=== PATIENT | male | born 1945 | race Caucasian/White ===

== ENCOUNTER 2023-06-20 07:05 | Observation (INO) ==
--- NOTE | 2023-06-20 07:50 | History & Physical Bridge Note ---
Date of Service June 20, 2023 History & Physical Bridge Note I have examined the patient, reviewed the History & Physical and in the interval since the performance of the History & Physical I have noted the following changes of clinical significance: no changes noted
--- NOTE | 2023-06-20 07:51 | Pre Anesthesia Assessment ---
Date of Service June 20, 2023 Pre Sedation Assessment Vital Signs Temp 06/20/23 07:19 36.7 C Cardiovascular + regular rate and + regular rhythm + S1 normal and + S2 normal; no murmur + femoral pulses present and + radial pulses present; no JVD and no carotid bruit no edema Respiratory + respiratory effort normal; no respiratory distress, no labored breathing and no retractions + clear to auscultation bilaterally; no crackles, no rales, no rhonchi and no wheezes Pre-Sedation Airway Assessment Smoking Status: Former smoker Hx Sleep Apnea: No Short, Thick Neck: No Thyromental Distance: > or= 3.5 Finger Breadths Oral Cavity: + Chipped Teeth Mallampati Class: II ASA: ASA3 NPO Status Date of Last Intake of Fluids: 06/19/23 Date of Last Intake of Solid Food: 06/19/23 Procedure Planning Contraindications for Sedation: none Current Medications Reviewed: Yes Notes The planned sedation has been discussed with the patient. Informed Consent was obtained. I have identified the patient, determined the appropriateness of sedation and have assessed the patient immediately prior to the procedure. All medicine(s) and interventions are by my order.
[2023-06-20] MEDS: NITROGLYCERIN/D5W 100MCG/ML 20ML SYR ONE (08:41)
[2023-06-20] MEDS: niCARdipine HCL INJ 2.5 MG/ML 10 ML AMP ONE (08:42)
--- NOTE | 2023-06-20 09:00 | Post Anesthesia Assessment ---
Date of Service June 20, 2023 Post Sedation Assessment Vital Signs Temp Pulse Resp BP Pulse Ox O2 Del Method 06/20/23 11:43 53 L 16 174/75 H 98 Room Air 06/20/23 11:00 55 L 16 158/84 H 97 Room Air 06/20/23 10:45 62 16 169/76 H 97 Room Air 06/20/23 10:30 56 L 16 152/83 H 97 Room Air 06/20/23 10:15 52 L 16 139/74 98 Room Air 06/20/23 10:00 75 16 130/107 H 96 Room Air 06/20/23 07:19 36.7 C Recovery Score Respiration: Deep Breath/Cough Circulation: +/-20% PreAnes Value Consciousness: Arouseable (by name) Oxygen Saturation: > 92% On Room Air Discharge Sedation Level of Care: Phase I Post Sedation Plan On clinical assessment, the patient appears to have tolerated the sedation without complications. Patient is recovering as anticipated. Patient will continue to be monitored by nursing and may be discharged when sedation discharge criteria are met per below protocol. Upon Completions of procedure up to 15 minutes continue every 5 minute vital signs and the P.A.R. score; then discharge to a Phase I or Fast Track to Phase II per the following guidelines: * Discharge Patient to appropriate Phase II area if PAR is 8 or greater or return to pre- procedure baseline. The post - procedure orders will be as directed. * If PAR score is less than 8 or not return to pre-procedure baseline then patient will follow Phase I monitoring till PAR is reached for Phase II. The Phase I may be done in procedure room or may call to secure a Phase I area. * If naloxone or flumazenil are used for reversal, hold in Phase I for continued monitoring from when last reversal dose was given for a minimum of 60 minutes or longer pending the nurse and/or physician discretion of patient condition before discharge to Phase II. Please call the Sedation Physician to re-evaluate and complete post-note for discharge to Phase II area. Do NOT discharge from procedure sedation or Phase 1 until post- sedation evaluation note is complete by procedure /sedation MD Sedation Discharge Instructions to be given to the patient at discharge to home.
--- NOTE | 2023-06-20 09:10 | Cardiac Catheterization ---
Cardiac Cath Procedure Full Procedure Date June 20, 2023 Pre-Procedure Diagnosis Pre-Procedure Diagnosis: Positive Stress Test and Cardiothoracic Symptom AUC Score AUC Score: 7 Post-Procedure Diagnosis Post-Procedure Diagnosis: Severe CAD and Elevated Intracardiac Pressures Procedure(s) Performed Procedure(s) Performed: Coronary Angiography and Left Heart Cath Planer Stone Per Serrano DO Pulp Refiner Operator(s) Izzy INVENTORY ASSOCIATE Estimated Blood Loss Estimated Blood Loss: 5cc Medication(s) Medication(s): Fentanyl, Heparin, Lidocaine 1%, Nicardipine, Nitroglycerin and Versed Summary of Findings 100% chronic mid RCA occlusion with bridging and left to right collaterals. 50% mid LAD 40% proximal left circumflex Hemodynamics Rest Ao:: 119/54/89 Final Ao: 150/65/97 LV: 146/-5/17 Recommendations Recommendations: Management Recommendatons (FFR of 50% LAD) Radiation Exposure (mGy) 1006 Contrast (mls) 30 Fluids (cc crystalloids) Fluids (cc crystalloids): 80 Nss Drains Drains: N/A Anesthesia Moderate sedation. Start 0815. End 0843. Sedation monitor: Phil BILLINGS Procedural Complication(s) None Disposition Patient remained in Print Shop Helper for further evaluation of mid LAD stenosis. I attest to the content of the Intraoperative Record and any orders documented therein. Any exceptions are noted below. ACC Data: Print Shop Helper Cardiac Status Clinical evaluation leading to the procedure 77-year-old male with intermittent chest burning and recent ER visits due to uncontrolled hypertension/hypertensive urgency. Exercise stress echo demonstrating apical, and apical septal ischemia. CAD Presenation: Stable angina Anginal Classification: CCS II Heart Failure: No Imaging Studies Past 6 Months: Yes Stress Studies Past 6 Months: Yes Stress Echocardiogram: Yes - Positive and Risk/Extent of Ischemia (High) Coronary Anatomy Dominant: Right Left Main (% Stenosis): Normal LAD (% Stenosis): Mid (50%) and Distal (Luminal irregularities 10-20%, left to right collaterals) D1 (% Stenosis): Normal D2 (% Stenosis): Normal Circumflex (% Stenosis): Proximal (40%) OM1 (% Stenosis): Mid (Luminal irregularities, 10-20% large vessel, bifurcates distally) L PL1 (% Stenosis): Normal RCA (% Stenosis): Ostial (30%), Proximal (Moderate diffuse disease, 30%) and Mid (100% with bridging collaterals) R PDA (% Stenosis): Normal R PL1 (% Stenosis): Normal (small vessel) Diagnostic Physicians Name: Per Serrano DO Closure Device Percutaneous Entry Location: Radial Closure Device: Radial Band Recommendations: Management Recommendatons (FFR of 50% LAD) Intraprocedure Events Significant Disection: No Perforation: No
[2023-06-20] MEDS: fentaNYL citrate PF 100 MCG/2 ML VIAL ONE (09:51)
[2023-06-20] MEDS: HEPARIN (PORCINE) 1000 UNIT/ML 10 ML (CATH LAB USE ONLY) ONE ×2 (09:51→09:52)
[2023-06-20] MEDS: MIDAZOLAM HCL 1 MG/ML 2ML VIAL ONE ×2 (09:51→09:52)
[2023-06-20] MEDS: TICAGRELOR 90 MG TAB ONE (09:52)
[2023-06-20] MEDS: OPTIRAY 350 ONE (09:52)
--- NOTE | 2023-06-20 10:07 | Post Anesthesia Assessment ---
Date of Service June 20, 2023 Post Sedation Assessment Vital Signs Temp 06/20/23 07:19 98.1 F Recovery Score Activity: Moves 4 extremities Respiration: Deep Breath/Cough Circulation: +/-20% PreAnes Value Consciousness: Arouseable (by name) Oxygen Saturation: > 92% On Room Air Discharge Sedation Level of Care: Fast Track Phase II Post Sedation Plan On clinical assessment, the patient appears to have tolerated the sedation without complications. Patient is recovering as anticipated. Patient will continue to be monitored by nursing and may be discharged when sedation discharge criteria are met per below protocol. Upon Completions of procedure up to 15 minutes continue every 5 minute vital signs and the P.A.R. score; then discharge to a Phase I or Fast Track to Phase II per the following guidelines: * Discharge Patient to appropriate Phase II area if PAR is 8 or greater or return to pre- procedure baseline. The post - procedure orders will be as directed. * If PAR score is less than 8 or not return to pre-procedure baseline then patient will follow Phase I monitoring till PAR is reached for Phase II. The Phase I may be done in procedure room or may call to secure a Phase I area. * If naloxone or flumazenil are used for reversal, hold in Phase I for continued monitoring from when last reversal dose was given for a minimum of 60 minutes or longer pending the nurse and/or physician discretion of patient condition before discharge to Phase II. Please call the Sedation Physician to re-evaluate and complete post-note for discharge to Phase II area. Do NOT discharge from procedure sedation or Phase 1 until post- sedation evaluation note is complete by procedure /sedation MD Sedation Discharge Instructions to be given to the patient at discharge to home.
--- NOTE | 2023-06-20 10:07 | Cardiac Catheterization ---
[facility] Data: Geophysical Prospecting Permit Agent Cardiac Status Clinical evaluation leading to the procedure CAD Presenation: Positive Stress Test Anginal Classification: CCS III Diagnostic Physicians Name: Pranay Johnson MD Closure Device Recommendations: PCI without planned CABG Cardiac Cath Procedure Full Procedure Date June 20, 2023 Pre-Procedure Diagnosis Pre-Procedure Diagnosis: Positive Stress Test and CAD AUC Score AUC Score: 7 Post-Procedure Diagnosis Post-Procedure Diagnosis: Severe CAD and Successful PCI Procedure(s) Performed Procedure(s) Performed: Coronary Angiography, Drug Eluting Stent, IVUS and Fractional Flow [place] [employer] Cl[employer] Teacher Pranay Johnson MD Hospitality Manager(s) Izzy FIBERGLASS AUTOBODY REPAIRER Estimated Blood Loss Estimated Blood Loss: 20 Medication(s) Medication(s): Fentanyl, Heparin, Lidocaine 1%, Nicardipine, Nitroglycerin and Versed Medication(s): Ticagrelor Summary of Findings Indication: Abnormal stress test Access: 6 Fr right radial artery Catheters: EBU 3.5 guide Findings: For full details of patient's coronary angiography please see cath report dictated by Dr. Serrano. Briefly, patient found to have multivessel disease with RCA EQUIPMENT SERVICE LEAD with bridging right to right and [id number] collaterals. Also found to have intermediate mid LAD disease. Decision to proceed with IFR and possible PCI.. IFR of LAD Left main cannulated with EBU 3.5 guide [place] Omni wire placed across mid LAD stenosis IFR 0.71 -- PCI -- Antithrombotic therapy: Heparin, ticagrelor Procedure: Pre-procedure flow MICHELE 3 Omni wire removed, ferryboat pilot 50 wire passed across lesion into distal vessel [place] IVUS catheter placed to mid LAD, unable to pass across mid stenosis. Pullback revealed mild calcified proximal disease, no significant left main disease. Mid LAD lesion predilated with 2.5 compliant balloon Repeat IVUS following balloon dilation showed calcified, circumferential disease in midportion Dilated lesion stented with 3.0 x 22 mm [place]rick drug-eluting stent Stent post-dilated with 3.5 noncompliant balloon Repeat IVUS showed well-expanded, well apposed stent with no apparent edge complications. IC vasodilators administered for spasm Post procedure MICHELE 3 flow, stent well expanded with minimal residual stenosis and no apparent cardiac complications. Arterial Closure: TR band Summary: 1. Multivessel coronary artery disease Severe mid LAD disease (IFR 0.71) RCA EQUIPMENT SERVICE LEAD with bridging right to right and left to right collaterals. 2. Successful PCI of mid LAD with single drug-eluting stent (3.0 x 22 mm [place]; postdilated with 3.5 NC). Recommendations: To PCU for continued monitoring Loaded with ticagrelor 180 mg in Geophysical Prospecting Permit Agent Relative aspirin intolerance and will continue on antiplatelet monotherapy with ticagrelor for 1 month then transition to clopidogrel Continue statin, and ASCVD risk factor modification Consult cardiac Rehab Hemodynamics Rest Ao:: 119/54/89 Final Ao: 127/58/92 LV: 146/17 Recommendations Recommendations: PCI without planned CABG Specimens Specimens: None Radiation Exposure (mGy) 3161 Contrast (mls) 170 Fluids (cc crystalloids) Fluids (cc crystalloids): 80 Nss Anesthesia Moderate sedation. Start 0843. End 0951. Sedation monitor: Phil BILLINGS Procedural Complication(s) None Disposition PCU I attest to the content of the Intraoperative Record and any orders documented therein. Any exceptions are noted below. [facility] Card Cath Procedure Codes Cardiac Catheterization Procedure 2: Cardiovascular Cath Procedures: 33085 (Doppler) Pressure Wire Therapeutic Services & Ancillary Procedure 1: Cardiovascular Tx and Anc Procedures: 15784 IV Ultrasound (Coronary or Graft) Moderate Sedation Procedure 1: Sedation/Anesthesia: 12605 Mod Sedation by the same physician; Ea [id number] Minutes Stenting Procedure 1: Cardiovascular Stent Procedures: 22339 Perc transcatheter placement of intracoronary stent(s), with ang PG Care Time/CCT Total # of Minutes Spent Total Time Spent with Patient: Total time spent is greater than 50% in coordination of care (as documented) at patient's floor/unit and/or counseling patient:
[2023-06-20] MEDS ORDERED: ACETAMINOPHEN 325 MG TAB PO PRN (10:12)
[2023-06-20] MEDS ORDERED: ONDANSETRON INJ 2 MG/ML 2 ML VIAL IV PRN ×2 (10:12→10:47)
--- OUTSIDE RECORDS SUMMARY | 2023-06-20 10:19 | External Medical Summary | Summary of Care ---
Author Name Unknown Organization [facility] Address [address] [place] [address] Phone [phone] Care Team Providers Care Advanced Manufacturing Consultant Name Role Phone Jorge Zhao MD Primary Care Provider Reason for Visit * Reason Comments Anxiety Encounter Details Date Type Department Care Team (Late st Contact Info) Description 06/15/2023 10:00 AM EDT Therapy Psychology, [address] [address] Danica Stover, [facility] [address] [place] [address] Anxiety disorder, unspecified type* Allergies Active Allergy Reactions Criticality Noted Date Comments Clarithromycin 04/02/2001 ? Rash. Tolerates azithromycin on multiple occasions Doxycycline 09/27/1999 Rash documented as of this encounter (statuses as of 06/15/2023) Medications Medication Sig Dispensed Refills Start Date End Date Status MULTIVITAMINS PO TABS 1 a day 30 0 04/25/2007 Active vitamin c (ASCORBIC ACID) 500 MG Tablet Take 2 Tablets by mouth in the morning. 0 Active Calcium Magnesium Zinc 333-133-5 MG Oral Tablet Take 1 Tablet by mouth daily. 1 Tablet 0 02/19/2021 Active Saw [place] 1000 MG Oral Capsule Take by mouth . 0 Acti ve Olopatadine HCl 0.6 % Nasal Solution (Patanase) Administer 2 Sprays into nostril in the morning and 2 Sprays before bedtime. 30.5 g 5 04/25/2022 Active Additional Information Patient taking differently:2 [place] NasalBID PRN, Rhinitis, Reported on 05/22/2023 Famotidine 20 MG Oral Tablet (Pepcid)Indications :Gastroesophageal reflux disease without esophagitis Take 1 Tablet by mouth in the morning and 1 Tablet before bedtime. 180 Tablet 1 12/12/2022 Active Additional Information Patient taking differently:20 mg OralBID PRN, Heartburn, Reported on 05/22/2023 Pantoprazole Sodium 40 MG Oral Tablet Delayed Release (Protonix)Indicatio ns:Gastroesophageal reflux disease without esophagitis Take 1 Tablet by mouth in the morning. 30 minutes before the first meal of the day. Do not crush, split or chew the tablet. 90 Tablet 1 12/12/2022 Active Additional Information Patient taking differently:40 mg OralDAILY PRN, 30 minutes before the first meal of the day. Do not crush, split or chew the tablet, Reported on 05/22/2023 Gabapentin 100 MG Oral Capsule (Neurontin) TAKE 2 CAPSULES BY MOUTH IN THE EVENING 180 Capsule 1 01/12/2023 Active Rosuvastatin Calcium 5 MG Oral Tablet (Crestor) Take 1 Tablet by mouth in the morning. 90 Tablet 3 03/08/2023 Active methylPREDNISolone 4 MG Oral Tablet Therapy Pack (Medrol Dosepack) follow package directions 21 Tablet 0 03/23/2023 Active Additional Information Patient not taking.Reported on 05/22/2023 busPIRone HCl 5 MG Oral Tablet (Buspar)Indications :BREANNA (generalized anxiety disorder) One tablet by mouth twice daily as needed for anxiety 60 Tablet 1 03/27/2023 Active Albuterol Sulfate HFA 108 (90 Base) MCG/ACT Inhalation Aerosol SolutionIndications :Mild intermittent asthma without complication Inhale 2 Puffs by mouth every 4 hours as needed (cough or wheeze). 18 g 2 03/27/2023 Active Sucralfate 1 GM Oral Tablet (Carafate) Take 1 Tablet by mouth 4 times a day before meals and at bedtime as needed (stomach symptoms.). 120 Tablet 3 04/27/2023 Active Latanoprost 0.005 % Ophthalmic Solution (Xalatan) Instill 1 Drop into both eyes at bedtime. 2.5 mL 5 05/03/2023 Active prednisoLONE Acetate 1 % Ophthalmic Suspension (Pred Forte)Indications:C hronic maxillary sinusitis Use 10 drops in NeilMed Saline nasal irrigation two times a day. 5 mL 4 05/09/2023 Active Additional Information Patient taking differently: PRN, Use 10 drops in NeilMed Saline nasal irrigation two times a day., Reported on 05/22/2023 Metoprolol Succinate ER 25 MG Oral Tablet Extended Release 24 Hour (Toprol XL) Take 1 Tablet by mouth in the morning. 34 Tablet 6 05/22/2023 Active Ezetimibe 10 MG Oral Tablet (Zetia) TAKE 1 TABLET BY MOUTH IN THE MORNING 90 Tablet 3 06/02/2023 Active Losartan Potassium 25 MG Oral Tablet (Cozaar) Take 1 Tablet by mouth in the morning. 34 Tablet 11 06/02/2023 Active Clopidogrel Bisulfate 75 MG Oral Tablet (pLAVix) Take 1 Tablet by mouth in the morning. 34 Tablet 11 06/02/2023 Active Hospital, Clinic, or Other Facility Administered Medication Ordered Dose Route Frequency Start Date End Date Status Albuterol Sulfate (Proventil) (2.5 MG/3ML) 0.083% inhalation solution 2.5 mgIndications:Shortness of breath 2.5 mg NEBULIZER ONCE PRN 03/27/2023 03/26/2024 Active documented as of this encounter (statuses as of 06/15/2023) Active Problems Problem Noted Date Diagnosed Date PVC (premature ventricular contraction) 01/25/20 23 Mixed dyslipidemia 09/19/2016 Mild intermittent asthma without complication Ascending aorta dilation 09/08/2014 DDD (degenerative disc disease), lumbar 01/01/20 13 Gastroesophageal reflux disease without esophagi tis 06/07/2004 Deviated nasal septum 05/28/2003 Irritable bowel syndrome documented as of this encounter (statuses as of 06/15/2023) Resolved Problems Problem Noted Date Diagnosed Date Resolved Date Dysthymia 03/30/2020 03/14/2021 Thrombophlebitis of superfic ial veins of left lower extremity 01/03/2019 02/12/2019 Myofascial pain 05/07/2018 12/31/2018 Overview: acute Sacroiliitis 04/23/2018 03/25/2019 Prediabetes 04/25/2017 08/04/2019 Overview: Per Prediabetes protocol #1 Gastroesophageal reflux dise ase without esophagitis 10/21/2014 09/19/2016 Ascending aortic aneurysm 09/08/2014 Ureter injury 02/27/2014 09/19/2016 Intermittent asthma with rel iever use up to twice per week 12/31/2012 10/21/2014 Hyperlipidemia with target LDL less than 130 3 10/21/2014 Overview: ICD-10 update of inactive term Asthma, mild persistent 09/28/201212/12 C. difficile colitis 10/01/2011 017 Dyslipidemia, goal to be determined 02/17/2009 05/29/2012 Overview: Per Lipid Taxonomy. Impotence of organic origin 05/15/2008 08/04/2019 ADVANCE DIRECTIVE INFORMATION 02/09/2006 12/17/2018 Overview: no ALLERGIC RHINITIS - MIXED TYPE 05/28/2003 12/31/2018 Overview: acute CHR ALLRG CONJUNCTIV NEC 05/28/200312/2016 Asthma with severity to be determined 05/28/2003 09/28/2012 Overview: ICD-10 update of inactive term Mixed dyslipidemia 01/08/1999 9 Overview: Per Lipid Taxonomy. Esophageal reflux 10/21/2014 documented as of this encounter (statuses as of 06/15/2023) Immunizations Name Administration Dates Next Due COVID-19 mRNA, LNP-s, No Pre serve, 2-Dose Series (NexImmune) 03/31/2021,07/19/2020,06/25/2020 Pneumococcal Conjugate Vacc, 13 Valent (Prevnar) 09/21/2015 Pneumococcal Polysaccharide PPV23 (Pneumovax) 09/27/2011 RSV Vac., Bivalent, Perfusio n F, Pf,0.5 Ml (Abrysvo) 03/15/2023 Season Influenza, Quad, PF, Adjuvanted, 65+ Yrs, IM (FLUAD) 01/15/2020 Seasonal Influenza, PF, 6 M & above, IM , (FluLaval or Fluzone) 12/13/2017,05/09/2017 Seasonal Influenza, Quadriva lent Hd (Fluzone Hd) 11/16/2022,12/07/2021,01/08/2021 Seasonal Influenza, Trivalen t, Adjuvanted, 65+ yrs 11/23/2018 TDAP (age 10 and older)(Boostrix) 11/16/2018 TDAP (age 11 and older)(Adacel) 07/25/2008 documented as of this encounter Social History Tobacco Use Types Packs/Day Years Used Date Smoking Tobacco: Never Smokeless Tobacco: Never Comments:no passive smoke at home Alcohol Use Standard Drinks/Week Comments Not Currently 0 (1 standard drink = 0.6 oz pur e alcohol) PHQ-2 Answer Date Recorded PHQ Adult Total Score 0 12/12/2022 Hunger Vital Sign Answer Date Recorded Within the past 12 months, y ou worried that your food would run out before you got the money to buy more. Never true 04/24/19 24 Within the past 12 months, t he food you bought just didn't last and you didn't have money to get more. Never true 04/24/2023 Sex and Gender Information Value Date Recorded Sex Assigned at Male 12/17/2018 1:24 PM EDT Gender Identity Male 12/17/2018 1:24 PM EDT Sexual Orientation Straight 12/17/2018 1: 24 PM EDT Job Start Date Occupation Industry Not on file Not on file Not on file documented as of this encounter Progress Notes * Danica Stover, KD - 06/15/2023 9:58 AM EDT Images from the original note were not included. PRIMARY CARE BEHAVIORAL HEALTH FOLLOW-UP 06/15/2023 Length of visit: 45 minutes (10:00am - 10:55am) Type of Visit: individual Treatment session number: 3 AGENDA & ACTION PLAN: 06/15/23- Miko was oriented and engaged. Miko reports that he is making progress. He has started to look at things differently. Miko continues to monitor blood pressure and reports that it has been more level. Miko states that he is not an immediate threat to himself or anyone else at this time. Explored thoughts and concerns about depression- lack of interest in business, irritability, feeling down for a couple of days after marjorie leaves. Continued to talk through the event of the changes with grandson in terms of grief and loss to understand emotional roller coaster after grandson leaves. Explored more anxious thoughts and base line of anxiety. Identified some base line anxiety occurring before changes with grandkristen occurred and his health. Nothing that presented problematic but with two major event occurring at the same time impacted anxiety as well as catastrophizing Identified unhelpful behaviors that add to and increase anxiety such as searching the internet. Put into perspective worry about Miko's feelings about grief and feeling like it was not normal. Plan: Follow up with Miko and health results. Processed emotions to changes with grandson Optional: Interventions addressed in treatment thus far: Treatment/Intervention Visit 06/15/2023 1 2 3 4 5 6 Behavioral activation Behavior modification for poor health behaviors (e.g., smoking cessation) Breathing re-training mindfulness training Cognitive restructuring/diffusion Exercise/physical activity Problem-solving Psychoeducation X Exposure and/or response prevention Supportive therapy X Sleep hygiene Stimulus control Time in bed restriction Conduct WHO ([facility],MTM) Adult [facility] Therapy Treatment Plan Treatment plan was developed on 05/30/23, treatment will continue to focus on goals below; Treatment update will occur when clinically indicated or by 11/26/2023. Reasons for deferring a goal or the objectives leading toward or related to a goal are documented in the progress note. Patient received copy of treatment plan: Patient seen in clinic, signature page signed electronically Patient's strengths and facilitating factors to care: Seeking help, Goal Oriented, Good support system, and Cooperative Individuals responsible for carrying out plan: Patient Expected family or significant other involvement: Not applicable Treatment Barriers: none identified Crisis planning: What I can do if I ever experience a crisis (much worse symptoms, severe distress or thoughts of self-harm): Take a walk, go do something work on something, ride horse People I can call in the event of a crisis: Spouse/partner/significant other: Additional resources I can utilize if the previous steps are ineffective (e.g: ED, hotlines): County Crisis Contact Estimated frequency of treatment Estimated duration Estimated Completion Type of Service Interventions approximately every 2-4 weeks 5-7 sessions 6 months Individual Cognitive Behavioral Therapy (CBT), which includes psychoeducation, cognitive restructuring, relaxation/diaphragmatic breathing, problem-solving, and behavioral activation and Acceptance & Commitment Therapy (ACT), including acceptance, cognitive defusion, being present, values, and committed action Patient was asked to rate how big of a problem each target symptom is, from 0 (not at all a problem) to 10 (a huge problem) Patient identified Goals/Needs "To try and domsething for my irritable bowel and not to have all the symptoms of stress and anxiety all the time" Objective/Discharge Criteria Need 1: Reduce symptoms of depression and anxiety as measured by the PHQ-9 and BREANNA-7 (see below) Other: Reduce anxiety by half Please choose a method to track patient's improvement based on clinical assessment: Date 05/30/23 PHQ 4 BREANNA-7 11 #9 0 Discharge Discussed with patient: Patient is not ready for discharge Is this the patients' initial treatment plan? Yes MENTAL STATUS EXAMINATION: No changes to mental status since last visit. No change in suicide or homicide risk status since last visit. Level of suicide completion risk:Low Risk (wish to or ideation without method, intent, plan, orbehavior; modifiable risk factors and strong protective factors; or no reported history of ideationor behavior): Pt has agreed to return for further psychotherapy. DIAGNOSES Unspecified Anxiety Disorder RETURN 3 WEEKS for individual cognitive behavioral therapy. Danica Stover LCSW Primary Care Behavioral Health Psychology, [address] [phone] documented in this encounter Plan of Treatment Upcoming Encounters Date Type Department Care Team (Late st Contact Info) Description 07/04/2023 10:00 AM EDT Office Visit Cardiology, [facility] [address] [place] [address] Per Serrano DO [address] [place] [address] 07/05/2023 2:00 PM EDT Therapy Psychology, [place] [facility] [phone] Danica Stover LCSW [address] [place] [address] 07/17/2023 2:40 PM EDT Office Visit Family [address] [place] [address] Jorge Zhao MD [address] [place], [place] [address] [place] [address] 08/01/2023 11:00 AM EDT Office Visit Cardiology, [facility] [address] [facility] [place] [address] Meaghan Hargrove PA-C [address] [place] [address] 09/19/2023 9:00 AM EDT Office Visit Psychiatry, [place] [address] [place] [address] Treasure Mcclain CRNP [address] [facility] [place] [address] 09/21/2023 10:30 AM EDT Office [facility] [address] [place] [address] [place] [address] Rosas Caba MD [address] [place] [place] [address] 09/29/2023 8:15 AM EDT Office Visit Ophthalmology, [place] [address] [place] [address] García Winston MD [address] [place] [address] 10/04/2023 8:20 AM EDT Office Visit Dermatology [facility] [place] [address] [place] [address] Vilma Burris PA-C [address] [place] [address] 10/24/2023 9:00 AM EDT Hospital Encounter ENDO GECL, Endoscopy [address] [phone] Fidencio Hall MD [address] [place] [address] 10/24/2023 9:00 AM EDT - 10/24/2023 9:45 AM EDT Surgery ENDO GECL, Endoscopy [address] [phone] Fidencio Hall MD [address] [place] [address] COLONOSCOPY FLEXIBLE PROXIMAL DIAGNOSTIC 11/07/2023 10:40 AM EDT Office Visit Otolaryngology, [place] [address] [place] [address] Saúl Yu PA-C [address] [place] [address] Scheduled Procedures Name Priority Associated Diagnoses Date/Ti me COLONOSCOPY FLEXIBLE PROXIMA L DIAGNOSTIC Recall History of colonic polyps Irritable bowel syndrome with constipation GERD (gastroesophageal reflux disease) 10/24/2023 9:00 AM EDT ESOPHAGOGASTRODUODENOSCOPY ( EGD), FLEXIBLE, TRANSORAL, DIAGNOSTIC Recall History of colonic polyps Irritable bowel syndrome with constipation GERD (gastroesophageal reflux disease) 10/24/2023 9:00 AM EDT Health Maintenance Due Date Last Done Comments Zoster Vaccines (1 of 2) 1996 COVID-19 Vaccine (4 - 2022-24 season) 2022 03/31/2021, 07/19/2020, 06/25/2020 Depression Screening 12/13/2023 12/12/2022 COLONOSCOPY-EVERY 5 YRS AGES 18-100 10/12/2025 10/12/2020, 10/12/2020, 02/07/2012, Additional history exists DTaP,Tdap,and Td Vaccines (3 - Td or Tdap) 11/16/2028 11/16/2018, 07/25/2008 Pneumococcal Vaccine: 65+ Years Completed 09/21/2015, 09/27/2011 Influenza Vaccine (FLU shot) Completed 08/2022, 12/07/2021, 01/08/2021, Additional history exists GARDASIL-HPV IMMUNIZATION SERIES Aged Out No longer eligible based on patient's age to complete this topic Hepatitis B Aged Out No longer eligi ble based on patient's age to complete this topic MENINGOCOCCAL (MENACTRA/MENVEO) Aged Out No longer eligible based on patient's age to complete this topic documented as of this encounter Medical Devices Not on filedocumented as of this encounter Visit Diagnoses Diagnosis Anxiety disorder, unspecified type- Primary History of colonic polyps Personal history of colonic polyps Irritable bowel syndrome with constipation Irritable bowel syndrome GERD (gastroesophageal reflux disease) Esophageal reflux documented in this encounter Care Teams Advanced Manufacturing Consultant Relationship Specialty Start Date End Date Jorge Zhao MD [facility] [address] [address] PCP - General Family Medicine 08/02/19 documented as of this encounter
--- OUTSIDE RECORDS SUMMARY | 2023-06-20 10:19 | External Medical Summary | Summary of Care ---
Author Name Unknown Organization [facility] Address [address] [place] [address] Phone [phone] Care Team Providers Care Entry Level Staff Accountant Name Role Phone Jorge Zhao MD Primary Care Provider Reason for Visit * Reason Comments EKG EKG for Dr. Serrano Encounter Details Date Type Department Care Team (Late st Contact Info) Description 06/09/2023 3:00 PM EDT Nurse Only Ancillary, [place] [id number] [place] [address] [phone] Page, Nurse, RN [facility] [address] [place] [phone] EKG (EKG for Dr. Serrano) Allergies Active Allergy Reactions Criticality Noted Date Comments Clarithromycin 04/02/2001 ? Rash. Tolerates azithromycin on multiple occasions Doxycycline 09/27/1999 Rash documented as of this encounter (statuses as of 06/09/2023) Medications Medication Sig Dispensed Refills Start Date End Date Status MULTIVITAMINS PO TABS 1 a day 30 0 04/25/2007 Active vitamin c (ASCORBIC ACID) 500 MG Tablet Take 2 Tablets by mouth in the morning. 0 Active Calcium Magnesium Zinc 333-133-5 MG Oral Tablet Take 1 Tablet by mouth daily. 1 Tablet 0 02/19/2021 Active Saw [place] 1000 MG Oral Capsule Take by mouth . 0 Acti ve Olopatadine HCl 0.6 % Nasal Solution (Patanase) Administer 2 Sprays into nostril in the morning and 2 Sprays before bedtime. 30.5 g 5 04/25/2022 Active Additional Information Patient taking differently:2 [place] NasalBID PRN, Rhinitis, Reported on 05/22/2023 Famotidine [...] as of this encounter (statuses as of 06/09/2023) Active Problems Problem Noted Date Diagnosed Date PVC (premature ventricular contraction) 01/25/20 23 Mixed dyslipidemia 09/19/2016 Mild intermittent asthma without complication Ascending aorta dilation 09/08/2014 DDD (degenerative disc disease), lumbar 01/01/20 13 Gastroesophageal reflux disease without esophagi tis 06/07/2004 Deviated nasal septum 05/28/2003 Irritable bowel syndrome documented as of this encounter (statuses as of 06/09/2023) Resolved Problems Problem Noted Date Diagnosed Date [...] as of this encounter (statuses as of 06/09/2023) Immunizations Name Administration Dates Next Due COVID-19 mRNA, LNP-s, No Pre serve, 2-Dose Series ([employer]) 03/31/2021,07/19/2020,06/25/2020 Pneumococcal Conjugate Vacc, 13 Valent (Prevnar) [...] on file documented as of this encounter Last Filed Vital Signs Vital Sign Reading Time Taken Comments Blood Pressure 146/62 06/09/2023 3:23 PM EDT Pulse 66 06/09/2023 3:23 PM EDT Temperature - - Respiratory Rate 16 06/09/2023 3:23 PM EDT Oxygen Saturation 98% 06/09/2023 3:23 PM EDT Inhaled Oxygen Concentration - - Weight - - Height - - Body Mass Index - - documented in this encounter Progress Notes * Rigoberto Berrios LPN - 06/09/2023 3:23 PM EDT ekg done as per dr's order documented in this encounter Plan of Treatment Upcoming Encounters Date Type Department Care Team (Late st Contact Info) Description 06/15/2023 10:00 AM EDT Therapy Psychology, [place] [address] [place] [phone] Danica Stover LCSW 21 [facility] [place] [address] 07/04/2023 10:00 AM EDT Office Visit Cardiology, [facility] [address] [place] [address] Per Serrano DO [address] [facility] [place] [address] 07/17/2023 2:40 PM EDT Office Visit [address] [place] [address] Jorge Zhao MD [address] [place] [address] [place] [address] 08/01/2023 11:00 AM EDT Office Visit Cardiology [facility] [address] [place] [address] Meaghan Hargrove PA-C [address] [place] [address] 09/19/2023 9:00 AM EDT Office Visit Psychiatry, [place] [facility] [place] [address] Treasure Mcclain CRNP [address] [place] [address] 09/21/2023 10:30 AM EDT Office Visit Orthopaedics Spine Surgery, [address], [place] [address] [place] [address] Rosas Caba MD [address] [facility] [address] [place] [address] [facility] [place] [address] 09/29/2023 8:15 AM EDT Office Visit Ophthalmology, [place] [address] [place] [address] García Winston MD [address] [place] [address] 10/04/2023 8:20 AM EDT Office Visit Dermatology [facility] [address] [place] [address] Vilma Burris PA-C [address] [place] [address] 10/24/2023 9:00 AM EDT Hospital Encounter ENDO GECL, Endoscopy [address] [phone] Fidencio Hall MD [address] [place] [address] 10/24/2023 9:00 AM EDT - 10/24/2023 9:45 AM EDT Surgery ENDO GECL, Endoscopy [address] [phone] Fidencio Hall MD [address] [place] [address] COLONOSCOPY FLEXIBLE PROXIMAL DIAGNOSTIC 11/07/2023 10:40 AM EDT Office Visit [place]ology, [place] [address] [place] [address] Saúl Yu PA-C [address] [place] [address] Scheduled Procedures Name Priority Associated Diagnoses Date/Ti [...] Vaccines (1 of 2) 1996 COVID-19 Vaccine ( season) 2022 03/31/2021, 07/19/2020, 06/25/2020 Depression Screening [...] Not on filedocumented as of this encounter Care Teams Entry Level Staff Accountant Relationship Specialty Start Date End Date Jorge Zhao MD [address] [facility] [address] [place] [address] PCP - General Family Medicine 08/02/19 documented as of this encounter
--- OUTSIDE RECORDS SUMMARY | 2023-06-20 10:19 | External Medical Summary | Summary of Care ---
Author Name Unknown Organization [facility] Address [address] [place] [address] Phone [phone] Care Team Providers Care Inset Cutter Name Role Phone Jorge Zhao MD Primary Care Provider Reason for Visit * Reason Onset Date Comments Test Results 06/15/2023 Encounter Details Date Type Department Care Team (Late st Contact Info) Description 06/15/2023 Telephone Cardiology, [facility] [address] [facility] [address] Per Serrano, DO [address] [facility] [address] Test Results Allergies Active Allergy Reactions Criticality Noted Date [...] daily. 1 Tablet 0 02/19/2021 Active Saw [place] 1000 MG Oral Capsule Take by mouth . 0 Acti ve Olopatadine HCl 0.6 % Nasal Solution (Patanase) Administer 2 Sprays into nostril in the morning and 2 Sprays before bedtime. 30.5 g 5 04/25/2022 Active Additional Information Patient taking differently:2 [place] NasalBID PRN, Rhinitis, Reported on 05/22/2023 Famotidine [...] mRNA, LNP-s, No Pre serve, 2-Dose Series ([employer]) 03/31/2021,07/19/2020,06/25/2020 Pneumococcal Conjugate Vacc, 13 Valent (Prevnar) [...] on file documented as of this encounter Miscellaneous Notes * Telephone Encounter - Dana Madrigal CMA - 06/15/2023 3:59 PM EDT My g sent. * Telephone Encounter - Dana Madrigal CMA - 06/15/2023 3:58 PM EDT ----- Message from Per Serrano DO sent at 06/13/2023 5:06 PM EDT ----- Normal BMP and CBC. documented in this encounter Plan of Treatment Upcoming Encounters Date Type Department Care Team (Late st Contact Info) Description 07/04/2023 10:00 AM EDT Office Visit Cardiology, [facility] [address] [place] [address] Per Serrano DO 132 [facility] [place] [address] 07/05/2023 2:00 PM EDT Therapy Psychology, [place] [address] [place] [facility] [phone] Danica Stover C[employer]TING [employer]ACH[employer] [address] [place] [address] 07/17/2023 2:40 PM EDT Office Visit [place] [address] [place] [address] Jorge Zhao MD [address] [place] [address] [place] [address] 08/01/2023 11:00 AM EDT [facility] [place] [address] Meaghan Hargrove PA-C 132 [facility] [place] [address] 09/19/2023 9:00 AM EDT Office Visit Psychiatry, [place] 21 [place] [address] Treasure Mcclain CRNP [address] [place] [address] 09/21/2023 10:30 AM EDT Office Visit Orthopaedics Spine Surgery, [address], [place] [address] [place] [address] Rosas Caba MD [address] [place] [address] 09/29/2023 8:15 AM EDT Office Visit Ophthalmology, [place] [address] [place] [address] García Winston MD [address] [place] [address] 10/04/2023 8:20 AM EDT Office Visit Dermatology [facility] [address] [place] [address] Vilma Burris PA-C [address] [place] [address] 10/24/2023 9:00 AM EDT Hospital Encounter ENDO GE[facility], Endoscopy [address] [phone] Fidencio Hall MD [address] [place] [address] 10/24/2023 9:00 AM EDT - 10/24/2023 9:45 AM EDT Surgery ENDO GE[facility], Endoscopy [address] [phone] Fidencio Hall MD [address] [place] [address] COLONOSCOPY FLEXIBLE PROXIMAL DIAGNOSTIC 11/07/2023 10:40 AM EDT Office Visit Otolaryngology, [place] [address] [place] [address] Saúl Yu PA-C [address] [place] [address] Scheduled Procedures Name Priority Associated Diagnoses Date/Ti [...] Vaccines (1 of 2) 1996 COVID-19 Vaccine (2022- season) 2022 03/31/2021, 07/19/2020, 06/25/2020 Depression Screening [...] filedocumented as of this encounter Care Teams Inset Cutter Relationship Specialty Start Date End Date Jorge Zhao MD [address] [place] [address] Rte [facility] [place] [address] PCP - General Family Medicine 08/02/19 documented as of this encounter
--- OUTSIDE RECORDS SUMMARY | 2023-06-20 10:19 | External Medical Summary | Summary of Care ---
Author Name Unknown Organization [facility] Address [address] [place] [address] Phone [phone] Care Team Providers Care Lettuce Trimmer Name Role Phone Jorge Zhao MD Primary Care Provider Reason for Visit * Reason Comments EKG EKG for Dr. Serrano Encounter Details Date Type Department Care Team (Late st Contact Info) Description 06/09/2023 3:00 PM EDT Nurse Only Ancillary, [place] [id number] [place] [phone] [place], Nurse, RN [facility] [place] [phone] EKG (EKG for Dr. Serrano) Allergies Active [...] daily. 1 Tablet 0 02/19/2021 Active Saw [place] 1000 MG Oral Capsule Take by mouth . 0 Acti ve Olopatadine HCl 0.6 % Nasal Solution (Patanase) Administer 2 Sprays into nostril in the morning and 2 Sprays before bedtime. 30.5 g 5 04/25/2022 Active Additional Information Patient taking differently:2 [place] NasalBID PRN, Rhinitis, Reported on 05/22/2023 Famotidine [...] mRNA, LNP-s, No Pre serve, 2-Dose Series ([employer]) 03/31/2021,07/19/2020,06/25/2020 Pneumococcal Conjugate Vacc, 13 Valent (Prevnar) [...] Description 06/15/2023 10:00 AM EDT Therapy Psychology, [place] [address] [place] [phone] Danica Stover LCSW 21 [facility] [place] [address] 07/04/2023 10:00 AM EDT Office Visit Cardiology, [facility] [address] [place] [address] Per Serrano DO 132 [facility] [place] [address] 07/17/2023 2:40 PM EDT Office Visit [address] [place] [address] Jorge Zhao MD [address] [place] [address] [place] [address] 08/01/2023 11:00 AM EDT Office Visit Cardiology [facility] [address] [place] [address] Meaghan Hargrove PA-C [address] [place] [address] 09/19/2023 9:00 AM EDT Office Visit [facility]iatry, [place] [facility] [place] [address] Treasure Mcclain CRNP [address] [place] [address] 09/21/2023 10:30 AM EDT Office Visit Orthopaedics Spine Surgery, [address], [place] [address] [place] [address] Rosas Caba MD [address] [facility] [address] [place] [address] 09/29/2023 8:15 AM EDT Office Visit Ophthalmology, [place] [address] [place] [address] García Winston MD [address] [place] [address] 10/04/2023 8:20 AM EDT Office Visit Dermatology [facility] [address] [place] [address] Vilma Burris PA-C [address] [place] [address] 10/24/2023 9:00 AM EDT Hospital Encounter ENDO GECL, Endoscopy [address] [phone] Fidencio Hall MD [address] [place] [address] 10/24/2023 9:00 AM EDT - 10/24/2023 9:45 AM EDT Surgery ENDO GE[facility], Endoscopy [address] [phone] Fidencio Hall MD [address] [place] [address] COLONOSCOPY FLEXIBLE PROXIMAL DIAGNOSTIC 11/07/2023 10:40 AM EDT Office Visit Otolaryngology, [place] [address] [place] [address] Saúl Yu PA-C [address] [place] [address] Scheduled Procedures Name Priority Associated Diagnoses Date/Ti [...] filedocumented as of this encounter Care Teams Lettuce Trimmer Relationship Specialty Start Date End Date Jorge Zhao MD [address] [facility] [address] [place] [address] PCP - General Family Medicine 08/02/19 documented as of this encounter
--- OUTSIDE RECORDS SUMMARY | 2023-06-20 10:20 | External Medical Summary ---
Author Name Unknown Address Unknown Organization K1F:[facility] - [place] [id number] Laboratory Report Ordering Provider Test Date Status SANDRINE LAWLER 06/07/2023 10:07:37 Final Warfarin Therapy
INR: 2 .0-3.0 conventional anticoagulation
INR: 2.5- 3.5 high intensity anticoagulation Observation Date Value Abnormality Reference (Units ) Status PT 06/07/2023 10:07:37 14.0 11.6-15.2 (seconds) Final INR 06/07/2023 10:07:37 1.1 0.8-1.2 Final Performing Location [facility] - [address] [place] [address]
--- OUTSIDE RECORDS SUMMARY | 2023-06-20 10:20 | External Medical Summary | Summary of Care ---
Author Name Unknown Organization [facility] Address [address] [place] [address] Phone [phone] Care Team Providers Care Box Coverer Hand Name Role Phone Jorge Zhao MD Primary Care Provider Reason for Visit * Reason Onset Date Comments Test Results 06/02/2023 Encounter Details Date Type Department Care Team (Late st Contact Info) Description 06/02/2023 Telephone Cardiology, [facility] [address] [place] [address] Per Serrano, DO [address] [facility] [address] Test Results Allergies Active Allergy Reactions Criticality Noted Date Comments Clarithromycin 04/02/2001 ? Rash. Tolerates azithromycin on multiple occasions Doxycycline 09/27/1999 Rash documented as of this encounter (statuses as of 06/07/2023) Medications Medication Sig Dispensed Refills Start Date End Date Status MULTIVITAMINS PO TABS 1 a day 30 0 8 Active vitamin c (ASCORBIC ACID) 500 MG Tablet Take 2 Tablets by mouth in the morning. 0 Active Calcium Magnesium Zinc 333-133-5 MG Oral Tablet Take 1 Tablet by mouth daily. 1 Tablet 0 1 Active Saw [place] 1000 MG Oral Capsule Take by mouth . 0 Acti ve Olopatadine HCl 0.6 % Nasal Solution (Patanase) Administer 2 Sprays into nostril in the morning and 2 Sprays before bedtime. 30.5 g 5 3 Active Additional Information Patient taking differently:2 [place] NasalBID PRN, Rhinitis, Reported on 05/22/2023 Famotidine 20 MG Oral Tablet (Pepcid)Indicatio ns:Gastroesophage al reflux disease without esophagitis Take 1 Tablet by mouth in the morning and 1 Tablet before bedtime. 180 Tablet 1 3 Active Additional Information Patient taking differently:20 mg OralBID PRN, Heartburn, Reported on 05/22/2023 Pantoprazole Sodium 40 MG Oral Tablet Delayed Release (Protonix)Indicat ions:Gastroesopha geal reflux disease without esophagitis Take 1 Tablet by mouth in the morning. 30 minutes before the first meal of the day. Do not crush, split or chew the tablet. 90 Tablet 1 3 Active Additional Information Patient taking differently:40 mg OralDAILY PRN, 30 minutes before the first meal of the day. Do not crush, split or chew the tablet, Reported on 05/22/2023 Gabapentin 100 MG Oral Capsule (Neurontin) TAKE 2 CAPSULES BY MOUTH IN THE EVENING 180 Capsule 1 3 Active Rosuvastatin Calcium 5 MG Oral Tablet (Crestor) Take 1 Tablet by mouth in the morning. 90 Tablet 3 3 Active methylPREDNISolon e 4 MG Oral Tablet Therapy Pack (Medrol Dosepack) follow package directions 21 Tablet 0 4 Active Additional Information Patient not taking.Reported on 05/22/2023 busPIRone HCl 5 MG Oral Tablet (Buspar)Indicatio ns:BREANNA (generalized anxiety disorder) One tablet by mouth twice daily as needed for anxiety 60 Tablet 1 4 Active Albuterol Sulfate HFA 108 (90 Base) MCG/ACT Inhalation Aerosol SolutionIndicatio ns:Mild intermittent asthma without complication Inhale 2 Puffs by mouth every 4 hours as needed (cough or wheeze). 18 g 2 4 Active Sucralfate 1 GM Oral Tablet (Carafate) Take 1 Tablet by mouth 4 times a day before meals and at bedtime as needed (stomach symptoms.). 120 Tablet 3 4 Active Latanoprost 0.005 % Ophthalmic Solution (Xalatan) Instill 1 Drop into both eyes at bedtime. 2.5 mL 5 4 Active prednisoLONE Acetate 1 % Ophthalmic Suspension (Pred Forte)Indications :Chronic maxillary sinusitis Use 10 drops in NeilMed Saline nasal irrigation two times a day. 5 mL 4 4 Active Additional Information Patient taking differently: PRN, Use 10 drops in NeilMed Saline nasal irrigation two times a day., Reported on 05/22/2023 Metoprolol Succinate ER 25 MG Oral Tablet Extended Release 24 Hour (Toprol XL) Take 1 Tablet by mouth in the morning. 34 Tablet 6 4 Active Losartan Potassium 25 MG Oral Tablet (Cozaar) Take 1 Tablet by mouth in the morning. 34 Tablet 11 4 Active Clopidogrel Bisulfate 75 MG Oral Tablet (pLAVix) Take 1 Tablet by mouth in the morning. 34 Tablet 11 4 Active Ezetimibe 10 MG Oral Tablet (Zetia) Take 1 Tablet by mouth in the morning. 90 Tablet 3 3 06/02/19 24 Discontinued Hospital, Clinic, or Other Facility Administered Medication Ordered Dose Route Frequency Start Date End Date Status Albuterol Sulfate (Proventil) (2.5 MG/3ML) 0.083% inhalation solution 2.5 mgIndications:Shortness of breath 2.5 mg NEBULIZER ONCE PRN 03/27/2023 03/26/2024 Active documented as of this encounter (statuses as of 06/07/2023) Active Problems Problem Noted Date Diagnosed Date PVC (premature ventricular contraction) 01/25/20 23 Mixed dyslipidemia 09/19/2016 Mild intermittent asthma without complication Ascending aorta dilation 09/08/2014 DDD (degenerative disc disease), lumbar 01/01/20 13 Gastroesophageal reflux disease without esophagi tis 06/07/2004 Deviated nasal septum 05/28/2003 Irritable bowel syndrome documented as of this encounter (statuses as of 06/07/2023) Resolved Problems Problem Noted Date Diagnosed Date [...] as of this encounter (statuses as of 06/07/2023) Immunizations Name Administration Dates Next Due COVID-19 mRNA, LNP-s, No Pre serve, 2-Dose Series ([employer]) 03/31/2021,07/19/2020,06/25/2020 Pneumococcal Conjugate Vacc, 13 Valent (Prevnar) [...] encounter Miscellaneous Notes * Telephone Encounter - Catherine House LPN - 06/07/2023 12:17 PM EDT Spoke with patient by phone, gave information in this encounter. Verbalized understanding Agreed to plan of care. * Telephone Encounter - Per Serrano DO - 06/07/2023 7:51 AM EDT Take all GI medications daily. Instruct patient to take clopidogrel with food. * Telephone Encounter - Catherine House LPN - 06/06/2023 3:59 PM EDT Called pt gave info regarding aspirin. He did nut picker prescription for Plavix and has been taking it for the past few days. Says that plavix is causing the same issues as aspirin, burning, acid reflux. Reviewed med list and asked pt if he is taking famotidine, pantoprazole and sucralfate. Pt does nottake both famotidine and pantoprazole together every day. Takes one or the other. Uses sucralfate as needed. He is asking if he should take, one, or all with the plavix. * Telephone Encounter - Per Serrano DO - 06/06/2023 3:43 PM EDT Patient may hold aspirin. Please confirm patient obtain prescription for clopidogrel 75 mg daily. * Telephone Encounter - Danny Rahman LPN - 06/05/2023 11:53 AM EDT Cath set up at [facility]. Patient aware. * Telephone Encounter - Danny Rahman LPN - 06/02/2023 3:[address] Serrano patient aware. Cath to be completed in 1-2 weeks at [facility]. If not able to get in prior to be done at [facility] with Dr. Serrano. Will call next week as Cardiac Cath scheduling is gone for today. ----- Message from Per Serrano DO sent at 06/02/2023 3:28 PM EDT ----- Abnormal stress echo. Results discussed with patient via telephone. Recommend cardiac catheterization at [facility]. Please schedule and contact patient with appointment. Will need pre-cath labs. Home BP elevated. Add losartan 25mg daily. Documanted aspirin intolerance (GI upset). Add clopidogrel 75mg daily. * Telephone Encounter - Per Serrano DO - 06/02/2023 3:28 PM EDT Abnormal stress echo. Results discussed with patient via telephone. Recommend cardiac catheterization at [facility]. Please schedule and contact patient with appointment. Will need pre-cath labs. Home BP elevated. Add losartan 25mg daily. Documanted aspirin intolerance (GI upset). Add clopidogrel 75mg daily. documented in this encounter Plan of Treatment Upcoming Encounters Date Type Department Care Team (Late st Contact Info) Description 06/07/2023 2:00 PM EDT Therapy Psychology, [place] [address] [place] [phone] Danica Stover, [facility] [address] [place] [address] 06/09/2023 3:00 PM EDT Nurse Only Ancillary, [facility] [place] [address] Andrew, Nurse, RN [address] [place] [address] 07/04/2023 10:00 AM EDT Office Visit [facility]iology, [facility] [place] [address] Per Serrano DO [address] [place] [address] 07/14/2023 9:00 AM EDT Office Visit [place] [address] [address] [place] [address] Jorge Zhao MD [address] [facility] [address] [place] [address] 08/01/2023 11:00 AM EDT Office Visit Cardiology, [facility] [address] [place] [address] Meaghan Hargrove PA-C [address] [place] [address] 09/21/2023 10:30 AM EDT Office Visit Orthopaedics Sp[facility], [facility] [address] [place] [address] Rosas Caba MD [address] [place] [address] 09/29/2023 8:15 AM EDT Office Visit Ophthalmology, [place] [address] [place] [address] García Winston MD [address] [place] [address] 10/04/2023 8:20 AM EDT Office Visit Dermatology [facility] [address] [place] [address] Vilma Burris PA-C [address] [place] [address] 10/24/2023 9:00 AM EDT Hospital Encounter ENDO GECL, Endoscopy Suite [facility] 310 [facility] [place] [phone] Fidencio Hall MD [address] [place] [address] 10/24/2023 9:00 AM EDT - 10/24/2023 9:45 AM EDT Surgery ENDO GECL, Endoscopy Suite [facility] [address] [place] [address] Fidencio Hall MD [address] [place] [address] COLONOSCOPY FLEXIBLE PROXIMAL DIAGNOSTIC 11/07/2023 10:40 AM EDT Office Visit Otolaryngology, [place] [address] [place] [address] Saúl Yu PA-C [address] [place] [address] Pending Results Name Type Priority Associated Diagnoses Date /Time PT INR Lab Routine Abnormal stress echo PVC (premature ventricular contraction) PAC (premature atrial contraction) 06/07/2023 10:07 AM EDT APTT Lab Routine Abnormal stress echo PVC (premature ventricular contraction) PAC (premature atrial contraction) Chest pain 06/07/2023 10:07 AM EDT BASIC METABOLIC PANEL Lab Routine Abnormal stress echo 06/07/2023 10:07 AM EDT CBC Lab Routine Abnormal stress echo 06/07/2023 10:07 AM EDT Scheduled Orders Name Type Priority Associated Diagnoses Orde r Schedule CORONARY ANGIOGRAPHY W/LEFT HEART CATH Card Cath Routine Abnormal stress echo Ordered: 06/05/2023 PT INR Lab Routine Abnormal stress echo PVC (premature ventricular contraction) PAC (premature atrial contraction) Expected: 06/05/2023 (Approximate), Expires: 06/04/2024 APTT Lab Routine Abnormal stress echo PVC (premature ventricular contraction) PAC (premature atrial contraction) Chest pain Expected: 06/05/2023 (Approximate), Expires: 06/04/2024 BASIC METABOLIC PANEL Lab Routine Abnormal stress echo Expected: 06/05/2023 (Approximate), Expires: 06/04/2024 CBC Lab Routine Abnormal stress echo Expected: 06/05/2023 (Approximate), Expires: 06/04/2024 EKG EKG Routine Abnormal stress echo Ordered: 06/05/2023 Scheduled Procedures Name Priority Associated Diagnoses Date/Ti [...] Not on filedocumented as of this encounter Results * XR CHEST 2 VIEWS (06/07/2023 10:57 AM EDT) Anatomical Region Laterality Modality Chest Digital Radiogra phy 06/07/2023 12:0 9 PM EDT Impressions 06/07/2023 12:07 PM EDT IMPRESSION No acute disease in chest. Narrative 06/07/2023 12:07 PM EDT EXAM XR CHEST 2 VIEWS-06/07/2023 10:57 am HISTORY Pre Cardiac Cath COMPARISON CT abdomen pelvis dated 05/18/2023; chest two views dated 03/19/2023; chest two views dated 10/26/2021 and prior TECHNIQUE PA/lateral FINDINGS Lungs are well-expanded without pneumothorax or pleural effusion. Mild partial elevation/eventration anterior right hemidiaphragm again seen. There is no focal parenchymal consolidation or pulmonary vascular congestion. Minimal persistent linear parenchymal density is noted suspect to be chronic fibrolinear change or persistent linear atelectasis. This is predominantly in the lingula. Please note parenchymal left lower lobe nodule noted on CT study 05/18/2023 or not radiographically evident. Radiographic appearance cardiomediastinal silhouette and visualized osseous thorax stable. Thoracic aorta atherosclerotic with calcification and mildly tortuous. There is osseous degenerative change. Procedure Note Derick Peck MD - 06/07/2023 EXAM XR CHEST 2 VIEWS-06/07/2023 10:57 am HISTORY Pre Cardiac Cath COMPARISON CT abdomen pelvis dated 05/18/2023; chest two views dated 03/19/2023;chest two views dated 10/26/2021 and prior TECHNIQUE PA/lateral FINDINGS Lungs are well-expanded without pneumothorax or pleural effusion. Mildpartial elevation/eventration anterior right hemidiaphragm again seen. There is no focal parenchymal consolidation or pulmonary vascularcongestion. Minimal persistent linear parenchymal density is notedsuspect to be chronic fibrolinear change or persistent linear atelectasis.This is predominantly in the lingula. Please note parenchymal left lower lobe nodule noted on CT study05/18/2023 or not radiographically evident. Radiographic appearance cardiomediastinal silhouette and visualizedosseous thorax stable. Thoracic aorta atherosclerotic with calcificationand mildly tortuous. There is osseous degenerative change. IMPRESSION IMPRESSION No acute disease in chest. Authorizing Provider Result Kyree Serrano DO RADIOLOGY ([facility]) documented in this encounter Visit Diagnoses Diagnosis Abnormal stress echo- Primary Other nonspecific abnormal cardiovascular system function study PVC (premature ventricular contraction) Other premature beats PAC (premature atrial contraction) Supraventricular premature beats HTN, goal below 140/90 Unspecified essential hypertension PSVT (paroxysmal supraventricular tachycardia) (HCC) Paroxysmal supraventricular tachycardia NSVT (nonsustained ventricular tachycardia) (HCC) Paroxysmal ventricular tachycardia Dyslipidemia, goal LDL below 70 Other and unspecified hyperlipidemia Chest pain Chest pain, unspecified Abnormal stress echo Other nonspecific abnormal cardiovascular system function study History of colonic polyps Personal history of colonic polyps Irritable bowel syndrome with constipation Irritable bowel syndrome GERD (gastroesophageal reflux disease) Esophageal reflux documented in this encounter Care Teams Box Coverer Hand Relationship Specialty Start Date End Date Jorge Zhao MD [address] [facility] [address] [address] PCP - General Family Medicine 08/02/19 documented as of this encounter
--- OUTSIDE RECORDS SUMMARY | 2023-06-20 10:20 | External Medical Summary | Summary of Care ---
Author Name Unknown Organization [facility] Address [address] [place] [address] Phone [phone] Care Team Providers Care Analytical Data Miner Name Role Phone Jorge Zhao MD Primary Care Provider Reason for Visit * Reason Onset Date Comments Test Results 06/02/2023 Encounter Details Date Type Department Care Team (Late st Contact Info) Description 06/02/2023 Telephone Cardiology, [facility] [address] [place] [address] Per Serrano, DO [address] [facility] [address] Test Results Allergies Active Allergy Reactions Criticality Noted Date Comments Clarithromycin 04/02/2001 ? Rash. Tolerates azithromycin on multiple occasions Doxycycline 09/27/1999 Rash documented as of this encounter (statuses as of 06/06/2023) Medications Medication Sig Dispensed Refills Start Date End Date Status MULTIVITAMINS PO TABS 1 a day 30 0 8 Active vitamin c (ASCORBIC ACID) 500 MG Tablet Take 2 Tablets by mouth in the morning. 0 Active Calcium Magnesium Zinc 333-133-5 MG Oral Tablet Take 1 Tablet by mouth daily. 1 Tablet 0 1 Active Saw [place] 1000 MG Oral Capsule Take by mouth . 0 Acti ve Olopatadine HCl 0.6 % Nasal Solution (Patanase) Administer 2 Sprays into nostril in the morning and 2 Sprays before bedtime. 30.5 g 5 3 Active Additional Information Patient taking differently:2 [place] NasalBID PRN, Rhinitis, Reported on 05/22/2023 Famotidine [...] as of this encounter (statuses as of 06/06/2023) Active Problems Problem Noted Date Diagnosed Date PVC (premature ventricular contraction) 01/25/20 23 Mixed dyslipidemia 09/19/2016 Mild intermittent asthma without complication Ascending aorta dilation 09/08/2014 DDD (degenerative disc disease), lumbar 01/01/20 13 Gastroesophageal reflux disease without esophagi tis 06/07/2004 Deviated nasal septum 05/28/2003 Irritable bowel syndrome documented as of this encounter (statuses as of 06/06/2023) Resolved Problems Problem Noted Date Diagnosed Date [...] as of this encounter (statuses as of 06/06/2023) Immunizations Name Administration Dates Next Due COVID-19 mRNA, LNP-s, No Pre serve, 2-Dose Series (Penemarie K Murphy) 03/31/2021,07/19/2020,06/25/2020 Pneumococcal Conjugate Vacc, 13 Valent (Prevnar) [...] encounter Miscellaneous Notes * Telephone Encounter - Per Serrano DO [...] to be completed in 1-2 weeks at [facility]. If not able to get in prior to be done at [facility] with Dr. Serrano. Will call next week as Cardiac Cath scheduling is gone for today. ----- Message from Per Serrano DO sent at 06/02/2023 3:28 PM EDT ----- Abnormal stress echo. Results discussed with patient via telephone. Recommend cardiac catheterization at [facility]. Please schedule and contact patient with appointment. Will need pre-cath labs. Home BP elevated. Add losartan 25mg daily. Documanted aspirin intolerance (GI upset). Add clopidogrel 75mg daily. * Telephone Encounter - Per Serrano DO - 06/02/2023 3:28 PM EDT Abnormal stress echo. Results discussed with patient via telephone. Recommend cardiac catheterization at [facility]. Please schedule and contact patient with appointment. Will need pre-cath labs. Home BP elevated. Add losartan 25mg daily. Documanted aspirin intolerance (GI upset). Add clopidogrel 75mg daily. documented in this encounter Plan of Treatment Upcoming Encounters Date Type Department Care Team (Late st Contact Info) Description 06/07/2023 2:00 PM EDT Therapy [facility] [place] [facility] [phone] Danica Stover LCSW 21 [place] [id number] 07/04/2023 10:00 AM EDT Office Visit Cardiology, [facility] [address] [place] [address] Per Serrano DO [address] [place] [address] 07/14/2023 9:00 AM EDT Office Visit [place] [address] [place] [address] Jorge Zhao MD [address] [facility] [address] [place] [address] [place] [address] 08/01/2023 11:00 AM EDT Office Visit Cardiology, [facility] [address] [place] [address] Meaghan Hargrove, PAFrancineC [address] [place] [address] 09/21/2023 10:30 AM EDT Office Visit Orthopaedics Spine Surgery, [address] [place] [address] [place] [address] Rosas Caba MD [address] [place] [address] [place] [address] 09/29/2023 8:15 AM EDT Office Visit Ophthalmology, [place] 21 [place] [address] García Winston MD 21 [place] [address] 10/04/2023 8:20 AM EDT Office Visit Dermatology [facility] [place] [address] [place] [address] Vilma Burris, PAFrancineC [address] [facility] [place] [address] 10/24/2023 9:00 AM EDT Hospital Encounter ENDO GECL, Endoscopy [address] [place] [phone] Fidencio Hall MD [address] [place] [address] 10/24/2023 9:00 AM EDT - 10/24/2023 9:45 AM EDT Surgery ENDO GECL, [address]oscopy [address] [phone] Fidencio Hall MD [address] [place] [address] COLONOSCOPY FLEXIBLE PROXIMAL DIAGNOSTIC 11/07/2023 10:40 AM EDT Office Visit Otolaryngology, [place] [address] [place] [address] Saúl Yu PA-C [address] [place] [address] Scheduled Orders Name Type Priority Associated Diagnoses [...] stress echo Expected: 06/05/2023 (Approximate), Expires: 06/04/2024 XR CHEST 2 VIEWS Medical Imaging Routine Abnormal stress echo Expected: 06/05/2023 (Approximate), Expires: 07/05/2024 EKG EKG Routine Abnormal stress echo Ordered: [...] as of this encounter Visit Diagnoses Diagnosis Abnormal stress [...] unspecified hyperlipidemia Chest pain Chest pain, unspecified History of colonic polyps Personal history of colonic polyps Irritable bowel syndrome with constipation Irritable bowel syndrome GERD (gastroesophageal reflux disease) Esophageal reflux documented in this encounter Care Teams Analytical Data Miner Relationship Specialty Start Date End Date Jorge Zhao MD [address] [facility] [address] [facility] [place] [address] PCP - General Family Medicine 08/02/19 documented as of this encounter
--- OUTSIDE RECORDS SUMMARY | 2023-06-20 10:20 | External Medical Summary ---
Author Name Unknown Address Unknown Organization K1F:LAB[facility]ORY [facility] - [address] [place] [address] Laboratory Report Ordering Provider Test Date Status SANDRINE LAWLER 06/07/2023 10:07:09 Final Anticoagulation may affect t esting. Refer to setObject Test Catalog for a list of effects. Observation Date Value Abnormality Reference (Units ) Status aPTT panel - Platelet poor plasma 06/07/2023 10:07:09 30 21-38 (seconds) Final Performing Location LABORATORY [facility] - [address] [place] [address]
--- OUTSIDE RECORDS SUMMARY | 2023-06-20 10:20 | External Medical Summary | Summary of Care ---
Author Name Unknown Organization [facility] Address [address] [place] [address] Phone [phone] Care Team Providers Care Porcelain Enameling Supervisor Name Role Phone Jorge Zhao MD Primary Care Provider Reason for Referral * Evaluate & Treat - Unlimited Visits (Within 10 days (routine)) - Authorized Specialty Diagnoses / Procedures Referred By Zaida martin Referred To Contact Psychiatry Diagnoses Anxiety disorder, unspecified type Danica Stover LCSW [address] [place] [address] Referral ID Status Reason Start Date Expiration Date Visits Requested Visits Authorized [id number] Authorized Specialty Services Required 06/07/2023 999 999 Question Answer Referral Priority Within 10 days (routine) Where should this appointment be scheduled? [facility] Is this referral for medication management? Yes Reason for Referral Anxiety Comments To manage anxiety. Currently on Buspar. Not helpful. Schedule with Treasure on site Reason for Visit * Reason Comments Anxiety Encounter Details Date Type Department Care Team ([facility] Contact Info) Description 06/07/2023 2:00 PM EDT Therapy Psychology, [place] [address] [place] [address] Danica Stover LCSW [address] [place] [address] Anxiety disorder, unspecified type* Allergies [...] daily. 1 Tablet 0 02/19/2021 Active Saw [place] 1000 MG Oral Capsule Take by mouth . 0 Acti ve Olopatadine HCl 0.6 % Nasal Solution (Patanase) Administer 2 Sprays into nostril in the morning and 2 Sprays before bedtime. 30.5 g 5 04/25/2022 Active Additional Information Patient taking differently:2 [place] NasalBID PRN, Rhinitis, Reported on 05/22/2023 Famotidine [...] mRNA, LNP-s, No Pre serve, 2-Dose Series (Pfizer) 03/31/2021,07/19/2020,06/25/2020 Pneumococcal Conjugate Vacc, 13 Valent (Prevnar) [...] this encounter Progress Notes * Danica Stover, HYDROSTATIC TUBING TESTER - 06/07/2023 3:11 PM EDT Images from the original note were not included. PRIMARY CARE BEHAVIORAL HEALTH FOLLOW-UP 06/07/2023 Length of visit: 60 minutes (2:05pm - 3:05pm) Type of Visit: individual Treatment session number: 2 AGENDA & ACTION PLAN: 06/07/23- Miko was oriented and engaged. Miko presented anxious about his overall wellbeing. Miko has been working on getting answers regarding his blood pressure change. Miko has hada stress test and that came back normal and Miko has a catheter scheduled for June 19. Miko reports that twice in the past week he has woken up with panic like symptoms. Miko is constantly feeling on edge and doesn't like how it is impacting how he interacts with others. Miko states that he is not a threat to himself or anyone else at this time. Processed concerns with health. Processed the impact it is having on Miko to not have answers about his health and how the "unknown" is impacting his mental and emotional state. Worked on putting into perspective the level of worry given the situation and the facts that he hasreceived at this point regarding his health. Provided education on coping with worry by grounding self with the facts that Ty has to this point Discussed and reviewed what Miko has control over regarding his health and managing health to help manage worry. Provided education on psychiatry and placed a referral for Treasure Mcclain Plan: Miko is going to work on managing worry by grounding self in facts. Optional: Interventions addressed in treatment thus far: Treatment/Intervention Visit 06/07/2023 1 2 3 4 5 6 Behavioral activation Behavior modification for poor health behaviors (e.g., smoking cessation) Breathing re-training mindfulness training Cognitive restructuring/diffusion x Exercise/physical activity Problem-solving Psychoeducation Exposure and/or response prevention Supportive therapy Sleep hygiene Stimulus control Time in bed restriction Conduct WHO ([facility]) Adult [facility] Therapy Treatment Plan Treatment plan was developed [...] previous steps are ineffective (e.g: ED, hotlines): [facility] Crisis Contact Estimated frequency of treatment Estimated [...] further psychotherapy. DIAGNOSES Unspecified Anxiety Disorder RETURN 1 WEEK for individual cognitive behavioral therapy. Danica Stover LCSW Primary Care Behavioral Health Psychology, [address] [address] documented in this encounter Plan of Treatment Upcoming Encounters Date Type Department Care Team (Late st Contact Info) Description 06/09/2023 3:00 PM EDT Nurse Only Ancillary, [place] [address] [place] [address] Brooks, Nurse, RN [address] [place] [id number] 06/15/2023 10:00 AM EDT Therapy Psychology, [address] [phone] Danica Stover LCSW [address] [place], [place] [phone] 07/04/2023 10:00 AM EDT [facility] [place] [address] Per Serrano, [facility] [place] [address] 07/14/2023 9:00 AM EDT Office Visit [place] [address] [place] [address] Jorge Zhao MD [address] [place] [address] 08/01/2023 11:00 AM EDT Office Visit Cardiology, [facility] [address] [place] [address] Meaghan Hargrove PA-C [address] [place] [address] 09/19/2023 9:00 AM EDT Office Visit Psychiatry, [place] [address] [place] [address] Treasure Mcclain CRNP 200 [facility], [place] [address] 09/21/2023 10:30 AM EDT Office Visit Orthopaedics Spine Surgery, [facility] [address] [place] [address] Rosas Caba MD [address] [place] [place] [address] 09/29/2023 8:15 AM EDT Office Visit Ophthalmology, [place] [address] [place] [address] García Winston MD [address] [place] [address] 10/04/2023 8:20 AM EDT Office Visit Dermatology [facility] [address] [place] [address] Vilma Burris PA-C [address] [place] [address] 10/24/2023 9:00 AM EDT Hospital Encounter ENDO GECL, Endoscopy Suite [facility] [address] [facility] [place] [phone] Fidencio Hall MD [address] [place] [address] 10/24/2023 9:00 AM EDT - 10/24/2023 9:45 AM EDT Surgery ENDO GECL, Endoscopy Suite [facility] 310 [facility] [place] [phone] Fidencio Hall MD [address] [place] [address] COLONOSCOPY FLEXIBLE PROXIMAL DIAGNOSTIC 11/07/2023 10:40 AM EDT Office Visit Otolaryngology, [place] [address] [place] [address] Saúl Yu PA-C [address] [place] [address] Scheduled Procedures Name Priority Associated Diagnoses Date/Ti me COLONOSCOPY FLEXIBLE PROXIMA L DIAGNOSTIC Recall History of colonic polyps Irritable bowel syndrome with constipation GERD (gastroesophageal reflux disease) 10/24/2023 9:00 AM EDT ESOPHAGOGASTRODUODENOSCOPY ( EGD), FLEXIBLE, TRANSORAL, DIAGNOSTIC Recall History of colonic polyps Irritable bowel syndrome with constipation GERD (gastroesophageal reflux disease) 10/24/2023 9:00 AM EDT Scheduled Referrals Name Type Priority Associated Diagnoses Orde r Schedule ADULT/PEDS PSYCHIATRY REFERRAL OP Referral Within 10 days (routine) Anxiety disorder, unspecified type Ordered: 06/07/2023 Health Maintenance Due Date Last Done Comments Zoster Vaccines (1 of 2) 1996 COVID-19 Vaccine ( - season) 2022 03/31/2021, 07/19/2020, 06/25/2020 Depression Screening [...] reflux documented in this encounter Care Teams Porcelain Enameling Supervisor Relationship Specialty Start Date End Date Jorge Zhao MD 4752 [facility] [place] [address] PCP - General Family Medicine 08/02/19 documented as of this encounter
--- OUTSIDE RECORDS SUMMARY | 2023-06-20 10:20 | External Medical Summary | Summary of Care ---
Author Name Unknown Organization [facility] Address [address] [place] [address] Phone [phone] Care Team Providers Care Clinical Technician Name Role Phone Jorge Zhao MD Primary Care Provider Reason for Visit * Reason Onset Date Comments Test Results 06/02/2023 Encounter Details Date Type Department Care Team (Late st Contact Info) Description 06/02/2023 Telephone Cardiology, [facility] [address] [place] [address] Per Serrano, DO [address] [facility] [address] Test Results Allergies Active Allergy Reactions Criticality [...] daily. 1 Tablet 0 1 Active Saw [place] 1000 MG Oral Capsule Take by mouth . 0 Acti ve Olopatadine HCl 0.6 % Nasal Solution (Patanase) Administer 2 Sprays into nostril in the morning and 2 Sprays before bedtime. 30.5 g 5 3 Active Additional Information Patient taking differently:2 [place] NasalBID PRN, Rhinitis, Reported on 05/22/2023 Famotidine [...] mRNA, LNP-s, No Pre serve, 2-Dose Series (Soundflavor) 03/31/2021,07/19/2020,06/25/2020 Pneumococcal Conjugate Vacc, 13 Valent (Prevnar) [...] pt gave info regarding aspirin. 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 Patient aware. * Telephone Encounter - Danny Rahman LPN - 06/02/2023 3:[address] Serrano patient aware. Cath to be completed in 1-2 weeks at [facility]. If not able to get in prior to be done at [facility] with Dr. Serrano. Will call next week as Cardiac Cath scheduling is gone for today. ----- Message from Per Serrano DO sent at 06/02/2023 3:28 PM EDT ----- Abnormal stress echo. Results discussed with patient via telephone. Recommend cardiac catheterization at [facility]. Please schedule and contact patient with appointment. Will need pre-cath labs. Home BP elevated. Add losartan 25mg daily. Documanted aspirin intolerance (GI upset). Add clopidogrel 75mg daily. * Telephone Encounter - Per Serrano DO - 06/02/2023 3:28 PM EDT Abnormal stress echo. Results discussed with patient via telephone. Recommend cardiac catheterization at [facility]. Please schedule and contact patient with appointment. Will need pre-cath labs. Home BP elevated. Add losartan 25mg daily. Documanted aspirin intolerance (GI upset). Add clopidogrel 75mg daily. documented in this encounter Plan of Treatment Upcoming Encounters Date Type Department Care Team (Late st Contact Info) Description 06/07/2023 2:00 PM EDT Therapy [place] [address] [place] [phone] Danica Stover LCSW 21 [place] [address] 07/04/2023 10:00 AM EDT Office Visit Cardiology, [facility] [address] [place] [address] Per Serrano DO [address] [place] [address] 07/14/2023 9:00 AM EDT Office Visit [place] [address] [place] [address] Jorge Zhao MD [address] [place] [address] [place] [address] 08/01/2023 11:00 AM EDT Office Visit Cardiology, [facility] [address] [place] [address] Meaghan Hargrove PA-C [address] [place] [address] 09/21/2023 10:30 AM EDT Office Visit Orthopaedics Spine Surgery, [facility], [place] [address] [place] [address] Rosas Caba MD [address] [facility] [address] [place] [address] 09/29/2023 8:15 AM EDT Office Visit Ophthalmology, [place] [address] [place] [address] García Winston MD [address] [place] [address] 10/04/2023 8:20 AM EDT Office Visit Dermatology [facility] [address] [place] [address] Vilma Burris PA-C [address] [place] [address] 10/24/2023 9:00 AM EDT Hospital Encounter ENDO GECL, Endoscopy [address] [phone] Fidencio Hall MD [address] [place] [address] 10/24/2023 9:00 AM EDT - 10/24/2023 9:45 AM EDT Surgery ENDO GECL, Endoscopy [address] [phone] Fidencio Hall MD [address] [place] [address] COLONOSCOPY FLEXIBLE PROXIMAL DIAGNOSTIC 11/07/2023 10:40 AM EDT Office Visit Otolaryngology, [place] [address] [place] [address] Saúl Yu PA-C [address] [place] [address] Scheduled Orders Name Type Priority Associated Diagnoses [...] reflux documented in this encounter Care Teams Clinical Technician Relationship Specialty Start Date End Date Jorge Zhao MD [address] [facility] [address] [place] [address] PCP - General Family Medicine 08/02/19 documented as of this encounter
--- OUTSIDE RECORDS SUMMARY | 2023-06-20 10:20 | External Medical Summary | Summary of Care ---
Author Name Unknown Organization [facility] Address [address] [place] [address] Phone [phone] Care Team Providers Care Water Use Inspector Name Role Phone Jorge Zhao MD Primary Care Provider Reason for Visit * Reason Onset Date Comments Test Results 06/02/2023 Encounter Details Date Type Department Care Team (Late st Contact Info) Description 06/02/2023 Telephone Cardiology, [facility] [address] [place] [address] Per Serrano, DO [address] [facility] [address] Test Results Allergies Active Allergy Reactions Criticality [...] daily. 1 Tablet 0 1 Active Saw [place] 1000 MG Oral Capsule Take by mouth . 0 Acti ve Olopatadine HCl 0.6 % Nasal Solution (Patanase) Administer 2 Sprays into nostril in the morning and 2 Sprays before bedtime. 30.5 g 5 3 Active Additional Information Patient taking differently:2 [place] NasalBID PRN, Rhinitis, Reported on 05/22/2023 Famotidine [...] mRNA, LNP-s, No Pre serve, 2-Dose Series (FuelMyBlog) 03/31/2021,07/19/2020,06/25/2020 Pneumococcal Conjugate Vacc, 13 Valent (Prevnar) [...] encounter Miscellaneous Notes * Telephone Encounter - Danny Rahman LPN - 06/05/2023 11:53 AM EDT Cath set up at [facility]. Patient aware. * Telephone Encounter - Danny Rahman LPN - 06/02/2023 3:[address] Serrano patient aware. Cath to [place] completed [place] 1[place]2 weeks at [facility]. If not able to get in prior to be done at [facility] with Dr. Serrano. Will call next week as Cardiac Cath scheduling is gone for today. ----- Message from Per Serrano DO sent at 06/02/2023 3:28 PM EDT ----- Abnormal stress echo. Results discussed with patient via telephone. Recommend cardiac catheterization at [facility]. Please schedule and contact patient with appointment. Will need pre-cath labs. Home BP elevated. Add losartan 25mg daily. Documanted aspirin intolerance (GI upset). Add clopidogrel 75mg daily. * Telephone Encounter - Per Serrano DO - 06/02/2023 3:28 PM EDT Abnormal stress echo. Results discussed with patient via telephone. Recommend cardiac catheterization at [facility]. Please schedule and contact patient with appointment. Will need pre-cath labs. Home BP elevated. Add losartan 25mg daily. Documanted aspirin intolerance (GI upset). Add clopidogrel 75mg daily. documented in this encounter Plan of Treatment Upcoming Encounters Date Type Department Care Team (Late st Contact Info) Description 06/07/2023 2:00 PM EDT Therapy Psychology, [place] [address] [place] [facility] [address] Danica Stover LCSW 21 [place] [address] 07/04/2023 10:00 AM EDT Office Visit Cardiology, [facility] [address] [place] [address] Per Serrano DO 132 [place] [address] 07/14/2023 9:00 AM EDT Office Visit [place] [address] [place] [address] Jorge Zhao MD [address] [facility] [address] [place] [address] 08/01/2023 11:00 AM EDT Office Visit Cardiology, [facility] [address] [place] [address] Meaghan Hargrove PA-C [address] [place] [address] 09/21/2023 10:30 AM EDT Office Visit Orthopaedics Spine Surgery, [facility] [address] [place] [address] Rosas Caba MD [address] [place] [address] 09/29/2023 8:15 AM EDT Office Visit Ophthalmology, [place] [address] [place] [address] García Winston MD [address] [place] [address] 10/04/2023 8:20 AM EDT Office Visit Dermatology [facility] [address] [place] [address] Vilma Burris PA-C [address] [place] [address] 10/24/2023 9:00 AM EDT Hospital Encounter ENDO GECL, Endoscopy Suite [facility] 310 [facility] [place] [facility] [place] [phone] Fidencio Hall MD [address] [place] [address] 10/24/2023 9:00 AM EDT - 10/24/2023 9:45 AM EDT Surgery ENDO GECL, Endoscopy Suite [facility] 310 [facility] [place] [facility] [place] [address] Fidencio Hall MD [address] [place] [address] COLONOSCOPY FLEXIBLE PROXIMAL DIAGNOSTIC 11/07/2023 10:40 AM EDT Office Visit Otolaryngology, [place] [address] [place] [address] Saúl Yu PA-C [address] [place] [address] Scheduled Orders Name Type Priority Associated Diagnoses [...] of 2) 1996 COVID-19 Vaccine (4 - 2022- season) 2022 03/31/2021, 07/19/2020, 06/25/2020 Depression Screening [...] reflux documented in this encounter Care Teams Water Use Inspector Relationship Specialty Start Date End Date Jorge Zhao MD [address] [facility] [address] [facility] [place] [address] PCP - General Family Medicine 08/02/19 documented as of this encounter
--- OUTSIDE RECORDS SUMMARY | 2023-06-20 10:20 | External Medical Summary ---
Author Name Unknown Address Unknown Organization K01:LABORATORY [facility] [place] - [address] [facility] [address] Laboratory Report Ordering Provider Test Date Status SANDRINE LAWLER 06/07/2023 10:07:09 Final Observation Date Value Abnormality Reference (Units ) Status WBC, Total 06/07/2023 10:07:09 5.18 4.00-10.80 (K/uL) Final RBC 06/07/2023 10:07:09 4.82 4.50-5.25 (M/uL) Final Hemoglobin 06/07/2023 10:07:09 14.6 14.0-16.8 (g/dL) Final HCT 06/07/2023 10:07:09 43.5 40.0-48.4 (%) Final MCV 06/07/2023 10:07:09 90.2 82.0-99.5 (fL) Final MCH 06/07/2023 10:07:09 30.3 27.0-34.0 (pg) Final MCHC 06/07/2023 10:07:09 33.6 32.0-36.0 (g/dL) Final RDW 06/07/2023 10:07:09 12.4 11.5-15.5 (%) Final Platelets 06/07/2023 10:07:09 173 140-400 (K/uL) Final MPV 06/07/2023 10:07:09 11.5 6.6-11.1 (fL) Final Nucleated erythrocytes/100 leukocytes [Ratio] in Blood by Automated count 06/07/2023 10:07:09 0 <=0 (/100 WBCs) Final Performing Location LABORATORY [facility] [place] [place] - [address] [facility] [address]
--- OUTSIDE RECORDS SUMMARY | 2023-06-20 10:20 | External Medical Summary | Summary of Care ---
Author Name Unknown Organization [facility] Address [address] [place] [address] Phone [phone] Care Team Providers Care Balloon Sander Name Role Phone Jorge Zhao MD Primary Care Provider Reason for Visit * Reason Comments Outpatient Testing Encounter Details Date Type Department Care Team (Late st Contact Info) Description 06/07/2023 10:10 AM EDT Laboratory Laboratory Patient Service [address] [phone] [id number] Abnormal stress echo; PVC (premature ventricular contraction); PAC (premature atrial contraction); Chest pain Allergies Active Allergy Reactions Criticality Noted Date [...] daily. 1 Tablet 0 02/19/2021 Active Saw [place] 1000 MG Oral Capsule Take by mouth . 0 Acti ve Olopatadine HCl 0.6 % Nasal Solution (Patanase) Administer 2 Sprays into nostril in the morning and 2 Sprays before bedtime. 30.5 g 5 04/25/2022 Active Additional Information Patient taking differently:2 [place] NasalBID PRN, Rhinitis, Reported on 05/22/2023 Famotidine [...] mRNA, LNP-s, No Pre serve, 2-Dose Series ([employer]) 03/31/2021,07/19/2020,06/25/2020 Pneumococcal Conjugate Vacc, 13 Valent (Prevnar) [...] on file documented as of this encounter Plan of Treatment Upcoming Encounters Date Type Department Care Team (Late st Contact Info) Description 06/07/2023 11:00 AM EDT Appointment Radiology, [place] [address] 06/07/2023 2:00 PM EDT Therapy [facility], [facility] [phone] Danica Stover LCSW [address] [place] [address] 06/09/2023 3:00 PM EDT Nurse Only Ancillary, [place] [address] [place] [address] Phelps, Nurse, RN [address] [place] [address] 07/04/2023 10:00 AM EDT Office Visit Cardiology, [facility] [address] [facility] [place] [address] Per Serrano, [address] [place] [address] 07/14/2023 9:00 AM EDT Office Visit Family [facility], [place] [address] [place] [address] Jorge Zhao MD [facility] [place] [address] 08/01/2023 11:00 AM EDT Office Visit Cardiology, [facility] [address] [facility] [place] [address] Meaghan Hargrove PA-C [address] [place] [address] 09/21/2023 10:30 AM EDT Office Visit Orthopaedics Spine Surgery, [address] [place] [address] [place] [address] Rosas Caba MD [address] [place] [address] [place] [address] 09/29/2023 8:15 AM EDT Office Visit Ophthalmology, [place] [address] [place] [address] García Winston MD [address] [place] [address] 10/04/2023 8:20 AM EDT Office Visit Dermatology [facility], [place] [address] [place] [address] Vilma Burris PA-C [address] [place] [address] 10/24/2023 9:00 AM EDT Hospital Encounter ENDO GE[facility], Endoscopy [address] [phone] Fidencio Hall MD [address] [place] [address] 10/24/2023 9:00 AM EDT - 10/24/2023 9:45 AM EDT Surgery ENDO [facility], Endoscopy [address] [phone] Fidencio Hall MD [address] [place] [address] COLONOSCOPY FLEXIBLE PROXIMAL DIAGNOSTIC 11/07/2023 10:40 AM EDT Office Visit Otolaryngology, [place] [address] [place] [address] Saúl Yu PA-C [address] [place] [address] Pending Results Name Type Priority Associated Diagnoses Date /Time APTT Lab Routine Abnormal stress echo PVC (premature ventricular contraction) PAC (premature atrial contraction) Chest pain 06/07/2023 10:07 AM EDT BASIC METABOLIC PANEL Lab Routine Abnormal stress echo 06/07/2023 10:07 AM EDT CBC Lab Routine Abnormal stress echo 06/07/2023 10:07 AM EDT PT INR Lab Routine Abnormal stress echo PVC (premature ventricular contraction) PAC (premature atrial contraction) 06/07/2023 10:07 AM EDT Scheduled Procedures Name Priority Associated Diagnoses Date/Ti [...] this encounter Visit Diagnoses Diagnosis Abnormal stress echo Other nonspecific abnormal cardiovascular system function study PVC (premature ventricular contraction) Other premature beats PAC (premature atrial contraction) Supraventricular premature beats Chest pain Chest pain, unspecified History of colonic polyps Personal history of colonic polyps Irritable bowel syndrome with constipation Irritable bowel syndrome GERD (gastroesophageal reflux disease) Esophageal reflux documented in this encounter Care Teams Balloon Sander Relationship Specialty Start Date End Date Jorge Zhao MD [address] [facility] [address] [place] [address] PCP - General Family Medicine 08/02/19 documented as of this encounter
--- OUTSIDE RECORDS SUMMARY | 2023-06-20 10:20 | External Medical Summary | Summary of Care ---
Author Name Unknown Organization [facility] Address [address] [place] [address] Phone [phone] Care Team Providers Care Claims Analyst Name Role Phone Jorge Zhao MD Primary Care Provider Encounter Details Date Type Department Care Team (Latest Contact Info) Description 06/07/2023 10:51 AM EDT - 06/07/2023 11:59 PM EDT Hospital Encounter Radiology, [address] [phone] Arrived Discharge Disposition: Home - Self Care Allergies Active Allergy Reactions Criticality Noted Date Comments Clarithromycin 04/02/2001 ? Rash. Tolerates azithromycin on multiple occasions Doxycycline 09/27/1999 Rash documented as of this encounter (statuses as of 06/08/2023) Medications Medication Sig Dispensed Refills Start Date End Date Status MULTIVITAMINS PO TABS 1 a day 30 0 04/25/2007 Active vitamin c (ASCORBIC ACID) 500 MG Tablet Take 2 Tablets by mouth in the morning. 0 Active Calcium Magnesium Zinc 333-133-5 MG Oral Tablet Take 1 Tablet by mouth daily. 1 Tablet 0 02/19/2021 Active Saw [place] 1000 MG Oral Capsule Take by mouth . 0 Acti ve Olopatadine HCl 0.6 % Nasal Solution (Patanase) Administer 2 Sprays into nostril in the morning and 2 Sprays before bedtime. 30.5 g 5 04/25/2022 Active Additional Information Patient taking differently:2 [place] NasalBID PRN, Rhinitis, Reported on 05/22/2023 Famotidine [...] as of this encounter (statuses as of 06/08/2023) Active Problems Problem Noted Date Diagnosed Date PVC (premature ventricular contraction) 01/25/20 23 Mixed dyslipidemia 09/19/2016 Mild intermittent asthma without complication Ascending aorta dilation 09/08/2014 DDD (degenerative disc disease), lumbar 01/01/20 13 Gastroesophageal reflux disease without esophagi tis 06/07/2004 Deviated nasal septum 05/28/2003 Irritable bowel syndrome documented as of this encounter (statuses as of 06/08/2023) Resolved Problems Problem Noted Date Diagnosed Date [...] as of this encounter (statuses as of 06/08/2023) Immunizations Name Administration Dates Next Due COVID-19 [...] 3:00 PM EDT Nurse Only Ancillary, [place] [address] [facility] [address] Andrew, Nurse, RN [address] [place] [id number] 06/15/2023 10:00 AM EDT Therapy Psychology, [place] [address] [facility] [phone] Danica Stover LCSW 21 [place] [address] 07/04/2023 10:00 AM EDT Office Visit Cardiology, [facility] [address] [facility] [place] [address] Per Serrnao DO [address] [place] [address] 07/14/2023 9:00 AM EDT Office Visit [address] [place] [address] Jorge Zhao MD [address] [place], [place] [address]e [address] [place] [address] 08/01/2023 11:00 AM EDT Office Visit Cardiology, [facility] [address] [facility] [place] [address] Meaghan Hargrove PA-C [address] [place] [address] 09/19/2023 9:00 AM EDT Office Visit Psychiatry, [place] 21 [place] [address] Treasure Mcclain CRNP [address] [place] [address] 09/21/2023 10:30 AM EDT Office Visit Orthopaedics Spine Surgery, [address] [place] [address] [place] [address] Rosas Caba MD [address] [place] [address] [place] [address] 09/29/2023 8:15 AM EDT Office Visit Ophthalmology, [place] 21 [place] [address] García Winston MD [address] [place] [address] 10/04/2023 8:20 AM EDT Office Visit Dermatology [facility], [place] [address] [place] [address] Vilma Burris PA-C [address] [place] [address] 10/24/2023 9:00 AM EDT Hospital Encounter ENDO [facility], Endoscopy [address] [phone] Fidencio Hall MD [address] [place] [address] 10/24/2023 9:00 AM EDT - 10/24/2023 9:45 AM EDT Surgery ENDO [facility], Endoscopy [address] [phone] Fidencio Hall MD [address] [place] [address] COLONOSCOPY FLEXIBLE PROXIMAL DIAGNOSTIC 11/07/2023 10:40 AM EDT Office Visit Otolaryngology, [place] [address] [place] [address] Saúl Yu PA-C [address] [place] [address] Scheduled Procedures Name Priority Associated Diagnoses Date/Ti [...] of 2) 1996 COVID-19 Vaccine (4 - 24 season) 2022 03/31/2021, 07/19/2020, 06/25/2020 Depression Screening [...] Not on filedocumented as of this encounter Procedures Procedure Name Priority Date/Time Associated Diagnosis Comments XR CHEST 2 VIEWS Routine 06/07/2023 10:5 7 AM EDT Abnormal stress echo documented in this encounter Results * XR CHEST 2 [...] IMPRESSION IMPRESSION No acute disease in chest. Per Serrano DO RADIOLOGY ([facility]) documented in this encounter Visit Diagnoses Diagnosis Abnormal stress echo Other nonspecific abnormal cardiovascular system function study History of colonic polyps Personal history of colonic polyps Irritable bowel syndrome with constipation Irritable bowel syndrome GERD (gastroesophageal reflux disease) Esophageal reflux documented in this encounter Care Teams Claims Analyst Relationship Specialty Start Date End Date Jorge Zhao MD [address] [facility] [address] [place] [address] PCP - General Family Medicine 08/02/19 documented as of this encounter
--- OUTSIDE RECORDS SUMMARY | 2023-06-20 10:20 | External Medical Summary ---
Author Name Unknown Address Unknown Organization K01:LABORATORY [facility] - [address] [facility] [address] Laboratory Report Ordering Provider Test Date Status SANDRINE LAWLER 06/07/2023 10:07:09 Final Observation Date Value Abnormality Reference (Units ) Status BUN 06/07/2023 10:07:09 18 6-20 (mg/dL) Final Creatinine 06/07/2023 10:07:09 1.1 0.6-1.2 (mg/dL) Final Glomerular filtration rate/1.73 sq M.predicted [Volume Rate/Area] in Serum, Plasma or Blood by Creatinine-based formula (CKD-EPI) 06/07/2023 10:07:09 68 >=60 (mL/min) Final eGFR is calculated based on the CKD-EPI 2020 equation Sodium 06/07/2023 10:07:09 140 135-146 (m mol/L) Final Potassium 06/07/2023 10:07:09 4.8 3.5-5.1 (m mol/L) Final Cl 06/07/2023 10:07:09 104 98-107 (mm ol/L) Final CO2 06/07/2023 10:07:09 26 22-32 (mmo l/L) Final Anion gap 06/07/2023 10:07:09 10 7-15 (mmol /L) Final Glucose 06/07/2023 10:07:09 77 70-120 (mg /dL) Final Calcium 06/07/2023 10:07:09 9.5 8.4-10.2 ( mg/dL) Final Performing Location LABORATORY [facility] - [address] [facility] [address]
--- OUTSIDE RECORDS SUMMARY | 2023-06-20 10:20 | External Medical Summary | Summary of Care ---
Author Name Unknown Organization [facility] Address [address] [place] [address] Phone [phone] Care Team Providers Care Veterinarian Poultry Name Role Phone Jorge Zhao MD Primary Care Provider Reason for Visit * Reason Onset Date Comments Test Results 06/02/2023 Encounter Details Date Type Department Care Team (Late st Contact Info) Description 06/02/2023 Telephone Cardiology, [facility] [address] [place] [address] Per Serrano, DO [address] [facility] [address] Test Results Allergies Active Allergy Reactions Criticality [...] daily. 1 Tablet 0 1 Active Saw [place] 1000 MG Oral Capsule Take by mouth . 0 Acti ve Olopatadine HCl 0.6 % Nasal Solution (Patanase) Administer 2 Sprays into nostril in the morning and 2 Sprays before bedtime. 30.5 g 5 3 Active Additional Information Patient taking differently:2 [place] NasalBID PRN, Rhinitis, Reported on 05/22/2023 Famotidine [...] mRNA, LNP-s, No Pre serve, 2-Dose Series ([email or web address]) 03/31/2021,07/19/2020,06/25/2020 Pneumococcal Conjugate Vacc, 13 Valent (Prevnar) [...] encounter Miscellaneous Notes * Telephone Encounter - LacyCatherine LPN - 06/06/2023 3:59 PM EDT Called pt gave info regarding aspirin. 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 Patient aware. * Telephone Encounter - Danny Rahman LPN - 06/02/2023 3:[address] Serrano patient aware. Cath to be completed in 1-2 weeks at [facility]. If not able to get in prior to be done at [facility] with Dr. Serrano. Will call next week as Cardiac Cath scheduling is gone for today. ----- Message from Per Serrano DO sent at 06/02/2023 3:28 PM EDT ----- Abnormal stress echo. Results discussed with patient via telephone. Recommend cardiac catheterization at [facility]. Please schedule and contact patient with appointment. Will need pre-cath labs. Home BP elevated. Add losartan 25mg daily. Documanted aspirin intolerance (GI upset). Add clopidogrel 75mg daily. * Telephone Encounter - Per Serrano DO - 06/02/2023 3:28 PM EDT Abnormal stress echo. Results discussed with patient via telephone. Recommend cardiac catheterization at [facility]. Please schedule and contact patient with appointment. Will need pre-cath labs. Home BP elevated. Add losartan 25mg daily. Documanted aspirin intolerance (GI upset). Add clopidogrel 75mg daily. documented in this encounter Plan of Treatment Upcoming Encounters Date Type Department Care Team (Late st Contact Info) Description 06/07/2023 2:00 PM EDT Therapy Psychology, [place] [address] [place] [phone] Danica Stover LCSW [address] [facility] [place] [address] 07/04/2023 10:00 AM EDT [facility] [address] [place] [address] Per Serrano DO [address] [facility] [place] [address] 07/14/2023 9:00 AM EDT Office Visit [address] [place] [address] Jorge Zhao MD [address] [place] [address] [place] [address] 08/01/2023 11:00 AM EDT Office Visit Cardiology, [facility] [address] [place] [address] Meaghan Hargrove PA-C [address] [place] [address] 09/21/2023 10:30 AM EDT Office Visit Orthopaedics Spine Surgery, [place] [address] [place] [address] [place] [address] Rosas Caba MD [address] [place] [address] [place] [address] 09/29/2023 8:15 AM EDT Office Visit Ophthalmology, [place] [address] [place] [address] García Winston MD [address] [place] [address] 10/04/2023 8:20 AM EDT Office Visit Dermatology [facility] [address] [place] [address] Vilma Burris PA-C [address] [place] [address] 10/24/2023 9:00 AM EDT Hospital Encounter ENDO [facility], Endoscopy [address] [place] [phone] Fidencio Hall MD [address] [place] [address] 10/24/2023 9:00 AM EDT - 10/24/2023 9:45 AM EDT Surgery ENDO [facility], Endoscopy [address] [phone] Fidencio Hall MD [address] [place] [address] COLONOSCOPY FLEXIBLE PROXIMAL DIAGNOSTIC 11/07/2023 10:40 AM EDT Office Visit Otol[place]ology, [place] [address] [place] [address] Saúl Yu PA-C [address] [place] [address] Scheduled Orders Name Type Priority Associated Diagnoses [...] reflux documented in this encounter Care Teams Veterinarian Poultry Relationship Specialty Start Date End Date Jorge Zhao MD [address] [place] [address] PCP - General Family Medicine 08/02/19 documented as of this encounter
--- OUTSIDE RECORDS SUMMARY | 2023-06-20 10:21 | External Medical Summary | Summary of Care ---
Author Name Unknown Organization [facility] Address [address] [place] [address] Phone [phone] Care Team Providers Care Dry Ice Machine Operator Name Role Phone Jorge Zhao MD Primary Care Provider Reason for Visit * Reason Comments NEW PATIENT Encounter Details Date Type Department Care Team (Late st Contact Info) Description 05/30/2023 2:20 PM EDT Therapy Psychology, [place] [address] [place] [address] Danica Stover [facility] [address] [place] [address] Anxiety disorder, unspecified type* Allergies Active Allergy Reactions Criticality Noted Date Comments Clarithromycin 04/02/2001 ? Rash. Tolerates azithromycin on multiple occasions Doxycycline 09/27/1999 Rash documented as of this encounter (statuses as of 05/30/2023) Medications Medication Sig Dispensed Refills Start Date End Date Status MULTIVITAMINS PO TABS 1 a day 30 0 04/25/2007 Active vitamin c (ASCORBIC ACID) 500 MG Tablet Take 2 Tablets by mouth in the morning. 0 Active Calcium Magnesium Zinc 333-133-5 MG Oral Tablet Take 1 Tablet by mouth daily. 1 Tablet 0 02/19/2021 Active Saw [place] 1000 MG Oral Capsule Take by mouth . 0 Acti ve Olopatadine HCl 0.6 % Nasal Solution (Patanase) Administer 2 Sprays into nostril in the morning and 2 Sprays before bedtime. 30.5 g 5 04/25/2022 Active Additional Information Patient taking differently:2 [place] NasalBID PRN, Rhinitis, Reported on 05/22/2023 Ezetimibe 10 MG Oral Tablet (Zetia) Take 1 Tablet by mouth in the morning. 90 Tablet 3 04/25/2022 Active Famotidine 20 MG Oral Tablet (Pepcid)Indications :Gastroesophageal [...] the morning. 34 Tablet 6 05/22/2023 Active Hospital, Clinic, or Other Facility Administered Medication Ordered Dose Route Frequency Start Date End Date Status Albuterol Sulfate (Proventil) (2.5 MG/3ML) 0.083% inhalation solution 2.5 mgIndications:Shortness of breath 2.5 mg NEBULIZER ONCE PRN 03/27/2023 03/26/2024 Active documented as of this encounter (statuses as of 05/30/2023) Active Problems Problem Noted Date Diagnosed Date PVC (premature ventricular contraction) 01/25/20 23 Mixed dyslipidemia 09/19/2016 Mild intermittent asthma without complication Ascending aorta dilation 09/08/2014 DDD (degenerative disc disease), lumbar 01/01/20 13 Gastroesophageal reflux disease without esophagi tis 06/07/2004 Deviated nasal septum 05/28/2003 Irritable bowel syndrome documented as of this encounter (statuses as of 05/30/2023) Resolved Problems Problem Noted Date Diagnosed Date [...] as of this encounter (statuses as of 05/30/2023) Immunizations Name Administration Dates Next Due COVID-19 [...] this encounter Progress Notes * Danica Stover, INVENTORY CHECKER - 05/30/2023 2:27 PM EDT Primary Care Behavioral Health Evaluation Richard Bridges [address] [place] [phone] 05/30/2023 Length of visit: 60 minutes (2:20pm - 3:15pm) Referring physician: Jorge Zhao MD REASON FOR REFERRAL Miko Liu Mark is a 77 year old male who was referred for assessment and possible treatmentof anxiety by their Gastro; behavioral health provider reviewed chart and coordinated care for thisevaluation via the following methods: all [facility] providers have immediate access to information in the medical record to enable collaboration across the continuum. Miko Flores was identified by first and last name and date of . Primary language ofpatient was Wallisian. Miko Flores arrived on time for his scheduled appointment. He was seen by himself throughout the duration of the evaluation. Informed consent, limits of confidentiality, the consultative nature of the first visit, and documentation in the electronic record were reviewed. This session did not involve interactive complexity. PRESENTING SYMPTOMS (including onset, duration, and frequency of symptoms, as well social support and risk factors if relevant) Miko reports that he is concerned about the panic attacks , anxiety, and depression. Panic attacks occurred twice in March with a baseline of anxiety already present. Anxiety had been present for a couple years. Anxiety has been occurring seven days out of seven. Symptoms of anxiety are described as feeling nervous, shaky, intestines feel tighted as if they are going to explode, diarrhea and constipation cycling, not being able sit still, tightness in chest, shortness of breath. " The biggest thing that brought me in here was my irritable bowel syndrome". Some sypmtosm of anxiety are occurring to some degree daily. Depression started two years ago when a situation occurred with Patt's grandson. Feeling sad and down occurs for a day or two after grandson leaves. Miko also experiences not having interest in doing things like he once enjoyed like visiting people after his grandson leaves. Once mood improves, Miko reports still feeling anxious and not as interested in doing things, but there is some improvement. Miko currently is prescribed Buspar. Miko denies any thoughts of self harm or suicide. 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 Doesn't think any of it as bothering him. PSYCHIATRIC SYMPTOM SCREENING PHQ-9 (depression screening) = 4 0-4 no depression to minimal depression BREANNA-7 (generalized anxiety screening) = 11 10-14 moderate anxiety SUICIDE RISK ASSESSMENT (using Thurston Suicide Severity Rating Scale): In the past month, pt has had thoughts of being better off ? no In the past month, pt has had thoughts of suicide? no DIAGNOSES Unspecified Anxiety Disorder CURRENT PROBLEMS Patient Active Problem List Diagnosis Code Deviated nasal septum J34.2 Irritable bowel syndrome K58.9 Gastroesophageal reflux disease without esophagitis K21.9 DDD (degenerative disc disease), lumbar M51.36 Ascending aorta dilation (HCC) I77.810 Mild intermittent asthma without complication J45.20 Mixed dyslipidemia E78.2 PVC (premature ventricular contraction) I49.3 CURRENT MEDICATIONS Current Outpatient Medications Medication Sig Dispense Refill MULTIVITAMINS PO TABS 1 a day 30 0 vitamin c (ASCORBIC ACID) 500 MG Tablet Take 2 Tablets by mouth in the morning. Calcium Magnesium Zinc 333-133-5 MG Oral Tablet Take 1 Tablet by mouth daily. 1 Tablet Saw [place] 1000 MG Oral Capsule Take by mouth . Olopatadine HCl 0.6 % Nasal Solution (Patanase) Administer 2 Sprays into nostril in the morning and2 Sprays before bedtime. (Patient taking differently: Administer 2 Sprays into nostril 2 times a day as needed for Rhinitis.) 30.5 g 5 Ezetimibe 10 MG Oral Tablet (Zetia) Take 1 Tablet by mouth in the morning. 90 Tablet 3 Famotidine 20 MG Oral Tablet (Pepcid) Take 1 Tablet by mouth in the morning and 1 Tablet before bedtime. (Patient taking differently: Take 1 Tablet by mouth 2 times a day as needed for Heartburn.) 180 Tablet 1 Pantoprazole Sodium 40 MG Oral Tablet Delayed Release (Protonix) Take 1 Tablet by mouth in the morning. 30 minutes before the first meal of the day. Do not crush, split or chew the tablet. (Patient taking differently: Take 1 Tablet by mouth daily as needed. 30 minutes before the first meal of the day. Do not crush, split or chew the tablet) 90 Tablet 1 Gabapentin 100 MG Oral Capsule (Neurontin) TAKE 2 CAPSULES BY MOUTH IN THE EVENING 180 Capsule 1 Rosuvastatin Calcium 5 MG Oral Tablet (Crestor) Take 1 Tablet by mouth in the morning. 90 Tablet 3 methylPREDNISolone 4 MG Oral Tablet Therapy Pack (Medrol Dosepack) follow package directions (Patient not taking: Reported on 05/22/2023) 21 Tablet 0 busPIRone HCl 5 MG Oral Tablet (Buspar) One tablet by mouth twice daily as needed for anxiety 60 Tablet 1 Albuterol Sulfate HFA 108 (90 Base) MCG/ACT Inhalation Aerosol Solution Inhale 2 Puffs by mouth every 4 hours as needed (cough or wheeze). 18 g 2 Sucralfate 1 GM Oral Tablet (Carafate) Take 1 Tablet by mouth 4 times a day before meals and at bedtime as needed (stomach symptoms.). 120 Tablet 3 Latanoprost 0.005 % Ophthalmic Solution (Xalatan) Instill 1 Drop into both eyes at bedtime. 2.5 mL 5 prednisoLONE Acetate 1 % Ophthalmic Suspension (Pred Forte) Use 10 drops in NeilMed Saline nasal irrigation two times a day. (Patient taking differently: as needed. Use 10 drops in NeilMed Saline nasal irrigation two times a day.) 5 mL 4 Metoprolol Succinate ER 25 MG Oral Tablet Extended Release 24 Hour (Toprol XL) Take 1 Tablet by mouth in the morning. 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 Is currently in physical therapy once a week for irritable bowel syndrome. Eating behaviors/diet: no concerns been decreasing; in a year five pounds. Without trying Medication Adherence: Fair, misses doses sometimes Sleep: Good, no complaints Pain Assessment: Patient has complaints of pain. 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 Neck 05/20. Lower back /10 (Obtain: Age of onset, duration, patterns of use, history if relevant) Alcoholic beverages: none Illicit Drugs: none currently Gambling: Patient does not endorse engaging in gambling. 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 Caffeinated beverages: Half calf. Daily 40oz Other Addictive Behaviors: Parent/Guardian does not endorse other addictive behaviors for this patient. TREATMENT HISTORY Past treatment: None Current treatment: Therapy, [facility] Psychotropic medications, including Buspar Family History: No; nothing diagnosed but observing anxiety MENTAL STATUS AND BEHAVIORAL OBSERVATIONS Appearance: age-appropriate Behavior: picking, appropriate, cooperative, and pleasant Speech: normal rate Mood: anxious Affect: mood-congruent Thought Process: within normal limits Thought Content: Delusions: No Hallucinations: No Obsessions: No Homicidal: No Suicidal: No Sensorium: alert Cognition: grossly intact Insight: fair Judgment: good DEMOGRAPHIC/BACKGROUND INFORMATION Marital Status: Children: 1 adult daughter and one grandson Living situation: spouse Occupational Hx: No, patient is not employed. Retired Educational/Occupational Hx: some college. " I think I have had anxiety all my life" Behavior issues. Such as pranks. Grades were average Recalls having issues with focus and attention. couldn't sit down reading a book because mentally he was outside working on the [employer]. 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 Reports doing things hands on but mind is always ahead of him. Legal Problems: never Service: Yes, [employer] for six years. Developmental History: Major developmental milestones were reportedly attained on time Cultural History & Mu-Ism/Spiritual Orientation: Other: None Gender identity: Male Sexual orientation: Not focus of this current course of treatment. Sexual activity: Not the focus of this current treatment Social History/Supports: Childhood was described as "a normal other than the constant battles with my parents". Always verbal. Reports it was stressful. is a support. Danica Stover LCSW Primary Care Behavioral Health Psychology, [address] [address] documented in this encounter Plan of Treatment Upcoming Encounters Date Type Department Care Team (Late st Contact Info) Description 06/07/2023 2:00 PM EDT Therapy Psychology, [place] [address] [place] [address] Danica Stover LCSW [address] [place], [place] [id number] 07/04/2023 10:00 AM EDT Office Visit Cardiology, [facility] [address] [place] [address] Per Serrano DO [address] [place] [address] 07/14/2023 9:00 AM EDT Office [address] [address] Jorge Zhao MD [address] [facility] [address] [place] [address] 08/01/2023 11:00 AM EDT Office Visit Cardiology, [facility] [address] [place] [address] Meaghan Hargrove PADipti [address] [place] [address] 09/21/2023 10:30 AM EDT Office Visit Orthopaedics Spine Surgery, [facility] [address] [place] [address] Rosas Caba MD [address] [place] [address] 10/04/2023 8:20 AM EDT Office Visit Dermatology [facility] [address] [place] [address] Vilma Burris PA-C [address] [place] [address] 10/24/2023 9:00 AM EDT Hospital Encounter ENDO [facility], Endoscopy [address] [phone] Fidencio Hall MD [address] [place] [address] 10/24/2023 9:00 AM EDT - 10/24/2023 9:45 AM EDT Surgery ENDO [facility], Endoscopy [address] [place] [phone] Fidencio Hall MD [address] [place] [address] COLONOSCOPY FLEXIBLE PROXIMAL DIAGNOSTIC 11/07/2023 10:40 AM EDT Office Visit Otolaryngology, [facility] [address] [place] [address] Saúl Yu PA-C [address] [place] [address] Scheduled Procedures Name Priority Associated Diagnoses Date/Ti [...] reflux documented in this encounter Care Teams Dry Ice Machine Operator Relationship Specialty Start Date End Date Jorge Zhao MD [address] [facility] [address] [facility] [place] [address] PCP - General Family Medicine 08/02/19 documented as of this encounter
--- OUTSIDE RECORDS SUMMARY | 2023-06-20 10:21 | External Medical Summary | Summary of Care ---
Author Name Unknown Organization [facility] Address [address] [place] [address] Phone [phone] Care Team Providers Care Legger Press Operator Name Role Phone Jorge Zhao MD Primary Care Provider Reason for Referral * Precert (Within 10 days (routine)) - Authorized Specialty Diagnoses / Procedures Referred By Contac t Referred To Contact Cardiac Studies Diagnoses Other chest pain PVC (premature ventricular contraction) PAC (premature atrial contraction) Aortic valve sclerosis Procedures ECHO, STRESS (EXERCISE) W/CONTRAST Per Serrano DO [address] [place] [address] Referral ID Status Reason Start Date Expiration Date V isits Requested Visits Authorized [id number] Authorized Precert 05/23/2023 999 [id number] Reason for Visit * Precert (Within 10 days (routine)) - Authorized Specialty Diagnoses / Procedures Referred By Contac t Referred To Contact Cardiac Studies Diagnoses Other chest pain PVC (premature ventricular contraction) PAC (premature atrial contraction) Aortic valve sclerosis Procedures ECHO, STRESS (EXERCISE) W/CONTRAST Per Serrano DO [address] [place] [address] Referral ID Status Reason Start Date Expiration Date V isits Requested Visits Authorized [id number] Authorized Precert 05/23/[phone] Encounter Details Date Type Department Care Team (Latest Contact Info) Description 05/30/2023 10:42 AM EDT - 05/30/2023 11:59 PM EDT Hospital Encounter Cardiac Studies, [facility] [address] [place] [address] Discharge Disposition: Home - Self Care Allergies Active Allergy Reactions Criticality Noted Date Comments Clarithromycin 04/02/2001 ? Rash. Tolerates azithromycin on multiple occasions Doxycycline 09/27/1999 Rash documented as of this encounter (statuses as of 05/31/2023) Medications Medication Sig Dispensed Refills Start Date End Date Status MULTIVITAMINS PO TABS 1 a day 30 0 04/25/2007 Active vitamin c (ASCORBIC ACID) 500 MG Tablet Take 2 Tablets by mouth in the morning. 0 Active Calcium Magnesium Zinc 333-133-5 MG Oral Tablet Take 1 Tablet by mouth daily. 1 Tablet 0 02/19/2021 Active Saw [place] 1000 MG Oral Capsule Take by mouth . 0 Acti ve Olopatadine HCl 0.6 % Nasal Solution (Patanase) Administer 2 Sprays into nostril in the morning and 2 Sprays before bedtime. 30.5 g 5 04/25/2022 Active Additional Information Patient taking differently:2 [place] NasalBID PRN, Rhinitis, Reported on 05/22/2023 Ezetimibe [...] as of this encounter (statuses as of 05/31/2023) Active Problems Problem Noted Date Diagnosed Date PVC (premature ventricular contraction) 01/25/20 23 Mixed dyslipidemia 09/19/2016 Mild intermittent asthma without complication Ascending aorta dilation 09/08/2014 DDD (degenerative disc disease), lumbar 01/01/20 13 Gastroesophageal reflux disease without esophagi tis 06/07/2004 Deviated nasal septum 05/28/2003 Irritable bowel syndrome documented as of this encounter (statuses as of 05/31/2023) Resolved Problems Problem Noted Date Diagnosed Date [...] as of this encounter (statuses as of 05/31/2023) Immunizations Name Administration Dates Next Due COVID-19 [...] Sign Reading Time Taken Comments Blood Pressure 127/69 05/30/2023 12:14 PM EDT Pulse 72 05/30/2023 12:14 PM EDT Temperature - - Respiratory Rate - - Oxygen Saturation - - Inhaled Oxygen Concentration - - Weight - - Height - - Body Mass Index - - documented in this encounter Miscellaneous Notes * Ancillary Progress Note - Leyla Kevin RN - 05/30/2023 10:45 AM EDT Stress echo complete. Dr. Barron came and spoke with patient regarding stress results. Aware to follow up with Dr. Serrano. documented in this encounter Plan of Treatment Upcoming Encounters Date Type Department Care Team (Late st Contact Info) Description 06/07/2023 2:00 PM EDT Therapy Psychology, [place] [address] [place] [phone] Danica Stover, KD [address] [place] [address] 07/04/2023 10:00 AM EDT Office Visit [facility], [facility] [place] [address] Per Serrano DO [address] [place] [address] 07/14/2023 9:00 AM EDT Office Visit Family [place] [address] [address] [facility] [facility] [address] Jorge Zhao MD [facility] [address] [place] [address] [place] [address] 08/01/2023 11:00 AM EDT Office Visit Cardiology, [facility] [address] [place] [address] Meaghan Hargrove PADipti [address] [place] [address] 09/21/2023 10:30 AM EDT Office Visit Orthopaedics Spine Surgery, [facility] [address] [place] [address] Rosas Caba MD [address] [place] [address] 10/04/2023 8:20 AM EDT Office Visit Dermatology [facility] [address] [place] [address] Vilma Burris PA-C [address] [place] [address] 10/24/2023 9:00 AM EDT Hospital Encounter ENDO [facility], Endoscopy [address] [phone] Fidencio Hall MD [address] [place] [address] 10/24/2023 9:00 AM EDT - 10/24/2023 9:45 AM EDT Surgery ENDO [facility], Endoscopy [address] [phone] Fidencio Hall MD [address] [place] [address] COLONOSCOPY FLEXIBLE PROXIMAL DIAGNOSTIC 11/07/2023 10:40 AM EDT [facility] [address] [place] [address] Saúl Yu PA-C [address] [place] [address] Scheduled Procedures Name Priority Associated Diagnoses Date/Ti [...] of 2) 1996 COVID-19 Vaccine ( - 2022- season) 2022 03/31/2021, 07/19/2020, 06/25/2020 [...] Procedure Name Priority Date/Time Associated Diagnosis Comments HC 2D TTE DOPPLER COLOR FLOW CPL Routine 05/30/2023 12:15 PM EDT Other chest pain PVC (premature ventricular contraction) PAC (premature atrial contraction) Aortic valve sclerosis documented in this encounter Results * ECHO, STRESS (EXERCISE) W/CONTRAST (05/30/2023 12:15 PM EDT) LEFT VENTRICULAR EJECTION FRACTION 60 % [email or web address] CARDIOLOGY 05/30/2023 11:1 6 AM EDT Per Serrano DO [facility] documented in this encounter Visit Diagnoses Diagnosis Aortic valve sclerosis- Primary Aortic valve disorders Other chest pain PVC (premature ventricular contraction) Other premature beats PAC (premature atrial contraction) Supraventricular premature beats History of colonic polyps Personal history of colonic polyps Irritable bowel syndrome with constipation Irritable bowel syndrome GERD (gastroesophageal reflux disease) Esophageal reflux documented in this encounter Administered Medications Inactive Administered Medications - up to 3 most recent administrations Medication Order MAR Action Action Date Dose Rate Site perflutren lipid microsphere inj SUSP 1.956 mg 1.956 mg, Intravenous, ONCE PRN Other, For Echo Only - Suboptimal Echo Images, Starting on 05/30/23 at 1211, Until 05/30/23 at 1410, For 2 hours, Administer IVP over 45 seconds, Cardiac Studies_HODHOV Given 05/30/2023 12:13 PM EDT 1.956 mg documented in this encounter Care Teams Legger Press Operator Relationship Specialty Start Date End Date Jorge Zhao MD [address] [facility] [address] [place] [address] PCP - General Family Medicine 08/02/19 documented as of this encounter
--- OUTSIDE RECORDS SUMMARY | 2023-06-20 10:21 | External Medical Summary | Summary of Care ---
Author Name Unknown Organization [facility] Address [address] [place] [address] Phone [phone] Care Team Providers Care Pomology Teacher Name Role Phone Librado Moran MD Primary Care Provider Reason for Visit * Reason Comments eRx-Medication Refill Encounter Details Date Type Department Care Team (Late st Contact Info) Description 06/02/2023 Refill [place] [address] [place] [phone] Librado Moran MD [address] [place] [address] [place] [phone] Allergies Active Allergy Reactions Criticality Noted Date Comments Clarithromycin 04/02/2001 ? Rash. Tolerates azithromycin on multiple occasions Doxycycline 09/27/1999 Rash documented as of this encounter (statuses as of 06/02/2023) Medications Medication Sig Dispensed Refills Start Date End Date Status MULTIVITAMINS PO TABS 1 a day 30 0 8 Active vitamin c (ASCORBIC ACID) 500 MG Tablet Take 2 Tablets by mouth in the morning. 0 Active Calcium Magnesium Zinc 333-133-5 MG Oral Tablet Take 1 Tablet by mouth daily. 1 Tablet 0 1 Active Saw [place] 1000 MG Oral Capsule Take by mouth . 0 Acti ve Olopatadine HCl 0.6 % Nasal Solution (Patanase) Administer 2 Sprays into nostril in the morning and 2 Sprays before bedtime. 30.5 g 5 3 Active Additional Information Patient taking differently:2 [place] NasalBID PRN, Rhinitis, Reported on 05/22/2023 Famotidine [...] the morning. 34 Tablet 6 4 Active Ezetimibe 10 MG Oral Tablet (Zetia) TAKE 1 TABLET BY MOUTH IN THE MORNING 90 Tablet 3 4 Active Losartan Potassium 25 MG Oral [...] as of this encounter (statuses as of 06/02/2023) Active Problems Problem Noted Date Diagnosed Date PVC (premature ventricular contraction) 01/25/20 23 Mixed dyslipidemia 09/19/2016 Mild intermittent asthma without complication Ascending aorta dilation 09/08/2014 DDD (degenerative disc disease), lumbar 01/01/20 13 Gastroesophageal reflux disease without esophagi tis 06/07/2004 Deviated nasal septum 05/28/2003 Irritable bowel syndrome documented as of this encounter (statuses as of 06/02/2023) Resolved Problems Problem Noted Date Diagnosed Date [...] update of inactive term Mixed dyslipidemia 01/08/1999 Overview: Per Lipid Taxonomy. Esophageal reflux 10/21/2014 documented as of this encounter (statuses as of 06/02/2023) Immunizations Name Administration Dates Next Due COVID-19 mRNA, LNP-s, No Pre serve, 2-Dose Series (360pi) 03/31/2021,07/19/2020,06/25/2020 Pneumococcal Conjugate Vacc, 13 Valent (Prevnar) [...] encounter Miscellaneous Notes * Telephone Encounter - Taj Bowen, [facility] - 06/02/2023 3:32 PM EDTSigned Prescriptions: Disp Refills Ezetimibe 10 MG Oral Tablet (Zetia) 90 Tab*3 Sig: TAKE 1 TABLETBY MOUTH IN THE MORNINGAuthorizing Provider: LIBRADO MORAN User: TAJ BOWEN documented in this encounter Plan of Treatment Upcoming Encounters Date Type Department Care Team (Late st Contact Info) Description 06/07/2023 2:00 PM EDT Therapy Psychology, [place] [address] [place] [address] Danica Stover [facility] [place] [address] 07/04/2023 10:00 AM EDT Office Visit Cardiology, [facility] [address] [place] [address] Per Serrano DO [address] [place] [address] 07/14/2023 9:00 AM EDT Office Visit [address] [address] Librado Morna MD [address] [place], [place] [address] [place] [address] 08/01/2023 11:00 AM EDT Office Visit Cardiology, [facility] [address] [place] [address] Meaghan Hargrove PA-C [address] [place] [address] 09/21/2023 10:30 AM EDT Office Visit Orthopaedics Spine [facility] [place] [address] Rosas Caba MD [address] [facility] [address] [place] [address] 10/04/2023 8:20 AM EDT Office Visit Dermatology [facility] [address] [place] [address] Vilma Burris PA-C [address] [place] [address] 10/24/2023 9:00 AM EDT Hospital Encounter ENDO [facility], Endoscopy [address] [phone] Fidencio Hall MD [address] [place] [address] 10/24/2023 9:00 AM EDT - 10/24/2023 9:45 AM EDT Surgery ENDO [facility], Endoscopy [address] [phone] Fidencio Hall MD [address] [place] [address] COLONOSCOPY FLEXIBLE PROXIMAL DIAGNOSTIC 11/07/2023 10:40 AM EDT [facility] [address] [place] [address] Saúl Yu PA-C [address] [place] [address] Scheduled Procedures Name Priority Associated Diagnoses Date/Ti [...] filedocumented as of this encounter Care Teams Pomology Teacher Relationship Specialty Start Date End Date Librado Moran MD [facility] [address] [place] [address] PCP - General Family Medicine 08/02/19 documented as of this encounter
--- OUTSIDE RECORDS SUMMARY | 2023-06-20 10:21 | External Medical Summary | Summary of Care ---
Author Name Unknown Organization [facility] Address [address] [place] [address] Phone [phone] Care Team Providers Care Accounting Support Specialist Name Role Phone Jorge Zhao MD Primary Care Provider Reason for Visit * Reason Onset Date Comments Test Results 06/02/2023 Encounter Details Date Type Department Care Team (Late st Contact Info) Description 06/02/2023 Telephone Cardiology, [facility] [address] [place] [address] Per Serrano, DO [address] [facility] [address] Test Results Allergies Active Allergy Reactions Criticality Noted Date Comments Clarithromycin 04/02/2001 ? Rash. Tolerates azithromycin on multiple occasions Doxycycline 09/27/1999 Rash documented as of this encounter (statuses as of 06/05/2023) Medications Medication Sig Dispensed Refills Start Date End Date Status MULTIVITAMINS PO TABS 1 a day 30 0 8 Active vitamin c (ASCORBIC ACID) 500 MG Tablet Take 2 Tablets by mouth in the morning. 0 Active Calcium Magnesium Zinc 333-133-5 MG Oral Tablet Take 1 Tablet by mouth daily. 1 Tablet 0 1 Active Saw [place] 1000 MG Oral Capsule Take by mouth . 0 Acti ve Olopatadine HCl 0.6 % Nasal Solution (Patanase) Administer 2 Sprays into nostril in the morning and 2 Sprays before bedtime. 30.5 g 5 3 Active Additional Information Patient taking differently:2 [place] NasalBID PRN, Rhinitis, Reported on 05/22/2023 Famotidine [...] as of this encounter (statuses as of 06/05/2023) Active Problems Problem Noted Date Diagnosed Date PVC (premature ventricular contraction) 01/25/20 23 Mixed dyslipidemia 09/19/2016 Mild intermittent asthma without complication Ascending aorta dilation 09/08/2014 DDD (degenerative disc disease), lumbar 01/01/20 13 Gastroesophageal reflux disease without esophagi tis 06/07/2004 Deviated nasal septum 05/28/2003 Irritable bowel syndrome documented as of this encounter (statuses as of 06/05/2023) Resolved Problems Problem Noted Date Diagnosed Date [...] as of this encounter (statuses as of 06/05/2023) Immunizations Name Administration Dates Next Due COVID-19 mRNA, LNP-s, No Pre serve, 2-Dose Series (Sparkbuy) 03/31/2021,07/19/2020,06/25/2020 Pneumococcal Conjugate Vacc, 13 Valent (Prevnar) [...] 11:53 AM EDT Cath set up at [facility]. Patient aware. * Telephone Encounter - Danny Rahman LPN - 06/02/2023 3:[address] Serrano patient aware. Cath to be completed in 1-2 weeks at [facility]. If not able to get in prior to be done at [facility] with Dr. Serrano. Will call next week as Cardiac Cath scheduling is gone for today. ----- Message from Per Serrano DO sent at 06/02/2023 3:28 PM EDT ----- Abnormal stress echo. Results discussed with patient via telephone. Recommend cardiac catheterization at [facility]. Please schedule and contact patient with appointment. Will need pre-cath labs. Home BP elevated. Add losartan 25mg daily. Documanted aspirin intolerance (GI upset). Add clopidogrel 75mg daily. * Telephone Encounter - ePr Serrano DO - 06/02/2023 3:28 PM EDT Abnormal stress echo. Results discussed with patient via telephone. Recommend cardiac catheterization at [facility]. Please schedule and contact patient with appointment. Will need pre-cath labs. Home BP elevated. Add losartan 25mg daily. Documanted aspirin intolerance (GI upset). Add clopidogrel 75mg daily. documented in this encounter Plan of Treatment Upcoming Encounters Date Type Department Care Team (Late st Contact Info) Description 06/07/2023 2:00 PM EDT Therapy [facility], [place] [address] [facility] [address] Danica Stover LCSW [address] [place] [address] 07/04/2023 10:00 AM EDT Office Visit Cardiology, [facility] [address] [place] [address] Per Serrano DO [address] [place] [address] 07/14/2023 9:00 AM EDT Office Visit [place] [address] [address] [place] [address] Jorge Zhao MD [address] [facility] [address] [place] [address] 08/01/2023 11:00 AM EDT Office Visit Cardiology, [facility] [address] [place] [address] Meaghan Hargrove PA-C [address] [place] [address] 09/21/2023 10:30 AM EDT Office Visit Orthopaedics Spine Surgery, [facility] [address] [place] [address] Rosas Caba MD [address] [place] [address] 09/29/2023 8:15 AM EDT Office Visit Ophthalmology, [place] [address] [place] [address] García Winston MD [address] [place] [address] 10/04/2023 8:20 AM EDT Office Visit Dermatology [facility] [address] [place] [address] Vilma Burris PA-C [address] [place] [address] 10/24/2023 9:00 AM EDT Hospital Encounter ENDO [facility], Endoscopy [address] [facility] 310 [facility] [place] [phone] Fidencio Hall MD [address] [place] [address] 10/24/2023 9:00 AM EDT - 10/24/2023 9:45 AM EDT Surgery ENDO [facility], Endoscopy [address] [facility] [address] [facility] [place] [phone] Fidencio Hall MD [address] [place] [address] COLONOSCOPY FLEXIBLE PROXIMAL DIAGNOSTIC 11/07/2023 10:40 AM EDT Office Visit Otolaryngology, [place] [address] [place] [address] Saúl Yu PA-C [address] [place] [address] Scheduled Orders Name Type Priority Associated Diagnoses [...] Unspecified essential hypertension PSVT (paroxysmal supraventricular tachycardia) Paroxysmal supraventricular tachycardia NSVT (nonsustained ventricular tachycardia) (HCC) Paroxysmal ventricular tachycardia Dyslipidemia, goal LDL below 70 Other and unspecified hyperlipidemia Chest pain Chest pain, unspecified History of colonic polyps Personal history of colonic polyps Irritable bowel syndrome with constipation Irritable bowel syndrome GERD (gastroesophageal reflux disease) Esophageal reflux documented in this encounter Care Teams Accounting Support Specialist Relationship Specialty Start Date End Date Jorge Zhao MD [address] [facility] [place] [address] PCP - General Family Medicine 08/02/19 documented as of this encounter
--- OUTSIDE RECORDS SUMMARY | 2023-06-20 10:21 | External Medical Summary | Summary of Care ---
Author Name Unknown Organization [facility] Address [address] [place] [address] Phone [phone] Care Team Providers Care Pie Icer Machine Name Role Phone Jorge Zhao MD Primary Care Provider Reason for Referral * Precert (Within 10 days (routine)) - Authorized Specialty Diagnoses / Procedures Referred By Contac t Referred To Contact Cardiac Studies Diagnoses Other chest pain PVC (premature ventricular contraction) PAC (premature atrial contraction) Aortic valve sclerosis Procedures ECHO, STRESS (EXERCISE) W/CONTRAST Per Serrano DO [address] [place] [address] Referral ID Status Reason Start Date Expiration Date V isits Requested Visits Authorized [id number] Authorized Precert 05/23/2023 999 999 Reason for Visit * Reason Comments Follow Up Encounter Details Date Type Department Care Team (Latest Contact Info) Description 05/22/2023 3:30 PM EDT Office Visit Cardiology, [facility] [address] [place] [address] Per Serrano DO [address] [place] [address] Other chest pain*; PVC (premature ventricular contraction); PAC (premature atrial contraction); Dyslipidemia, goal LDL below 70; Ascending aorta dilation (HCC); Orthostatic hypotension; Aortic valve sclerosis; HTN, goal below 140/90; PSVT (paroxysmal supraventricular tachycardia); NSVT (nonsustained ventricular tachycardia) (HCC) Allergies Active Allergy Reactions Criticality Noted Date Comments Clarithromycin 04/02/2001 ? Rash. Tolerates azithromycin on multiple occasions Doxycycline 09/27/1999 Rash documented as of this encounter (statuses as of 05/22/2023) Medications Medication Sig Dispensed Refills Start Date End Date Status MULTIVITAMINS PO TABS 1 a day 30 0 04/25/2007 Active vitamin c (ASCORBIC ACID) 500 MG Tablet Take 2 Tablets by mouth in the morning. 0 Active Calcium Magnesium Zinc 333-133-5 MG Oral Tablet Take 1 Tablet by mouth daily. 1 Tablet 0 02/19/2021 Active Saw Sterling 1000 MG Oral Capsule Take by mouth . 0 Acti ve Olopatadine HCl 0.6 % Nasal Solution (Patanase) Administer 2 Sprays into nostril in the morning and 2 Sprays before bedtime. 30.5 g 5 04/25/2022 Active Additional Information Patient taking differently:2 [place] NasalBID PRN, Rhinitis, Reported on 05/22/2023 Ezetimibe 10 MG Oral Tablet (Zetia) Take 1 Tablet by mouth in the morning. 90 Tablet 3 04/25/2022 Active Famotidine 20 MG Oral Tablet (Pepcid)Indicatio ns:Gastroesophage [...] the morning. 90 Tablet 3 03/08/2023 Active methylPREDNISolon e 4 MG Oral Tablet [...] the morning. 34 Tablet 6 05/22/2023 Active Dicyclomine HCl 20 MG Oral Tablet (Bentyl) Take 1 Tablet by mouth every 6 hours. 40 Tablet 0 03/19/2023 4 Discontinue d(Patient preference/ discontinua tion) amLODIPine Besylate 5 MG Oral Tablet (Norvasc) Take 1 Tablet by mouth in the morning. 30 Tablet 0 04/22/2023 4 Discontinue d(Medicatio n/Dose Changed) Hospital, Clinic, or Other Facility Administered Medication Ordered Dose Route Frequency Start Date End Date Status Albuterol Sulfate (Proventil) (2.5 MG/3ML) 0.083% inhalation solution 2.5 mgIndications:Shortness of breath 2.5 mg NEBULIZER ONCE PRN 03/27/2023 03/26/2024 Active documented as of this encounter (statuses as of 05/22/2023) Active Problems Problem Noted Date Diagnosed Date PVC (premature ventricular contraction) 01/25/20 23 Mixed dyslipidemia 09/19/2016 Mild intermittent asthma without complication Ascending aorta dilation 09/08/2014 DDD (degenerative disc disease), lumbar 01/01/20 13 Gastroesophageal reflux disease without esophagi tis 06/07/2004 Deviated nasal septum 05/28/2003 Irritable bowel syndrome documented as of this encounter (statuses as of 05/22/2023) Resolved Problems Problem Noted Date Diagnosed Date [...] as of this encounter (statuses as of 05/22/2023) Immunizations Name Administration Dates Next Due COVID-19 [...] Date Smoking Tobacco: Never Smokeless Tobacco: Never Tobacco Cessation:Counseling Given: Not Answered Comments:no passive smoke at home Alcohol Use [...] Sign Reading Time Taken Comments Blood Pressure 128/64 05/22/2023 3:47 PM EDT Pulse 84 05/22/2023 3:47 PM EDT Temperature - - Respiratory Rate 12 05/22/2023 3:47 PM EDT Oxygen Saturation - - Inhaled Oxygen Concentration - - Weight 86.7 kg (191 lb 1.6 oz) 05/22/2023 3:47 P M EDT Height - - Body Mass Index 26.67 05/09/2023 8:26 AM EST documented in this encounter Progress Notes * Per Serrano DO - 05/22/2023 3:53 PM EDT SUBJECTIVE: Patient returns today for follow up of recent ER visit due to hypertension, moderate left internal carotid artery stenosis, dyslipidemia, frequent PACs, occasional PVCs, and borderline ascending aortic enlargement. Evaluated in the emergency department at [facility] April 22, 2023 due to hypertension and abdominal discomfort. Prescribed amlodipine 5 mg daily. Blood pressure controlled today. Unfortunately, he could not tolerate amlodipine due to lightheadedness and tunnel vision. Carries history oforthostatic hypotension and syncope. Reports 2 episodes of chest discomfort and tightness at rest. Both episodes occurred in the eveningand were not associated with activity/exertion. Also reporting palpitations, elevated heart rates, and skipped beats on a daily basis. Denies recurrent syncope or near syncope. Notes stable functional capacity without exertional chest discomfort. Somewhat limited by left knee discomfort at this time due to fall while walking on ice. Recent echocardiogram and Zio results noted below. Zio monitor, rhythm strips personally reviewed, April 10, 2023: Patient had a min HR of 46 bpm, max HR of 214 bpm, and avg HR of 74 bpm. Predominant underlying rhythm was Sinus Rhythm. 3 Ventricular Tachycardia runs occurred, the run with the fastest interval lasting 4 beats with a max rate of 203 bpm, the longest lasting 11 beats with an avg rate of 153 bpm. 28 Supraventricular Tachycardia runs occurred, the run with the fastest interval lasting 6 beats with a max rate of 214 bpm, the longest lasting 17.7 secs with an avg rate of 141 bpm. Some episodes of Supraventricular Tachycardia may be possible Atrial Tachycardia with variable block. Junctional Rhythm was present. Junctional Rhythm was detected within +/- 45 seconds of symptomatic patient event(s). Isolated SVEs were frequent (24.3%, [id number]), SVE Couplets were rare (<1.0%, 444), and SVE Triplets were rare (<1.0%, 166). Isolated VEs were occasional (1.6%, 47[address]), VE Couplets were rare (<1.0%, 73), and VE Triplets were rare (<1.0%, 1). Ventricular Bigeminy and Trigeminy were present. Episodes of supraventricular tachycardia and accelerated junctional rhythm. The junctional rate is higher than the sinus rate on rhythm strips reviewed. No definitive evidence of atrial fibrillation. 24 hour Holter monitor report 12/03/2020: 1. Duration - 24 hours 2. Quality - Fair 3. Dominant rhythm - Sinus rhythm , minumum heart rate of 51 bpm at 5:34am, average rate of 69 bpm,maximum rate of 118 bpm at 5: 18 bpm 4. PACs - Isolated 556. No SVT 5. PVCs - Isolated 78 . No VT 6. Symptoms - No symptoms reported Left lower extremity venous duplex 01/2019: Patent left lower extremity venous system. No evidence of acute deep venous thrombosis of the left lower extremity. Previously visualized SSV thrombophlebitis from knee to ankle appears to be resolved. The SSV is small with somewhat thickened martinez consistent with chronic venous changes. Carotid duplex report June 23, 2021: Right carotid artery duplex examination indicates evidence of less than 50% stenosis of the internal carotid artery. Left carotid artery duplex examination indicates evidence of less than 50% stenosis of the internalcarotid artery. Carotid duplex report May 06, 2020: Right carotid artery duplex examination indicates evidence of less than 50% stenosis of the internal carotid artery. Left carotid artery duplex examination indicates evidence of 50-69% stenosis of the internal carotid artery. Carotid duplex report 05/2019: Right carotid artery duplex examination indicates evidence of less than 50% stenosis of the internal carotid artery. Left carotid artery duplex examination indicates evidence of less than 50% stenosis of the internalcarotid artery. Carotid duplex report May 16, 2018: Right carotid artery duplex examination indicates evidence of less than 50% stenosis of the internal carotid artery. Left carotid artery duplex examination indicates evidence of 50-69% stenosis of the internal carotid artery. 2D echocardiogram report March 29, 2023: The qualitative LV ejection fraction is 55-59% (normal). The right ventricular systolic function is normal. The right ventricular cavity size is normal. Mild mitral regurgitation is present. Mild tricuspid regurgitation is present. The aortic root and proximal ascending aorta are mildly enlarged. 2D echocardiogram report March 27, 2019: The left ventricular cavity size is normal. The qualitative LV ejection fraction is 60-64% (normal). The right ventricular systolic function is normal as assessed by tricuspid annular plane systolic excursion (TAPSE) (normal >1.7cm). The left atrium is normal sized (< 35 ml/m^2). The right atrial size is normal. Mild mitral regurgitation is present. Mild tricuspid regurgitation is present. The aortic root and proximal ascending aorta are mildly enlarged. Mild aortic valve sclerosis is present. There is no significant aortic regurgitation. Aortic stenosis is absent. Exercise stress echo report January 06, 2021: The stress echo is negative for inducible ischemia. Stress EKG is equivocal for ischemia with upslpoing ST depressions. Adequate cardiovascular stress test as patient obtained 93 percent of their age predicted maximal target heart rate. Patient exercised for 7 minutes of the Jaron protocol with a functional capacity of 7.0 Mets. Blood pressure response to exercise was hypertensive. Patient denied chest discomfort reporting onlyfatigue at peak exercise.Stress EKG shows 1.5 - 2mm upsloping ST depression in II, III, aVF is equivocal for ischemia. Calculated LV ejection Fraction = 53% (bi-plane method of discs). The LV wall thickness is mildly increased (concentric). Mild tricuspid regurgitation is present.The proximal ascending thoracic aorta is mildly enlarged.3.9cm Exercise stress echo report 05/2017: STRESS STUDY: The stress echo is indeterminate for inducible ischemia. The left ventricular ejection fraction increases normally with stress. The left ventricular wall motion with stress is normal. EKG response was abnormal as described below. Mild ST segment depression persisted into the post exercise recovery interval. Equivocal EKG changes were described on the prior stress test performed 01/08/2007, however, the current findings are more prominent and suggestive of ischemia compared to those described in 2006. The exercise test was terminated due to shortness of breath, with no chest discomfort reported. Atypical soreness in the upper back was described by the patient. RESTING STUDY: The qualitative LV ejection fraction is 55-59% (normal). Mild aortic valve sclerosis is present. Aortic stenosis is absent. The aortic root and proximal ascending aorta are mildly enlarged. Compared to the prior study dated 04/20/2016, the mild dilatation of the aortic root and proximal ascending aorta is stable, unchanged. CTA chest report 03/28/15: There is some atherosclerotic vascular calcification observed within the aortic arch and descending thoracic aorta. No aneurysm is observed. Stable right upper lobe and left lower lobe pulmonary nodules since studies dating back to October 2011. No additional imaging followup is required for these nodules. Abdominal aortic duplex report 09/16/2014: There is no evidence of an abdominal aortic aneurysm. Exercise Stress Echo report 10/2013: Equivocal 1-2mm upsloping ST-segment depression is noted in the inferior and lateral leads. The exercise echocardiographic examination is normal without resting left ventricular wall motion abnormalities or inducible ischemia. Functional capacity of 10.3 Mets Adequate cardiovascular stress No significant arrhythmias were noted Normal blood pressure and heart rate response to exercise Patient reports shortness of breath and discomfort in his left lower chest a border of rib cage. This resolved within first minute of recovery. The qualitative LV ejection fraction is 55-59% (normal). The LV wall thickness is normal. The left ventricular diastolic function is normal. The left atrium is normal sized. The right ventricular systolic function is qualitatively normal. The estimated pulmonary artery systolic pressure is 26mm Hg. ROS: All others negative other than those noted in the HPI. Patient Active Problem List Diagnosis Code Deviated nasal septum J34.2 Irritable bowel syndrome K58.9 Gastroesophageal reflux disease without esophagitis K21.9 DDD (degenerative disc disease), lumbar M51.36 Ascending aorta dilation (HCC) I77.810 Mild intermittent asthma without complication J45.20 Mixed dyslipidemia E78.2 PVC (premature ventricular contraction) I49.3 Social History Tobacco Use Smoking status: Never Smoker Smokeless tobacco: Never Used Tobacco comment: no passive smoke at home Substance Use Topics Alcohol use: No Drug use: No Review of patient's allergies indicates: Allergen Reactions Clarithromycin ? Rash. Tolerates azithromycin on multiple occasions Doxycycline Rash Current Outpatient Medications Medication Sig Dispense Refill MULTIVITAMINS PO TABS 1 a day 30 0 vitamin c (ASCORBIC ACID) 500 MG Tablet Take 2 Tablets by mouth in the morning. Calcium Magnesium Zinc 333-133-5 MG Oral Tablet Take 1 Tablet by mouth daily. 1 Tablet Saw Sterling 1000 MG Oral Capsule Take by mouth . Olopatadine HCl 0.6 % Nasal Solution (Patanase) Administer 2 Sprays into nostril in the morning and2 Sprays before bedtime. 30.5 g 5 Ezetimibe 10 MG Oral Tablet (Zetia) Take 1 Tablet by mouth in the morning. (Patient taking differently: Take 1 Tablet by mouth as needed.) 90 Tablet 3 Famotidine 20 MG Oral Tablet (Pepcid) Take 1 Tablet by mouth in the morning and 1 Tablet before bedtime. (Patient taking differently: Take 1 Tablet by mouth every evening.) 180 Tablet 1 Pantoprazole Sodium 40 MG Oral Tablet Delayed Release (Protonix) Take 1 Tablet by mouth in the morning. 30 minutes before the first meal of the day. Do not crush, split or chew the tablet. 90 Tablet 1 Gabapentin 100 MG Oral Capsule (Neurontin) TAKE 2 CAPSULES BY MOUTH IN THE EVENING (Patient taking differently: TAKE 3 CAPSULES BY MOUTH IN THE EVENING) 180 Capsule 1 Rosuvastatin Calcium 5 MG Oral Tablet (Crestor) Take 1 Tablet by mouth in the morning. 90 Tablet 3 busPIRone HCl 5 MG Oral Tablet (Buspar) [...] two times a day. 5 mL 4 methylPREDNISolone 4 MG Oral Tablet Therapy Pack (Medrol Dosepack) follow package directions (Patient not taking: Reported on 05/22/2023) 21 Tablet 0 amLODIPine Besylate 5 MG Oral Tablet (Norvasc) Take 1 Tablet by mouth in the morning. (Patient not taking: Reported on 05/22/2023) 30 Tablet 0 Current Facility-Administered Medications Medication Dose Route Frequency Provider Last Rate Last Admin Albuterol Sulfate (Proventil) (2.5 MG/3ML) 0.083% inhalation solution 2.5 mg 2.5 mg Nebulizer Once PRN Jorge Zhao MD 2.5 mg at 03/31/23 1249 OBJECTIVE/PHYSICAL EXAMINATION: BP 128/64 (BP Site: Left Arm, BP Position: Sitting, BP Cuff Size: Large) | Pulse 84 | Resp 12 | Wt 86.7 kg (191 lb 1.6 oz) | BMI 26.67 kg/m | BSA 2.08 m General: NAD, AAO x3, well nourished. HEENT: Normocephalic. Atraumatic. Conjunctiva pink, no scleral icterus. No carotid bruits, the carotid upstrokes are brisk. No JVD. No HJR Heart: Regular rhythm with ectopy, normal S-1 and S-2 no S-3 or S-4 gallop. 2/6 low page early peaking systolic ejection murmur heard best at the right 2nd intercostal space. No rubs appreciated. PMI is not displaced. No RV heave. Lungs: Clear bilateral without rales , rhonchi, or wheeze. Abdomen: Normal bowel sounds. Soft. Nontender. No masses or organomegaly. No abdominal bruits. Extremities: No clubbing, cyanosis, or edema. Pulses: radial=2/4, Dorsalis pedis =2/4, posterior tibial=2/4. Neuro: No focal deficits. ASSESSMENT: 1. Atypical chest discomfort -negative high sensitivity troponin and no ischemic ECG changes during recent ER evaluation. 2. HTN - labile, borderline control, amlodipine discontinued due to intolerance 3. Paroxysmal supraventricular tachycardia/ frequent PACs PVCs / NSVT per Zio -frequent palpitations -preserved LV systolic function per recent echo. 4. Mild bilateral internal carotid artery stenosis - asymptomatic; mild per duplex 06/2021 5. Mild aortic root and ascending aortic enlargement -stable per echo 03/2023 6. Dyslipidemia - uncontrolled, rosuvastatin 5 mg daily plus Zetia 7. 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 Add low-dose beta-mai, Toprol-XL 25 mg daily. Consider titration to 50 mg daily pending clinical response/tolerance. Exercise stress ECHO will be performed for further evaluation of chest discomfort, hypertension, and frequent ectopy. Continue rosuvastatin, and Zetia as ordered. Repeat carotid duplex in 1 to 2 years. Follow Up: Return in about 6 weeks (around 07/03/2023). I spent a total of 40-54 minutes (exact time 41 mins) on the date of service in preparation, delivery, and documentation of the care provided to Miko Flores excluding any time spent in theperformance of separately billed services. Per Serrano DO, [facility] Cardiology - Cedric Blake documented in this encounter Nursing Notes * Siena Carpenter CMA - 05/22/2023 3:42 PM EDT Examination Room: 13 Name: Miko Flores Date of : (1945). Reason for Visit: 5M f/u, ED f/u Interim Hospitalization(s): [facility] 03/19 & 04/22 HTN Problems/Concerns: Denies other concerns at this time. Chest Pain/SOB: Denies CP. Occasional abd discomfort and feelings of not being able to take a full breath. [facility] Discussed: Not applicable My [facility] is a way you can talk to your provider online through e-mail. Would you like to sign up? I can activate it for you? ALREADY ACTIVE Patient was instructed to not get up on the exam table until directed and assisted by their provider; patient is to remain seated in the chair/ wheelchair/ exam table for fall prevention and safety reasons. Patient is aware to have assistance to step down off exam table with personnel. Patient voiced full comprehension of instructions. documented in this encounter Plan of Treatment Upcoming Encounters Date Type Department Care Team (Late st Contact Info) Description 05/30/2023 2:20 PM EDT [facility] [id number] Danica Stover LCSW [facility] [place] [address] 07/14/2023 9:00 AM EDT Office Visit [place] [address] [place] [phone] Jorge Zhao MD [facility] [address] [place] [address] 08/01/2023 11:00 AM EDT Office Visit Cardiology, [facility] [address] [place] [address] Meaghan Hargrove, [facility] [place] [address] 09/15/2023 8:15 AM EDT Office Visit Ophthalmology, [place] [address] [place] [id number] García Winston [facility] [address] 09/21/2023 10:30 AM EDT Office Visit Orthopaedics Spine Surgery, [place] AckermaneRichard [address] [place] [address] [place] [address] Rosas Caba MD [address] [place] [address] [place] [address] 10/04/2023 8:20 AM EDT Office Visit Dermatology [facility], [place] [address] [place] [address] Vilma Burris PA-C [address] [facility] [place] [address] 10/24/2023 9:00 AM EDT Hospital Encounter [facility]O [facility], Endoscopy [address] [phone] Fidencio Hall MD [address] [place], [place] [address] 10/24/2023 9:00 AM EDT - 10/24/2023 10:00 AM EDT Surgery ENDO [facility], Endoscopy [address] [phone] Fidencio Hall MD [address] [place], [place] [address] COLONOSCOPY FLEXIBLE PROXIMAL DIAGNOSTIC 11/07/2023 10:40 AM EDT [facility] [place] [facility] [address] [place] [address] Saúl Yu PA-C [address] [place] [address] Scheduled Orders Name Type Priority Associated Diagnoses Orde r Schedule ECHO, STRESS (EXERCISE) W/CONTRAST Echocardiology Routine Other chest pain PVC (premature ventricular contraction) PAC (premature atrial contraction) Aortic valve sclerosis Expected: 05/23/2023, Expires: 06/19/2024 Scheduled Procedures Name Priority Associated Diagnoses Date/Ti [...] as of this encounter Visit Diagnoses Diagnosis Other chest pain- Primary PVC (premature ventricular contraction) Other premature beats PAC (premature atrial contraction) Supraventricular premature beats Dyslipidemia, goal LDL below 70 Other and unspecified hyperlipidemia Ascending aorta dilation (HCC) Thoracic aortic ectasia Orthostatic hypotension Aortic valve sclerosis Aortic valve disorders HTN, goal below 140/90 Unspecified essential hypertension PSVT (paroxysmal supraventricular tachycardia) Paroxysmal supraventricular tachycardia NSVT (nonsustained ventricular tachycardia) (HCC) Paroxysmal ventricular tachycardia History of colonic polyps Personal history of colonic polyps Irritable bowel syndrome with constipation Irritable bowel syndrome GERD (gastroesophageal reflux disease) Esophageal reflux documented in this encounter Care Teams Pie Icer Machine Relationship Specialty Start Date End Date Jorge Zhao MD [address] [facility] [address] [place] [id number] PCP - General Family Medicine 08/02/19 documented as of this encounter"
--- OUTSIDE RECORDS SUMMARY | 2023-06-20 10:22 | External Medical Summary | Summary of Care ---
Author Name Unknown Organization [facility] Address [address] [place] [address] Phone [phone] Care Team Providers Care Director Private Music Therapy Agency Name Role Phone Jorge Zhao MD Primary Care Provider Reason for Visit * Reason Onset Date Comments Advice 05/08/2023 Encounter Details Date Type Department Care Team (Late st Contact Info) Description 05/08/2023 Telephone Gastroenterology, [address] [address] Mikaela Roger PA-C [address] [place] [phone] Advice (/) Allergies Active Allergy Reactions Criticality Noted Date Comments Clarithromycin 04/02/2001 ? Rash. Tolerates azithromycin on multiple occasions Doxycycline 09/27/1999 Rash documented as of this encounter (statuses as of 05/09/2023) Medications Medication Sig Dispensed Refills Start Date End Date Status MULTIVITAMINS PO TABS 1 a day 30 0 04/25/2007 Active vitamin c (ASCORBIC ACID) 500 MG Tablet Take 2 Tablets by mouth in the morning. 0 Active Calcium Magnesium Zinc 333-133-5 MG Oral Tablet Take 1 Tablet by mouth daily. 1 Tablet 0 02/19/2021 Active Saw Elizabeth 1000 MG Oral Capsule Take by mouth . 0 Acti ve Olopatadine HCl 0.6 % Nasal Solution (Patanase) Administer 2 Sprays into nostril in the morning and 2 Sprays before bedtime. 30.5 g 5 04/25/2022 Active Ezetimibe 10 MG Oral Tablet (Zetia) Take 1 Tablet by mouth in the morning. 90 Tablet 3 04/25/2022 Active Famotidine 20 MG Oral Tablet (Pepcid)Indication s:Gastroesophageal reflux disease without esophagitis Take 1 Tablet by mouth in the morning and 1 Tablet before bedtime. 180 Tablet 1 12/12/2022 Active Additional Information Patient taking differently:20 mg OralDAILY(1900), Reported on 05/01/2023 Pantoprazole Sodium 40 MG Oral Tablet Delayed Release (Protonix)Indicati ons:Gastroesophage al reflux disease without esophagitis Take 1 Tablet by mouth in the morning. 30 minutes before the first meal of the day. Do not crush, split or chew the tablet. 90 Tablet 1 12/12/2022 Active Gabapentin 100 MG Oral Capsule (Neurontin) TAKE 2 CAPSULES BY MOUTH IN THE EVENING 180 Capsule 1 01/12/2023 Active Additional Information Patient taking differently: TAKE 3 CAPSULES BY MOUTH IN THE EVENING, Reported on 04/05/2023 Rosuvastatin Calcium 5 MG Oral Tablet (Crestor) Take 1 Tablet by mouth in the morning. 90 Tablet 3 03/08/2023 Active Dicyclomine HCl 20 MG Oral Tablet (Bentyl) Take 1 Tablet by mouth every 6 hours. 40 Tablet 0 03/19/2023 Active methylPREDNISolone 4 MG Oral Tablet Therapy Pack (Medrol Dosepack) follow package directions 21 Tablet 0 03/23/2023 Active busPIRone HCl 5 MG Oral Tablet (Buspar)Indication s:BREANNA (generalized anxiety disorder) One tablet by mouth twice daily as needed for anxiety 60 Tablet 1 03/27/2023 Active Albuterol Sulfate HFA 108 (90 Base) MCG/ACT Inhalation Aerosol SolutionIndication s:Mild intermittent asthma without complication Inhale 2 Puffs by mouth every 4 hours as needed (cough or wheeze). 18 g 2 03/27/2023 Active amLODIPine Besylate 5 MG Oral Tablet (Norvasc) Take 1 Tablet by mouth in the morning. 30 Tablet 0 04/22/2023 05/22/2023 Active Sucralfate 1 GM Oral Tablet (Carafate) Take 1 Tablet by mouth 4 times a day before meals and at bedtime as needed (stomach symptoms.). 120 Tablet 3 04/27/2023 Active Latanoprost 0.005 % Ophthalmic Solution (Xalatan) Instill 1 Drop into both eyes at bedtime. 2.5 mL 5 05/03/2023 Active Hospital, Clinic, or Other Facility Administered Medication Ordered Dose Route Frequency Start Date End Date Status Albuterol Sulfate (Proventil) (2.5 MG/3ML) 0.083% inhalation solution 2.5 mgIndications:Shortness of breath 2.5 mg NEBULIZER ONCE PRN 03/27/2023 03/26/2024 Active documented as of this encounter (statuses as of 05/09/2023) Active Problems Problem Noted Date Diagnosed Date PVC (premature ventricular contraction) 01/25/20 23 Mixed dyslipidemia 09/19/2016 Mild intermittent asthma without complication Ascending aorta dilation 09/08/2014 DDD (degenerative disc disease), lumbar 01/01/20 13 Gastroesophageal reflux disease without esophagi tis 06/07/2004 Deviated nasal septum 05/28/2003 Irritable bowel syndrome documented as of this encounter (statuses as of 05/09/2023) Resolved Problems Problem Noted Date Diagnosed Date [...] as of this encounter (statuses as of 05/09/2023) Immunizations Name Administration Dates Next Due COVID-19 mRNA, LNP-s, No Pre serve, 2-Dose Series ([employer]) 03/31/2021,07/19/2020,06/25/2020 Pneumococcal Conjugate Vacc, 13 Valent (Prevnar) [...] encounter Miscellaneous Notes * Telephone Encounter - Fanny Corral RN - 05/09/2023 9:25 AM EST Patient notified. Is agreeable to have CT scan done. Given number for central scheduling. Please place order. Thanks * Telephone Encounter - Mikaela Roger PA-C - 05/08/2023 4:21 PM EST There are multiple [email or web address] messages that I'm responding to. He's sent messages to me, Dr. Holliday - Weight loss noted. - He is to have EGD/colonoscopy to further evaluate. This isn't until October; can we see about moving this up sooner? - In the meantime, if pt is agreeable can check CTAP to evaluate for any obvious intra-abdominal pathology. Please let me know and I'll order if he is ok doing that. Mikaela Roger PA-C 05/08/2023 Department of Gastroenterology documented in this encounter Plan of Treatment Upcoming Encounters Date Type Department Care Team (Late st Contact Info) Description 05/17/2023 1:00 PM EST Therapy Psychology, [place] [facility] [phone] Danica Stover [facility] 21 [place] [address] 05/18/2023 10:00 AM EST Appointment Radiology, [address] [place] [address] 05/22/2023 3:30 PM EDT Office Visit Cardiology, [facility] 132 [facility] [place] [address] Per Serrano DO 132 [facility] [place] [address] 07/14/2023 9:00 AM EDT Office Visit [place] [address] [place] [address] Jorge Zhao MD [address] [place], [place] [address] [place] [address] 08/01/2023 11:00 AM EDT [facility] 132 [facility] [place] [address] Meaghan Hargrove PA-C 132 [facility] [place] [address] 09/15/2023 8:15 AM EDT Office Visit Ophthal[facility], [place] [facility] [place] [address] García Winston MD 21 [facility] [place] [address] 09/21/2023 10:30 AM EDT Office Visit Orthopaedics Spine Surgery, [facility] 310 [facility] [address] [place] [address] Rosas Caba MD 310 [facility] [address] [place] [address] 10/04/2023 8:20 AM EDT Office Visit Dermatology [facility], [place] [address] [place] [address] Vilma Burris PA-C [address] [place] [address] 10/24/2023 9:00 AM EDT Hospital Encounter ENDO GE[facility], Endoscopy [address] [phone] Fidencio Hall MD [address] [place] [address] 10/24/2023 9:00 AM EDT - 10/24/2023 10:00 AM EDT Surgery ENDO [facility], Endoscopy [address] [phone] Fidencio Hall MD [address] [place] [address] COLONOSCOPY FLEXIBLE PROXIMAL DIAGNOSTIC 11/07/2023 10:40 AM EDT Office Visit Otolaryngology, [place], [place] [address] [place] [address] Saúl Yu PA-C [address] [place] [address] Scheduled Procedures Name Priority Associated Diagnoses Date/Ti [...] filedocumented as of this encounter Care Teams Director Private Music Therapy Agency Relationship Specialty Start Date End Date Jorge Zhao MD [facility]2 [facility] [address] [place], [place] [address] [address] PCP - General Family Medicine 08/02/19 documented as of this encounter
--- OUTSIDE RECORDS SUMMARY | 2023-06-20 10:22 | External Medical Summary | Summary of Care ---
Author Name Unknown Organization [facility] Address [address] [place] [address] Phone [phone] Care Team Providers Care Cashier Wrapper Name Role Phone Jorge Zhao MD Primary Care Provider Reason for Referral * Precert (Within 10 days (routine)) - Authorized Specialty Diagnoses / Procedures Referred By Contcorrine t Referred To Contact Radiology Diagnoses Abdominal discomfort Weight loss, non-intentional Change in bowel habits Procedures CT ABD/PELVIS W IV AND W ORAL CONTRAST Radha Kohli PA-C [facility] [email or web address] [facility] [id number] Referral ID Status Reason Start Date Expiration Date V isits Requested Visits Authorized [id number] Authorized 05/09/2023 999 999 Reason for Visit * Reason Onset Date Comments Advice 05/08/2023 Encounter Details Date Type Department Care Team (Late st Contact Info) Description 05/08/2023 Telephone Gastroenterology, [place] [address] [place] [address] [place] [address] Radha Kohli PA-C [address] [place] [address] [place] [address] Advice (/) Allergies Active Allergy Reactions [...] daily. 1 Tablet 0 02/19/2021 Active Saw Donovan 1000 MG Oral Capsule Take by mouth [...] mRNA, LNP-s, No Pre serve, 2-Dose Series ([employer]) 03/31/2021,07/19/2020,06/25/2020 Pneumococcal Conjugate Vacc, 13 Valent (Prevnar) [...] as of this encounter Miscellaneous Notes * Addendum Note - Radha Kohli PA-C - 05/09/2023 3:56 PM ESTAddended by: RADHA KOHLI on: 05/09/2023 03:56 PM Modules accepted: Orders * Telephone Encounter - Radha Kohli PA-C - 05/09/2023 3:[address] ordered.. Radha Kohli PA-C 05/09/2023 Department of Gastroenterology * Telephone Encounter - Fanny Corral RN - 05/09/2023 9:25 AM EST Patient notified. Is agreeable to have CT scan done. Given number for central scheduling. Please place order. Thanks * Telephone Encounter - Radha Kohli PA-C - 05/08/2023 4:21 PM EST There are multiple [employer] messages that I'm responding to. He's sent [...] order if he is ok doing that. Radha Kohli PA-C 05/08/2023 Department of Gastroenterology documented in this encounter Plan of Treatment Upcoming Encounters Date Type Department Care Team (Late st Contact Info) Description 05/17/2023 1:00 PM EST Therapy Psychology, [address] [place] [phone] Danica Stover LCSW 21 [facility] [address] 05/18/2023 10:00 AM EST Appointment Radiology, [address] [place] [address] 05/22/2023 3:30 PM EDT Office Visit Cardiology, [facility] 132 [facility] [place] [address] Per Serrano O, [address] [place] [address] 07/14/2023 9:00 AM EDT Office Visit Family [facility], [place] [address] [address] [place] [address] Jorge Zhao MD [facility]2 [facility] [address] [place] [address] 08/01/2023 11:00 AM EDT Office Visit Cardiology, [facility] [address] [place] [address] Meaghan Hargrove PADipti [address] [place] [address] 09/15/2023 8:15 AM EDT Office Visit Ophthalmology, [place] [facility] [place] [address] García Winston MD [address] [facility] [address] [place] [address] 09/21/2023 10:30 AM EDT Office Visit Orthopaedics Spine Surgery, [address], [place] [address] [address] [place] [address] Rosas Caba MD [address] [place] [address] [place] [address] 10/04/2023 8:20 AM EDT Office Visit Dermatology [facility], [place] [address] [place] [address] Vilma Burris PA-C [address] [facility] [place] [address] 10/24/2023 9:00 AM EDT Hospital Encounter ENDO GE[facility], Endoscopy [address] [place] [address] Fidencio Hall MD [address] [place] [address] 10/24/2023 9:00 AM EDT - 10/24/2023 10:00 AM EDT Surgery ENDO [facility], Endoscopy [address] [place] [phone] Fidencio Hall MD [address] [place] [address] COLONOSCOPY FLEXIBLE PROXIMAL DIAGNOSTIC 11/07/2023 10:40 AM EDT [facility] [address] [place] [address] Saúl Yu PA-C [address] [place] [address] Scheduled Orders Name Type Priority Associated Diagnoses Orde r Schedule CT ABD/PELVIS W IV AND W ORAL CONTRAST Medical Imaging Routine Abdominal discomfort Weight loss, non-intentional Change in bowel habits Ordered: 05/09/2023 Scheduled Procedures Name Priority Associated Diagnoses Date/Ti [...] as of this encounter Visit Diagnoses Diagnosis Abdominal discomfort- Primary Abdominal pain, unspecified site Weight loss, non-intentional Loss of weight Change in bowel habits Other symptoms involving digestive system History of colonic polyps Personal history of colonic polyps Irritable bowel syndrome with constipation Irritable bowel syndrome GERD (gastroesophageal reflux disease) Esophageal reflux documented in this encounter Care Teams Cashier Wrapper Relationship Specialty Start Date End Date Jorge Zhao MD [address] [facility] [address] [place] [address] PCP - General Family Medicine 08/02/19 documented as of this encounter
--- OUTSIDE RECORDS SUMMARY | 2023-06-20 10:22 | External Medical Summary | Summary of Care ---
Author Name Unknown Organization [facility] Address [address] [place] [address] Phone [phone] Care Team Providers Care Home Advisor Name Role Phone Jorge Zhao MD Primary Care Provider Reason for Visit * Reason Onset Date Comments Advice 05/08/2023 Encounter Details Date Type Department Care Team (Late st Contact Info) Description 05/08/2023 Telephone Gastroenterology, [address] [phone] Mikaela Roger PA-C [address] [place] [address] Advice (/) Allergies Active Allergy Reactions [...] daily. 1 Tablet 0 02/19/2021 Active Saw [place] 1000 MG Oral Capsule Take by mouth [...] 6 hours. 40 Tablet 0 03/19/2023 Active Additional Information Patient not taking.Reported on 05/01/2023 methylPREDNISolone 4 MG Oral Tablet Therapy Pack [...] mRNA, LNP-s, No Pre serve, 2-Dose Series ([employer]) 03/31/2021,07/19/2020,06/25/2020 Pneumococcal Conjugate Vacc, 13 Valent (Prevnar) [...] encounter Miscellaneous Notes * Telephone Encounter - Mikaela Roger PA-C - 05/08/2023 4:21 PM EST There are multiple [employer] messages that I'm responding to. He's sent messages to me, Dr. Bates. - Weight loss noted. - He is [...] Description 05/17/2023 1:00 PM EST Therapy Psychology, [place] 21 [place] [phone] Danica Stover LCSW 21 [place] [address] 05/22/2023 3:30 PM EDT Office Visit [facility], [facility] [place] [address] Per Serrano DO 132 [facility] [place] [address] 07/14/2023 9:00 AM EDT Office Visit [place] [address] [address] [place] [address] Jorge Zhao MD [address] [place], [place] [address] [place] [address] 08/01/2023 11:00 AM EDT Office Visit Cardiology, [facility] [place] [address] Meaghan Hargrove PA-C 132 [facility] [place] [address] 09/15/2023 8:15 AM EDT Office Visit Ophthalmology, [place] 21 [place] [address] García Winston MD 21 [place] [address] 09/21/2023 10:30 AM EDT Office Visit Orthopaedics Spine Surgery, [place] [address] [place] [address] [place] [address] Rosas Caba MD [address] [place] [address] [place] [address] 10/04/2023 8:20 AM EDT Office Visit Dermatology [address] [address] Vilma Burris, [place] [address]408 [facility], [place] [address] 10/24/2023 9:00 AM EDT Hospital Encounter ENDO GECL, Endoscopy [address] [phone] Fidencio Hall MD [address] [place] [address] 10/24/2023 9:00 AM EDT - 10/24/2023 10:00 AM EDT Surgery ENDO GE, Endoscopy [address] [phone] Fidencio Hall MD [address] [place] [address] COLONOSCOPY FLEXIBLE PROXIMAL DIAGNOSTIC Scheduled Procedures Name Priority Associated Diagnoses Date/Ti [...] filedocumented as of this encounter Care Teams Home Advisor Relationship Specialty Start Date End Date Jorge Zhao MD [facility]2 [address] [place] [address] PCP - General Family Medicine 08/02/19 documented as of this encounter
--- OUTSIDE RECORDS SUMMARY | 2023-06-20 10:22 | External Medical Summary | Summary of Care ---
Author Name Unknown Organization [facility] Address [address] [place] [address] Phone [phone] Care Team Providers Care Buttonhole Maker Hand Name Role Phone Jorge Zhao MD Primary Care Provider Reason for Visit * Reason Comments NEW PATIENT * Evaluate & Treat - Unlimited Visits (Within 10 days (routine)) - Closed Specialty Diagnoses / Procedures Referred By Zaida martin Referred To Contact Psychology Diagnoses Stress reaction Jorge Zhao MD [facility] [address] [address] Referral ID Status Reason Start Date Expiration Date V isits Requested Visits Authorized [id number] Closed Specialty Services Required 11/22/[phone] Encounter Details Date Type Department Care Team ([facility] Contact Info) Description 05/17/2023 1:00 PM EST Therapy Psychology, [place] [address] [place] [address] Danica Stover [facility] [address] [place] [address] Adjustment disorder with anxious mood* Allergies Active Allergy Reactions Criticality Noted Date Comments Clarithromycin 04/02/2001 ? Rash. Tolerates azithromycin on multiple occasions Doxycycline 09/27/1999 Rash documented as of this encounter (statuses as of 05/17/2023) Medications Medication Sig Dispensed Refills Start Date End Date Status MULTIVITAMINS PO TABS 1 a day 30 0 04/25/2007 Active vitamin c (ASCORBIC ACID) 500 MG Tablet Take 2 Tablets by mouth in the morning. 0 Active Calcium Magnesium Zinc 333-133-5 MG Oral Tablet Take 1 Tablet by mouth daily. 1 Tablet 0 02/19/2021 Active Saw [place] 1000 MG Oral Capsule Take by mouth [...] prednisoLONE Acetate 1 % Ophthalmic Suspension (Pred Forte)Indications: Chronic maxillary sinusitis Use 10 drops in NeilMed Saline nasal irrigation two times a day. 5 mL 4 05/09/2023 Active Sulfamethoxazole-T rimethoprim 800-160 MG Oral Tablet (Bactrim DS) Take 1 Tablet by mouth in the morning and 1 Tablet before bedtime. Do all this for 10 days. Until gone.. 20 Tablet 0 05/09/2023 05/19/2023 Active Hospital, Clinic, or Other Facility Administered Medication Ordered Dose Route Frequency Start Date End Date Status Albuterol Sulfate (Proventil) (2.5 MG/3ML) 0.083% inhalation solution 2.5 mgIndications:Shortness of breath 2.5 mg NEBULIZER ONCE PRN 03/27/2023 03/26/2024 Active documented as of this encounter (statuses as of 05/17/2023) Active Problems Problem Noted Date Diagnosed Date PVC (premature ventricular contraction) 01/25/20 23 Mixed dyslipidemia 09/19/2016 Mild intermittent asthma without complication Ascending aorta dilation 09/08/2014 DDD (degenerative disc disease), lumbar 01/01/20 13 Gastroesophageal reflux disease without esophagi tis 06/07/2004 Deviated nasal septum 05/28/2003 Irritable bowel syndrome documented as of this encounter (statuses as of 05/17/2023) Resolved Problems Problem Noted Date Diagnosed Date [...] as of this encounter (statuses as of 05/17/2023) Immunizations Name Administration Dates Next Due COVID-19 mRNA, LNP-s, No Pre serve, 2-Dose Series ([employer] / TLL) 03/31/2021,07/19/2020,06/25/2020 Pneumococcal Conjugate Vacc, 13 Valent (Prevnar) [...] of this encounter Progress Notes * Danica Stover LCSW - 05/17/2023 4:08 PM EST PRIMARY CARE BEHAVIORAL HEALTH FOLLOW-UP 05/17/2023 Length of visit: 45 minutes (1:33pm - 2:15pm) Type of Visit: individual Treatment session number: 1 AGENDA & ACTION PLAN: 05/17/23- Miko presented as a new patient with concerns about panic attacks. Miko reports that he has had anxiety throughout adult life and irritable bowel syndrome for the past thirty years.In March, Miko went to the ER due to shortness of breath, high blood pressure and nausea. Everything heart related has been ruled out. Miko has an upcoming appointment in June with gastro to rule out any intestine concerns. Miko identified a stressful event that began in November and then worsened in January and February. Depression set in at this time and anxiety worsened. Miko has a history of being on Gabapentin and started Buspar in the past couple of weeks which has been found helpful. Symptoms of concern panic like symptoms and irritability. Irritability hasstarted to improve. Miko states that he is not an immediate threat to himself or anyone else atthis time. Miko shared his story on how he ended up seeking treatment and concerns Provided education on panic attacks with a hand out and provided a panic assessment sheet to complete. Plan: completed intake Optional: Interventions addressed in treatment thus far: Treatment/Intervention Visit 05/17/2023 1 2 3 4 5 6 Behavioral activation Behavior modification for poor health behaviors (e.g., smoking cessation) Breathing re-training mindfulness training Cognitive restructuring/diffusion Exercise/physical activity Problem-solving Psychoeducation Exposure and/or response prevention Supportive therapy Sleep hygiene Stimulus control Time in bed restriction Conduct WHO (BHCM,BEA,MTM) MENTAL STATUS EXAMINATION: No changes to mental status since last visit. No change in suicide or homicide risk status since last visit. Level of suicide completion risk:Low Risk (wish to or ideation without method, intent, plan, orbehavior; modifiable risk factors and strong protective factors; or no reported history of ideationor behavior): Pt has agreed to return for further psychotherapy. DIAGNOSIS: Adjustment Disorder with anxious mood RETURN 2 WEEKS for individual cognitive behavioral therapy. Danica Stover LCSW Primary Care Behavioral Health Psychology, [address] [phone] documented in this encounter Plan of Treatment Upcoming Encounters Date Type Department Care Team (Late st Contact Info) Description 05/18/2023 10:00 AM EST Appointment Radiology, [address] [address] 05/18/2023 11:00 AM EST Appointment Radiology, [address] [address] Prep, [facility] [address] [facility] [address] 05/22/2023 3:30 PM EDT Office Visit Cardiology, [facility] 132 [facility] [place] [address] Per Serrano DO 132 [facility] [place] [address] 05/30/2023 2:20 PM EDT Therapy Psychology, [place] [address] [place] [phone] Danica Stover, [facility] [address] [place] [address] 07/14/2023 9:00 AM EDT Office Visit [address] [place] [address] Jorge Zhao MD [address] [place] [address] [place] [address] 08/01/2023 11:00 AM EDT Office Visit Cardiology, [facility] 132 [facility] [place] [address] Meaghan Hargrove PA-C 132 [facility] [place] [address] 09/15/2023 8:15 AM EDT Office Visit Ophthalmology, [place] [address] [place] [address] García Winston MD [address] [place] [address] 09/21/2023 10:30 AM EDT Office Visit Orthopaedics [facility], [facility] [address] [place] [address] [place] [address] Rosas Caba MD [address] [place] [address] 10/04/2023 8:20 AM EDT Office Visit Dermatology [facility] [address] [place] [address] Vilma Burris PA-C [address] [place] [address] 10/24/2023 9:00 AM EDT Hospital Encounter ENDO GECL, Endoscopy [address] [phone] Fidencio Hall MD [address] [place] [address] 10/24/2023 9:00 AM EDT - 10/24/2023 10:00 AM EDT Surgery ENDO GECL, Endoscopy [address] [phone] Fidencio Hall MD [address] [place] [address] COLONOSCOPY FLEXIBLE PROXIMAL DIAGNOSTIC 11/07/2023 10:40 AM EDT Office Visit Otolaryngology, [place] [facility] [place] [facility] [place] [address] [place] [phone] Saúl Yu PA-C [address] [place] [address] Scheduled Procedures Name Priority Associated Diagnoses Date/Ti [...] Type Priority Associated Diagnoses Orde r Schedule PSYCHOLOGY REFERRAL OP Referral Within 10 days (routine) Stress reaction Ordered: 11/22/2021 Health Maintenance Due Date Last Done Comments [...] as of this encounter Visit Diagnoses Diagnosis Adjustment disorder with anxious mood- Primary Adjustment disorder with anxiety History of colonic polyps Personal history of colonic polyps Irritable bowel syndrome with constipation Irritable bowel syndrome GERD (gastroesophageal reflux disease) Esophageal reflux documented in this encounter Care Teams Buttonhole Maker Hand Relationship Specialty Start Date End Date Jorge Zhao MD [address] [address] [place] [address] PCP - General Family Medicine 08/02/19 documented as of this encounter
--- OUTSIDE RECORDS SUMMARY | 2023-06-20 10:22 | External Medical Summary | Summary of Care ---
Author Name Unknown Organization [facility] Address [address] [place] [address] Phone [phone] Care Team Providers Care Director Community Center Name Role Phone Jorge Zhao MD Primary Care Provider Reason for Visit * Reason Onset Date Comments Advice 05/08/2023 Encounter Details Date Type Department Care Team (Late st Contact Info) Description 05/08/2023 Telephone Gastroenterology, [address] [phone] Mikaela Roger PA-C [address] [place] [address] Advice (/) Allergies Active Allergy Reactions [...] daily. 1 Tablet 0 02/19/2021 Active Saw [place] 1000 MG Oral Capsule Take by mouth [...] mRNA, LNP-s, No Pre serve, 2-Dose Series ([employer]iva) 03/31/2021,07/19/2020,06/25/2020 Pneumococcal Conjugate Vacc, 13 Valent (Prevnar) [...] 05/08/2023 4:21 PM EST There are multiple [employer] messages that I'm responding to. He's sent [...] [phone] Danica Stover LCSW [address] [place] [address] 05/22/2023 3:30 PM EDT Office Visit Cardiology, [facility] [place] [address] Per Serrano DO 132 [facility] [place] [address] 07/14/2023 9:00 AM EDT Office Visit [place] [address] [address] [place] [address] Jorge Zhao MD [address] [place], [place] [address]e [address] [place] [place] [address] 08/01/2023 11:00 AM EDT Office Visit Cardiology, [facility] [place] [address] Meaghan Hargrove PA-C 132 [facility] [place] [address] 09/15/2023 8:15 AM EDT Office Visit Ophthalmology, [employer] [address] [place] [address] García Winston MD 21 [place] [address] 09/21/2023 10:30 AM EDT Office Visit Orthopaedics Spine Surgery, [address] [place] [address] [place] [address] Rosas Caba MD [address] [place] [address] [place] [address] 10/04/2023 8:20 AM EDT Office Visit Dermatology [address] [address] Vilma Burris, BLAS [address] [facility], [place] [address] 10/24/2023 9:00 AM EDT Hospital Encounter ENDO GECL, Endoscopy [address] [phone] Fidencio Hall MD [address] [place] [address] 10/24/2023 9:00 AM EDT - 10/24/2023 10:00 AM EDT Surgery ENDO GE, Endoscopy [address] [phone] Fidencio Hall MD [address] [place] [address] COLONOSCOPY FLEXIBLE PROXIMAL DIAGNOSTIC Scheduled Procedures Name [...] as of this encounter Care Teams Director Community Center Relationship Specialty Start Date End Date Jorge Zhao MD [facility] [address] [place] [address] PCP - General Family Medicine 08/02/19 documented as of this encounter
--- OUTSIDE RECORDS SUMMARY | 2023-06-20 10:22 | External Medical Summary | Summary of Care ---
Author Name Unknown Organization [facility] Address [address] [place] [address] Phone [phone] Care Team Providers Care Patrol Conductor Name Role Phone Jorge Zhao MD Primary Care Provider Reason for Referral * Precert (Within 10 days (routine)) - Authorized Specialty Diagnoses / Procedures Referred By Contcorrine t Referred To Contact Radiology Diagnoses Abdominal discomfort Weight loss, non-intentional Change in bowel habits Procedures CT ABD/PELVIS W IV AND W ORAL CONTRAST Radha Kohli PA-C [facility] [address] Referral ID Status Reason Start Date Expiration Date V isits Requested Visits Authorized [id number] Authorized 05/09/[phone] Reason for Visit * Reason Onset Date Comments Advice 05/08/2023 Encounter Details Date Type Department Care Team (Late st Contact Info) Description 05/08/2023 Telephone Gastroenterology, [place] [address] [place] [address] [place] [address] Radha Kohli PA-C [address] [place] [address] [place] [address] Advice (/) Allergies Active [...] daily. 1 Tablet 0 02/19/2021 Active Saw [place] 1000 MG Oral Capsule Take by mouth [...] mRNA, LNP-s, No Pre serve, 2-Dose Series ([employer]) 03/31/2021,07/19/2020,06/25/2020 Pneumococcal Conjugate Vacc, 13 Valent (Prevnar) [...] encounter Miscellaneous Notes * Telephone Encounter - Kelley Russell OSA - 05/09/2023 4:47 PM EST Called pt and transferred his to schedule CT * Addendum Note - Radha Kohli PA-C [...] 05/08/2023 4:21 PM EST There are multiple [employer] messages that I'm responding to. He's sent [...] Info) Description 05/17/2023 1:00 [place] [phone] Danica Stover LCSW 21 [place] [address] 05/18/2023 10:00 AM EST Appointment Radiology, [facility] [address] [place] [address] 05/22/2023 3:30 PM EDT Office Visit Cardiology, [facility] 132 [address] [facility] [place] [address] Per Serrano DO [facility] [place] [address] 07/14/2023 9:00 AM EDT Office Visit [place] [address] [place] [address] Jorge Zhao MD [address] [place], [place] [address] [place] [address] 08/01/2023 11:00 AM EDT Office Visit Cardiology, [facility] [address] [facility] [place] [address] Meaghan Hargrove PA-C 132 [facility] [place] [address] 09/15/2023 8:15 AM EDT Office Visit Ophthalmology, [place] 21 [facility] [place] [address] García Winston MD 21 [place] [address] 09/21/2023 10:30 AM EDT Office Visit Orthopaedics Spine Surgery, [address] [place] [address] [place] [address] [place] [address] Rosas Caba MD [address] [place] [address] [place] [address] 10/04/2023 8:20 AM EDT Office Visit Dermatology [facility], [address] [address] Vilma Burris PA-C 4011 [facility] [place] [address] 10/24/2023 9:00 AM EDT Hospital Encounter ENDO GECL, Endoscopy [address] [phone] Fidencio Hall MD [address] [place], [place] [address] 10/24/2023 9:00 AM EDT - 10/24/2023 10:00 AM EDT Surgery ENDO GE, Endoscopy [address] [phone] Fidencio Hall MD [address] [place], [place] [address] COLONOSCOPY FLEXIBLE PROXIMAL DIAGNOSTIC 11/07/2023 10:40 AM EDT Office Visit Otolaryngology, [place] [address] [place] [address] Saúl Yu PA-C [address] [place] [address] Scheduled Orders Name Type Priority Associated Diagnoses [...] reflux documented in this encounter Care Teams Patrol Conductor Relationship Specialty Start Date End Date Jorge Zhao MD [facility]2 [facility] [address] [address] PCP - General Family Medicine 08/02/19 documented as of this encounter
--- OUTSIDE RECORDS SUMMARY | 2023-06-20 10:22 | External Medical Summary | Summary of Care ---
Author Name Unknown Organization [facility] Address [address] [place] [address] Phone [phone] Care Team Providers Care Director Supplier Quality Name Role Phone Jorge Zhao MD Primary Care Provider Reason for Visit * Precert (Within 10 days (routine)) - Authorized Specialty Diagnoses / Procedures Referred By Contac t Referred To Contact Radiology Diagnoses Abdominal discomfort Weight loss, non-intentional Change in bowel habits Procedures CT ABD/PELVIS W IV AND W ORAL CONTRAST Mikaela Roger PA-C [address] [place], [place] [address] [address] Referral ID Status Reason Start Date Expiration Date V isits Requested Visits Authorized [id number] Authorized 05/09/[phone] Encounter Details Date Type Department Care Team (Latest Contact Info) Description 05/18/2023 9:47 AM EST - 05/18/2023 11:59 PM EST Hospital Encounter Radiology, [facility] [address] [place] [address] Prep, [facility] [address] [facility] [phone] Arrived Discharge Disposition: Home - Self Care Allergies Active Allergy Reactions Criticality Noted Date Comments Clarithromycin 04/02/2001 ? Rash. Tolerates azithromycin on multiple occasions Doxycycline 09/27/1999 Rash documented as of this encounter (statuses as of 05/19/2023) Medications Medication Sig Dispensed Refills Start Date End Date Status MULTIVITAMINS PO TABS 1 a day 30 0 04/25/2007 Active vitamin c (ASCORBIC ACID) 500 MG Tablet Take 2 Tablets by mouth in the morning. 0 Active Calcium Magnesium Zinc 333-133-5 MG Oral Tablet Take 1 Tablet by mouth daily. 1 Tablet 0 02/19/2021 Active Saw [place] 1000 MG Oral Capsule Take by mouth [...] as of this encounter (statuses as of 05/19/2023) Active Problems Problem Noted Date Diagnosed Date PVC (premature ventricular contraction) 01/25/20 23 Mixed dyslipidemia 09/19/2016 Mild intermittent asthma without complication Ascending aorta dilation 09/08/2014 DDD (degenerative disc disease), lumbar 01/01/20 13 Gastroesophageal reflux disease without esophagi tis 06/07/2004 Deviated nasal septum 05/28/2003 Irritable bowel syndrome documented as of this encounter (statuses as of 05/19/2023) Resolved Problems Problem Noted Date Diagnosed Date [...] as of this encounter (statuses as of 05/19/2023) Immunizations Name Administration Dates Next Due COVID-19 mRNA, LNP-s, No Pre serve, 2-Dose Series ([email or web address]) 03/31/2021,07/19/2020,06/25/2020 Pneumococcal Conjugate Vacc, 13 Valent (Prevnar) [...] Care Team (Late st Contact Info) Description 05/22/2023 3:30 PM EDT Office Visit Cardiology, [address] [place] [address] Per Serrano DO [address] [place] [address] 05/30/2023 2:20 PM EDT Therapy Psychology, [place] [address] [facility] [facility] [place] [phone] Danica Stover [facility] 21 [facility] [place] [address] 07/14/2023 9:00 AM EDT Office Visit [address] [address] Jorge Zhao MD [facility]2 [facility] [address] [place] [address] [place] [address] 08/01/2023 11:00 AM EDT Office Visit Cardiology, [facility] [address] [place] [address] Meaghan Hargrove, BL[place] [address] [place] [address] 09/15/2023 8:15 AM EDT Office Visit Ophthalmology, [place] [facility] [place] [address] García Winston MD 21 [facility] [place] [address] 09/21/2023 10:30 AM EDT Office Visit Orthopaedics Spine Surgery, [address] [place] [place] [address] Rosas Caba MD [address] [place] [address] [place] [address] 10/04/2023 8:20 AM EDT Office Visit Dermatology [facility] [address] [place] [address] Vilma Burris PA-C [address] [place] [address] 10/24/2023 9:00 AM EDT Hospital Encounter ENDO GECL, Endoscopy [address] [phone] Fidencio Hall MD [address] [place] [address] 10/24/2023 9:00 AM EDT - 10/24/2023 10:00 AM EDT Surgery ENDO GECL, Endoscopy [address] [phone] Fidencio Hall MD [address] [place] [address] COLONOSCOPY FLEXIBLE PROXIMAL DIAGNOSTIC 11/07/2023 10:40 AM EDT Office Visit Otolaryngology, [place] [address] [place] [address] Saúl Yu PA-C [address] [place] [address] Scheduled Procedures Name Priority Associated Diagnoses Date/Ti [...] Procedure Name Priority Date/Time Associated Diagnosis Comments CT NECK W CONTRAST Routine 05/18/2023 11 :49 AM EST Hoarseness of voice documented in this encounter Administered Medications Inactive Administered Medications - up to 3 most recent administrations Medication Order MAR Action Action Date Dose Rate Site Ioversol (Optiray 320) inj 100 mL 100 mL, Intravenous, ONCE, On Tosha 05/18/23 at 1152, For 1 dose, Radiology Medication Routing (Non-IR) Given 05/18/2023 11:50 AM EST 100 mL documented in this encounter Care Teams Director Supplier Quality Relationship Specialty Start Date End Date Jorge Zhao MD [address] [facility] [address] [place] [address] PCP - General Family Medicine 08/02/19 documented as of this encounter
--- OUTSIDE RECORDS SUMMARY | 2023-06-20 10:22 | External Medical Summary | Summary of Care ---
Author Name Unknown Organization [facility] Address [address] [place] [address] Phone [phone] Care Team Providers Care Directional Survey Drafter Name Role Phone Jorge Zhao MD Primary Care Provider Reason for Visit * Precert (Within 10 days (routine)) - Authorized Specialty Diagnoses / Procedures Referred By Contcorrine t Referred To Contact Radiology Diagnoses Hoarseness of voice Procedures CT NECK W CONTRAST Saúl Yu PA-C [address] [place] [address] Referral ID Status Reason Start Date Expiration Date V isits Requested Visits Authorized [id number] Authorized 05/09/2023 [id number] Encounter Details Date Type Department Care Team (Latest Contact Info) Description 05/18/2023 9:47 AM EST - 05/18/2023 11:59 PM EST Hospital Encounter Radiology, [facility] [address], [place] [id number] Canceled (Senior Assistant Manager Error) Discharge Disposition: Home - Self Care Allergies [...] daily. 1 Tablet 0 02/19/2021 Active Saw Faith 1000 MG Oral Capsule Take by mouth [...] mRNA, LNP-s, No Pre serve, 2-Dose Series (Foodyn) 03/31/2021,07/19/2020,06/25/2020 Pneumococcal Conjugate Vacc, 13 Valent (Prevnar) [...] 05/22/2023 3:30 PM EDT Office Visit Cardiology, [facility] [address] [facility] [place] [address] [address], [address] [place] [address] 05/30/2023 2:20 PM EDT Therapy Psychology, [place] [address] [facility] [phone] Danica Stover LCSW [address] [place] [address] 07/14/2023 9:00 AM EDT Office Visit Family [facility], [place] [address] [address] [facility] [place] [address] Jorge Zhao MD [address] [facility] [address] [facility] [place] [address] 08/01/2023 11:00 AM EDT Office Visit Cardiology, [facility] [place] [address] Meaghan Hargrove, PAFrancineC [facility] [place] [address] 09/15/2023 8:15 AM EDT Office Visit [facility]hthalmology, [place] [address] [facility] [place] [address] García Winston MD [address] [facility] [place] [address] 09/21/2023 10:30 AM EDT Office Visit Orthopaedics [facility] [place] [address] Rosas Caba MD [address] [place] [address] [place] [address] 10/04/2023 8:20 AM EDT Office Visit Dermatology [facility], [place] [address] [place] [address] Vilma Burris, PAFrancineC [address] [facility] [address] 10/24/2023 9:00 AM EDT Hospital Encounter ENDO GE[facility], Endoscopy [address], [place] [phone] Fidencio Hall MD [address] [place] [address] 10/24/2023 9:00 AM EDT - 10/24/2023 10:00 AM EDT Surgery ENDO [facility], Endoscopy [address], [place] [phone] Fidencio Hall MD [address] [place] [address] COLONOSCOPY FLEXIBLE PROXIMAL DIAGNOSTIC 11/07/2023 10:40 AM EDT Office Visit Otol[place]ology, [place] [address] [place] [address] Saúl Yu PA-C [address] [place] [address] Scheduled Procedures Name Priority Associated Diagnoses Date/Ti [...] Hoarseness of voice documented in this encounter Results * CT NECK W CONTRAST (05/18/2023 11:49 AM EST) Anatomical Region Laterality Modality Neck, Head, Sinus Computed Tomog adan 05/19/2023 9:07 AM EST Impressions 05/19/2023 9:04 AM EST IMPRESSION 1. No definite CT findings to explain the patient's symptoms. 2. Similar ossifications along bilateral lateral thyrohyoid ligaments, more prominent on left side as compared with prior CT dated 07/07/2017, which is a normal variant. There is resultant mild mass effect on the left piriform sinus which appears relatively small as compared to the right side. Narrative 05/19/2023 9:[address] NECK W CONTRAST-05/18/2023 11:49 am HISTORY hoarseness of voice over the last year, ? asymmetry on left hypopharynx COMPARISON Prior CT chest 07/07/[address] cervical spine 07/07/[address] images obtained through the neck with intravenous contrast using standard protocol. Sagittal and coronal reformatted images are provided. FINDINGS There is similar ossifications along bilateral lateral thyrohyoid ligaments, more prominent on the left side. It is causing asymmetry of the piriform sinuses with left piriform sinus slightly smaller than right. No evidence of definite focal mass. Scattered subcentimeter lymph nodes are seen in the neck. None are pathologically enlarged or abnormally enhancing. The muscles of the neck are normal. Atherosclerotic calcifications are seen involving bilateral carotid bifurcations. Fascial planes are preserved and the deep spaces of the neck are normal. The visualized airway is widely patent. The base of the skull and the temporal bones are normal. Limited views of the brain including the cerebellum and brainstem are normal. The limited view of the [place] is unremarkable. The visualized portions of the orbits are normal. The visualized paranasal sinuses are clear. The parotid, submandibular and thyroid glands appear unremarkable. Multilevel degenerative changes are seen in the cervical spine with associated multilevel neural foraminal stenosis. No evidence of significant spinal canal stenosis.. A similar 5 mm pulmonary nodule is again noted in the apical segment of the right upper lobe. Procedure Note Torsten Suh MD - 05/19/[address] NECK W CONTRAST-05/18/2023 11:49 am HISTORY hoarseness of voice over the last year, ? asymmetry on left hypopharynx COMPARISON Prior CT chest 07/07/[address] cervical spine 07/07/[address] images obtained through the neck with intravenous contrastusing standard protocol. Sagittal and coronal reformatted images areprovided. FINDINGS There is similar ossifications along bilateral lateral thyrohyoidligaments, more prominent on the left side. It is causing asymmetry ofthe piriform sinuses with left piriform sinus slightly smaller than right.No evidence of definite focal mass. Scattered subcentimeter lymph nodes are seen in the neck. None arepathologically enlarged or abnormally enhancing. The muscles of the neckare normal. Atherosclerotic calcifications are seen involving bilateralcarotid bifurcations. Fascial planes are preserved and the deep spaces ofthe neck are normal. The visualized airway is widely patent. The base of the skull and the temporal bones are normal. Limited views ofthe brain including the cerebellum and brainstem are normal. The limitedview of the [place] is unremarkable. The visualized portions ofthe orbits are normal. The visualized paranasal sinuses are clear. Theparotid, submandibular and thyroid glands appear unremarkable. Multilevel degenerative changes are seen in the cervical spine withassociated multilevel neural foraminal stenosis. No evidence ofsignificant spinal canal stenosis.. A similar 5 mm pulmonary nodule is again noted in the apical segment ofthe right upper lobe. IMPRESSION IMPRESSION 1. No definite CT findings to explain the patient's symptoms. 2. Similar ossifications along bilateral lateral thyrohyoid ligaments,more prominent on left side as compared with prior CT dated 07/07/2017,which is a normal variant. There is resultant mild mass effect on theleft piriform sinus which appears relatively small as compared to theright side. Saúl Yu PA-C RAD CT documented in this encounter Visit Diagnoses Diagnosis Hoarseness of voice Dysphonia History of colonic polyps Personal history of colonic polyps Irritable bowel syndrome with constipation Irritable bowel syndrome GERD (gastroesophageal reflux disease) Esophageal reflux documented in this encounter Care Teams Directional Survey Drafter Relationship Specialty Start Date End Date Jorge Zhao MD [address] [facility] [address] [place], [place] [address] [address] PCP - General Family Medicine 08/02/19 documented as of this encounter
--- OUTSIDE RECORDS SUMMARY | 2023-06-20 10:22 | External Medical Summary | Summary of Care ---
Author Name Unknown Organization [facility] Address [address] [place] [address] Phone [phone] Care Team Providers Care Senior Integration Developer Name Role Phone Jorge Zhao MD Primary Care Provider Reason for Referral * Precert (Within 10 days (routine)) - Authorized Specialty Diagnoses / Procedures Referred By Contac t Referred To Contact Radiology Diagnoses Hoarseness of voice Procedures CT NECK W CONTRAST Saúl Yu PA-C [address] [place] [address] Referral ID Status Reason Start Date Expiration Date V isits Requested Visits Authorized [id number] Authorized 05/09/2023 999 999 Reason for Visit * Reason Comments Follow Up Hoarseness * Evaluate & Treat - Unlimited Visits (Within 10 days (routine)) - Closed Specialty Diagnoses / Procedures Referred By Contcorrine t Referred To Contact Otolaryngology Diagnoses Xerostomia Hoarseness of voice Keyon Roman MD [address] [place] [address] [place] [address] Referral ID Status Reason Start Date Expiration Date V isits Requested Visits Authorized [id number] Closed Specialty Services Required 03/19/2023 1 1 Encounter Details Date Type Department Care Team ([facility] Contact Info) Description 05/09/2023 8:00 AM EST Office Visit Otolaryngology, [address], [address] [place] [address] Saúl Yu PA-C [address] [place] [address] Hoarseness of voice*; Chronic maxillary sinusitis Allergies Active Allergy Reactions Criticality Noted Date Comments Clarithromycin 04/02/2001 ? Rash. Tolerates azithromycin on multiple occasions Doxycycline 09/27/1999 Rash documented as of this encounter (statuses as of 05/10/2023) Medications Medication Sig Dispensed Refills Start Date End Date Status MULTIVITAMINS PO TABS 1 a day 30 0 04/25/2007 Active vitamin c (ASCORBIC ACID) 500 MG Tablet Take 2 Tablets by mouth in the morning. 0 Active Calcium Magnesium Zinc 333-133-5 MG Oral Tablet Take 1 Tablet by mouth daily. 1 Tablet 0 02/19/2021 Active Saw Montgomery 1000 MG Oral Capsule Take by mouth [...] a day. 5 mL 4 05/09/2023 Active Hospital, Clinic, or Other Facility Administered Medication Ordered Dose Route Frequency Start Date End Date Status Albuterol Sulfate (Proventil) (2.5 MG/3ML) 0.083% inhalation solution 2.5 mgIndications:Shortness of breath 2.5 mg NEBULIZER ONCE PRN 03/27/2023 03/26/2024 Active documented as of this encounter (statuses as of 05/10/2023) Active Problems Problem Noted Date Diagnosed Date PVC (premature ventricular contraction) 01/25/20 23 Mixed dyslipidemia 09/19/2016 Mild intermittent asthma without complication Ascending aorta dilation 09/08/2014 DDD (degenerative disc disease), lumbar 01/01/20 13 Gastroesophageal reflux disease without esophagi tis 06/07/2004 Deviated nasal septum 05/28/2003 Irritable bowel syndrome documented as of this encounter (statuses as of 05/10/2023) Resolved Problems Problem Noted Date Diagnosed Date [...] update of inactive term Mixed dyslipidemia 01/08/1999 12/08/200 9 Overview: Per Lipid Taxonomy. Esophageal reflux 10/21/2014 documented as of this encounter (statuses as of 05/10/2023) Immunizations Name Administration Dates Next Due COVID-19 [...] Sign Reading Time Taken Comments Blood Pressure - - Pulse - - Temperature 36.4 C (97.5 F) 05/09/2023 8:26 AM ES T Respiratory Rate - - Oxygen Saturation - - Inhaled Oxygen Concentration - - Weight 85.8 kg (189 lb 3.2 oz) 05/09/2023 8:26 A M EST Height 180.3 cm (5' 10.98") 05/09/2023 8:[address] Body Mass Index 26.4 05/09/2023 8:26 AM EST documented in this encounter Patient Instructions * Patient Instructions* Saúl Yu PA-C - 05/09/2023 8:52 AM EST -Saline nasal irrigations twice daily with distilled water only, most important to get your nose below level of your mouth -Use prednisolone drops in irrigation twice a day as discussed -Stay well hydrated, avoid shouting or whispering to avoid strain on your voice -Cool mist humidifier in bedroom overnight -Do all of the above for minimum of 6-8 weeks for maximum benefit documented in this encounter Progress Notes * Saúl Yu PA-C - 05/09/2023 8:24 AM EST Images from the original note were not included. 05/09/2023 HISTORY OF PRESENT ILLNESS This 77 year old male is seen at the request of Jorge Zhao MD for the initial evaluation of hoarseness, sinusitis. The symptoms started 1 years ago and are intermittent. Has had intermittent hoarseness for the last year. Occurs at least 4 times a week. Does note it is more pronounced if he has a stressful situation. He notes hx of anxiety and is planning to see a cognitive behavioral therapist to work on this which he is excited about. Has hx of GERD-- takes pantoprazole and famotidine and feels this controls his symptoms well. EGD/Colonoscopy planned for October, GI is looking to get that moved up. Has had numerous sinus infections. Unsure if that occurred prior to hoarseness. Has a lot of burning in his sinuses-- upper cheeks, feels a fullness in his cheeks and notes a fullness, swelling in his throat, as well. Nose is fairly dry. No fevers, chills. He currently uses saline nasal irrigations a few times a week, same with Flonase. He was using these BID but did not notice much improvement so he cut back. Does note unexplained weight loss in the last two months-- has lost 4-5 lbs. Around this same time,within the last 2 months, has been having abdominal issues and "bad IBS flare". Denies: dysphagia, otalgia, night sweats, throat pain. No hx of tobacco use or significant second hand smoking. No hx or family hx of head and neck cancers. No hx of head and neck cancers. 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 INFORMATION lower lid laxity Intermittent asthma with reliever use up to twice per week 12/31/2012 Irritable bowel syndrome Myofascial pain 05/07/2018 acute Nevus of choroid of left eye Primary open angle glaucoma (POAG) of both eyes, mild stage 0.75/0.60 (09/02); VF 01/02;588/580;-3/-3 Past Surgical History: Procedure Laterality Date COLONOSCOPY 10-12-20, one small, benign polyp removed COLONOSCOPY, DIAGNOSTIC (RECTUM) 01/1992 Colonoscopy COLONOSCOPY, DIAGNOSTIC (RECTUM) 02/07/2012 bxs and stool samples shows no infection COLONOSCOPY, DIAGNOSTIC (RECTUM) N/A 10/12/2020 diverticulosis sigmoid colon/internal hemorrhoids/biopsies show adenomatous polyps/recall 5 years/COLONOSCOPY FLEXIBLE PROXIMAL DIAGNOSTIC performed by Fidencio Hall MD at ENDOSCOPY [facility] COLONOSCOPY, GI REFERRAL OP 2002 WNL DESTROY LUMBAR SACRAL NERVE IMAGING SINGLE 07/04/2016 DESTROY LUMBAR SACRAL NERVE IMAGING SINGLE performed by Aaron Allegra Rehman, DO at OR [facility] EGD, FLEXIBLE, DIAGNOSTIC 10/1990 EGD, FLEXIBLE, DIAGNOSTIC 10/12/2017 acid reflux, egd EGD, FLEXIBLE, DIAGNOSTIC N/A 10/12/2017 ESOPHAGOGASTRODUODENOSCOPY (EGD), FLEXIBLE, TRANSORAL, DIAGNOSTIC performed by Fidencio Hall MD at ENDOSCOPY [facility] EGD, FLEXIBLE, DIAGNOSTIC N/A 10/12/2020 gastritis/biopsies show mild to moderate inflammation/ESOPHAGOGASTRODUODENOSCOPY (EGD), FLEXIBLE, TRANSORAL, DIAGNOSTIC performed by Fidencio Hall MD at ENDOSCOPY [facility] EGD, W/ENDOSCOPIC US 10/12/2017 ESOPHAGOGASTRODUODENOSCOPY (EGD), FLEXIBLE, TRANSORAL, ENDOSCOPIC ULTRASOUND performed by Fidencio Barragan MD at ENDOSCOPY [facility] EMG, 2 EXTREMITIES 10/1997 Mild bilateral CTS INSERT URETERAL SUPPORT Left 02/2014 Ureteral Stent Placement L-/S-SPINE PARAVERTEBRAL FACET INJ,1 LEVEL 12/15/2015 L-/S-SPINE PARAVERTEBRAL FACET INJ, 1 LEVEL performed by Aaron Allegra العراقيs, DO at OR [facility] L-/S-SPINE PARAVERTEBRAL FACET INJ,1 LEVEL 01/01/2016 L-/S-SPINE PARAVERTEBRAL FACET INJ, 1 LEVEL performed by Aaron B Coumgs, DO at OR [facility] LUMBAR / SACRAL EPIDURAL, SINGLE LEVEL 11/03/2015 INJECTION TRANSFORAMINAL EPIDURAL LUMBAR OR SACRAL performed by Aaron B Cousins, DO at OR [facility] LUMBAR / SACRAL EPIDURAL, SINGLE LEVEL 11/17/2015 INJECTION TRANSFORAMINAL EPIDURAL LUMBAR OR SACRAL performed by Aaron B Cousins, DO at OR [facility] SACROILIAC JOINT INJECT W/GUIDANCE 08/15/2016 INJECTION SACROILIAC JOINT performed by Aaron B Cousins, DO at OR [facility] SACROILIAC JOINT INJECT W/GUIDANCE 01/02/2017 INJECTION SACROILIAC JOINT performed by Aaron B Malcoms, DO at OR [facility] UPPER GI ENDOSCOPY 10-12-20, gastritis determined Social History Socioeconomic History Marital status: Spouse name: Leon Number of children: 1 Years of education: 12+ Highest education level: Not on file Occupational History 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: [employer] 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 Employer: [employer] Tobacco Use Smoking status: Never Smokeless tobacco: Never Tobacco comments: no passive smoke at home Vaping Use Vaping Use: Never used Substance and Sexual Activity Alcohol use: Not Currently Alcohol/week: 0.0 standard drinks of alcohol Drug use: Never Sexual activity: Not Currently Partners: Female Other Topics Concern Service Not Asked Blood Transfusions Not Asked Caffeine Concern Not Asked Occupational Exposure Not Asked Hobby Hazards Not Asked Sleep Concern Not Asked Stress Concern Not Asked Weight Concern Not Asked Special Diet Not Asked Back Care Not Asked Exercise Yes Comment: Regular vigorous excercise, martial arts Bike Helmet Not Asked Seat Belt Not Asked Self-Exams Not Asked Social History Narrative . One daughter. One grandchild. Social Determinants of Health Financial Resource Strain: Not on file Food Insecurity: No Food Insecurity (04/24/2023) Hunger Vital Sign Worried About Running Out of Food in the Last Year: Never true Ran Out of Food in the Last Year: Never true Transportation Needs: Not on file Physical Activity: Not on file Stress: Not on file Social Connections: Not on file Intimate Partner Violence: Not on file Housing Stability: Not on file Family History Problem Relation Age of Onset Allergies Mother spring rhinitis Heart Disorder Mother [place] @82 Lung Disorder Father copd Allergies Father spring rhinitis No Past Hx Sister No Past Hx Sister No Past Hx Brother Medications: Current Outpatient Medications Medication Sig Dispense Refill MULTIVITAMINS PO TABS 1 a day 30 0 vitamin c (ASCORBIC ACID) 500 MG Tablet Take 2 Tablets by mouth in the morning. Calcium Magnesium Zinc 333-133-5 MG Oral Tablet Take 1 Tablet by mouth daily. 1 Tablet Saw Montgomery 1000 MG Oral Capsule Take by mouth [...] mouth in the morning. 90 Tablet 3 Dicyclomine HCl 20 MG Oral Tablet (Bentyl) Take 1 Tablet by mouth every 6 hours. 40 Tablet 0 methylPREDNISolone 4 MG Oral Tablet Therapy Pack (Medrol Dosepack) follow package directions 21 Tablet 0 busPIRone HCl 5 MG Oral Tablet (Buspar) One tablet by mouth twice daily as needed for anxiety 60 Tablet 1 Albuterol Sulfate HFA 108 (90 Base) MCG/ACT Inhalation Aerosol Solution Inhale 2 Puffs by mouth every 4 hours as needed (cough or wheeze). 18 g 2 amLODIPine Besylate 5 MG Oral Tablet (Norvasc) Take 1 Tablet by mouth in the morning. 30 Tablet 0 Sucralfate 1 GM Oral Tablet (Carafate) Take [...] two times a day. 5 mL 4 Sulfamethoxazole-Trimethoprim 800-160 MG Oral Tablet (Bactrim DS) Take 1 Tablet by mouth in the morning and 1 Tablet before bedtime. Do all this for 10 days. Until gone.. 20 Tablet 0 Current Facility-Administered Medications Medication Dose Route Frequency Provider Last Rate Last Admin Albuterol Sulfate (Proventil) (2.5 MG/3ML) 0.083% inhalation solution 2.5 mg 2.5 mg Nebulizer Once PRN Jorge Zhao MD 2.5 mg at 03/31/23 1249 Review of patient's allergies indicates: Allergen Reactions Clarithromycin ? Rash. Tolerates azithromycin on multiple occasions Doxycycline Rash REVIEW OF SYSTEMS Negative for constitutional, heart, lung, liver, kidney, digestive, hematologic, neurologic, rheumatologic, or endocrine complaints except as per history of present illness and past medical history. PHYSICAL EXAM: Temp 36.4 C (97.5 F) (Temporal Artery) | Ht 1.803 m (5' 10.98") | Wt 85.8 kg (189 lb 3.2 oz) | BMI 26.40 kg/m | BSA 2.07 m General: this is a healthy appearing male who appears their stated age. The patient is alert and appropriately verbally conversant without hoarseness. Face: The face was inspected and no cutaneous masses or lesions were visualized. There was no erythema or edema noted. Facial movement was symmetric without weakness. No skin lesions were detected. There was no sinus tenderness elicited. The parotid and submandibular glands were normal to palpation. Eyes: Examination of the eyes revealed no lesions. Pupils were equal, round, and reactive to light and accommodation. Extra-ocular muscle function was intact. No nystagmus was observed. Cranial Nerves: Cranial nerves II, III, IV, and were noted to be intact via extra-ocular muscle movement testing. Cranial nerve VII noted to be intact and symmetric by facial movement. Cranial nerve VIII was grossly normal (tuning fork not used). Cranial nerves IX and X noted to be intact by gagreflex and palatal movement. Cranial nerve XII noted to be intact by active and symmetric tongue movement. Nose: Septum nonobstructing, turbinates normal, no masses, polyps, or mucopus. Oral Cavity: Examination of the oral cavity revealed no mass lesions nor infection. The palate was noted to be intact without evidence of clefting. The tongue exhibited normal mobility. Mucosa was moist without lesion. The lips were free of lesion. Gums were free of inflammation. Dentition: Unremarkable Oropharynx: The oral pharynx was free of mass lesion or mucosal abnormality. The palate was noted to be without lesions. The uvula was normal appearing. The tonsils were unremarkable Ears: Examination of the ears revealed that the auricles were normally formed with no lesions. The external auditory canals were cleaned of any obstructing cerumen. The tympanic membranes were intactand freely mobile to pneumatoscopy without perforation or significant retraction pockets. Neck: Visualization and palpation of the neck revealed no mass lesions, no thyromegaly or thyroid masses. No skin lesions or inflammatory processes were detected. The cervical musculature was normal to palpation. Lymphatics (cervical): There were no palpable lymph nodes in the posterior triangle, submandibular triangle, jugulodigastric region, or central neck PROCEDURE NOTE Because of inability to cooperate with the mirror exam or in order to get a better assessment of the larynx, fiberoptic examination of the larynx was performed. The patient tolerated the procedure well. Fiberoptic examination revealed no mass lesions. Vocal cord mobility was normal without paralysis or paresis. No vocal cord masses were visualized. The pyriform sinuses were free of any mass lesions. There was no significant edema or erythema of the larynx. I performed the procedure. Findings: Clear drainage in nasopharynx, asymmetry of normal appearing tissue in left hypopharynx; no vocal cord lesions ASSESSMENT: 1. Hoarseness of voice - CT NECK W CONTRAST; Future 2. Chronic maxillary sinusitis - prednisoLONE Acetate 1 % Ophthalmic Suspension (Pred Forte); Use 10 drops in NeilMed Saline nasalirrigation two times a day. Dispense: 5 mL; Refill: 4 Plan: Findings of examination and recommendations were discussed with the patient. Will obtain CT scan to further evaluate neck. Return for recheck in 4-6 months with scope. Will also add steroid to nasal irrigations. F/U sooner with any concerns. Pt verbalized understanding and agrees with plan. Questions/Concerns addressed. Patient Goals for plan of care discussed in detail. [place] [facility] [address] [facility] [place] [address] 05/09/23 10:53 AM documented in this encounter Nursing Notes * Joanie Gibson LPN - 05/09/2023 8:28 AM EST Chief Complaint Patient presents with Follow Up Hoarseness Miko Flores is a 77 year old male who presents today for hoarseness. No other concerns voiced. documented in this encounter Plan of Treatment Upcoming Encounters Date Type Department Care Team (Late st Contact Info) Description 05/17/2023 1:00 PM EST Therapy [facility] [address] [facility] [phone] Danica Stover LCSW [address] [place] [id number] 05/18/2023 10:00 AM EST Appointment Radiology, [address] [place] [address] 05/18/2023 11:00 AM EST Appointment Radiology, [address] [address] Prep, [facility] [address] [facility] [address] 05/22/2023 3:30 PM EDT Office Visit Cardiology, [facility] [address] [place] [address] Per Serrano DO [address] [place] [address] 07/14/2023 9:00 AM EDT Office Visit [address] [place] [address] oJrge Zhao MD [address] [place], [place] [address] [place] [address] 08/01/2023 11:00 AM EDT [facility] [address] [place] [address] Meaghan Hargrove PA-C [address] [place] [address] 09/15/2023 8:15 AM EDT Office Visit Ophthalmology, [place] [address] [place] [address] García Winston MD [address] [place] [id number] 09/21/2023 10:30 AM EDT Office Visit Orthopaedics Spine Surgery, [facility] [address] [facility] [address] [place] [address] Rosas Caba MD [address] [facility] [address] [place] [address] 10/04/2023 8:20 AM EDT Office Visit Dermatology [facility], [place] [address] [place] [address] Vilma Burris PA-C [address] [place] [address] 10/24/2023 9:00 AM EDT Hospital Encounter ENDO [facility], Endoscopy [address] [phone] Fidencio Hall MD [address] [place] [address] 10/24/2023 9:00 AM EDT - 10/24/2023 10:00 AM EDT Surgery ENDO GE, Endoscopy [address] [phone] Fidencio Hall MD [address] [place] [address] COLONOSCOPY FLEXIBLE PROXIMAL DIAGNOSTIC 11/07/2023 10:40 AM EDT Office Visit Otolaryngology, [place], [place] [address] [place] [address] Saúl Yu PA-C [address] [place] [address] Scheduled Orders Name Type Priority Associated Diagnoses Orde r Schedule CT NECK W CONTRAST Medical Imaging Routine Hoarseness of voice Expected: 05/09/2023, Expires: 06/06/2024 Scheduled Procedures Name Priority Associated Diagnoses Date/Ti [...] of 2) 1996 COVID-19 Vaccine (4 - season) 2022 03/31/2021, 07/19/2020, 06/25/2020 Depression [...] as of this encounter Visit Diagnoses Diagnosis Hoarseness of voice- Primary Dysphonia Chronic maxillary sinusitis History of colonic polyps Personal history of colonic polyps Irritable bowel syndrome with constipation Irritable bowel syndrome GERD (gastroesophageal reflux disease) Esophageal reflux documented in this encounter Care Teams Senior Integration Developer Relationship Specialty Start Date End Date Jorge Zhao MD [address] [facility] [address] [place] [address] PCP - General Family Medicine 08/02/19 documented as of this encounter
--- OUTSIDE RECORDS SUMMARY | 2023-06-20 10:22 | External Medical Summary | Summary of Care ---
Author Name Unknown Organization [facility] Address [address] [place] [address] Phone [phone] Care Team Providers Care Service Establishment Attendant Name Role Phone Jorge Zhao MD Primary Care Provider Reason for Visit * Reason Onset Date Comments Test Results Imaging Study 05/22/2023 Encounter Details Date Type Department Care Team (Late st Contact Info) Description 05/22/[address] [facility] [address] [place] [address] Saúl Yu PA-C [address] [facility], [place] [phone] Test Results Imaging Study Allergies Active Allergy Reactions Criticality Noted Date [...] daily. 1 Tablet 0 02/19/2021 Active Saw [place] 1000 MG Oral Capsule Take by mouth [...] mRNA, LNP-s, No Pre serve, 2-Dose Series ([email or web address]) 03/31/2021,07/19/2020,06/25/2020 Pneumococcal Conjugate Vacc, 13 Valent (Prevnar) [...] 05/22/2023 3:30 PM EDT Office Visit Cardiology, [facility] [address] [place] [address] Per Serrano DO [address] [place] [address] 05/30/2023 2:20 PM EDT Therapy Psychology, [place] [address] [facility] [phone] Danica Stover LCSW [address] [place] [address] 07/14/2023 9:00 AM EDT Office Visit [place] [address] [facility] [place] [phone] Jorge Zhao MD [address] [place] [address] Rte [facility] [place] [address] 08/01/2023 11:00 AM EDT Office Visit Cardiology, [facility] [address] [place] [address] Meaghan Hargrove PAFrancineC [address] [place] [address] 09/15/2023 8:15 AM EDT Office Visit Ophthalmology, [place] [address] [place] [address] García Winston MD [address] [facility] [place] [address] 09/21/2023 10:30 AM EDT Office Visit Orthopaedics Spine Surgery, [facility] [address] [place] [address] Rosas Caba MD [address] [place] [address] 10/04/2023 8:20 AM EDT Office Visit Dermatology [facility] [address] [place] [address] Vilma Burris PA-C [address] [place] [address] 10/24/2023 9:00 AM EDT Hospital Encounter ENDO [facility], Endoscopy Suite [facility] [address] [place] [phone] Fidencio Hall MD [address] [place] [address] 10/24/2023 9:00 AM EDT - 10/24/2023 10:00 AM EDT Surgery ENDO [facility], Endoscopy Suite [facility] [address] [place] [phone] Fidencio Hall MD [address] [place] [address] COLONOSCOPY FLEXIBLE PROXIMAL DIAGNOSTIC 11/07/2023 10:40 AM EDT Office Visit Otolaryngology, [place] [address] [place] [address] Saúl Yu PA-C [address] [place] [address] Scheduled Procedures Name Priority Associated Diagnoses Date/Ti [...] filedocumented as of this encounter Care Teams Service Establishment Attendant Relationship Specialty Start Date End Date Jorge Zhao MD [address] [facility] [place] [address] PCP - General Family Medicine 08/02/19 documented as of this encounter
--- OUTSIDE RECORDS SUMMARY | 2023-06-20 10:23 | External Medical Summary | Summary of Care ---
Author Name Unknown Organization [facility] Address [address] [place] [address] Phone [phone] Care Team Providers Care Edi Analyst Name Role Phone Jorge Zhao MD Primary Care Provider Reason for Visit * Reason Onset Date Comments Test Results 04/28/2023 Encounter Details Date Type Department Care Team (Late st Contact Info) Description 04/28/2023 Telephone Cardiology, [facility] [address] [facility] [place] [address] Meaghan Hargrove PA-C [address] [facility] [place] [address] Test Results Allergies Active Allergy Reactions Criticality Noted Date Comments Clarithromycin 04/02/2001 ? Rash. Tolerates azithromycin on multiple occasions Doxycycline 09/27/1999 Rash documented as of this encounter (statuses as of 04/28/2023) Medications Medication Sig Dispensed Refills Start Date End Date Status MULTIVITAMINS PO TABS 1 a day 30 0 04/25/2007 Active vitamin c (ASCORBIC ACID) 500 MG Tablet Take 2 Tablets by mouth in the morning. 0 Active Calcium Magnesium Zinc 333-133-5 MG Oral Tablet Take 1 Tablet by mouth daily. 1 Tablet 0 02/19/2021 Active Saw [place] 1000 MG Oral Capsule Take by mouth [...] before bedtime. 180 Tablet 1 12/12/2022 Active Pantoprazole Sodium 40 MG Oral Tablet Delayed Release (Protonix)Indicati ons:Gastroesophage al reflux disease without esophagitis Take 1 Tablet by mouth in the morning. 30 minutes before the first meal of the day. Do not crush, split or chew the tablet. 90 Tablet 1 12/12/2022 Active Latanoprost 0.005 % Ophthalmic Solution (Xalatan) Instill 1 Drop into both eyes at bedtime. 2.5 mL 5 12/21/2022 Active Gabapentin 100 MG Oral Capsule (Neurontin) [...] (stomach symptoms.). 120 Tablet 3 04/27/2023 Active Hospital, Clinic, or Other Facility Administered Medication Ordered Dose Route Frequency Start Date End Date Status Albuterol Sulfate (Proventil) (2.5 MG/3ML) 0.083% inhalation solution 2.5 mgIndications:Shortness of breath 2.5 mg NEBULIZER ONCE PRN 03/27/2023 03/26/2024 Active documented as of this encounter (statuses as of 04/28/2023) Active Problems Problem Noted Date Diagnosed Date PVC (premature ventricular contraction) 01/25/20 23 Mixed dyslipidemia 09/19/2016 Mild intermittent asthma without complication Ascending aorta dilation 09/08/2014 DDD (degenerative disc disease), lumbar 01/01/20 13 Gastroesophageal reflux disease without esophagi tis 06/07/2004 Deviated nasal septum 05/28/2003 Irritable bowel syndrome documented as of this encounter (statuses as of 04/28/2023) Resolved Problems Problem Noted Date Diagnosed Date [...] as of this encounter (statuses as of 04/28/2023) Immunizations Name Administration Dates Next Due COVID-19 [...] Telephone Encounter - Dana Madrigal CMA - 04/28/2023 12:59 PM EST My g sent. * Telephone Encounter - Dana Madrigal CMA - 04/28/2023 12:58 PM EST ----- Message from Meaghan Hargrove PA-C sent at 04/27/2023 9:47 AM EST ----- LDL cholesterol trending slightly higher but still acceptable. Having side effects from higher dose statins. Continue low dose crestor and zetia. Will monitor. Other labs are normal. documented in this encounter Plan of Treatment Upcoming Encounters Date Type Department Care Team (Late st Contact Info) Description 05/03/2023 8:00 AM EST Office Visit Ophthalmology, [place] [id number] García Winston MD [place] [address] 05/09/2023 8:00 AM EST Office Visit Otolaryngology, [place] [address] [place] [address] Saúl Yu PA-C [address] [place] [address] 05/22/2023 3:30 PM EDT Office Visit Cardiology, [facility] [address] [facility] [place] [address] Per Serrano, DO [address] [place] [address] 07/14/2023 9:00 AM EDT Office Visit [address] [address] Jorge Zhao MD [address] [place], [place] [address] [place] [address] 08/01/2023 11:00 AM EDT Office Visit Cardiology, [facility] [address] [facility] [place] [address] Meaghan Hargrove PA[facility]C [facility] [place] [address] 09/21/2023 10:30 AM EDT Office Visit Orthopaedics Spine Surgery, [place] [address] [place] [address] [place] [address] Rosas Caba MD [address] [place] [address] [place] [address] 10/04/2023 8:20 AM EDT Office Visit Dermatology [facility] [place] [address] [place] [address] Vilma Burris PA-C [address] [place] [address] Scheduled Procedures Name Priority Associated Diagnoses Date/Ti me COLONOSCOPY FLEXIBLE PROXIMA L DIAGNOSTIC Recall History of colonic polyps Health Maintenance Due Date Last Done Comments [...] filedocumented as of this encounter Care Teams Edi Analyst Relationship Specialty Start Date End Date Jorge Zhao MD [facility] [address] [facility] [place] [address] PCP - General Family Medicine 08/02/19 documented as of this encounter
--- OUTSIDE RECORDS SUMMARY | 2023-06-20 10:23 | External Medical Summary | Summary of Care ---
Author Name Unknown Organization [facility] Address [address] [place] [address] Phone [phone] Care Team Providers Care Personalization Specialist Name Role Phone Jorge Zhao MD Primary Care Provider Reason for Visit * Reason Onset Date Comments Advice 05/08/2023 Encounter Details Date Type Department Care Team (Late st Contact Info) Description 05/08/2023 Telephone Gastroenterology, [address] [phone] Mikaela Roger PA-C [address] [place] [phone] Advice (/) Allergies Active Allergy Reactions Criticality Noted Date Comments Clarithromycin 04/02/2001 ? Rash. Tolerates azithromycin on multiple occasions Doxycycline 09/27/1999 Rash documented as of this encounter (statuses as of 05/08/2023) Medications Medication Sig Dispensed Refills Start Date End Date Status MULTIVITAMINS PO TABS 1 a day 30 0 04/25/2007 Active vitamin c (ASCORBIC ACID) 500 MG Tablet Take 2 Tablets by mouth in the morning. 0 Active Calcium Magnesium Zinc 333-133-5 MG Oral Tablet Take 1 Tablet by mouth daily. 1 Tablet 0 02/19/2021 Active Saw [place] 1000 MG Oral Capsule Take by mouth [...] as of this encounter (statuses as of 05/08/2023) Active Problems Problem Noted Date Diagnosed Date PVC (premature ventricular contraction) 01/25/20 23 Mixed dyslipidemia 09/19/2016 Mild intermittent asthma without complication Ascending aorta dilation 09/08/2014 DDD (degenerative disc disease), lumbar 01/01/20 13 Gastroesophageal reflux disease without esophagi tis 06/07/2004 Deviated nasal septum 05/28/2003 Irritable bowel syndrome documented as of this encounter (statuses as of 05/08/2023) Resolved Problems Problem Noted Date Diagnosed Date [...] as of this encounter (statuses as of 05/08/2023) Immunizations Name Administration Dates Next Due COVID-19 mRNA, LNP-s, No Pre serve, 2-Dose Series ([place]) 03/31/2021,07/19/2020,06/25/2020 Pneumococcal Conjugate Vacc, 13 Valent (Prevnar) [...] 05/08/2023 4:21 PM EST There are multiple [employer] messages that I'm responding to. He's sent [...] Care Team (Late st Contact Info) Description 05/09/2023 8:00 AM EST Office Visit Otolaryngology, [address] [place] [address] Saúl Yu PA-C [address] [place] [address] 05/22/2023 3:30 PM EDT Office Visit Cardiology, [facility] [address] [place] [address] Per Serrano DO [address] [place] [address] 07/14/2023 9:00 AM EDT Office Visit [place] [address] [address] [place] [address] Jorge Zhao MD [address] [place], [place] [address] [address] [place] [address] 08/01/2023 11:00 AM EDT Office Visit Cardiology, [facility] [address] [place] [address] Meaghan Hargrove PA-C [address] [place] [address] 09/15/2023 8:15 AM EDT Office Visit Ophthalmology, [place] [address] [place] [address] García Winston MD [address] [facility] [place] [address] 09/21/2023 10:30 AM EDT Office Visit Orthopaedics Spine Surgery, [address], [place] [address] [place] [place] [address] Rosas Caba MD [address] [place] [address] [place] [address] 10/04/2023 8:20 AM EDT Office Visit Dermatology [address] [address] Vilma Burris PA-C [address] [facility] [address] 10/24/2023 9:00 AM EDT Hospital Encounter [facility]O [facility], Endoscopy [address] [phone] Fidencio Hall MD [address] [place] [address] 10/24/2023 9:00 AM EDT - 10/24/2023 10:00 AM EDT Surgery [facility]O [facility], Endoscopy [address] [address] Fidencio Hall MD [address] [place] [address] COLONOSCOPY FLEXIBLE PROXIMAL DIAGNOSTIC Scheduled Procedures Name [...] filedocumented as of this encounter Care Teams Personalization Specialist Relationship Specialty Start Date End Date Jorge Zhao MD [address] [address] PCP - General Family Medicine 08/02/19 documented as of this encounter
--- OUTSIDE RECORDS SUMMARY | 2023-06-20 10:23 | External Medical Summary | Summary of Care ---
Author Name Unknown Organization [facility] Address [address] [place] [address] Phone [phone] Care Team Providers Care Stove Polisher Name Role Phone Jorge Zhao MD Primary Care Provider Reason for Visit * Reason Comments Follow Up Abdominal Pain Constipation Encounter Details Date Type Department Care Team (Late st Contact Info) Description 05/01/2023 12:30 PM EST Office Visit Gastroenterology, [address] [phone] Mikaela Roger PA-C [address] [place] [id number] Irritable bowel syndrome with constipation*; Gastroesophageal reflux disease without esophagitis Allergies Active Allergy Reactions Criticality Noted Date Comments Clarithromycin 04/02/2001 ? Rash. Tolerates azithromycin on multiple occasions Doxycycline 09/27/1999 Rash documented as of this encounter (statuses as of 05/02/2023) Medications Medication Sig Dispensed Refills Start Date End Date Status MULTIVITAMINS PO TABS 1 a day 30 0 04/25/2007 Active vitamin c (ASCORBIC ACID) 500 MG Tablet Take 2 Tablets by mouth in the morning. 0 Active Calcium Magnesium Zinc 333-133-5 MG Oral Tablet Take 1 Tablet by mouth daily. 1 Tablet 0 02/19/2021 Active Saw [place] 1000 MG Oral Capsule Take by mouth [...] as of this encounter (statuses as of 05/02/2023) Active Problems Problem Noted Date Diagnosed Date PVC (premature ventricular contraction) 01/25/20 23 Mixed dyslipidemia 09/19/2016 Mild intermittent asthma without complication Ascending aorta dilation 09/08/2014 DDD (degenerative disc disease), lumbar 01/01/20 13 Gastroesophageal reflux disease without esophagi tis 06/07/2004 Deviated nasal septum 05/28/2003 Irritable bowel syndrome documented as of this encounter (statuses as of 05/02/2023) Resolved Problems Problem Noted Date Diagnosed Date [...] as of this encounter (statuses as of 05/02/2023) Immunizations Name Administration Dates Next Due COVID-19 mRNA, LNP-s, No Pre serve, 2-Dose Series (Butlr) 03/31/2021,07/19/2020,06/25/2020 Pneumococcal Conjugate Vacc, 13 Valent (Prevnar) [...] Sign Reading Time Taken Comments Blood Pressure 155/72 05/01/2023 12:29 PM EST Pulse 69 05/01/2023 12:29 PM EST Temperature 36.4 C (97.5 F) 05/01/2023 12:[address] Respiratory Rate 18 05/01/2023 12:29 PM EST Oxygen Saturation - - Inhaled Oxygen Concentration - - Weight 87 kg (191 lb 12.8 oz) 05/01/2023 12:29 P M EST Height - - Body Mass Index 26.77 04/05/2023 8:49 AM EST documented in this encounter Patient Instructions * Patient Instructions* Mikaela Roger PA-C - 05/01/2023 1:11 PM EST - Give 1 Dulcolax suppository, followed by: - Bowel prep with Miralax: - Mix 7 heaping capfuls in 1 Liter of Gatorade Drink 1 measuring cupful every 10 mins until 1 liter is consumed. - If no result or stool is not running clear, can repeat the dose of Miralax the following day. - Then the next daiy start Metamucil 1 tablespoon mixed 1 capful of Miraalx daily in 8 oz liquid - Can use IBguard for discomfort - Continue Pantoprazole and famotidine documented in this encounter Progress Notes * Mikaela Roger PA-C - 05/01/2023 12:33 PM EST DATE OF SERVICE: 05/01/2023 REFERRING PHYSICIAN: Jorge Zhao MD Nursing Notes: Fanny Corral, RN 05/01/23 1233 Signed Chief Complaint Patient presents with Follow Up Abdominal Pain Constipation ER 04/23 because of elevated BP and abdominal fullness. Has been having lower abdominal pain since February. Has fullness as well. Has not had a good BM for 2 weeks. Has been having the constipation since February. Has poor appetite. Has severe nausea. Used Miralax Monday and Monday but it has nothelped. EGD/colonoscopy in 2020. Has not tried the Bentyl because he doesn't feel well taking it. CC: Abd pain, constipation Office Visit 05/01/23: Recall pt is a 77 year old y/o male with PMHx of chronic abdominal discomfort and intermittent changes in his bowel habits, likely IBS-M. In the past pain medications includingTCA and SSRI were tried and improved his symptoms but caused side effects. Recommended he take p.r.n. Bentyl and start fiber. Tried Bentyl but didn't like how it made him feel. Recently sent [employer] message in with multiple complaints including severe issues with bloating, nausea, loss of of appetite, abd pain. Xray in 03/2023 unremarkable. Recently labs including CRP, TSH, ESR,ferritin, CBC, BMP, LFTs, lipase WNL. EGD/colonoscopy scheduled. Last EGD/colonoscopy 2020 as below. In the past his GERD was well controlled on PPI and H2 mai. Recently had a heart monitor done, and this showed frequent atrial ectopy, was recommended the patient see electrophysiology. He has been having issues with blood pressure lately as well. Since February has had worsening abd fullness, early satiety, intermittent heartburn and epigastricpain Bowels have changed, now going every 4 days, with feeling of incomplete emptying, intermittent straining. No bloody or black stool. Takes pantoprazole 40 mg daily, Famotidine 20 mg daily. Gets daily heartburn despite this. Has noticed intermittent solid food dysphagia. No liquid dysphagia. Tried two doses of Miralax over the weekend but didn't help. No vomiting, fever, chills, SOB, cough. He's noticed hoarseness; seeing ENT. No sore throat. No tobacco, ETOH, NSAIDs Xray abd 2023: No acute abnormality in the abdomen. No findings to suggest bowel obstruction. EGD 2020: - Z-line irregular. Biopsied. - Gastritis. Biopsied. - Normal examined duodenum. Biopsied. Colonoscopy 2020: - The examined portion of the ileum was normal. - One less than 1 mm polyp in the transverse colon, removed with a jumbo cold forceps. Resected and retrieved. - Diverticulosis in the sigmoid colon. - Internal hemorrhoids. - The examination was otherwise normal on direct and retroflexion views. - Biopsies were taken with a cold forceps from the entire colon for evaluation of microscopic colitis. A. Duodenum, biopsy: Duodenal mucosa with mild nonspecific chronic inflammatory cell infiltrate. Negative for intraepithelial lymphocytosis, active inflammation, granuloma or dysplasia. B. Stomach, biopsy: Gastric mucosa with mild chronic inflammation and foveolar hyperplasia. Immunohistochemical stain for Helicobacter pylori is negative. C. Gastroesophageal junction, biopsy: Squamous epithelium with mild reactive changes. Columnar mucosa with chronic inflammation and prominent reactive/regenerative glandular changes. Negative for intestinal metaplasia or dysplasia. D. Transverse colon, polyp, polypectomy: Two fragments of tubular adenoma. E. Random colon, biopsy: Colonic mucosa negative for crypt destruction, active inflammation, granuloma or dysplasia. No evidence of microscopic colitis REVIEW OF SYSTEMS: GENERAL: Denies fevers, chills or sweats SKIN: Denies rashes or other skin lesions HEENT: Denies mouth sores or difficulty swallowing CARDIO: Denies chest pain, syncope RESP: Denies cough, shortness of breath GI: Refer to HPI : Denies urinary symptoms MS: Denies new joint pain or swelling HEME: Denies bleeding or bruising NEURO: Denies lightheadedness or dizziness All other findings negative. Past Medical History: Diagnosis Date ALLERGIC RHINITIS [...] eyes, mild stage 0.75/0.60 (09/02); VF 01/02;588/580;-3/-3 Family History Problem Relation Age of Onset Allergies Mother spring rhinitis Heart Disorder Mother [place] @82 Lung Disorder Father copd Allergies Father spring rhinitis No Past Hx Sister No Past Hx Sister No Past Hx Brother Past Surgical History: Procedure Laterality Date COLONOSCOPY 10-12-20, one small, benign polyp removed COLONOSCOPY, DIAGNOSTIC (RECTUM) 01/1992 Colonoscopy COLONOSCOPY, DIAGNOSTIC (RECTUM) 02/07/2012 bxs and stool samples shows no infection COLONOSCOPY, DIAGNOSTIC (RECTUM) N/A 10/12/2020 diverticulosis sigmoid colon/internal hemorrhoids/biopsies show adenomatous polyps/recall 5 years/COLONOSCOPY FLEXIBLE PROXIMAL DIAGNOSTIC performed by Fidencio Hall MD at ENDOSCOPY [facility] COLONOSCOPY, GI REFERRAL OP 2002 WNL DESTROY LUMBAR SACRAL NERVE IMAGING SINGLE 07/04/2016 DESTROY LUMBAR SACRAL NERVE IMAGING SINGLE performed by Aaron Rehman, at OR [facility] EGD, FLEXIBLE, DIAGNOSTIC 10/1990 EGD, FLEXIBLE, DIAGNOSTIC 10/12/2017 acid reflux, egd EGD, FLEXIBLE, DIAGNOSTIC N/A 10/12/2017 ESOPHAGOGASTRODUODENOSCOPY (EGD), FLEXIBLE, TRANSORAL, DIAGNOSTIC performed by Fidencio Hall MD at ENDOSCOPY [facility] EGD, FLEXIBLE, DIAGNOSTIC N/A 10/12/2020 gastritis/biopsies show mild to moderate inflammation/ESOPHAGOGASTRODUODENOSCOPY (EGD), FLEXIBLE, TRANSORAL, DIAGNOSTIC performed by Fidencio Hall MD at ENDOSCOPY [facility] EGD, W/ENDOSCOPIC US 10/12/2017 ESOPHAGOGASTRODUODENOSCOPY (EGD), FLEXIBLE, TRANSORAL, ENDOSCOPIC ULTRASOUND performed by Fidencio Barragan MD at ENDOSCOPY [facility]G, 2 EXTREMITIES 10/1997 Mild bilateral CTS INSERT URETERAL SUPPORT Left 02/2014 Ureteral Stent Placement L-/S-SPINE PARAVERTEBRAL FACET INJ,1 LEVEL 12/15/2015 L-/S-SPINE PARAVERTEBRAL FACET INJ, 1 LEVEL performed by Aaron Allegra Rehman, DO at OR [facility] L-/S-SPINE PARAVERTEBRAL FACET INJ,1 LEVEL 01/01/2016 L-/S-SPINE PARAVERTEBRAL FACET INJ, 1 LEVEL performed by [place] Allegra Rehman, DO at OR [facility] LUMBAR / SACRAL EPIDURAL, SINGLE LEVEL 11/03/2015 INJECTION TRANSFORAMINAL EPIDURAL LUMBAR OR SACRAL performed by [place] Allegra Rehman, DO at OR [facility] LUMBAR / SACRAL EPIDURAL, SINGLE LEVEL 11/17/2015 INJECTION TRANSFORAMINAL EPIDURAL LUMBAR OR SACRAL performed by [place] Allegra Rehman, DO at OR [facility] SACROILIAC JOINT INJECT W/GUIDANCE 08/15/2016 INJECTION SACROILIAC JOINT performed by [facility] Ori, DO at OR [facility] SACROILIAC JOINT INJECT W/GUIDANCE 01/02/2017 INJECTION SACROILIAC JOINT performed by [place] Allegra Rehman, DO at OR [facility] UPPER GI ENDOSCOPY 10-12-20, gastritis determined @SOCHXR@ Review of patient's allergies indicates: Allergen Reactions Clarithromycin ? Rash. Tolerates azithromycin on multiple occasions Doxycycline Rash Current Outpatient Medications Medication Sig Dispense Refill MULTIVITAMINS PO TABS 1 a day 30 0 vitamin c (ASCORBIC ACID) 500 MG Tablet Take 2 Tablets by mouth in the morning. Calcium Magnesium Zinc 333-133-5 MG Oral Tablet Take 1 Tablet by mouth daily. 1 Tablet Saw [place] 1000 MG Oral Capsule Take by mouth [...] or chew the tablet. 90 Tablet 1 Latanoprost 0.005 % Ophthalmic Solution (Xalatan) Instill 1 Drop into both eyes at bedtime. 2.5 mL 5 Gabapentin 100 MG Oral Capsule (Neurontin) TAKE [...] as needed for anxiety 60 Tablet 1 amLODIPine Besylate 5 MG Oral Tablet (Norvasc) Take 1 Tablet by mouth in the morning. 30 Tablet 0 Sucralfate 1 GM Oral Tablet (Carafate) Take 1 Tablet by mouth 4 times a day before meals and at bedtime as needed (stomach symptoms.). 120 Tablet 3 Dicyclomine HCl 20 MG Oral Tablet (Bentyl) Take 1 Tablet by mouth every 6 hours. (Patient not taking: Reported on 05/01/2023) 40 Tablet 0 methylPREDNISolone 4 MG Oral Tablet Therapy Pack (Medrol Dosepack) follow package directions 21 Tablet 0 Albuterol Sulfate HFA 108 (90 Base) MCG/ACT Inhalation Aerosol Solution Inhale 2 Puffs by mouth every 4 hours as needed (cough or wheeze). 18 g 2 Current Facility-Administered Medications Medication Dose Route Frequency Provider Last Rate Last Admin Albuterol Sulfate (Proventil) (2.5 MG/3ML) 0.083% inhalation solution 2.5 mg 2.5 mg Nebulizer Once PRN Jorge Zhao MD 2.5 mg at 03/31/23 1249 EXAM: BP 155/72 | Pulse 69 | Temp 36.4 C (97.5 F) (Infrared ) | Resp 18 | Wt 87 kg (191 lb 12.8 oz) |BMI 26.77 kg/m | BSA 2.09 m GENERAL: Well developed and well nourished in no acute distress. SKIN: Warm, dry, intact, no rash, jaundice, or spider angiomata HEENT: Normocephalic, sclera clear NECK: Supple, full ROM HEART: Regular rate & rhythm, no murmurs and no gallops. LUNGS: Clear to auscultation bilaterally, no respiratory distress ABDOMEN: Soft, nontender, normal bowel sounds, no masses or hepatosplenomegaly. EXTREMITIES: No palmar erythema, cyanosis, or edema. NEURO: A&O x 3. Sensory/Motor grossly normal. ASSESSMENT AND PLAN: 77 year old y/o male with PMHx of chronic abdominal discomfort and intermittent changes in his bowel habits, likely IBS-M, lately having more abd discomfort, heartburn, bowel habits changes. (K58.1) Irritable bowel syndrome with constipation (primary encounter diagnosis) Plan: COLONOSCOPY - Colonoscopy as scheduled - Try bowel purge then daily bowel regimen for constipation - IBguard for discomfort (K21.9) Gastroesophageal reflux disease without esophagitis Plan: EGD, FLEXIBLE, DIAGNOSTIC - Daily PPI and famotidine - Antireflux lifestyle Patient Instructions - Give 1 Dulcolax suppository, followed by: - Bowel prep with Miralax: - Mix 7 heaping capfuls in 1 Liter of Gatorade Drink 1 measuring cupful every 10 mins until 1 liter is consumed. - If no result or stool is not running clear, can repeat the dose of Miralax the following day. - Then the next daiy start Metamucil 1 tablespoon mixed 1 capful of Miraalx daily in 8 oz liquid - Can use IBguard for discomfort - Continue Pantoprazole and famotidine - Return to GI pending results of above - ED for emergencies - Please call with questions or concerns Mikaela Roger PA-C Division of Gastroenterology [facility] This chart was completed in part utilizing [employer] Speech Voice Recognition Software. Grammatical errors, random word insertions, prounoun errors, and incomplete sentences are an occasional consequence of this system due to software limitations, ambient noise, and hardware issues. Any formal questions or concerns about the content, text, or information contained within the body of this dictation should be directly addressed to the provider for clarification. documented in this encounter Nursing Notes * Fanny oCrral RN - 05/01/2023 12:29 PM EST Chief Complaint Patient presents with Follow Up Abdominal Pain Constipation ER 04/23 because of elevated BP and abdominal fullness. Has been having lower abdominal pain since February. Has fullness as well. Has not had a good BM for 2 weeks. Has been having the constipation since February. Has poor appetite. Has severe nausea. Used Miralax Monday and Monday but it has nothelped. EGD/colonoscopy in 2020. Has not tried the Bentyl because he doesn't feel well taking it. documented in this encounter Plan of Treatment Upcoming Encounters Date Type Department Care Team (Late st Contact Info) Description 05/03/2023 8:00 AM EST Office Visit [facility] [address] [id number] García Winston MD [address] [id number] 05/09/2023 8:00 AM EST [facility] [place] [address] [address] Saúl Yu PA-C [address] [place] [address] 05/22/2023 3:30 PM EDT Office Visit Cardiology, [facility] [address] [place] [address] Per Serrano DO [address] [place] [address] 07/14/2023 9:00 AM EDT Office Visit [place] [address] [place] [address] Jorge Zhao MD [facility] [address] [place], [place] [address] [place] [address] 08/01/2023 11:00 AM EDT [facility] [address] [place] [address] Meaghan Hargrove PA-C [address] [place] [address] 09/21/2023 10:30 AM EDT Office Visit [facility] [place] [address] [place] [address] Rosas Caba MD [address] [place] [address] 10/04/2023 8:20 AM EDT Office Visit Dermatology [facility] [address] [place] [address] Vilma Burris PA-C [address] [place] [address] 10/24/2023 9:00 AM EDT Hospital Encounter ENDO [facility], Endoscopy [address] [phone] Fidencio Hall MD [address] [place] [address] 10/24/2023 9:00 AM EDT - 10/24/2023 10:00 AM EDT Surgery ENDO [facility], Endoscopy [address] [phone] Fidencio Hall MD [address] [place] [address] COLONOSCOPY FLEXIBLE PROXIMAL DIAGNOSTIC Scheduled Orders Name Type Priority Associated Diagnoses Orde r Schedule EGD, FLEXIBLE, DIAGNOSTIC Procedures Routine Gastroesophageal reflux disease without esophagitis Ordered: 05/01/2023 COLONOSCOPY Gastro Lower Routine Irritable bowel syndrome with constipation Ordered: 05/01/2023 Scheduled Procedures Name Priority Associated Diagnoses Date/Ti [...] as of this encounter Visit Diagnoses Diagnosis Irritable bowel syndrome with constipation- Primary Irritable bowel syndrome Gastroesophageal reflux disease without esophagitis Esophageal reflux History of colonic polyps Personal history of colonic polyps Irritable bowel syndrome with constipation Irritable bowel syndrome GERD (gastroesophageal reflux disease) Esophageal reflux documented in this encounter Care Teams Stove Polisher Relationship Specialty Start Date End Date Jorge Zhao MD [address] [facility] [address] [place] [address] PCP - General Family Medicine 08/02/19 documented as of this encounter"
--- OUTSIDE RECORDS SUMMARY | 2023-06-20 10:23 | External Medical Summary | Summary of Care ---
Author Name Unknown Organization [facility] Address [address] [place] [address] Phone [phone] Care Team Providers Care Data Control Assistant Name Role Phone Jorge Zhao MD Primary Care Provider Reason for Visit * Reason Comments Follow Up Encounter Details Date Type Department Care Team (Late st Contact Info) Description 05/03/2023 8:00 AM EST Office Visit Ophthalmology, [place] [address] [place] [address] García Winston MD [address] [place] [address] Glaucoma suspect of both eyes*; Combined forms of age-related cataract of both eyes Allergies Active Allergy Reactions Criticality Noted Date Comments Clarithromycin 04/02/2001 ? Rash. Tolerates azithromycin on multiple occasions Doxycycline 09/27/1999 Rash documented as of this encounter (statuses as of 05/03/2023) Medications Medication Sig Dispensed Refills Start Date End Date Status MULTIVITAMINS PO TABS 1 a day 30 0 04/25/2007 Active vitamin c (ASCORBIC ACID) 500 MG Tablet Take 2 Tablets by mouth in the morning. 0 Active Calcium Magnesium Zinc 333-133-5 MG Oral Tablet Take 1 Tablet by mouth daily. 1 Tablet 0 02/19/2021 Active Saw [place] 1000 MG Oral Capsule Take by mouth [...] Additional Information Patient not taking.Reported on 05/01/2023 methylPREDNISolon e 4 MG Oral Tablet Therapy Pack (Medrol Dosepack) follow package directions 21 Tablet 0 03/23/2023 Active busPIRone HCl 5 MG Oral Tablet (Buspar)Indicatio [...] the morning. 30 Tablet 0 04/22/2023 4 Active Sucralfate 1 GM Oral Tablet (Carafate) Take 1 Tablet by mouth 4 times a day before meals and at bedtime as needed (stomach symptoms.). 120 Tablet 3 04/27/2023 Active Latanoprost 0.005 % Ophthalmic Solution (Xalatan) Instill 1 Drop into both eyes at bedtime. 2.5 mL 5 05/03/2023 Active Latanoprost 0.005 % Ophthalmic Solution (Xalatan) Instill 1 Drop into both eyes at bedtime. 2.5 mL 5 12/21/2022 4 Discontinue d(Refill) Hospital, Clinic, or Other Facility Administered Medication Ordered Dose Route Frequency Start Date End Date Status Albuterol Sulfate (Proventil) (2.5 MG/3ML) 0.083% inhalation solution 2.5 mgIndications:Shortness of breath 2.5 mg NEBULIZER ONCE PRN 03/27/2023 03/26/2024 Active documented as of this encounter (statuses as of 05/03/2023) Active Problems Problem Noted Date Diagnosed Date PVC (premature ventricular contraction) 01/25/20 23 Mixed dyslipidemia 09/19/2016 Mild intermittent asthma without complication Ascending aorta dilation 09/08/2014 DDD (degenerative disc disease), lumbar 01/01/20 13 Gastroesophageal reflux disease without esophagi tis 06/07/2004 Deviated nasal septum 05/28/2003 Irritable bowel syndrome documented as of this encounter (statuses as of 05/03/2023) Resolved Problems Problem Noted Date Diagnosed Date [...] as of this encounter (statuses as of 05/03/2023) Immunizations Name Administration Dates Next Due COVID-19 [...] Never Smokeless Tobacco: Never Tobacco Cessation:Counseling Given: No Comments:no passive smoke at home Alcohol Use [...] as of this encounter Progress Notes * García Winston MD - 05/03/2023 8:18 AM EST [facility] DEPARTMENT OF OPHTHALMOLOGY OUTPATIENT CLINIC NOTES PATIENT NAME: Miko Flores (77 year old male) PRIMARY CARE PHYSICIAN: Jorge Zhao MD CC: IOP check for glaucoma HPI: using drops regularly POH: see below ROS: no eye pain; blurred vision Past Medical History: Diagnosis Date ALLERGIC RHINITIS [...] performed by Fidencio Hall MD at [facility] COLONOSCOPY, GI REFERRAL OP 2002 WNL DESTROY LUMBAR SACRAL NERVE IMAGING SINGLE 07/04/2016 DESTROY LUMBAR SACRAL NERVE IMAGING SINGLE performed by Aaron Rehman DO at OR [facility] EGD, FLEXIBLE, DIAGNOSTIC 10/1990 EGD, FLEXIBLE, DIAGNOSTIC 10/12/2017 acid reflux, egd EGD, FLEXIBLE, DIAGNOSTIC N/A 10/12/2017 ESOPHAGOGASTRODUODENOSCOPY (EGD), FLEXIBLE, TRANSORAL, DIAGNOSTIC performed by Fidencoi Hall MD at ENDOSCOPY [facility] EGD, FLEXIBLE, DIAGNOSTIC N/A 10/12/2020 gastritis/biopsies show mild to moderate inflammation/ESOPHAGOGASTRODUODENOSCOPY (EGD), FLEXIBLE, TRANSORAL, DIAGNOSTIC performed by Fidencio Hall MD at [facility] EGD, W/ENDOSCOPIC US 10/12/2017 ESOPHAGOGASTRODUODENOSCOPY (EGD), FLEXIBLE, TRANSORAL, ENDOSCOPIC ULTRASOUND performed by Fidencio Barragan MD at ENDOSCOPY [facility] EMG, 2 EXTREMITIES 10/1997 Mild bilateral CTS INSERT URETERAL SUPPORT Left 02/2014 Ureteral Stent Placement L-/S-SPINE PARAVERTEBRAL FACET INJ,1 LEVEL 12/15/2015 L-/S-SPINE PARAVERTEBRAL FACET INJ, 1 LEVEL performed by [place] Allegra Rehman, DO at OR [facility] L-/S-SPINE PARAVERTEBRAL FACET INJ,1 LEVEL 01/01/2016 L-/S-SPINE PARAVERTEBRAL FACET INJ, 1 LEVEL performed by [place] Allegra العراقيs, DO at OR [facility] LUMBAR / SACRAL EPIDURAL, SINGLE LEVEL 11/03/2015 INJECTION TRANSFORAMINAL EPIDURAL LUMBAR OR SACRAL performed by Aaron Allegra العراقيs, DO at OR [facility] LUMBAR / SACRAL EPIDURAL, SINGLE LEVEL 11/17/2015 INJECTION TRANSFORAMINAL EPIDURAL LUMBAR OR SACRAL performed by [facility] Malcoms, DO at OR [facility] SACROILIAC JOINT INJECT W/GUIDANCE 08/15/2016 INJECTION SACROILIAC JOINT performed by [place] Allegra العراقيs, DO at OR [facility] SACROILIAC JOINT INJECT W/GUIDANCE 01/02/2017 INJECTION SACROILIAC JOINT performed by [facility] Ori, DO at OR [facility] UPPER GI ENDOSCOPY 10-12-20, gastritis determined Meds: Current Outpatient Medications Medication Sig Dispense Refill MULTIVITAMINS PO TABS 1 a day 30 0 vitamin c (ASCORBIC ACID) 500 MG Tablet Take 2 Tablets by mouth in the morning. Calcium Magnesium Zinc 333-133-5 MG Oral Tablet Take 1 Tablet by mouth daily. 1 Tablet Saw [place] 1000 MG Oral Capsule Take by mouth [...] as needed (stomach symptoms.). 120 Tablet 3 Current Facility-Administered Medications Medication Dose Route Frequency Provider Last Rate Last Admin Albuterol Sulfate (Proventil) (2.5 MG/3ML) 0.083% inhalation solution 2.5 mg 2.5 mg Nebulizer FaribaPRJorge Del Cid MD 2.5 mg at 03/31/23 1249 Allergies: Review of patient's allergies indicates: Allergen Reactions Clarithromycin ? Rash. Tolerates azithromycin on multiple occasions Doxycycline Rash EXAM: VA (CC) OD: 20/25 VA (CC) OS: 25-2 EXTERNAL: Lids: WNL Conjunctiva: WNL OU SLIT LAMP Cornea: clear OU Tear Film: WNL OU A/C: D/Q OU Lens: 1+ NS OU TA OD: 12; OS: 12; 8:18 AM ASSESSMENT/PLAN Glaucoma suspect - IOP OK --Continue present eye meds - use punctal occlusion; discussed side effects --RTC for dilated exam Cataracts OU - watch García Winston MD 05/03/2023 8:18 AM documented in this encounter Nursing Notes * Brenda Munoz COT - 05/03/2023 8:02 AM EST Pt here for f/u Seems like vision is getting worse, near and distance VA (CC) OD: 20/25 VA (CC) OS: 20/25-2 documented in this encounter Plan of Treatment Upcoming Encounters Date Type Department Care Team (Late st Contact Info) Description 05/09/2023 8:00 AM EST Office Visit Otolaryngology, [place] [address] [address] Saúl Yu PA-C [address] [place] [address] 05/22/2023 3:30 PM EDT Office Visit Cardiology, [facility] [address] [place] [address] Per Serrano, [address] [place] [address] 07/14/2023 9:00 AM EDT Office Visit [place] [address] [address] [address] Jorge Zhao MD [address] [place] [address] 08/01/2023 11:00 AM EDT Office Visit Cardiology, [facility] [address] [place] [address] Meaghan Hargrove PA-C [address] [place] [address] 09/15/2023 8:15 AM EDT Office Visit Ophthalmology, [place] [address] [facility] [address] García Winston MD [address] [facility] [place] [address] 09/21/2023 10:30 AM EDT Office Visit Orthopaedics Spine Surgery, [facility] [address] [place] [address] Rosas Caba MD [address] [place] [address] 10/04/2023 8:20 AM EDT Office Visit Dermatology [facility] [address] [place] [address] Vilma Burris PA-C [address] [place] [address] 10/24/2023 9:00 AM EDT Hospital Encounter ENDO [facility], Endoscopy [address] [facility] [address] [place] [id number] Fidencio Hall MD [address] [place] [address] 10/24/2023 9:00 AM EDT - 10/24/2023 10:00 AM EDT Surgery ENDO [facility], Endoscopy [address] [facility] [address] [facility] [place] [address] Fidencio Hall MD [address] [place] [address] COLONOSCOPY FLEXIBLE PROXIMAL DIAGNOSTIC Scheduled Procedures Name [...] as of this encounter Visit Diagnoses Diagnosis Glaucoma suspect of both eyes- Primary Preglaucoma, unspecified Combined forms of age-related cataract of both eyes Other and combined forms of senile cataract History of colonic polyps Personal history of colonic polyps Irritable bowel syndrome with constipation Irritable bowel syndrome GERD (gastroesophageal reflux disease) Esophageal reflux documented in this encounter Care Teams Data Control Assistant Relationship Specialty Start Date End Date Jorge Zhao MD [address] [facility] [address] [place] [address] PCP - General Family Medicine 08/02/19 documented as of this encounter
--- OUTSIDE RECORDS SUMMARY | 2023-06-20 10:24 | External Medical Summary ---
Author Name Unknown Address Unknown Organization [id number]:LABORATORY [facility] - [address] [place] [address] Laboratory Report Ordering Provider Test Date Status LISANDRA BARTH 04/22/2023 00:41:34 Final Observation Date Value Abnormality Reference (Units ) Status WBC, Total 04/22/2023 00:41:34 9.61 4.00-10.80 (K/uL) Final RBC 04/22/2023 00:41:34 4.68 4.50-5.25 (M/uL) Final Hemoglobin 04/22/2023 00:41:34 14.1 14.0-16.8 (g/dL) Final HCT 04/22/2023 00:41:34 42.1 40.0-48.4 (%) Final MCV 04/22/2023 00:41:34 90.0 82.0-99.5 (fL) Final MCH 04/22/2023 00:41:34 30.1 27.0-34.0 (pg) Final MCHC 04/22/2023 00:41:34 33.5 32.0-36.0 (g/dL) Final RDW 04/22/2023 00:41:34 12.6 11.5-15.5 (%) Final Platelets 04/22/2023 00:41:34 187 140-400 (K/uL) Final MPV 04/22/2023 00:41:34 10.1 6.6-11.1 (fL) Final Nucleated erythrocytes/100 leukocytes [Ratio] in Blood by Automated count 04/22/2023 00:41:34 0 <=0 (/100 WBCs) Final Performing Location LABORATORY [facility] - [address] [place] [address]
--- OUTSIDE RECORDS SUMMARY | 2023-06-20 10:24 | External Medical Summary ---
Author Name Unknown Address Unknown Organization [id number]:LABORATORY [facility] - [address] [place] [address] Laboratory Report Ordering Provider Test Date Status LUISA PAVON 04/25/2023 10:52:30 Final Observation Date Value Abnormality Reference (Units ) Status Vitamin B12 04/25/2023 10:52:30 678 620-0122 (pg/mL) Final Performing Location [facility] [address] [facility] [address]
--- OUTSIDE RECORDS SUMMARY | 2023-06-20 10:24 | External Medical Summary ---
Author Name Unknown Address Unknown Organization [id number]:[facility] [place] [address] [facility] [address] Laboratory Report Ordering Provider Test Date Status LUZ HERRON 04/25/2023 10:52:30 Final Observation Date Value Abnormality Reference (Units ) Status TSH 04/25/2023 10:52:30 1.61 0.27-4.20 (uIU/mL) Final Performing Location [facility] [place] [address] [facility] [address]
--- OUTSIDE RECORDS SUMMARY | 2023-06-20 10:24 | External Medical Summary ---
Author Name Unknown Address Unknown Organization [id number]:LABORATORY [facility] - [address] [place] [address] Laboratory Report Ordering Provider Test Date Status LISANDRA BARTH 04/22/2023 00:41:34 Final Observation Date Value Abnormality Reference (Units ) Status Lipase 04/22/2023 00:41:34 51 13-60 (U/L ) Final Performing Location LABORATORY [facility] - [address] [place] [address]
--- OUTSIDE RECORDS SUMMARY | 2023-06-20 10:24 | External Medical Summary ---
Author Name Unknown Address Unknown Organization [id number]:LABORATORY [facility] - [address] [facility] [address] Laboratory Report Ordering Provider Test Date Status LUISA PAVON 04/25/2023 10:52:30 Final Observation Date Value Abnormality Reference (Units ) Status CRP, low-sensitivity 04/25/2023 10:52:30 <3 <=5 (mg/L) Final Performing Location LABORATORY [facility] - [address] [facility] [address]
--- OUTSIDE RECORDS SUMMARY | 2023-06-20 10:24 | External Medical Summary ---
Author Name Unknown Address Unknown Organization [id number]:LABORATORY [facility] - [address] [facility] [place] [address] Laboratory Report Ordering Provider Test Date Status LISANDRA BARTH 04/22/2023 00:41:34 Final Observation Date Value Abnormality Reference (Units ) Status SYNC LEUKOCYTES IN BLOOD BY AUTOMATED COUNT 04/22/2023 00:41:34 9.61 4.00-10.80 (K/uL) Final Segs 04/22/2023 00:41:34 71.2 40.0-75.0 (%) Final Lymphs % 04/22/2023 00:41:34 18.1 18.0-42.0 (%) Final Monos 04/22/2023 00:41:34 9.7 1.0-11.0 (%) Final Eosinophils 04/22/2023 00:41:34 0.5 0.0-6.0 (%) Final Basos 04/22/2023 00:41:34 0.3 0.0-2.0 (%) Final Immature Granulocyte, Percent 04/22/2023 00:41:34 0.2 0.0-2.0 (%) Final Absolute Segs 04/22/2023 00:41:34 6.84 1.80-7.70 (K/uL) Final Lymphs, absolute 04/22/2023 00:41:34 1.74 1.00-4.80 (K/ul) Final Monos, Abs 04/22/2023 00:41:34 0.93 0.00-1.10 (K/uL) Final Eos, Abs 04/22/2023 00:41:34 0.05 0.00-0.70 (K/uL) Final Basos, Abs 04/22/2023 00:41:34 0.03 0.00-0.20 (K/uL) Final Immature Granulocytes, Number 04/22/2023 00:41:34 0.02 0.00-0.20 (K/uL) Final Performing Location LABORATORY [facility] - [address] [place] [address]
--- OUTSIDE RECORDS SUMMARY | 2023-06-20 10:24 | External Medical Summary | Summary of Care ---
Author Name Unknown Organization [facility] Address [address] [place] [address] Phone [phone] Care Team Providers Care Jeweler Apprentice Name Role Phone Jorge Zhao MD Primary Care Provider Reason for Visit * Reason Comments Acute Blood pressure issue s Encounter Details Date Type Department Care Team (Late st Contact Info) Description 04/25/2023 10:00 AM EST Office Visit [address] [place] [address] [phone] Jorge Zhao MD [address] [place] [address] [phone] Labile blood pressure*; Encounter for long-term (current) use of medications; Bradycardia, unspecified Allergies Active Allergy Reactions Criticality Noted Date Comments Clarithromycin 04/02/2001 ? Rash. Tolerates azithromycin on multiple occasions Doxycycline 09/27/1999 Rash documented as of this encounter (statuses as of 04/26/2023) Medications Medication Sig Dispensed Refills Start Date End Date Status MULTIVITAMINS PO TABS 1 a day 30 0 8 Active vitamin c (ASCORBIC ACID) 500 MG Tablet Take 2 Tablets by mouth in the morning. 0 Active Calcium Magnesium Zinc 333-133-5 MG Oral Tablet Take 1 Tablet by mouth daily. 1 Tablet 0 1 Active Saw Inman 1000 MG Oral Capsule Take by mouth . 0 Acti ve Olopatadine HCl 0.6 % Nasal Solution (Patanase) Administer 2 Sprays into nostril in the morning and 2 Sprays before bedtime. 30.5 g 5 3 Active Ezetimibe 10 MG Oral Tablet (Zetia) Take 1 Tablet by mouth in the morning. 90 Tablet 3 3 Active Famotidine 20 MG Oral Tablet (Pepcid)Indicatio ns:Gastroesophage al reflux disease without esophagitis Take 1 Tablet by mouth in the morning and 1 Tablet before bedtime. 180 Tablet 1 3 Active Pantoprazole Sodium 40 MG Oral Tablet Delayed Release (Protonix)Indicat ions:Gastroesopha geal reflux disease without esophagitis Take 1 Tablet by mouth in the morning. 30 minutes before the first meal of the day. Do not crush, split or chew the tablet. 90 Tablet 1 3 Active Latanoprost 0.005 % Ophthalmic Solution (Xalatan) Instill 1 Drop into both eyes at bedtime. 2.5 mL 5 3 Active Gabapentin 100 MG Oral Capsule (Neurontin) TAKE 2 CAPSULES BY MOUTH IN THE EVENING 180 Capsule 1 3 Active Additional Information Patient taking differently: TAKE 3 CAPSULES BY MOUTH IN THE EVENING, Reported on 04/05/2023 Rosuvastatin Calcium 5 MG Oral Tablet (Crestor) Take 1 Tablet by mouth in the morning. 90 Tablet 3 3 Active Dicyclomine HCl 20 MG Oral Tablet (Bentyl) Take 1 Tablet by mouth every 6 hours. 40 Tablet 0 4 Active methylPREDNISolon e 4 MG Oral Tablet Therapy Pack (Medrol Dosepack) follow package directions 21 Tablet 0 4 Active busPIRone HCl 5 MG Oral Tablet (Buspar)Indicatio ns:BREANNA (generalized anxiety disorder) One tablet by mouth twice daily as needed for anxiety 60 Tablet 1 4 Active Albuterol Sulfate HFA 108 (90 Base) MCG/ACT Inhalation Aerosol SolutionIndicatio ns:Mild intermittent asthma without complication Inhale 2 Puffs by mouth every 4 hours as needed (cough or wheeze). 18 g 2 4 Active amLODIPine Besylate 5 MG Oral Tablet (Norvasc) Take 1 Tablet by mouth in the morning. 30 Tablet 0 4 05/22/19 24 Active Docusate Sodium 100 MG Oral Capsule (Colace)Indicatio ns:Irritable bowel syndrome with both constipation and diarrhea Take 1 Capsule by mouth in the morning and 1 Capsule before bedtime. 60 Capsule 11 3 04/26/19 24 Discontinued Aspirin 81 MG Oral Tablet Delayed Release (Aspirin 81) Take 1 Tablet by mouth in the morning. 0 04/26/19 24 Discontinued Hospital, Clinic, or Other Facility Administered Medication Ordered Dose Route Frequency Start Date End Date Status Albuterol Sulfate (Proventil) (2.5 MG/3ML) 0.083% inhalation solution 2.5 mgIndications:Shortness of breath 2.5 mg NEBULIZER ONCE PRN 03/27/2023 03/26/2024 Active documented as of this encounter (statuses as of 04/26/2023) Active Problems Problem Noted Date Diagnosed Date PVC (premature ventricular contraction) 01/25/20 23 Mixed dyslipidemia 09/19/2016 Mild intermittent asthma without complication Ascending aorta dilation 09/08/2014 DDD (degenerative disc disease), lumbar 01/01/20 13 Gastroesophageal reflux disease without esophagi tis 06/07/2004 Deviated nasal septum 05/28/2003 Irritable bowel syndrome documented as of this encounter (statuses as of 04/26/2023) Resolved Problems Problem Noted Date Diagnosed Date [...] as of this encounter (statuses as of 04/26/2023) Immunizations Name Administration Dates Next Due COVID-19 mRNA, LNP-s, No Pre serve, 2-Dose Series ([employer]) 03/31/2021,07/19/2020,06/25/2020 Pneumococcal Conjugate Vacc, 13 Valent (Prevnar) [...] Sign Reading Time Taken Comments Blood Pressure 140/80 04/25/2023 10:02 AM EST Pulse 60 04/25/2023 10:02 AM EST Temperature 36.8 C (98.2 F) 04/25/2023 10:[address] Respiratory Rate - - Oxygen Saturation 96% 04/25/2023 10:02 AM EST Inhaled Oxygen Concentration - - Weight 87.3 kg (192 lb 6.4 oz) 04/25/2023 10:02 AM EST Height - - Body Mass Index 26.85 04/05/2023 8:49 AM EST documented in this encounter Progress Notes * Jorge Zhao MD - 04/26/2023 10:37 PM EST Identification: Miko Flores is an 77 year old male who reports to clinic . Reports to the nurse: Chief Complaint Patient presents with Acute Blood pressure issues Chief Complaint to myself: ER follow up History of Present Illness: Brief Clinical History Mr. Flores is a 77 year old man last seen in Family Medicine 1 day ago (04-25-23). He is not due for eval of any conditions. Nursing Notes: Pricilla Jordan LPN 04/25/23 1010 Signed Chief Complaint Patient presents with Acute Blood pressure issues He was in the ER on 04/22/23 He was started on amlodipine. He reports he gets light headed and brain fog. He notices a decrease of energy and appetite. He reports the blood pressures being high has caused his anxiety to be worse HPI: Very pleasant 77-year-old gentleman reports to clinic for emergency room follow-up He reports he feels like he is going downhill Checked his blood pressure at home was 124/70 Seen in Cardiology in the blood pressure was 134/72 The emergency room his blood pressure systolic was 200 Seen here in follow-up and blood pressure was 124/56 Seen in the emergency room in the again his blood pressure was quite high He was started on amlodipine in the emergency room Since then his blood pressure has been in the 140s over 80s Today he notes decreased energy with some brain fog and lightheadedness and a dry mouth Further review of systems notes that he is able to walk a mile with no chest symptoms but occasionally feels like he can not get a full breath He says his stomach feels lousy with fullness and soreness He sleeps well Review of Systems: Patient denies: Constitutional: Fevers, chills, sweats or night sweats Eyes: Visual changes or eye redness/discharge Ears, nose, mouth, throat: Sinus congestion or ear pain Cardiovascular: Chest pressure or paroxysmal nocturnal dyspnea Respiratory: Chronic cough or hemoptysis GI: Vomiting or melanotic stool : Dysuria hematuria Patient Active Problem List Diagnosis Date Noted PVC (premature ventricular contraction) [I49.3] 01/24/2023 Mixed dyslipidemia [E78.2] 09/19/2016 Mild intermittent asthma without complication [J45.20] 10/21/2014 Ascending aorta dilation (HCC) [I77.810] 09/08/2014 DDD (degenerative disc disease), lumbar [M51.36] 12/31/2012 Gastroesophageal reflux disease without esophagitis [K21.9] 06/07/2004 Deviated nasal septum [J34.2] 05/28/2003 Irritable bowel syndrome [K58.9] Past Medical History: Diagnosis Date ALLERGIC RHINITIS [...] performed by Fidencio Hall MD at ENDOSCOPY [facility] COLONOSCOPY, GI REFERRAL OP 2002 WNL DESTROY LUMBAR SACRAL NERVE IMAGING SINGLE 07/04/2016 DESTROY LUMBAR SACRAL NERVE IMAGING SINGLE performed by Aaron Rehman DO at OR [facility] EGD, FLEXIBLE, DIAGNOSTIC 10/1990 EGD, FLEXIBLE, DIAGNOSTIC 10/12/2017 acid reflux, egd EGD, FLEXIBLE, DIAGNOSTIC N/A 10/12/2017 ESOPHAGOGASTRODUODENOSCOPY (EGD), FLEXIBLE, TRANSORAL, DIAGNOSTIC performed by Fidencio Hall MD at ENDOSCOPY [facility] EGD, FLEXIBLE, DIAGNOSTIC N/A 10/12/2020 gastritis/biopsies show mild to moderate inflammation/ESOPHAGOGASTRODUODENOSCOPY (EGD), FLEXIBLE, TRANSORAL, DIAGNOSTIC performed by Fidencio Hall MD at ENDOSCOPY [facility] EGD, W/ENDOSCOPIC US 10/12/2017 ESOPHAGOGASTRODUODENOSCOPY (EGD), FLEXIBLE, TRANSORAL, ENDOSCOPIC ULTRASOUND performed by Fidencio Barragan MD at [facility], 2 EXTREMITIES 10/1997 Mild bilateral CTS INSERT URETERAL SUPPORT Left 02/2014 Ureteral Stent Placement L-/S-SPINE PARAVERTEBRAL FACET INJ,1 LEVEL 12/15/2015 L-/S-SPINE PARAVERTEBRAL FACET INJ, 1 LEVEL performed by Aaron Allegra Rehman, DO at OR [facility] L-/S-SPINE PARAVERTEBRAL FACET INJ,1 LEVEL 01/01/2016 L-/S-SPINE PARAVERTEBRAL FACET INJ, 1 LEVEL performed by Aaron Allegra Rehman, DO at OR [facility] LUMBAR / SACRAL EPIDURAL, SINGLE LEVEL 11/03/2015 INJECTION TRANSFORAMINAL EPIDURAL LUMBAR OR SACRAL performed by [place] Allegra Rehman, DO at OR [facility] LUMBAR / SACRAL EPIDURAL, SINGLE LEVEL 11/17/2015 INJECTION TRANSFORAMINAL EPIDURAL LUMBAR OR SACRAL performed by [place] Allegra Rehman, DO at OR [facility] SACROILIAC JOINT INJECT W/GUIDANCE 08/15/2016 INJECTION SACROILIAC JOINT performed by [facility] Ori, DO at OR [facility] SACROILIAC JOINT INJECT W/GUIDANCE 01/02/2017 INJECTION SACROILIAC JOINT performed by [place] Allegra Rehman, DO at OR [facility] UPPER GI ENDOSCOPY 10-12-20, gastritis determined I reviewed current medications: Outpatient Medications Marked as Taking for the 04/25/23 encounter (Office Visit) with Jorge Zhao MD Medication Sig amLODIPine Besylate 5 MG Oral Tablet (Norvasc) Take 1 Tablet by mouth in the morning. Albuterol Sulfate HFA 108 (90 Base) MCG/ACT Inhalation Aerosol Solution Inhale 2 Puffs by mouth every 4 hours as needed (cough or wheeze). busPIRone HCl 5 MG Oral Tablet (Buspar) One tablet by mouth twice daily as needed for anxiety Rosuvastatin Calcium 5 MG Oral Tablet (Crestor) Take 1 Tablet by mouth in the morning. Gabapentin 100 MG Oral Capsule (Neurontin) TAKE 2 CAPSULES BY MOUTH IN THE EVENING (Patient taking differently: TAKE 3 CAPSULES BY MOUTH IN THE EVENING) Latanoprost 0.005 % Ophthalmic Solution (Xalatan) Instill 1 Drop into both eyes at bedtime. Famotidine 20 MG Oral Tablet (Pepcid) Take 1 Tablet by mouth in the morning and 1 Tablet before bedtime. Pantoprazole Sodium 40 MG Oral Tablet Delayed Release (Protonix) Take 1 Tablet by mouth in the morning. 30 minutes before the first meal of the day. Do not crush, split or chew the tablet. Docusate Sodium 100 MG Oral Capsule (Colace) Take 1 Capsule by mouth in the morning and 1 Capsule before bedtime. Ezetimibe 10 MG Oral Tablet (Zetia) Take 1 Tablet by mouth in the morning. Olopatadine HCl 0.6 % Nasal Solution (Patanase) Administer 2 Sprays into nostril in the morning and2 Sprays before bedtime. Saw Inman 1000 MG Oral Capsule Take by mouth . Calcium Magnesium Zinc 333-133-5 MG Oral Tablet Take 1 Tablet by mouth daily. vitamin c (ASCORBIC ACID) 500 MG Tablet Take 2 Tablets by mouth in the morning. MULTIVITAMINS PO TABS 1 a day Current Facility-Administered Medications for the 04/25/23 encounter (Office Visit) with Jorge Zhao MD Medication Albuterol Sulfate (Proventil) (2.5 MG/3ML) 0.083% inhalation solution 2.5 mg I reviewed allergies: Review of patient's allergies indicates: Allergen Reactions Clarithromycin ? Rash. 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 Employer: [employer] Tobacco Use Smoking status: Never Smokeless tobacco: [...] on file Housing Stability: Not on file OBJECTIVE: Filed Vitals: 04/25/23 1002 BP: 140/80 Pulse: 60 Temp: 36.8 C (98.2 F) TempSrc: Temporal Artery SpO2: 96% Weight: 87.3 kg (192 lb 6.4 oz) BP Readings from Last 7 Encounters: 04/25/23 140/80 04/22/23 158/72 04/05/23 157/69 03/27/23 124/56 03/19/23 173/84 01/24/23 134/72 12/12/22 124/70 Wt Readings from Last 7 Encounters: 04/25/23 87.3 kg (192 lb 6.4 oz) 04/22/23 87.5 kg (193 lb) 04/05/23 87.5 kg (193 lb) 03/27/23 87.7 kg (193 lb 6.4 oz) 03/23/23 88.5 kg (195 lb) 01/24/23 90.7 kg (200 lb) 12/12/22 89.7 kg (197 lb 12.8 oz) General Appearance: Alert, cooperative, and in no distress. Pupils were reactive to light equally bilaterally and conjunctiva were not inflamed. Eye lids clear External ear canals without exudate and observed portions of tympanic membranes revealed good lightreflex and landmarks noted. Oral Pharynx is moist with no tonsillar hypertrophy, erythema or exudate noted Lips and buccal mucosa unremarkable. Neck: Supple, no lymphadenopathy noted, no masses, thyroid is symmetric. Pulmonary: Chest is clear to auscaltion bilaterally, without wheezes rales or rhonchi. moving air well, with no retractions or nasal flaring. Heart: Regular rate and rhythm, S1 S2. No CVA tenderness No pretibial edema Miko was seen today for acute. Diagnoses and all orders for this visit: Labile blood pressure Encounter for long-term (current) use of medications - 25-HYDROXY VITAMIN D; Future - VITAMIN B12; Future - TSH; Future - T4, FREE; Future - FERRITIN; Future - CRP (INFLAMMATORY MARKER); Future - ERYTHROCYTE SEDIMENTATION RATE (ESR); Future Bradycardia, unspecified - FERRITIN; Future We had an extensive discussion about essential hypertension verses secondary hypertension The sudden change in his blood pressure would raise suspicion for secondary causes Reviewed testing as noted above Reviewed anxiety as a possible cause for changes in blood pressure Reviewed how to check blood pressure appropriately I did not refill his amlodipine at the present time. Will continue to monitor. He does have follow-up with Cardiology in less than a month. Creatinine Results: Lab Results Component Value Date/Time CREATININE - [facility] 1.1 04/25/2023 10:52 AM CREATININE - [facility] 1.0 04/22/2023 12:41 AM CREATININE - [facility] 1.2 03/19/2023 05:46 AM CREATININE - [facility] 1.0 01/15/2020 07:53 PM CREATININE - [facility] 1.1 03/25/2019 11:06 AM CREATININE - [facility] 1.0 06/14/2018 10:11 AM Hemoglobin A1C last 3 results: Lab Results Component Value Date/Time HEMOGLOBIN A1C - [facility] 6.2 (H) 12/12/2022 10:18 AM HEMOGLOBIN A1C - [facility] 6.2 (H) 05/27/2020 08:28 AM HEMOGLOBIN A1C - [facility] 6.2 (H) 01/15/2020 10:58 AM HEMOGLOBIN A1C - [facility] 6.2 (H) 03/25/2019 11:06 AM HEMOGLOBIN A1C - [facility] 6.2 (H) 03/21/2018 11:24 AM @LABBRIEFR@ There are no Patient Instructions on file for this visit. 07/14/2023 Jorge hZao MD 04/26/2023 10:37 PM This chart was completed in part utilizing [employer] Speech Voice Recognition Software. Grammatical errors, random [...] documented in this encounter Nursing Notes * Pricilla Jordan LPN - 04/25/2023 10:00 AM EST Chief Complaint Patient presents with Acute Blood pressure issues He was in the ER on 04/22/23 He was started on amlodipine. He reports he gets light headed and brain fog. He notices a decrease of energy and appetite. He reports the blood pressures being high has caused his anxiety to be worse documented in this encounter Plan of Treatment Upcoming Encounters Date Type Department Care Team (Late st Contact Info) Description 04/27/2023 11:15 AM EST Office Visit Ophthalmology, [place] [address] [id number] García Winston MD [address] [id number] 05/09/2023 8:00 AM EST [facility] [place] [address] [address] Saúl Yu PA-C [address] [place] [address] 05/22/2023 3:30 PM EDT Office Visit Cardiology, [facility] [address] [place] [address] Per Serrano DO [address] [place] [address] 07/14/2023 9:00 AM EDT Office Visit [place] [address] [address] [address] Jorge Zhao MD [address] [facility] [address] [place], [place] [address] [place] [address] 08/01/2023 11:00 AM EDT Office Visit Cardiology, [facility] [address] [place] [address] Meaghan Hargrove PA-C [address] [place] [address] 09/21/2023 10:30 AM EDT Office Visit Orthopaedics Spine Surgery, [facility] Roll[facility] [address] [place] [address] Rosas Caba MD [address] [place] [facility] [address] 10/04/2023 8:20 AM EDT Office Visit Dermatology [facility] [address] [place] [address] Vilma Burris PA-C [address] [place] [address] Scheduled Procedures Name Priority Associated Diagnoses Date/Ti [...] filedocumented as of this encounter Results * ERYTHROCYTE SEDIMENTATION RATE (ESR) (04/25/2023 10:52 AM EST) ESR 10 <20 mm/hour 04/25/2023 8:00 PM EST LABORATORY C Blood Venous blood specimen / Unknown Venipuncture / Unknown 04/25/2023 10:52 AM EST 04/25/2023 10:52 AM EST Jorge Zhao MD [facility] Performing Organization Address [facility] de Phone Number LABORATORY [place] [address] [place] [address] * CRP (INFLAMMATORY MARKER) (04/25/2023 10:52 AM EST) Pathologist [facility] CRP (Inflammatory Marker) <3 <=5 mg/L 04/25/2023 7:36 PM EST LABORATORY [facility] Blood Venous blood specimen / Unknown Venipuncture / Unknown 04/25/2023 10:52 AM EST 04/25/2023 10:52 AM EST Jorge Zhao MD LAB BLOOD ORDRohini MARSH Performing Organization Address City/[facility] Co de Phone Number LABORATORY [facility] [address] [place] [address] * FERRITIN (04/25/2023 10:52 AM EST) Pathologist [facility] Ferritin 326 30 - 400 ng/mL 04/25/2023 8:12 PM EST LABORATORY [facility] Blood Venous blood specimen / Unknown Venipuncture / Unknown 04/25/2023 10:52 AM EST 04/25/2023 10:52 AM EST Jorge Zhao MD LAB BLOOD ORDRohini MARSH Performing Organization Address City/[facility]/ZIP Co de Phone Number LABORATORY [facility] [address] [place] [address] * T4, FREE (04/25/2023 10:52 AM EST) T4, Free 1.1 0.9 - 1.7 ng/dL 04/25/2023 8:12 PM EST LAB[facility]ATORY [facility] Blood Venous blood specimen / Unknown Venipuncture / Unknown 04/25/2023 10:52 AM EST 04/25/2023 10:52 AM EST Jorge Zhao MD LAB BLOOD ORDRohini MARSH Performing Organization Address City/[facility]/ZIP Co de Phone Number LABORATORY [facility] [address] [place] [address] * VITAMIN B12 (04/25/2023 10:52 AM EST) Vitamin B12 619 232 - 1,245 pg/mL 04/25/2023 8:12 PM EST LABORATORY C Blood Venous blood specimen / Unknown Venipuncture / Unknown 04/25/2023 10:52 AM EST 04/25/2023 10:52 AM EST Jorge Zhao MD LAB BLOOD ORDE YENIRAVI Performing Organization Address City/[facility]/ZIP Co de Phone Number LABORATORY [facility] [address] [place] [address] * 25-HYDROXY VITAMIN D (04/25/2023 10:52 AM EST) 25-Hydroxy Vitamin D 41 >19 ng/mL 04/25/2023 8:12 PM EST LAB[facility] Blood Venous blood specimen / Unknown Venipuncture / Unknown 04/25/2023 10:52 AM EST 04/25/2023 10:52 AM EST Narrative LAB[facility]ORY [facility] - 04/25/2023 8:12 PM EST Deficient: <20 ng/mL Insufficient: 20-29 ng/mL Recommended/Optimum:30-50 ng/mL Vitamin D intoxication is rare. If suspicious of Vitamin D toxicity, evaluation of serum Calcium and PTH is recommended. Jorge Zhao MD LAB BLOOD GRETNARohini [facility] Organization Address City/State/ZIP Co de Phone Number LABORATORY [facility] [address] [place] [address] documented in this encounter Visit Diagnoses Diagnosis Labile blood pressure- Primary Elevated blood pressure reading without diagnosis of hypertension Encounter for long-term (current) use of medications Encounter for long-term (current) use of other medications Bradycardia, unspecified documented in this encounter Care Teams Jeweler Apprentice Relationship Specialty Start Date End Date Jorge Zhao MD [facility] [address] [address] PCP - General Family Medicine 08/02/19 documented as of this encounter
--- OUTSIDE RECORDS SUMMARY | 2023-06-20 10:24 | External Medical Summary ---
Author Name Unknown Address Unknown Organization [id number]:LABORATORY [facility] - [address] [address] Laboratory Report Ordering Provider Test Date Status LISANDRA BARTH 04/22/2023 00:41:34 Final Observation Date Value Abnormality Reference (Units ) Status Lactic Acid 04/22/2023 00:41:34 1.3 0.4-2.0 (mmol/L) Final Performing Location LABORATORY [facility] - [address] [address]
--- OUTSIDE RECORDS SUMMARY | 2023-06-20 10:24 | External Medical Summary ---
Author Name Unknown Address Unknown Organization K1F:LABORATORY [facility] - [address] [address] Laboratory Report Ordering Provider Test Date Status LISANDRA BARTH 04/22/2023 00:41:34 Final Observation Date Value Abnormality Reference (Units ) Status Troponin T 04/22/2023 00:41:34 19 <=22 (ng/ L) Final Performing Location LABORATORY [facility] - [address] [address]
--- OUTSIDE RECORDS SUMMARY | 2023-06-20 10:24 | External Medical Summary ---
Author Name Unknown Address Unknown Organization K01:LABORATORY [facility] - [address] [facility] [address] Laboratory Report Ordering Provider Test Date Status LUZ HERRON 04/25/2023 10:52:30 Final Observation Date Value Abnormality Reference (Units ) Status BUN 04/25/2023 10:52:30 17 6-20 (mg/dL) Final Creatinine 04/25/2023 10:52:30 1.1 0.6-1.2 (mg/dL) Final Glomerular filtration rate/1.73 sq M.predicted [Volume Rate/Area] in Serum, Plasma or Blood by Creatinine-based formula (CKD-EPI) 04/25/2023 10:52:30 74 >=60 (mL/min) Final eGFR is calculated based on the CKD-EPI 2020 equation SODIUM 04/25/2023 10:52:30 138 135-146 (m mol/L) Final Potassium 04/25/2023 10:52:30 4.4 3.5-5.1 (m mol/L) Final Cl 04/25/2023 10:52:30 102 98-107 (mm ol/L) Final CO2 04/25/2023 10:52:30 25 22-32 (mmo l/L) Final Anion gap 04/25/2023 10:52:30 11 7-15 (mmol /L) Final Glucose 04/25/2023 10:52:30 99 70-120 (mg /dL) Final Albumin 04/25/2023 10:52:30 4.3 3.8-5.0 (g /dL) Final AST (Aspartate aminotransferase) 04/25/2023 10:52:30 26 10-50 (U/L) Final Result may be falsely elevat ed due to hemolysis. Alk Phos 04/25/2023 10:52:30 83 35-130 (U/ L) Final Bilirubin, Total 04/25/2023 10:52:30 0.7 <=1 .2 (mg/dL) Final Calcium 04/25/2023 10:52:30 9.5 8.4-10.2 ( mg/dL) Final Protein 04/25/2023 10:52:30 6.3 6.0-8.3 (g /dL) Final ALT (Alanine aminotransferase) 04/25/2023 10:52:30 25 10-50 (U/L) Final Performing Location LABORATORY [facility] - [address] [facility] [address]
--- OUTSIDE RECORDS SUMMARY | 2023-06-20 10:24 | External Medical Summary | Summary of Care ---
Author Name Unknown Organization [facility] Address [address] [place] [address] Phone [phone] Care Team Providers Care Cloth Checker Name Role Phone Jorge Zhao MD Primary Care Provider Reason for Visit * Reason Comments Outpatient Testing Encounter Details Date Type Department Care Team (Late st Contact Info) Description 04/25/2023 11:00 AM EST [facility] [id number] [id number] HTN, goal below 140/90; Asymptomatic bilateral carotid artery stenosis; Dyslipidemia, goal LDL below 70; PVC (premature ventricular contraction); Ascending aorta dilation (HCC); Encounter for long-term (current) use of medications; Bradycardia, unspecified Allergies Active Allergy Reactions Criticality Noted Date Comments Clarithromycin 04/02/2001 ? Rash. Tolerates azithromycin on multiple occasions Doxycycline 09/27/1999 Rash documented as of this encounter (statuses as of 04/25/2023) Medications Medication Sig Dispensed Refills Start Date End Date Status MULTIVITAMINS PO TABS 1 a day 30 0 04/25/2007 Active vitamin c (ASCORBIC ACID) 500 MG Tablet Take 2 Tablets by mouth in the morning. 0 Active Calcium Magnesium Zinc 333-133-5 MG Oral Tablet Take 1 Tablet by mouth daily. 1 Tablet 0 02/19/2021 Active Saw Caldwell 1000 MG Oral Capsule Take by mouth . 0 Acti ve Olopatadine HCl 0.6 % Nasal Solution (Patanase) Administer 2 Sprays into nostril in the morning and 2 Sprays before bedtime. 30.5 g 5 04/25/2022 Active Ezetimibe 10 MG Oral Tablet (Zetia) Take 1 Tablet by mouth in the morning. 90 Tablet 3 04/25/2022 Active Docusate Sodium 100 MG Oral Capsule (Colace)Indication s:Irritable bowel syndrome with both constipation and diarrhea Take 1 Capsule by mouth in the morning and 1 Capsule before bedtime. 60 Capsule 11 09/22/2022 Active Famotidine 20 MG Oral Tablet (Pepcid)Indication [...] or wheeze). 18 g 2 03/27/2023 Active Aspirin 81 MG Oral Tablet Delayed Release (Aspirin 81) Take 1 Tablet by mouth in the morning. 0 Active amLODIPine Besylate 5 MG Oral Tablet (Norvasc) Take 1 Tablet by mouth in the morning. 30 Tablet 0 04/22/2023 05/22/2023 Active Hospital, Clinic, or Other Facility Administered Medication Ordered Dose Route Frequency Start Date End Date Status Albuterol Sulfate (Proventil) (2.5 MG/3ML) 0.083% inhalation solution 2.5 mgIndications:Shortness of breath 2.5 mg NEBULIZER ONCE PRN 03/27/2023 03/26/2024 Active documented as of this encounter (statuses as of 04/25/2023) Active Problems Problem Noted Date Diagnosed Date PVC (premature ventricular contraction) 01/25/20 23 Mixed dyslipidemia 09/19/2016 Mild intermittent asthma without complication Ascending aorta dilation 09/08/2014 DDD (degenerative disc disease), lumbar 01/01/20 13 Gastroesophageal reflux disease without esophagi tis 06/07/2004 Deviated nasal septum 05/28/2003 Irritable bowel syndrome documented as of this encounter (statuses as of 04/25/2023) Resolved Problems Problem Noted Date Diagnosed Date [...] as of this encounter (statuses as of 04/25/2023) Immunizations Name Administration Dates Next Due COVID-19 mRNA, LNP-s, No Pre serve, 2-Dose Series (iLive) 03/31/2021,07/19/2020,06/25/2020 Pneumococcal Conjugate Vacc, 13 Valent (Prevnar) [...] Description 05/09/2023 8:00 AM EST [facility] [address] [address] Saúl Yu PA-C [address] [address] 05/16/2023 9:30 AM EST Office Visit Ophthalmology, [place] [address] [id number] García Winston MD [address] [id number] 05/22/2023 3:30 PM EDT Office Visit Cardiology, [facility] [address] [place] [address] Per Serrano DO [address] [place] [address] 07/14/2023 9:00 AM EDT Office Visit [place] [address] [address] [place] [address] Jorge Zhao MD [address] [facility] [address] [place] [address] 08/01/2023 11:00 AM EDT Office Visit Cardiology, [facility] [address] [place] [address] Meaghan Hargrove PA-C [address] [place] [address] 09/21/2023 10:30 AM EDT Office Visit Orthopaedics Spine Surgery, [place] [address] [address] [address] Rosas Caba MD [address] [place] [id number] 10/04/2023 8:20 AM EDT Office Visit Dermatology [facility] [address] [place] [address] Vilma Burris PA-C [address] [place] [id number] Pending Results Name Type Priority Associated Diagnoses Date /Time LIPID PANEL WITH DIRECT LDL IF TG IS HIGH Lab Routine HTN, goal below 140/90 Asymptomatic bilateral carotid artery stenosis Dyslipidemia, goal LDL below 70 PVC (premature ventricular contraction) Ascending aorta dilation (HCC) 04/25/2023 10:52 AM EST COMPREHENSIVE METABOLIC PANEL Lab Routine HTN, goal below 140/90 Asymptomatic bilateral carotid artery stenosis Dyslipidemia, goal LDL below 70 PVC (premature ventricular contraction) Ascending aorta dilation (HCC) 04/25/2023 10:52 AM EST MAGNESIUM Lab Routine HTN, goal below 140/90 Asymptomatic bilateral carotid artery stenosis Dyslipidemia, goal LDL below 70 PVC (premature ventricular contraction) Ascending aorta dilation (HCC) 04/25/2023 10:52 AM EST TSH WITH FREE T4 IF INDICATED Lab Routine HTN, goal below 140/90 Asymptomatic bilateral carotid artery stenosis Dyslipidemia, goal LDL below 70 PVC (premature ventricular contraction) Ascending aorta dilation (HCC) 04/25/2023 10:52 AM EST 25-HYDROXY VITAMIN D Lab Routine Encounter for long-term (current) use of medications 04/25/2023 10:52 AM EST VITAMIN B12 Lab Routine Encounter for long-term (current) use of medications 04/25/2023 10:52 AM EST T4, FREE Lab Routine Encounter for long-term (current) use of medications 04/25/2023 10:52 AM EST FERRITIN Lab Routine Encounter for long-term (current) use of medications Bradycardia, unspecified 04/25/2023 10:52 AM EST CRP (INFLAMMATORY MARKER) Lab Routine Encounter for long-term (current) use of medications 04/25/2023 10:52 AM EST ERYTHROCYTE SEDIMENTATION RATE (ESR) Lab Routine Encounter for long-term (current) use of medications 04/25/2023 10:52 AM EST Scheduled Procedures Name Priority Associated Diagnoses Date/Ti [...] as of this encounter Visit Diagnoses Diagnosis HTN, goal below 140/90 Unspecified essential hypertension Asymptomatic bilateral carotid artery stenosis Occlusion and stenosis of multiple and bilateral precerebral arteries without mention of cerebral infarction Dyslipidemia, goal LDL below 70 Other and unspecified hyperlipidemia PVC (premature ventricular contraction) Other premature beats Ascending aorta dilation (HCC) Thoracic aortic ectasia Encounter for long-term (current) use of medications Encounter for long-term (current) use of other medications Bradycardia, unspecified documented in this encounter Care Teams Cloth Checker Relationship Specialty Start Date End Date Jorge Zhao MD [address] [id number] PCP - General Family Medicine 08/02/19 documented as of this encounter
--- OUTSIDE RECORDS SUMMARY | 2023-06-20 10:24 | External Medical Summary | Summary of Care ---
Author Name Unknown Organization [facility] Address [address] [place] [address] Phone [phone] Care Team Providers Care Ceramic Coater Machine Name Role Phone Jorge Zhao MD Primary Care Provider Reason for Visit * Reason Comments NEW PATIENT Chronic L-Sided LBP with L-Sided Sciatica Back Pain midline lower back. radiates into L Hip/Buttock/Groin/Thigh/Calf/Ankle. reports burning/tingling. lateral aspect of LLE. constant achy pain. denies trauma. Onset: years. * Evaluate & Treat - Unlimited Visits (Within 10 days (routine)) - Authorized Specialty Diagnoses / Procedures Referred By Contcorrine t Referred To Contact Pain Management / Pain Medicine Diagnoses Chronic left-sided low back pain with left-sided sciatica Josué Lynn, DO [address] [facility] [place] [address] Referral ID Status Reason Start Date Expiration Date Visits Requested Visits Authorized [id number] Authorized Specialty Services Required 03/14/2023 [id number] Encounter Details Date Type Department Care Team (Late st Contact Info) Description 04/05/2023 8:30 AM EST [facility] [address] [place] [address] Genaro Nation MD [address] [place] [address] Osteoarthritis of spine with radiculopathy, lumbosacral region* Allergies Active Allergy Reactions Criticality Noted Date Comments Clarithromycin 04/02/2001 ? Rash. Tolerates azithromycin on multiple occasions Doxycycline 09/27/1999 Rash documented as of this encounter (statuses as of 04/05/2023) Medications Medication Sig Dispensed Refills Start Date End Date Status MULTIVITAMINS PO TABS 1 a day 30 0 04/25/2007 Active vitamin c (ASCORBIC ACID) 500 MG Tablet Take 2 Tablets by mouth in the morning. 0 Active Calcium Magnesium Zinc 333-133-5 MG Oral Tablet Take 1 Tablet by mouth daily. 1 Tablet 0 02/19/2021 Active Saw [place] 1000 MG Oral Capsule Take by mouth . 0 Acti ve Olopatadine HCl 0.6 % Nasal Solution (Patanase) Administer 2 Sprays into nostril in the morning and 2 Sprays before bedtime. 30.5 g 5 04/25/2022 Active Ezetimibe 10 MG Oral Tablet (Zetia) Take 1 Tablet by mouth in the morning. 90 Tablet 3 04/25/2022 Active Docusate Sodium 100 MG Oral Capsule (Colace)Indications :Irritable bowel syndrome with both constipation and diarrhea Take 1 Capsule by mouth in the morning and 1 Capsule before bedtime. 60 Capsule 11 09/22/2022 Active Famotidine 20 MG Oral Tablet (Pepcid)Indications [...] Active busPIRone HCl 5 MG Oral Tablet (Buspar)Indications [...] by mouth in the morning. 0 Active Hospital, Clinic, or Other Facility Administered Medication Ordered Dose Route Frequency Start Date End Date Status Albuterol Sulfate (Proventil) (2.5 MG/3ML) 0.083% inhalation solution 2.5 mgIndications:Shortness of breath 2.5 mg NEBULIZER ONCE PRN 03/27/2023 03/26/2024 Active documented as of this encounter (statuses as of 04/05/2023) Active Problems Problem Noted Date Diagnosed Date PVC (premature ventricular contraction) 01/25/20 23 Mixed dyslipidemia 09/19/2016 Mild intermittent asthma without complication Ascending aorta dilation 09/08/2014 DDD (degenerative disc disease), lumbar 01/01/20 13 Gastroesophageal reflux disease without esophagi tis 06/07/2004 Deviated nasal septum 05/28/2003 Irritable bowel syndrome documented as of this encounter (statuses as of 04/05/2023) Resolved Problems Problem Noted Date Diagnosed Date [...] as of this encounter (statuses as of 04/05/2023) Immunizations Name Administration Dates Next Due COVID-19 mRNA, LNP-s, No Pre serve, 2-Dose Series (VoteIt) 03/31/2021,07/19/2020,06/25/2020 Pneumococcal Conjugate Vacc, 13 Valent (Prevnar) [...] the money to buy more. Never true 03/28/19 23 Within the past 12 months, t he food you bought just didn't last and you didn't have money to get more. Never true 03/28/2022 Sex and Gender Information Value Date Recorded Sex Assigned at Male 12/17/2018 1:24 PM EDT Gender Identity Male 12/17/2018 1:24 PM EDT Sexual Orientation Straight 12/17/2018 1: 24 PM EDT Job Start Date Occupation Industry Not on file Not on file Not on file documented as of this encounter Last Filed Vital Signs Vital Sign Reading Time Taken Comments Blood Pressure 157/69 04/05/2023 8:49 AM EST Pulse 68 04/05/2023 8:49 AM EST Temperature 36.3 C (97.3 F) 04/05/2023 8:49 AM ES T Respiratory Rate - - Oxygen Saturation 99% 04/05/2023 8:49 AM EST Inhaled Oxygen Concentration - - Weight 87.5 kg (193 lb) 04/05/2023 8:49 AM EST Height 180.3 cm (5' 10.98") 04/05/2023 8:[address] Body Mass Index 26.93 04/05/2023 8:49 AM EST documented in this encounter Progress Notes * Genaro Nation MD - 04/05/2023 8:59 AM EST Subjective: Thank you for the opportunity to see your patient. As you know Miko Flores is a 77 year old male who presents to our clinic with a chief complaint of NEW PATIENT (Chronic L-Sided LBP with L-Sided Sciatica) and Back Pain (midline lower back. radiates into L Hip/Buttock/Groin/Thigh/Calf/Ankle. reports burning/tingling. lateral aspect of LLE. constant achy pain. denies trauma. Onset: years. ) He reports a longstanding history of midline low back pain that radiates into his left hip, left buttock, left groin, left posterior and lateral thigh and lateral calf to the ankle. He describes it as a constant aching pain with an intermittent sharp and shooting component. Exacerbating factors include standing, sitting, and walking for prolonged periods. His back pain is more severe than his legpain. Management thus far has included injections, medications, and physical therapy. Gabapentin has been helpful in relieving his leg pain to a manageable degree. He has been previously been evaluated by Dr. Rehman who performed several injections listed below. He has recently started physical therapy and the exercises have been helpful for his back pain. The patient is is able to do their ADLs. Providers: PCP: Jorge Zhao MD Referring provider: Josué Lynn DO Investigations performed: MRI Lumbar Spine (03/24/2022): FINDINGS: There are 5 lumbar-type vertebral bodies and S1 is incorporated into the sacrum. Overall alignment of the lumbar spine is anatomic, with preserved lordosis. There is grade 1 retrolisthesis of L4 on L5 and L5 on S1. There is no acute fracture deformity or traumatic subluxation. Vertebral body heights are maintained. There is marrow edema seen at the superior endplate of L2 and inferior endplate of L5. Disc desiccation from L1- S1. No destructive osteolytic processes are seen. The conus medullaris terminates normally at T12-L1. Distal cord and nerve roots of the cauda equinaare unremarkable. Degenerative changes by level: T12-L1: No significant spinal canal stenosis or neural foraminal narrowing. L1-L2: No significant spinal canal stenosis or neural foraminal narrowing. L2-L3: Diffuse disc bulge without significant spinal canal stenosis or neural foraminal narrowing. L3-L4: Diffuse disc bulge, facet arthropathy, and ligamentum flavum hypertrophy result in severe left neural foraminal narrowing and ryok-tn-gtyizcyj right foraminal narrowing. No significant spinal canal stenosis. L4-L5: Diffuse disc bulge, facet arthropathy, and ligamentum flavum hypertrophy result in mild spinal canal stenosis and severe left and alls-sx-hulwnlnn right neural foraminal narrowing with narrowing of the lateral recesses bilaterally. L5-S1: Diffuse disc bulge with superimposed central zone disc protrusion, trace retrolisthesis, osteophyte formation, facet arthropathy, and ligamentum flavum hypertrophy results in mild spinal canalstenosis and severe left and moderate right neural foraminal narrowing with narrowing of the bilateral lateral recesses. Partially visualized paraspinal and abdominopelvic soft tissues are grossly unremarkable. IMPRESSION: Multilevel degenerative changes of the lumbar spine most notable at L4-L5 and L5-S1 where there is severe left and bqvr-ta-exegbtps right neural foraminal narrowing with lateral recesses at these levels. I have personally reviewed this examination and agree with the resident/fellow physician's interpretation. Non-interventional techniques: Physical Therapy: helpful Massage: not participated Chiropractic: not participated Acupuncture: not participated Bracing: not participated Interventional Pain techniques: Injections: 03/14/23, 07/26/22 R Shoulder, 03/01/23 L GTB, 01/02/17 L SI Joint, 07/04/16 L RFA L5-S1, 01/01/16, 12/15/15 L MBB L5-S1, 11/17/15 L TFESI SI. Surgeries: None Medications and Allergies: Current Outpatient Medications Medication Instructions Albuterol Sulfate HFA 108 (90 Base) MCG/ACT Inhalation Aerosol Solution 2 Puffs, Inhalation, Q4H PRN aspirin enteric coated (ASPIRIN 81) 81 mg, Daily(AM) busPIRone HCl 5 MG Oral Tablet (Buspar) One tablet by mouth twice daily as needed for anxiety Calcium Magnesium Zinc 333-133-5 MG Oral Tablet 1 Tablet, Oral, Daily(AM) dicyclomine (BENTYL) 20 mg, Oral, Q6H Docusate Sodium (COLACE) 100 mg, Oral, BID (.AM/PM) Ezetimibe (ZETIA) 10 mg, Oral, Daily(AM) Famotidine (PEPCID) 20 mg, Oral, BID (.AM/PM) Gabapentin 100 MG Oral Capsule (Neurontin) TAKE 2 CAPSULES BY MOUTH IN THE EVENING Latanoprost 0.005 % Ophthalmic Solution (Xalatan) 1 Drop, Both eyes, HS methylPREDNISolone 4 MG Oral Tablet Therapy Pack (Medrol Dosepack) follow package directions MULTIVITAMINS PO TABS 1 a day Olopatadine HCl 0.6 % Nasal Solution (Patanase) 2 Sprays, Nasal, BID (.AM/PM) pantoprazole (PROTONIX) 40 mg, Oral, Daily(AM), 30 minutes before the first meal of the day. Do notcrush, split or chew the tablet rosuvastatin (CRESTOR) 5 mg, Oral, Daily(AM) Saw [place] 1000 MG Oral Capsule Oral Vitamin C (ASCORBIC ACID) 1,000 mg, Oral, Daily(AM) Review of patient's allergies indicates: Allergen Reactions Clarithromycin ? Rash. Tolerates azithromycin on multiple occasions Doxycycline Rash Past Medical History: Past Medical History: Diagnosis Date ALLERGIC RHINITIS [...] 0.75/0.60 (09/02); VF 01/02;588/580;-3/-3 Past Surgical History: Past Surgical History: Procedure Laterality Date COLONOSCOPY [...] LUMBAR SACRAL NERVE IMAGING SINGLE performed by Florence Allegra Rehman, DO at OR [facility] EGD, FLEXIBLE, DIAGNOSTIC 10/1990 EGD, FLEXIBLE, DIAGNOSTIC 10/12/2017 acid reflux, egd EGD, FLEXIBLE, DIAGNOSTIC N/A 10/12/2017 ESOPHAGOGASTRODUODENOSCOPY (EGD), FLEXIBLE, TRANSORAL, DIAGNOSTIC performed by Fidencio Hall MD at [facility] EGD, FLEXIBLE, DIAGNOSTIC N/A 10/12/2020 gastritis/biopsies show [...] PARAVERTEBRAL FACET INJ, 1 LEVEL performed by Florence Allegra Rehman, DO at OR [facility] L-/S-SPINE PARAVERTEBRAL FACET INJ,1 LEVEL 01/01/2016 L-/S-SPINE PARAVERTEBRAL FACET INJ, 1 LEVEL performed by Florence Allegra العراقيs, DO at OR [facility] LUMBAR / SACRAL EPIDURAL, SINGLE LEVEL 11/03/2015 INJECTION TRANSFORAMINAL EPIDURAL LUMBAR OR SACRAL performed by [facility] Malcoms, DO at OR [facility] LUMBAR / SACRAL EPIDURAL, SINGLE LEVEL 11/17/2015 INJECTION TRANSFORAMINAL EPIDURAL LUMBAR OR SACRAL performed by Florence Allegra Rehman, DO at OR [facility] SACROILIAC JOINT INJECT W/GUIDANCE 08/15/2016 INJECTION SACROILIAC JOINT performed by [facility] Malcoms, DO at OR [facility] SACROILIAC JOINT INJECT W/GUIDANCE 01/02/2017 INJECTION SACROILIAC JOINT performed by Aaron Dinh Cousins, DO at OR [facility] UPPER GI ENDOSCOPY 10-12-20, gastritis determined Family History: Family History Problem Relation Age of Onset Allergies Mother spring rhinitis Heart Disorder Mother OR @82 Lung Disorder Father copd Allergies Father spring rhinitis No Past Hx Sister No Past Hx Sister No Past Hx Brother Social History: Social History Socioeconomic History Marital status: Spouse name: Leon Number of children: 1 Years of education: 12+ Highest education level: Not on file Occupational History 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: [employer] 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 Objective: Filed Vitals: 04/05/23 0849 BP: 157/69 Pulse: 68 Temp: 36.3 C (97.3 F) TempSrc: Tympanic SpO2: 99% Weight: 87.5 kg (193 lb) Height: 1.803 m (5' 10.98") GENERAL APPEARANCE: Well-developed, well-nourished, in no acute distress. HEENT: Normocephalic and atraumatic. No scleral icterus. Pupils are equal.No conjunctival injectionis noted. LUNGS: Symmetric. No wheezes, rhonchi, or rales appreciated HEART: Regular rate and rhythm. ABDOMEN: Non-tender, non-distended. Bowel sounds are present. EXTREMITIES: No cyanosis, clubbing, or edema. NEUROLOGIC: Gait is normal. Cranial nerves II through XII are grossly intact. PSYCHIATRIC: The patient is awake, alert, and oriented x3. Appropriate mood and affect. SKIN: Warm, dry, and well perfused. Good turgor. No lesions, nodules or rashes are noted on exposedskin. MSK: Upon initial assessment, the patient is seated in a comfortable position. Upon inspection there is not scoliosis of the thoracolumbar spine. Muscle bulk appears adequate. Palpation exam does not reveal midline lumbar tenderness and does reveal lumbar paraspinous tenderness. There is tenderness to palpation of the sacroiliac joints bilaterally ROM lumbar spine is limited. There is discomfort with back extension and rotation bilaterally. Motor strength exam reveals: hip flexion R 5/5 L 5/5 knee extension R 5/5 L 5/5 knee flexion R 5/5 L 5/5 ankle dorsiflexion R 5/5 L 5/5 ankle plantarflexion R 5/5 L 5/5 EHL R 5/5 L 5/5 Deep tendon reflexes, 2+ patellar, 2+ Achilles, no clonus. Sensory exam is intact to light touch and sharp stimulation grossly in the bilateral upper and lower extremities. Assessment: 77 year old year-old male presents with bilateral low back pain with radiation into his left hip, buttock, groin, anterior and lateral thigh, lateral calf and to the ankle. His leg pain has recently been improved by an increase in gabapentin doseage. After an extensive discussion, despite his radicular complaints, he is not interested in an epidural as it failed to give him benefit in the past. He also only admits a 1 month reduction in his pain with RFA after diagnostic medial branch blocks. That being said, he also reports improvement in his back pain with physical therapy. He is motivated to continue and feels that that pain is not severe enough to limit his daily function and he considers it tolerable at this point. He would like to continue physical therapy to its completion. I informed him that he should perform the PT exercises at home daily as well. If at any point he fails to gain considerable benefit, he will plan to call our office to proceed with treatment of back pain. Plan: Investigations: -None ordered at this visit Interventions: - None ordered at this visit. We can consider repeating bilateral L3, L4, L5 medial branch blocks in anticipation for RFA when he decides to move forward with injections Physical Therapy: -Currently enrolled in physical therapy, would like to continue Consults: - None ordered Follow Up: - after procedure I spent a total of 40-54 minutes (exact time 45 mins) on the date of service in preparation, delivery, and documentation of the care provided to Miko Flores excluding any time spent in theperformance of separately billed services. Thank you for you allowing us to participate in the care of your patient. If you have any questions, please feel free to contact us. documented in this encounter Nursing Notes * Gricelda Lake MA - 04/05/2023 8:46 AM EST Chief Complaint Patient presents with NEW PATIENT Chronic L-Sided LBP with L-Sided Sciatica Back Pain midline lower back. radiates into L Hip/Buttock/Groin/Thigh/Calf/Ankle. reports burning/tingling. lateral aspect of LLE. constant achy pain. denies trauma. Onset: years. Imagin03/23/23 XR L-Spine, 03/24/22 MRI L-Spine, 08/28/20 XR Hip, 01/15/20 XR C- Spine, 02/12/18 MRI C-Spine. Previous Surgeries: no neck/back surg Previous Injections: 03/14/23, 07/26/22 R Shoulder, 03/01/23 L GTB, 01/02/17 L SI Joint, 07/04/16 L RFAL5-S1, 01/01/16, 12/15/15 L MBB L5-S1, 11/17/15 L TFESI SI. PT: 2023 Karla (currently- 1 session) Aggravating Factors/Limitations: Sitting/Walking/Standing for Prolonged Periods, Getting Up/Down Alleviating factors: Physical Therapy Disability Score Questionnaire- see attachment Blood Thinners: none Pain medications: Gabapentin Diabetic: No EM06/02/22. Consults: Dr. Caba, Dr. Lynn, Dr. Hernandez. Referred By: Dr. Lynn. documented in this encounter Plan of Treatment Upcoming Encounters Date Type Department Care Team (Late st Contact Info) Description 04/10/2023 11:00 AM EST Cardiac Studies [facility], [facility] [place] [address] 05/02/2023 8:00 AM EST Office Visit Ophthalmology, [address] [place] [address] García Winston MD [address] [place] [address] 05/09/2023 8:00 AM EST Office Visit Otolaryngology, [address] [place] [place] [address] Saúl Yu PA-C [address] [facility] [place] [address] 07/14/2023 9:00 AM EDT Office Visit [place] [address] [place] [address] Jorge Zhao MD [facility] [address] [place] [address] 08/01/2023 11:00 AM EDT Office Visit Cardiology, [facility] [address] [facility] [place] [address] Meaghan Hargrove PA-C [address] [place] [address] 09/21/2023 10:30 AM EDT Office Visit Orthopaedics Spine Surgery[address] [place] [address] Rosas Caba MD [address] [place] [address] 10/04/2023 8:20 AM EDT Office Visit Dermatology [facility] [address] [place] [address] Vilma Burris PA-C [address] [place] [address] Scheduled Procedures Name Priority Associated Diagnoses Date/Ti me COLONOSCOPY FLEXIBLE PROXIMA L DIAGNOSTIC Recall History of colonic polyps Scheduled Referrals Name Type Priority Associated Diagnoses Orde r Schedule PAIN MEDICINE REFERRAL OP Referral Within 10 days (routine) Chronic left-sided low back pain with left-sided sciatica Ordered: 03/14/2023 Health Maintenance Due Date Last Done Comments [...] as of this encounter Visit Diagnoses Diagnosis Osteoarthritis of spine with radiculopathy, lumbosacral region- Primary documented in this encounter Care Teams Ceramic Coater Machine Relationship Specialty Start Date End Date Jorge Zhao MD [address] [facility] [address] [facility] [place] [address] PCP - General Family Medicine 08/02/19 documented as of this encounter
--- OUTSIDE RECORDS SUMMARY | 2023-06-20 10:24 | External Medical Summary ---
Author Name Unknown Address Unknown Organization [id number]:[facility] [place] [facility] [address] [facility] [address] Laboratory Report Ordering Provider Test Date Status LUZ HERRON 04/25/2023 10:52:30 Final Observation Date Value Abnormality Reference (Units ) Status Triglyceride 04/25/2023 10:52:30 139 <=174 ( mg/dL) Final Triglyceride Reference Range s (mg/dL):
<150 Acceptable
150-174 Borderline high
175-499 High
>=500 Very high Cholesterol 04/25/2023 10:52:30 186 <200 (mg /dL) Final Total Cholesterol Reference Ranges (mg/dL):
<200 Desirable
200-239 Borderline high
>=240 High HDL 04/25/2023 10:52:30 52 >39 (mg/dL ) Final HDL Cholesterol Reference Ra nges (mg/dL):
>=60 High (Desirable)
<50 Low (Undesirable) For Females
<40 Low (Undesirable) For Males NON-HDL CHOLESTEROL 04/25/2023 10:52:30 134 <=159 (mg/dL) Final Non-HDL Cholesterol Referenc e Range (mg/dL):
<100 Target level for high risk ASCVD patient
<130 Optimal for general population
130-159 Near optimal for general population
160-189 Borderline High
190-219 High
>=220 Very High LDL, (calculated) 04/25/2023 10:52:30 106 <= 129 (mg/dL) Final LDL Cholesterol Reference Ra nges (mg/dL):
<70 Target level for high risk ASCVD patient
<100 Optimal for general population
100-129 Near optimal for general population
130-159 Borderline high
160-189 High
>=190 Very high Performing Location [facility] [place] [facility] [address] [facility] [address]
--- OUTSIDE RECORDS SUMMARY | 2023-06-20 10:24 | External Medical Summary ---
Author Name Unknown Address Unknown Organization [id number]:[facility]ORY [facility] [place] - [address] [place] [address] Laboratory Report Ordering Provider Test Date Status LUISA PAVON 04/25/2023 10:52:30 Final Deficient: <20 ng/mL
Ins ufficient: 20-29 ng/mL
Recommended/Optimum:30-50 ng/mL

Vitamin D intoxication is rare. If suspicious of Vitamin D toxicity, evaluation of serum Calcium and PTH is recommended. Observation Date Value Abnormality Reference (Units ) Status 25-OH Vitamin D total 04/25/2023 10:52:30 41 >19 (ng/mL) Final Performing Location [facility]ORY [facility] [place] - [address] [place] [address]
--- OUTSIDE RECORDS SUMMARY | 2023-06-20 10:24 | External Medical Summary ---
Author Name Unknown Address Unknown Organization [id number]:[facility] [place] [address] [facility] [address] Laboratory Report Ordering Provider Test Date Status LUISA PAVON 04/25/2023 10:52:30 Final Observation Date Value Abnormality Reference (Units ) Status Erythrocyte sedimentation rate by Photometric method 04/25/2023 10:52:30 10 <20 (mm/hour) Final Performing Location [facility] [place] [address] [facility] [address]
--- OUTSIDE RECORDS SUMMARY | 2023-06-20 10:24 | External Medical Summary ---
Author Name Unknown Address Unknown Organization [id number]:LABORATORY [facility] - [address] [facility] [place] [facility] [address] Laboratory Report Ordering Provider Test Date Status LUISA PAVON 04/25/2023 10:52:30 Final Observation Date Value Abnormality Reference (Units ) Status T4, Free 04/25/2023 10:52:30 1.1 0.9-1.7 (n g/dL) Final Performing Location LABORATORY [facility] - [address] [facility] [address]
--- OUTSIDE RECORDS SUMMARY | 2023-06-20 10:24 | External Medical Summary ---
Author Name Unknown Address Unknown Organization [id number]:LABORATORY [facility] - [address] [place] [address] Laboratory Report Ordering Provider Test Date Status LISANDRA BARTH 04/22/2023 01:43:40 Final Observation Date Value Abnormality Reference (Units ) Status Troponin T 04/22/2023 01:43:40 21 <=22 (ng/ L) Final Performing Location LABORATORY [facility] - [address] [place] [address]
--- OUTSIDE RECORDS SUMMARY | 2023-06-20 10:24 | External Medical Summary ---
Author Name Unknown Address Unknown Organization [id number]:LABORATORY [facility] - [address] [facility] [address] Laboratory Report Ordering Provider Test Date Status LUZ HERRON 04/25/2023 10:52:30 Final Observation Date Value Abnormality Reference (Units ) Status Magnesium 04/25/2023 10:52:30 2.2 1.5-2.6 (m g/dL) Final Performing Location LABORATORY [facility] - [address] [facility] [address]
--- OUTSIDE RECORDS SUMMARY | 2023-06-20 10:24 | External Medical Summary | Summary of Care ---
Author Name Unknown Organization [facility] Address [address] [place] [address] Phone [phone] Care Team Providers Care Extrusion Supervisor Name Role Phone Jorge Zhao MD Primary Care Provider Reason for Visit * Reason Onset Date Comments FYI 04/05/2023 Encounter Details Date Type Department Care Team (Late st Contact Info) Description 04/05/2023 Telephone [address], [address] [place] [address] [place] [address] Services, Scheduling [address] [place] [address] Allergies Active Allergy Reactions Criticality Noted Date [...] daily. 1 Tablet 0 02/19/2021 Active Saw Aurora 1000 MG Oral Capsule Take by mouth [...] encounter Miscellaneous Notes * Telephone Encounter - Anitha Carter OSA - 04/05/2023 8:54 AM EST Patient came to office today ( 04/05/23) thinking that he had an appointment with Dr. Rene . Upon checking patient's chart there was not an appointment scheduled or cancelled with Dr. Rene . Patient stated that he was going home and check his MyG and would call into office if he wanted to schedule with Dr. Rene. documented in this encounter Plan of Treatment Upcoming Encounters Date Type Department Care Team (Late st Contact Info) Description 04/10/2023 11:00 AM EST Cardiac Studies Cardiac Studies, [facility] [address] [facility] [place] [address] 05/02/2023 8:00 AM EST Office Visit Ophthalmology, [address] [place] [address] García Winston MD [address] [address] 05/09/2023 8:00 AM EST Office Visit Otolaryngology, [address] [place] [address] Saúl Yu PA-C [address] [place] [address] 07/14/2023 9:00 AM EDT Office Visit Family [facility], [place] [address] [place] [address] Jorge Zhao MD [address] [place] [address] 08/01/2023 11:00 AM EDT Office Visit Cardiology, [facility] [address] [place] [address] Meaghan Hargrove PA-C [address] [place] [address] 09/21/2023 10:30 AM EDT Office Visit Orthopaedics Spine Surgery, [address] [place] [address] Rosas Caba MD [address] [place] [address] 10/04/2023 8:20 AM EDT Office Visit Dermatology [facility] [address] [place] [address] Vilma Burris PA-C [address] [place] [address] Scheduled Procedures Name Priority Associated Diagnoses Date/Ti [...] filedocumented as of this encounter Care Teams Extrusion Supervisor Relationship Specialty Start Date End Date Jorge Zhao MD [address] [address] [place] [address] PCP - General Family Medicine 08/02/19 documented as of this encounter
--- OUTSIDE RECORDS SUMMARY | 2023-06-20 10:24 | External Medical Summary ---
Author Name Unknown Address Unknown Organization [facility] [address] [facility] [place] [address] Laboratory Report Ordering Provider Test Date Status LISANDRA BARTH 04/22/2023 00:41:34 Final Observation Date Value Abnormality Reference (Units ) Status BUN 04/22/2023 00:41:34 23 Above high normal 6-20 (mg/dL) Final Creatinine 04/22/2023 00:41:34 1.0 0.6-1.2 (mg/dL) Final Glomerular filtration rate/1.73 sq M.predicted [Volume Rate/Area] in Serum, Plasma or Blood by Creatinine-based formula (CKD-EPI) 04/22/2023 00:41:34 74 >=60 (mL/min) Final eGFR is calculated based on the CKD-EPI 2020 equation SODIUM 04/22/2023 00:41:34 140 135-146 (m mol/L) Final Potassium 04/22/2023 00:41:34 3.7 3.5-5.1 (m mol/L) Final Cl 04/22/2023 00:41:34 103 98-107 (mm ol/L) Final CO2 04/22/2023 00:41:34 27 22-32 (mmo l/L) Final Anion gap 04/22/2023 00:41:34 10 7-15 (mmol /L) Final Glucose 04/22/2023 00:41:34 116 70-120 (mg /dL) Final Albumin 04/22/2023 00:41:34 3.8 3.8-5.0 (g /dL) Final AST (Aspartate aminotransferase) 04/22/2023 00:41:34 29 10-50 (U/L) Final Alk Phos 04/22/2023 00:41:34 79 35-130 (U/ L) Final Bilirubin, Total 04/22/2023 00:41:34 0.3 <=1 .2 (mg/dL) Final Calcium 04/22/2023 00:41:34 9.2 8.4-10.2 ( mg/dL) Final Protein 04/22/2023 00:41:34 6.3 6.0-8.3 (g /dL) Final ALT (Alanine aminotransferase) 04/22/2023 00:41:34 30 10-50 (U/L) Final Performing Location [facility] - [address] [place], [place] [address]elvis [place] [address]
--- OUTSIDE RECORDS SUMMARY | 2023-06-20 10:24 | External Medical Summary | Summary of Care ---
Author Name Unknown Organization [facility] Address [address] [place] [address] Phone [phone] Care Team Providers Care Manager Cath Lab Name Role Phone Jorge Zhao MD Primary Care Provider Reason for Visit * Reason Comments Hypertension * Auth/Cert Specialty Diagnoses / Procedures Referred By Zaida t Referred To Contact Referral ID Status Reason Start Date Expiration Date Visits Re quested Visits Authorized [id number] Encounter Details Date Type Department Care Team (Late st Contact Info) Description 04/22/2023 12:11 AM EST - 04/22/2023 2:14 AM EST Emergency [facility] Emergency Department ([facility]) [address] [place] [address] Marie Hernandez, DO [address] [place] [address] Primary hypertension (Primary Dx) Discharge Disposition: Home - Self Care Allergies Active Allergy Reactions Criticality Noted Date Comments Clarithromycin 04/02/2001 ? Rash. Tolerates azithromycin on multiple occasions Doxycycline 09/27/1999 Rash documented as of this encounter (statuses as of 04/22/2023) Medications Medication Sig Dispensed Refills Start Date End Date Status MULTIVITAMINS PO TABS 1 a day 30 0 04/25/2007 Active vitamin c (ASCORBIC ACID) 500 MG Tablet Take 2 Tablets by mouth in the morning. 0 Active Calcium Magnesium Zinc 333-133-5 MG Oral Tablet Take 1 Tablet by mouth daily. 1 Tablet 0 02/19/2021 Active Saw [place] 1000 MG Oral Capsule Take by mouth [...] as of this encounter (statuses as of 04/22/2023) Active Problems Problem Noted Date Diagnosed Date PVC (premature ventricular contraction) 01/25/20 23 Mixed dyslipidemia 09/19/2016 Mild intermittent asthma without complication Ascending aorta dilation 09/08/2014 DDD (degenerative disc disease), lumbar 01/01/20 13 Gastroesophageal reflux disease without esophagi tis 06/07/2004 Deviated nasal septum 05/28/2003 Irritable bowel syndrome documented as of this encounter (statuses as of 04/22/2023) Resolved Problems Problem Noted Date Diagnosed Date [...] as of this encounter (statuses as of 04/22/2023) Immunizations Name Administration Dates Next Due COVID-19 mRNA, LNP-s, No Pre serve, 2-Dose Series (MyFuelUp) 03/31/2021,07/19/2020,06/25/2020 Pneumococcal Conjugate Vacc, 13 Valent (Prevnar) [...] Sign Reading Time Taken Comments Blood Pressure 158/72 04/22/2023 1:00 AM EST Pulse 69 04/22/2023 1:00 AM EST Temperature 36.5 C (97.7 F) 04/22/2023 12:[address] Respiratory Rate 18 04/22/2023 1:00 AM EST Oxygen Saturation 94% 04/22/2023 12:16 AM EST Inhaled Oxygen Concentration - - Weight 87.5 kg (193 lb) 04/22/2023 12:16 AM EST Height - - Body Mass Index 26.93 04/05/2023 8:49 AM EST documented in this encounter Discharge Instructions * Discharge Instructions* Kenneth Henry PA-C - 04/22/2023 1:28 AM EST You were seen today and treated in the ED for hypertension. You were given a dose of hydralazine here in the ED in his helped to reduce your blood pressure. I will send you with a prescription for Norvasc 5 mg in the next 30 days, take this once a day over those time. , please follow up with the primary care doctor in 7-10 days. Please return to the ED with worsening condition. Please follow up with the results of your Zio patch as they become available. documented in this encounter ED Notes * Marie Hernandez, - 04/22/2023 12:55 AM EST HISTORY OF PRESENT ILLNESS Miko Flores is a 77 year old male who presents to the ED for evaluation of Hypertension.The patient was seen at 04/22/23 0020. Patient is a 77-year-old male with a past medical history ofaortic dilation, dyslipidemia, degenerative disc disease, irritable bowel syndrome, who is presenting to the ED today for hypertension. He states that earlier this evening he woke up with ringing in his ears, and feeling off. He states that he took his blood pressure at home and it was 130/103. He states that he was seen in the ED a month ago for similar issues. He said he recently had a Zio patch on but he has not seen any results from this yet. Patient denies any chest pain, shortness of breath, lightheadedness, dizziness, syncope, fevers, chills. He does admit to some epigastric abdominal pain. He states that he normally gets that symptom whenever he has this type of issue. He states that it feels like his belly is bloated. Hypertension Associated symptoms: abdominal pain Associated symptoms: no chest pain, no dizziness, no fever, no headaches, no nausea, no palpitations and not vomiting Review of Systems Constitutional: Negative for chills and fever. HENT: Negative for congestion and trouble swallowing. Respiratory: Negative for cough. Cardiovascular: Negative for chest pain and palpitations. Gastrointestinal: Positive for abdominal pain. Negative for constipation, diarrhea, nausea and vomiting. Genitourinary: Negative for difficulty urinating and dysuria. Neurological: Negative for dizziness, syncope, light-headedness and headaches. The patient's allergies, past history, and medications were reviewed. PHYSICAL EXAM Initial Vitals (see all): BP 210/80 | Pulse 80 | Resp 18 | Temp 97.7 | O2 94 %Weight 87.54 kg | Height 180.3 cm | BMI 26.93 kg/m2 Initial Pain Assessment (see all): 0 (no pain)/10 ([facility] Adult Scale 0-10) Physical Exam Vitals and nursing note reviewed. Constitutional: General: He is not in acute distress. Appearance: Normal appearance. He is normal weight. He is not ill-appearing. HENT: Head: Normocephalic and atraumatic. Right Ear: Tympanic membrane, ear canal and external ear normal. Left Ear: Tympanic membrane, ear canal and external ear normal. Mouth/Throat: Mouth: Mucous membranes are dry. Eyes: Conjunctiva/sclera: Conjunctivae normal. Cardiovascular: Rate and Rhythm: Normal rate and regular rhythm. Pulses: Normal pulses. Heart sounds: Normal heart sounds. No murmur heard. No friction rub. No gallop. Pulmonary: Effort: Pulmonary effort is normal. No respiratory distress. Breath sounds: Normal breath sounds. No stridor. No wheezing. Abdominal: General: Bowel sounds are normal. There is no distension. Palpations: Abdomen is soft. There is no mass. Tenderness: There is abdominal tenderness. Musculoskeletal: General: Normal range of motion. Skin: General: Skin is warm. Neurological: General: No focal deficit present. Mental Status: He is alert and oriented to person, place, and time. Mental status is at baseline. Psychiatric: Mood and Affect: Mood normal. Behavior: Behavior normal. Thought Content: Thought content normal. Judgment: Judgment normal. PROCEDURES AND TREATMENTS ED Orders | ED Results EKG Interpretation: Sinus rhythm, heart rate 76. Bigeminy present with PACs. No acute ischemic changes seen. MEDICAL DECISION MAKING Nursing notes and vital signs were reviewed. ED Course as of 04/22/23 0306 Sat Apr 22, 2023 0027 BP: 210/80 [CY] 0027 Pulse: 80 [CY] 0027 Resp: 18 [CY] 0027 SpO2: 94 % [CY] 0027 Temp: 36.5 C (97.7 F) [CY] 0106 Lipase: 51 [CY] 0107 Lactate: 1.3 [CY] 0107 INR: 0.9 [CY] 0113 Troponin T, High Sensitivity: 19 [CY] 0140 CT Head/Brain without contrast IMPRESSION: No acute intracranial hemorrhage or acute calvarial fracture. [CY] 0204 Troponin T, High Sensitivity: 21 [CY] ED Course User Index [CY] Kenneth Henry PA-C Differential Diagnoses Based on my history, physical exam, and evaluation, the differential includes, but is not limited, to the following diagnoses: acute abdominal pain, acute coronary syndrome, CVA, gastritis, gastroenteritis, GERD, hypertensive headache, subarachnoid hemorrhage, subdural hemorrhage and Hypertension, tinnitus. 77-year-old male with a past medical history of aortic dilation, dyslipidemia, degenerative disc disease, IBS, who presented to the ED today for hypertension. Ringing in ears, feeling off, BP 130/103 at home. ED these similar symptoms a month ago. Wore a Zio patch recently, was never told her the results. No chest pain, shortness of breath, lightheadedness, dizziness. On my exam there is some epigastric tenderness, the abdomen is soft, the lungs are clear in all lobes, PERRLA, EOM intact. Labs, EKG, head CT ordered. I have given the patient a dose of hydralazine here in the ED to help lower his blood pressure. The head CT was negative for any acute intracranial abnormalities or hemorrhages. The patient's blood pressure is down to 158/72 after the medication, I will repeat a troponin, and if it is flat I will send the patient home on Norvasc 5 mg for the next 30 days, he is going to follow up with his primary care doctor in the next couple of days regarding this. The patient is feelingbetter after the dose of hydralazine also he no longer has a any ringing in his ears and he is feeling back to normal. Patient is stable and was discharged home with strict return precautions. Amount and/or Complexity of Data Reviewed Labs: ordered. Decision-making details documented in ED Course. Radiology: ordered. Decision-making details documented in ED Course. Risk Prescription drug management. Clinical Impressions Primary hypertension Disposition Discharged. The patient's condition at disposition was: stable. Discharge Medications Disp Refills Start End amLODIPine Besylate 5 MG Oral Tablet (Norvasc) 30 Tablet 0 04/22/2023 05/22/2023 Sig - Route: Take 1 Tablet by mouth in the morning. - Oral Class: ePrescribing Renewals Renewal requests to authorizing provider (Kenneth Henry PA-C) <b>prohibited</b> Marie Hernandez was the attending physician who supervised the care of this patient. Kenneth Henry PA-C Supervisory Addendum-[facility] I participated in the following activities of this patients care: the medical history, the physicalexam, medical decision making. I personally performed: supervision of the patient's care, the medical history, the physical exam, the medical decision making. The case was discussed with: the APC Evaluation and management service: I agree with the evaluation and management decisions made in this patient's care. Results interpretation: I agree with the study interpretation in this patient's care. Notes: Patient personally interviewed and examined and care coordinated in conjunction with the APC. I agree with the assessment, treatment plan and disposition of the patient as recorded by the APC. My independent Hx/Exam/MDM includes the following: Patient is a 77-year-old male who presents a chief complaint of ringing in his ears and not feeling well. States he took his blood pressure at home earlier today is 130/103. States that later on this evening he still has a ringing in his ears and was not feeling well so came in for evaluation. States he recently had a Zio patch put on but has notseen any results. He denies any associated chest pain, shortness of breath, abdominal pain, nausea or vomiting. No blurred vision or headaches. On my exam the patient is resting comfortably in bed. No external evidence of head trauma. Clear breath sounds in all lung sanchez. Regular rate and rhythm of the heart. No abdominal tenderness palpation. No lower extremity edema. He is alert oriented x3. No focal neurological deficit. He has 2- troponins and does have some bigeminy seen on EKG. CT head was negative. His blood pressure did come down after hydralazine will place him on Norvasc. He will follow up with his PCP. No further questions. Marie Hernandez DO * Roselia Amaya RN - 04/22/2023 12:23 AM EST Pt states that he woke up tonight with ringing in his ears and feeling "off." Pt states that he took his BP and it was 130's/103. Pt states that he was seen in the ED about a month ago for a similar issues and has been following with cardiology, states that he recently wore a zio patch but has not received any results yet. Denies chest pain, SOB, lightheadedness or dizziness. documented in this encounter Miscellaneous Notes * ED Food Adviser Note - Jayden Ryan RN - 04/22/2023 2:13 AM EST Pt verbalized understanding of discharge instructions.\\ * ED Food Adviser Note - Jayden Ryan RN - 04/22/2023 1:00 AM EST BP before hydralazine 161/94 * ED Food Adviser Note - Jayden Ryan RN - 04/22/2023 12:29 AM EST Pt presents to ED with hypertension and tinnitus. Pt states hx of this happening recently but no prior cardiac hx. Pt does not take medication for blood pressure. Pt denies chest pain, SOB, NV. documented in this encounter Plan of Treatment Upcoming Encounters Date Type Department Care Team (Late st Contact Info) Description 05/09/2023 8:00 AM EST Office Visit Otolaryngology, [facility] [address] [address] Saúl Yu PA-C [address] [address] 05/16/2023 9:30 AM EST Office Visit OphthalmologyRichard [address] [address] García Winston MD [address] [place] [address] 07/14/2023 9:00 AM EDT Office Visit [place] [address] [address] [place] [address] Jorge Zhao MD [facility] [address] [place] [address] 08/01/2023 11:00 AM EDT Office Visit Cardiology, [facility] [address] [place] [address] Meaghan Hargrove PA-C [address] [place] [address] 09/21/2023 10:30 AM EDT Office Visit Orthopaedics Spine Surgery, [address] [place] [address] [place] [address] Rosas Caba MD [address] [place], [place] [id number] 10/04/2023 8:20 AM EDT Office Visit Dermatology [facility] [address] [place] [address] Vilma Burris [address] [place] [address] Scheduled Procedures Name Priority Associated Diagnoses Date/Ti [...] Procedure Name Priority Date/Time Associated Diagnosis Comments TROPONIN T, HIGH SENSITIVITY STAT 04/22/2023 1:[address] HEAD/BRAIN WO CONTRAST STAT 04/22/2023 1:14 AM EST DIFFERENTIAL, AUTOMATED STAT 04/22/2023 12:41 AM EST TROPONIN T, HIGH SENSITIVITY STAT 04/22/2023 12:41 AM EST COMPREHENSIVE METABOLIC PANEL STAT 04/22/2023 12:41 AM EST CBC STAT 04/22/2023 12:41 AM EST PT INR STAT 04/22/2023 12:41 AM EST LIPASE STAT 04/22/2023 12:41 AM EST LACTATE STAT 04/22/2023 12:41 AM EST CBC STAT 04/22/2023 12:41 AM EST documented in this encounter Results * TROPONIN T, HIGH SENSITIVITY (04/22/2023 1:43 AM EST) Troponin T, High Sensitivity 21 <=22 ng/L 04/22/2023 2:02 AM EST LABORATORY [facility] Blood Venous blood specimen / Unknown Venipuncture / Unknown 04/22/2023 1:43 AM EST 04/22/2023 1:46 AM EST Kenneth Henry PA-C LAB [facility]OD [facility] [address] [address] * CT HEAD/BRAIN WO CONTRAST (04/22/2023 1:14 AM EST) Anatomical Region Laterality Modality Head Computed Tomogra phy 04/22/2023 12:5 8 AM EST Impressions 04/22/2023 1:26 AM EST IMPRESSION: No acute intracranial hemorrhage or acute calvarial fracture. THIS DOCUMENT HAS BEEN ELECTRONICALLY SIGNED BY GEENA JIMENEZ MD Narrative 04/22/2023 1:26 AM EST PROCEDURE INFORMATION: Exam: CT Head Without Contrast Exam date and time: 04/22/2023 12:58 AM Age: 77 years old Clinical indication: Other: High BP; Additional info: Hypertension TECHNIQUE: Imaging protocol: Computed tomography of the head without contrast. Radiation optimization: All CT scans at this facility use at least one of these dose optimization techniques: automated exposure control; mA and/or kV adjustment per patient size (includes targeted exams where dose is matched to clinical indication); or iterative reconstruction. COMPARISON: CT HEAD/BRAIN WO CONTRAST 01/15/2020 8:01 PM FINDINGS: Brain: No acute intracranial hemorrhage. No acute territorial region of feliz-white dedifferentiation. No extra-axial collection. No mass effect or midline shift. Generalized parenchymal volume loss. Cerebral ventricles: No acute hydrocephalus. Paranasal sinuses: Visualized sinuses are well-aerated. No fluid levels. Mastoid air cells: Visualized mastoid air cells are well aerated. Orbital cavities: No acute abnormality. Bones/joints: No acute calvarial fracture. Soft tissues: No acute abnormality. Procedure Note Geena Jimenez MD - 04/22/2023 PROCEDURE INFORMATION: Exam: CT Head Without Contrast Exam date and time: 04/22/2023 12:58 AM Age: 77 years old Clinical indication: Other: High BP; Additional info: Hypertension TECHNIQUE: Imaging protocol: Computed tomography of the head without contrast. Radiation optimization: All CT scans at this facility use at least one ofthese dose optimization techniques: automated exposure control; mA and/or kV adjustment per patient size (includes targeted exams where dose is matchedto clinical indication); or iterative reconstruction. COMPARISON: CT HEAD/BRAIN WO CONTRAST 01/15/2020 8:01 PM FINDINGS: Brain: No acute intracranial hemorrhage. No acute territorial region of feliz-white dedifferentiation. No extra-axial collection. No mass effect or midline shift. Generalized parenchymal volume loss. Cerebral ventricles: No acute hydrocephalus. Paranasal sinuses: Visualized sinuses are well-aerated. No fluid levels. Mastoid air cells: Visualized mastoid air cells are well aerated. Orbital cavities: No acute abnormality. Bones/joints: No acute calvarial fracture. Soft tissues: No acute abnormality. IMPRESSION IMPRESSION: No acute intracranial hemorrhage or acute calvarial fracture. THIS DOCUMENT HAS BEEN ELECTRONICALLY SIGNED BY GEENA JIMENEZ MD Kenneth Henry PA-C RAD CT * DIFFERENTIAL, AUTOMATED (04/22/2023 12:41 AM EST) WBC 9.61 4.00 - 10.80 K/uL 04/22/2023 12:47 AM EST LABORATORY [facility] Neutrophils % 71.2 40.0 - 75.0 % 04/22/2023 12:47 AM EST LAB[facility]ATORY [facility] Lymphocytes % 18.1 18.0 - 42.0 % 04/22/2023 12:47 AM EST LAB[facility] Monocytes % 9.7 1.0 - 11.0 % 04/22/2023 12:47 AM EST LAB[facility] Eosinophils % 0.5 0.0 - 6.0 % 04/22/2023 12:47 AM EST LAB[facility] Basophils % 0.3 0.0 - 2.0 % 04/22/2023 12:47 AM EST LAB[facility] Immature Granulocytes % 0.2 0.0 - 2.0 % 04/22/2023 12:47 AM EST LAB[facility] Absolute Neutrophils 6.84 1.80 - 7.70 K/uL 04/22/2023 12:47 AM EST LAB[facility] Absolute Lymphocytes 1.74 1.00 - 4.80 K/ul 04/22/2023 12:47 AM EST LAB[facility] Absolute Monocytes 0.93 0.00 - 1.10 K/uL 04/22/2023 12:47 AM EST LAB[facility] Absolute Eosinophils 0.05 0.00 - 0.70 K/uL 04/22/2023 12:47 AM EST LAB[facility] Absolute Basophils 0.03 0.00 - 0.20 K/uL 04/22/2023 12:47 AM EST LAB[facility] Absolute Immature Granulocytes 0.02 0.00 - 0.20 K/uL 04/22/2023 12:47 AM EST LABORATORY [facility] Blood Venous blood specimen / Unknown Venipuncture / Unknown 04/22/2023 12:41 AM EST 04/22/2023 12:45 AM EST Kenneth Henry PA-C LAB [facility]OD [facility] [address] [address] * CBC (04/22/2023 12:41 AM EST) WBC 9.61 4.00 - 10.80 K/uL 04/22/2023 12:47 AM EST LABORATORY GL RBC 4.68 4.50 - 5.25 M/uL 04/22/2023 12:47 AM EST LABORATORY GL HGB 14.1 14.0 - 16.8 g/dL 04/22/2023 12:47 AM EST LAB[facility] HCT 42.1 40.0 - 48.4 % 04/22/2023 12:47 AM EST LABORATORY GL MCV 90.0 82.0 - 99.5 fL 04/22/2023 12:47 AM EST LAB[facility] MCH 30.1 27.0 - 34.0 pg 04/22/2023 12:47 AM EST LABORATORY GL MCHC 33.5 32.0 - 36.0 g/dL 04/22/2023 12:47 AM EST LABORATORY GL RDW 12.6 11.5 - 15.5 % 04/22/2023 12:47 AM EST LABORATORY [facility] PLT 187 140 - 400 K/uL 04/22/2023 12:47 AM EST LABORATORY [facility] MPV 10.1 6.6 - 11.1 fL 04/22/2023 12:47 AM EST LABORATORY [facility] nRBCs 0 <=0 /100 WBCs 04/22/2023 12:47 AM EST LABORATORY [facility] Blood Venous blood specimen / Unknown Venipuncture / Unknown 04/22/2023 12:41 AM EST 04/22/2023 12:45 AM EST Kenneth ACOSTA-C LAB [facility] [address] [address] * LIPASE (04/22/2023 12:41 AM EST) Lipase 51 13 - 60 U/L 04/22/2023 1:05 AM EST LABORATORY [facility] Blood Venous blood specimen / Unknown Venipuncture / Unknown 04/22/2023 12:41 AM EST 04/22/2023 12:45 AM EST Kenneth ACOSTA-C LAB BLOOD [facility]ES Performing Organization Address City/[facility]/ZIP Co de Phone Number LABORATORY [address] [phone] * LACTATE (04/22/2023 12:41 AM EST) Lactate 1.3 0.4 - 2.0 mmol/L 04/22/2023 1:03 AM EST LABORATORY [facility] Blood Venous blood specimen / Unknown Venipuncture / Unknown 04/22/2023 12:41 AM EST 04/22/2023 12:45 AM EST Kenneth Moris ACOSTA-C LAB BLOOD [facility] Performing Organization Address City/[facility]/ZIP Co de Phone Number LABORATORY [address] [phone] * PT INR (04/22/2023 12:41 AM EST) Prothrombin Time 12.2 11.6 - 15.2 seconds 04/22/2023 1:01 AM EST LABORATORY [facility] INR 0.9 0.8 - 1.2 04/22/2023 1:01 AM EST LABORATORY [facility] Blood Venous blood specimen / Unknown Venipuncture / Unknown 04/22/2023 12:41 AM EST 04/22/2023 12:45 AM EST Narrative LABORATORY [facility] - 04/22/2023 1:01 AM EST Warfarin Therapy INR: 2.0-3.0 conventional anticoagulation INR: 2.5-3.5 high intensity anticoagulation Kenneth Henry PA-C LAB BLOOD [facility] Performing Organization Address [facility] [[email or web address]] de Phone Number LABORATORY [address] [address] * TROPONIN T, HIGH SENSITIVITY (04/22/2023 12:41 AM EST) Pathologist [facility] Troponin T, High Sensitivity 19 <=22 ng/L 04/22/2023 1:09 AM EST LABORATORY [facility] Blood Venous blood specimen / Unknown Venipuncture / Unknown 04/22/2023 12:41 AM EST 04/22/2023 12:45 AM EST Kenneth Henry PA-C LAB BLOOD [facility] Performing Organization Address City/[facility]/ZIP Co de Phone Number LABORATORY [address] [address] * (ABNORMAL) COMPREHENSIVE METABOLIC PANEL (04/22/2023 12:41 AM EST) BUN 23(H) 6 - 20 mg/dL 04/22/2023 1:05 AM EST LABORATORY [facility] Creatinine 1.0 0.6 - 1.2 mg/dL 04/22/2023 1:05 AM EST LABORATORY [facility] Estimated Glomerular Filtration Rate 74 >=60 mL/min 04/22/2023 1:05 AM EST [facility] Comment:eGFR is calculated b ased on the CKD-EPI 2020 equation Sodium 140 135 - 146 mmol/L 04/22/2023 1:05 AM EST [facility] Potassium 3.7 3.5 - 5.1 mmol/L 04/22/2023 1:05 AM EST [facility] Chloride 103 98 - 107 mmol/L 04/22/2023 1:05 AM EST [facility] CO2 27 22 - 32 mmol/L 04/22/2023 1:05 AM EST [facility] Anion Gap 10 7 - 15 mmol/L 04/22/2023 1:05 AM EST [facility] Glucose 116 70 - 120 mg/dL 04/22/2023 1:05 AM EST [facility] Albumin 3.8 3.8 - 5.0 g/dL 04/22/2023 1:05 AM EST [facility] AST 29 10 - 50 U/L 04/22/2023 1:05 AM EST [facility] Alkaline Phosphatase 79 35 - 130 U/L 04/22/2023 1:05 AM EST [facility] Bilirubin, Total 0.3 <=1.2 mg/dL 04/22/2023 1:05 AM EST [facility] Calcium 9.2 8.4 - 10.2 mg/dL 04/22/2023 1:05 AM EST [facility] Protein 6.3 6.0 - 8.3 g/dL 04/22/2023 1:05 AM EST [facility] ALT 30 10 - 50 U/L 04/22/2023 1:05 AM EST [facility] Blood Venous blood specimen / Unknown Venipuncture / Unknown 04/22/2023 12:41 AM EST 04/22/2023 12:45 AM EST Kenneth Henry PA-C LAB BLOOD [facility] [address] [place] [address] documented in this encounter Visit Diagnoses Diagnosis Primary hypertension- Primary Unspecified essential hypertension documented in this encounter Administered Medications Inactive Administered Medications - up to 3 most recent administrations Medication Order MAR Action Action Date Dose Rate Site hydrALAZINE (Apresoline) inj 10 mg 10 mg, IV Push, PRN Hypertension, Starting on 04/22/23 at 0048, Until 04/22/23 at 0059, For 1 dose Given 04/22/2023 12:59 AM EST 10 mg documented in this encounter Active and Recently Administered Medications Times are shown in EST. PRN Medication Order 04/20/2023 04/21/2023 04/22/2023 hydrALAZINE (Apresoline) inj 10 mg (COMPLETED) 10 mg, IV Push, PRN Hypertension, Starting on 04/22/23 at 0048, Until 04/22/23 at 0059, For 1 dose 0059 (Given - Provid er: Jayden Ryan RN) documented in this encounter Care Teams Manager Cath Lab Relationship Specialty Start Date End Date Jorge Zhao MD [address] [address] [address] [place] [address] PCP - General Family Medicine 08/02/19 documented as of this encounter
--- OUTSIDE RECORDS SUMMARY | 2023-06-20 10:25 | External Medical Summary ---
Author Name Unknown Address Unknown Organization [facility] - [address] [address] Laboratory Report Ordering Provider Test Date Status IKE NGUYEN 03/19/2023 05:46:18 Final Observation Date Value Abnormality Reference (Units ) Status BUN 03/19/2023 05:46:18 20 6-20 (mg/dL) Final Creatinine 03/19/2023 05:46:18 1.2 0.6-1.2 (mg/dL) Final Glomerular filtration rate/1.73 sq M.predicted [Volume Rate/Area] in Serum, Plasma or Blood by Creatinine-based formula (CKD-EPI) 03/19/2023 05:46:18 66 >=60 (mL/min) Final eGFR is calculated based on the CKD-EPI 2020 equation SODIUM 03/19/2023 05:46:18 141 135-146 (m mol/L) Final Potassium 03/19/2023 05:46:18 4.1 3.5-5.1 (m mol/L) Final Cl 03/19/2023 05:46:18 103 98-107 (mm ol/L) Final CO2 03/19/2023 05:46:18 28 22-32 (mmo l/L) Final Anion gap 03/19/2023 05:46:18 10 7-15 (mmol /L) Final Glucose 03/19/2023 05:46:18 114 70-120 (mg /dL) Final Calcium 03/19/2023 05:46:18 9.7 8.4-10.2 ( mg/dL) Final Performing Location [facility] - [address] [address]
--- OUTSIDE RECORDS SUMMARY | 2023-06-20 10:25 | External Medical Summary | Summary of Care ---
Author Name Unknown Organization [facility] Address [address] [place] [address] Phone [phone] Care Team Providers Care Blocker Automatic Name Role Phone Jorge Zhao MD Primary Care Provider Reason for Referral * Precert (Within 10 days (routine)) - Authorized Specialty Diagnoses / Procedures Referred By Contac veronica Referred To Contact Cardiac Studies Diagnoses HTN, goal below 140/90 Asymptomatic bilateral carotid artery stenosis Dyslipidemia, goal LDL below 70 PVC (premature ventricular contraction) Ascending aorta dilation (HCC) Procedures ECHO, COMPLETE (2D), TRANS-THORACIC Meaghan Hargrove PA-C [address] [place] [address] Referral ID Status Reason Start Date Expiration Date V isits Requested Visits Authorized [id number] Authorized Precert 01/24/2023 999 [id number] Reason for Visit * Precert (Within 10 days (routine)) - Authorized Specialty Diagnoses / Procedures Referred By Contac t Referred To Contact Cardiac Studies Diagnoses HTN, goal below 140/90 Asymptomatic bilateral carotid artery stenosis Dyslipidemia, goal LDL below 70 PVC (premature ventricular contraction) Ascending aorta dilation (HCC) Procedures ECHO, COMPLETE (2D), TRANS-THORACIC Meaghan Hargrove PA-C [address] [place] [address] Referral ID Status Reason Start Date Expiration Date V isits Requested Visits Authorized [id number] Authorized Precert 01/24/2023 999 [id number] Encounter Details Date Type Department Care Team (Latest Contact Info) Description 03/29/2023 8:50 AM EST - 03/29/2023 11:59 PM EST Hospital Encounter Cardiac Studies, [address] [place] [id number] Discharge Disposition: Home - Self Care Allergies Active Allergy Reactions Criticality Noted Date Comments Clarithromycin 04/02/2001 ? Rash. Tolerates azithromycin on multiple occasions Doxycycline 09/27/1999 Rash documented as of this encounter (statuses as of 03/30/2023) Medications Medication Sig Dispensed Refills Start Date End Date Status MULTIVITAMINS PO TABS 1 a day 30 0 04/25/2007 Active vitamin c (ASCORBIC ACID) 500 MG Tablet Take 2 Tablets by mouth in the morning. 0 Active Calcium Magnesium Zinc 333-133-5 MG Oral Tablet Take 1 Tablet by mouth daily. 1 Tablet 0 02/19/2021 Active Saw [place] 1000 MG Oral Capsule Take by mouth [...] as of this encounter (statuses as of 03/30/2023) Active Problems Problem Noted Date Diagnosed Date PVC (premature ventricular contraction) 01/25/20 23 Mixed dyslipidemia 09/19/2016 Mild intermittent asthma without complication Ascending aorta dilation 09/08/2014 DDD (degenerative disc disease), lumbar 01/01/20 13 Gastroesophageal reflux disease without esophagi tis 06/07/2004 Deviated nasal septum 05/28/2003 Irritable bowel syndrome documented as of this encounter (statuses as of 03/30/2023) Resolved Problems Problem Noted Date Diagnosed Date [...] as of this encounter (statuses as of 03/30/2023) Immunizations Name Administration Dates Next Due COVID-19 mRNA, LNP-s, No Pre serve, 2-Dose Series (Secure64) 03/31/2021,07/19/2020,06/25/2020 Pneumococcal Conjugate Vacc, 13 Valent (Prevnar) [...] Care Team (Late st Contact Info) Description 03/31/2023 3:00 PM EST PulmDiagnostic Pulmonary Function Lab, [address] [place] [address] Glh, Pulm Function Room 2 [address] [facility] [place] [address] 04/05/2023 8:30 AM EST Office Visit Interventional Pain Center, [facility] [address] [facility] [place] [address] [facility] [address] 05/02/2023 8:00 AM EST Office Visit [facility]hthal[facility], [place] [facility] [address] García Winston MD [address] [facility] [address] 05/09/2023 8:00 AM EST Office Visit Otolaryngology, [facility] [address] [place] [address] Saúl Yu PA-C [address] [place] [address] 07/14/2023 9:00 AM EDT Office Visit [address] [address] Jorge Zhao MD [address] [place], [place] [address] [address] [place] [address] 08/01/2023 11:00 AM EDT Office Visit Cardiology, [facility] [address] [place] [address] Meaghan Hargrove PA-C [address] [place] [address] 09/21/2023 10:30 AM EDT Office Visit Orthopaedics Spine Surgery, [address] [place] [address] [place] [address] Rosas Caba MD [address] [facility] [address] 10/04/2023 8:20 AM EDT Office Visit Dermatology [facility] [place] [address] [place] [address] Vilma Burrsi PA-C [address] [place] [address] Scheduled Procedures Name Priority Associated Diagnoses Date/Ti [...] Procedure Name Priority Date/Time Associated Diagnosis Comments ECHO, COMPLETE (2D), TRANS-THORACIC Routine 03/29/2023 10:00 AM EST HTN, goal below 140/90 Asymptomatic bilateral carotid artery stenosis Dyslipidemia, goal LDL below 70 PVC (premature ventricular contraction) Ascending aorta dilation (HCC) documented in this encounter Results * ECHO, COMPLETE (2D), TRANS-THORACIC (03/29/2023 10:00 AM EST) LEFT VENTRICULAR EJECTION FRACTION 55 % [facility] CARDIOLOGY 03/29/2023 9:10 AM EST Meaghan Hargrove PA-C ECHOCARDIOLOGY [facility] CARDIOLOGY documented in this encounter Visit Diagnoses Diagnosis HTN, goal below 140/90 Unspecified essential hypertension Asymptomatic bilateral carotid artery stenosis Occlusion and stenosis of multiple and bilateral precerebral arteries without mention of cerebral infarction Dyslipidemia, goal LDL below 70 Other and unspecified hyperlipidemia PVC (premature ventricular contraction) Other premature beats Ascending aorta dilation (HCC) Thoracic aortic ectasia documented in this encounter Care Teams Blocker Automatic Relationship Specialty Start Date End Date Jorge Zhao MD [facility] [address] [facility] [place] [address] PCP - General Family Medicine 08/02/19 documented as of this encounter
--- OUTSIDE RECORDS SUMMARY | 2023-06-20 10:25 | External Medical Summary | Summary of Care ---
Author Name Unknown Organization [facility] Address [address] [place] [address] Phone [phone] Care Team Providers Care Hand Shoes Sewer Name Role Phone Jorge Zhao MD Primary Care Provider Reason for Referral * Evaluate & Treat - Unlimited Visits (Within 10 days (routine)) - Authorized Specialty Diagnoses / Procedures Referred By Zaida martin Referred To Contact Physical Therapy / Physical Medicine And Rehab Diagnoses Chronic low back pain with sciatica, sciatica laterality unspecified, unspecified back pain laterality Spinal stenosis of lumbar region with neurogenic claudication Lumbar radiculopathy Neck pain Rosas Caba MD [address] [place] [id number] Referral ID Status Reason Start Date Expiration Date Visits Requested Visits Authorized [id number] Authorized Specialty Services Required 03/23/2023 999 [id number] Question Answer Referral Priority Within 10 days (routine) Where should this appointment be scheduled? [facility] Comments Plan: Back core strengthening, stretching, ROM, conditioning, lower extremity strengthening as needed, topicals as needed 2 x a week for 6 weeks Modalities for pain relief Plan: cervical ROM, stretching, strengthening, periscapular strengthening, protraction/retraction exercises, gentle traction only if manual traction is beneficial 2 x week for 6 weeks Modalities for pain relief Reason for Visit * Reason Comments NEW PATIENT * Evaluate & Treat - Unlimited Visits (Within 30 days (routine)) - Authorized Specialty Diagnoses / Procedures Referred By Zaida t Referred To Contact Neuro/Ortho Surgery - Spine. / Neurological Surgery Diagnoses Chronic left-sided low back pain with left-sided sciatica Josué Lynn, DO [address] [place] [address] Referral ID Status Reason Start Date Expiration Date Visits Requested Visits Authorized [id number] Authorized Specialty Services Required 03/14/[phone] Encounter Details Date Type Department Care Team (Late st Contact Info) Description 03/23/2023 8:00 AM EST Office Visit Orthopaedics Spine Surgery, [facility] [address] [place] [address] Rosas Caba MD [address] [place] [address] Chronic low back pain with sciatica, sciatica laterality unspecified, unspecified back pain laterality*; Spinal stenosis of lumbar region with neurogenic claudication; Lumbar radiculopathy; Neck pain Allergies Active Allergy Reactions Criticality Noted Date Comments Clarithromycin 04/02/2001 ? Rash. Tolerates azithromycin on multiple occasions Doxycycline 09/27/1999 Rash documented as of this encounter (statuses as of 03/23/2023) Medications Medication Sig Dispensed Refills Start Date End Date Status MULTIVITAMINS PO TABS 1 a day 30 0 04/25/2007 Active vitamin c (ASCORBIC ACID) 500 MG Tablet Take 2 Tablets by mouth in the morning. 0 Active Calcium Magnesium Zinc 333-133-5 MG Oral Tablet Take 1 Tablet by mouth daily. 1 Tablet 0 02/19/2021 Active Saw [place] 1000 MG Oral Capsule Take by mouth . 0 Acti ve Albuterol Sulfate HFA 108 (90 Base) MCG/ACT Inhalation Aerosol Solution Inhale 2 Puffs by mouth every 4 hours as needed (cough or wheeze). 18 g 2 02/25/2022 Active Olopatadine HCl 0.6 % Nasal Solution (Patanase) [...] package directions 21 Tablet 0 03/23/2023 Active documented as of this encounter (statuses as of 03/23/2023) Active Problems Problem Noted Date Diagnosed Date PVC (premature ventricular contraction) 01/25/20 23 Mixed dyslipidemia 09/19/2016 Mild intermittent asthma without complication Ascending aorta dilation 09/08/2014 DDD (degenerative disc disease), lumbar 01/01/20 13 Gastroesophageal reflux disease without esophagi tis 06/07/2004 Deviated nasal septum 05/28/2003 Irritable bowel syndrome documented as of this encounter (statuses as of 03/23/2023) Resolved Problems Problem Noted Date Diagnosed Date [...] as of this encounter (statuses as of 03/23/2023) Immunizations Name Administration Dates Next Due COVID-19 mRNA, LNP-s, No Pre serve, 2-Dose Series (Zogenix) 03/31/2021,07/19/2020,06/25/2020 Pneumococcal Conjugate Vacc, 13 Valent (Prevnar) [...] Pressure - - Pulse - - Temperature - - Respiratory Rate - - Oxygen Saturation - - Inhaled Oxygen Concentration - - Weight 88.5 kg (195 lb) 03/23/2023 8:10 AM EST Height 180.3 cm (5' 10.98") 03/23/2023 8:10 AM Gabriel JAMA Body Mass Index 27.21 03/23/2023 8:10 AM EST documented in this encounter Progress Notes * Rosas Caba MD - 03/23/2023 8:12 AM EST Date of service: 03/23/2023 CHIEF COMPLAINT: Miko Flores is a 77 year old male presents with complaints/concerns of persistent low back pain with lower extremity radiculopathy neurogenic claudication. He also has occasional neck pain. The low back symptoms are more significant and have been bothering him for the past 10 years. He istried number of conservative measures including physical therapy and pain management injections with only transient relief. Patient denies any acute progressive neurological deficit, bowel bladder disturbances constitutional symptoms. New Referring physician:Dr. Lynn HPI: Neck or Back - If both what is severe:low back Which side extremity:Both-left is worse Injury and date:no Onset, progress and duration: 10 years ago Balance problems:no Bladder or bowel disturbances:no Hand dominance for cervical and hand function:right Workman compensation/ Litigation/ Glass Products Inspector:no Spine investigations done and date: Xray: MRI:l spine 03/24/22. CT scan: EMG/ NCV: Spine treatment so far: Medications: Tylenol, Gabapentin, Oral steroids - Mederol/ Prednisone. Physical therapy within last year: has tried it about 2-3 years ago but it does not help. Chiropractor therapy: 2-3 years ago Brace use:no Pain management and Spinal epidural injections: has appt with PM 04/05/23, has had spine injecitons in the past about [address] Rehman in [place]. 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 ROS: Negative except as outlined in HPI Vitals: Ht 1.803 m (5' 10.98") | Wt 88.5 kg (195 lb) | BMI 27.21 kg/m | BSA 2.11 m Body mass index is 27.21 kg/m. Physical Exam: General: alert, healthy and no distress Constitutional: The general appearance appears normal. Respiratory: Breathing is nonlabored, thoracic. No use of accessory muscles. Cardiovascular system: Vascularity grossly preserved Spine evaluation Cervical, thoracic and lumbar spine: No paraspinal swelling. No deformity. Straight leg raise test: Right-side - negative, left side negative Neurological examination: Motor power upper extremities - Bilateral shoulder abductors, elbow flexors, triceps, wrist flexorsand extensors and intrinsic muscles of the hand is 5/5. Motor power lower extremities - Bilateral hip flexors, knee extensors, ankle dorsiflexors, plantar flexors, EHL/EDL, FHL/FDL is 5/5. The deep tendon reflexes - Bilateral Biceps, triceps, brachioradialis, Patellar tendon, Achilles tendon are 2+ Sensation are grossly preserved bilaterally in upper extremities. Sensation are grossly preserved bilaterally in the lower extremities. Radiological imaging: I independently reviewed the relevant radiological imaging including x-rays ordered at this visit X-rays of the lumbar spine including dynamic view show evidence of multilevel degenerative changes.There is some loss of lordosis. MRI lumbar 03/24/2022: L4-5, L5-S1 stenosis fubp-maquirg-hujv-right. Multilevel degenerative changes of the lumbar spine most notable at L4-L5 and L5-S1 where there is severe left and itco-gw-hxvjkgwn right neural foraminal narrowing with lateral recesses at these levels MRI cervical 2018 no significant cervical stenosis. Assessment & Plan: Pt is a 77 year old male here for the following problems/concerns: Lumbar radiculopathy Chronic low back pain Neurogenic claudication Lumbar spinal stenosis L4-5, L5-S1 Chronic neck pain We discussed the diagnosis, the natural history and the treatment options. Based on the clinical and radiological findings various treatment options including the risks, benefits and alternatives were discussed. Patient is neurologically stable and symptomatic in relation to his lower back. It We discussed the role of continued conservative treatment. Physical therapy ordered and pain management referral has already done. Modalities of pain relief including use of brace discussed. Steroid Dosepak was sent for symptomatic relief as per the patient's request. Role of elective surgical intervention especially if the patient has persistence or worsening of symptoms in spite of adequate conservative measures was discussed in detail. Additional recommendations: Activity modification as tolerated Pain medications as per the primary care. Adverse effects and appropriate precautions were discussed. If the patient has persistence or worsening of symptoms additional investigations will be recommended. Warning signs have been discussed. Follow up: 4-6 months for reassessment. Reach out earlier if any worsening of symptoms. The patient expressed understanding and agreement to the plan. Complexity of decision making: I spent 45 minutes on 03/23/2023 in preparation, delivery and documentation of the care provided to the patient, excluding any time spent on the performance of the procedure are separately billable service. Rosas Caba MD This chart was completed in part utilizing [employer] ([employer]) Speech Voice Recognition Software. Grammatical errors, random word insertions, prounoun errors and incomplete sentences are an occasional consequence of this system due to software limitations, ambient noise, and hardware issues. Any formal questions or concerns about the content, text, or information contained within the body of this dictation should be directly addressed to the provider for clarification. documented in this encounter Nursing Notes * Amira Moss LPN - 03/23/2023 8:05 AM EST Chief Complaint Patient presents with NEW PATIENT New Referring physician:Dr. Lynn HPI: Neck or Back - If both what is severe:low back Which side extremity:Both-left is worse Injury and date:no Onset, progress and duration: 10 years ago Balance problems:no Bladder or bowel disturbances:no Hand dominance for cervical and hand function:right Workman compensation/ Litigation/ Glass Products Inspector:no Spine investigations done and date: Xray: MRI:l spine 03/24/22. CT scan: EMG/ NCV: Spine treatment so far: Medications: Tylenol, Gabapentin, Oral steroids - Mederol/ Prednisone. Physical therapy within last year: has tried it about 2-3 years ago but it does not help. Chiropractor therapy: 2-3 years ago Brace use:no Pain management and Spinal epidural injections: has appt with PM 04/05/23, has had spine injecitons in the past about [address] Rehman in [place]. 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 Plan of Treatment Upcoming Encounters Date Type Department Care Team (Late st Contact Info) Description 03/27/2023 10:40 AM EST Office Visit [address] [place] [address] [place] [address] Jorge Zhao MD [facility] [address] [place] [address] [place] [address] 03/29/2023 9:00 AM EST Appointment Cardiac Studies, [facility] [address] [place] [address] 04/05/2023 8:30 AM EST Office Visit Interventional Pain Center, [address] [place] [address] Genaro Nation MD [address] [place] [address] 05/02/2023 8:00 AM EST Office Visit Ophthalmology, [place] [address] [place] [address] García Winston MD [address] [place] [address] 05/09/2023 8:00 AM EST Office Visit Otolaryngology, [facility] [address] [place] [address] Saúl Yu PA-C [address] [place] [address] 07/14/2023 9:00 AM EDT Office Visit [address] [facility] [place] [address] Jorge Zhao MD [address] [facility] [address] [place] [address] 08/01/2023 11:00 AM EDT Office Visit Cardiology, [facility] [address] [place] [address] Meaghan Hargrove PA-C [address] [place] [address] 09/21/2023 10:30 AM EDT Office Visit Orthopaedics Spine Surgery, [place] [address] [place] [address] Rosas Caba MD [address] [place] [address] 10/04/2023 8:20 AM EDT Office Visit Dermatology [facility] [address] [place] [address] Vilma Burris PA-C [address] [place] [address] Pending Results Name Type Priority Associated Diagnoses Date /Time XR L SPINE COMPLETE Medical Imaging Routine Chronic low back pain with sciatica, sciatica laterality unspecified, unspecified back pain laterality 03/23/2023 8:15 AM EST Scheduled Procedures Name Priority Associated Diagnoses Date/Ti me COLONOSCOPY FLEXIBLE PROXIMA L DIAGNOSTIC Recall History of colonic polyps Scheduled Referrals Name Type Priority Associated Diagnoses Orde r Schedule PHYSICAL THERAPY REFERRAL OP Referral Within 10 days (routine) Chronic low back pain with sciatica, sciatica laterality unspecified, unspecified back pain laterality Spinal stenosis of lumbar region with neurogenic claudication Lumbar radiculopathy Neck pain Ordered: 03/23/2023 Health Maintenance Due Date Last Done Comments [...] as of this encounter Visit Diagnoses Diagnosis Chronic low back pain with sciatica, sciatica laterality unspecified, unspecified back pain laterality- Primary Spinal stenosis of lumbar region with neurogenic claudication Spinal stenosis, lumbar region, with neurogenic claudication Lumbar radiculopathy Thoracic or lumbosacral neuritis or radiculitis, unspecified Neck pain Cervicalgia documented in this encounter Care Teams Hand Shoes Sewer Relationship Specialty Start Date End Date Jorge Zhao MD [address] [facility] [place] [address] PCP - General Family Medicine 08/02/19 documented as of this encounter
--- OUTSIDE RECORDS SUMMARY | 2023-06-20 10:25 | External Medical Summary | Summary of Care ---
Author Name Unknown Organization [facility] Address [address] [place] [address] Phone [phone] Care Team Providers Care Curriculum Assistant Principal Name Role Phone Jorge hZao MD Primary Care Provider Reason for Visit * Reason Onset Date Comments Referral 03/24/2023 Encounter Details Date Type Department Care Team (Late st Contact Info) Description 03/24/2023 Telephone Orthopaedics Spine Surgery, Richard Rollins [address] [place], [place] [phone] Rosas Caba MD [address] [place], [place] [phone] Referral Allergies Active Allergy Reactions Criticality Noted Date Comments Clarithromycin 04/02/2001 ? Rash. Tolerates azithromycin on multiple occasions Doxycycline 09/27/1999 Rash documented as of this encounter (statuses as of 03/24/2023) Medications Medication Sig Dispensed Refills Start Date End Date Status MULTIVITAMINS PO TABS 1 a day 30 0 04/25/2007 Active vitamin c (ASCORBIC ACID) 500 MG Tablet Take 2 Tablets by mouth in the morning. 0 Active Calcium Magnesium Zinc 333-133-5 MG Oral Tablet Take 1 Tablet by mouth daily. 1 Tablet 0 02/19/2021 Active Saw [place] 1000 MG Oral Capsule Take by mouth [...] as of this encounter (statuses as of 03/24/2023) Active Problems Problem Noted Date Diagnosed Date PVC (premature ventricular contraction) 01/25/20 23 Mixed dyslipidemia 09/19/2016 Mild intermittent asthma without complication Ascending aorta dilation 09/08/2014 DDD (degenerative disc disease), lumbar 01/01/20 13 Gastroesophageal reflux disease without esophagi tis 06/07/2004 Deviated nasal septum 05/28/2003 Irritable bowel syndrome documented as of this encounter (statuses as of 03/24/2023) Resolved Problems Problem Noted Date Diagnosed Date [...] as of this encounter (statuses as of 03/24/2023) Immunizations Name Administration Dates Next Due COVID-19 [...] encounter Miscellaneous Notes * Telephone Encounter - Danica Gomez TECH - 03/24/2023 1:48 PM EST Done. * Telephone Encounter - Janeth Henry LPN - 03/24/2023 1:33 PM EST Patient called. Would like PT referral faxed to [facility]. Patient is aware he will need tocall . Please fax PT referral to [facility] * Telephone Encounter - Tamar Tirado OSA - 03/24/2023 10:41 AM EST Pt calling in saying he changed his mind in regards to where he wanted to go for PT he was wondering if Dr. Caba could send the PT referral to the [facility] instead. documented in this encounter Plan of Treatment Upcoming Encounters Date Type Department Care Team (Late st Contact Info) Description 03/27/2023 10:40 AM EST Office Visit [place] [address] [place] [address] Jorge Zhao MD [address] [place] [address] [place] [address] 03/29/2023 9:00 AM EST Appointment Cardiac Studies, [address] [address] 04/05/2023 8:30 AM EST Office Visit [facility], [address] [place] [address] Genaro Nation MD [address] [place], [place] [address] [address] 05/02/2023 8:00 AM EST Office Visit Ophthalmology, [place] [address] [place] [address] García Winston MD [address] [place] [address] 05/09/2023 8:00 AM EST Office Visit Otolaryngology, [address], Thelma [address] [place] [address] Saúl Yu PA-C [address] [place] [address] 07/14/2023 9:00 AM EDT Office Visit [address] [address] Jorge Zhao MD [address] [place], [place] [address] [address] [place] [address] 08/01/2023 11:00 AM EDT Office Visit Cardiology, [facility] [address] [place] [address] Meaghan Hargrove PA-C [address] [place] [address] 09/21/2023 10:30 AM EDT Office Visit Orthopaedics Spine Surgery, [address], Richard [address] [place] [address] Rosas Caba MD [address] [place] [address] 10/04/2023 8:20 AM EDT Office Visit Dermatology [facility] [address] [place] [address] Vilma Burris PA-C [address] [facility] [address] Scheduled Procedures Name Priority Associated Diagnoses Date/Ti [...] filedocumented as of this encounter Care Teams Curriculum Assistant Principal Relationship Specialty Start Date End Date Jorge Zhao MD [address] [place] [address] [address] [place] [address] PCP - General Family Medicine 08/02/19 documented as of this encounter
--- OUTSIDE RECORDS SUMMARY | 2023-06-20 10:25 | External Medical Summary ---
Author Name Unknown Address Unknown Organization K1F:[facility] - [address] [address] Laboratory Report Ordering Provider Test Date Status IKE NGUYEN 03/19/2023 05:46:18 Final Observation Date Value Abnormality Reference (Units ) Status Troponin T 03/19/2023 05:46:18 18 <=22 (ng/ L) Final Performing Location [facility] - [address] [place] [address]
--- OUTSIDE RECORDS SUMMARY | 2023-06-20 10:25 | External Medical Summary | Summary of Care ---
Author Name Unknown Organization [facility] Address [address] [place] [address] Phone [phone] Care Team Providers Care Product Development Worker Name Role Phone Jorge Zhao MD Primary Care Provider Reason for Visit * Reason Comments Pulmonary Function Test Encounter Details Date Type Department Care Team (Late st Contact Info) Description 03/31/2023 3:00 PM EST PulmDiagnostic Pulmonary Function Lab, [facility] [address] [place] [address] [facility] [address] [facility], Pulm Function Room 2 [address] [place] [address] Shortness of breath* Allergies Active Allergy Reactions Criticality Noted Date Comments Clarithromycin 04/02/2001 ? Rash. Tolerates azithromycin on multiple occasions Doxycycline 09/27/1999 Rash documented as of this encounter (statuses as of 03/31/2023) Medications Medication Sig Dispensed Refills Start Date End Date Status MULTIVITAMINS PO TABS 1 a day 30 0 04/25/2007 Active vitamin c (ASCORBIC ACID) 500 MG Tablet Take 2 Tablets by mouth in the morning. 0 Active Calcium Magnesium Zinc 333-133-5 MG Oral Tablet Take 1 Tablet by mouth daily. 1 Tablet 0 02/19/2021 Active Saw [place] 1000 MG Oral Capsule Take by mouth [...] as of this encounter (statuses as of 03/31/2023) Active Problems Problem Noted Date Diagnosed Date PVC (premature ventricular contraction) 01/25/20 23 Mixed dyslipidemia 09/19/2016 Mild intermittent asthma without complication Ascending aorta dilation 09/08/2014 DDD (degenerative disc disease), lumbar 01/01/20 13 Gastroesophageal reflux disease without esophagi tis 06/07/2004 Deviated nasal septum 05/28/2003 Irritable bowel syndrome documented as of this encounter (statuses as of 03/31/2023) Resolved Problems Problem Noted Date Diagnosed Date [...] as of this encounter (statuses as of 03/31/2023) Immunizations Name Administration Dates Next Due COVID-19 mRNA, LNP-s, No Pre serve, 2-Dose Series ([employer]) 03/31/2021,07/19/2020,06/25/2020 Pneumococcal Conjugate Vacc, 13 Valent (Prevnar) [...] as of this encounter Progress Notes * Adrienne Spivey RRT - 03/31/2023 12:48 PM EST Spirometry with BD done. Good pt effort. Albuterol nebulizer given. documented in this encounter Plan of Treatment Upcoming Encounters Date Type Department Care Team (Late st Contact Info) Description 04/05/2023 8:30 AM EST Office Visit [facility], [facility] [address] [facility] [address] Genaro Nation MD [address] [facility] [address] 05/02/2023 8:00 AM EST Office Visit Ophthalmology, [place] [address] [place] [address] García Winston MD [address] [facility] [place] [address] 05/09/2023 8:00 AM EST Office Visit Otolaryngology, [address] [place] [address] [place] [address] Saúl Yu PA-C [address] [place] [address] 07/14/2023 9:00 AM EDT Office Visit Family [facility], [place] [address] [place] [address] Jorge Zhao MD [address] [place] [address] 08/01/2023 11:00 AM EDT Office Visit Cardiology, [facility] [address] [place] [address] Meaghan Hargrove PA-C [address] [place] [address] 09/21/2023 10:30 AM EDT Office Visit Orthopaedics Spine Surgery, [address], Richard [address] [place] [address] Rosas Caba MD [address] [place] [address] 10/04/2023 8:20 AM EDT Office Visit Dermatology [facility] [address] [place] [address] Vilma Burris PA-C [address] [place] [address] Pending Results Name Type Priority Associated Diagnoses Date /Time SPIROMETRY B/A BRONCHODILATOR Procedures Routine Shortness of breath 03/31/2023 12:42 PM EST Scheduled Procedures Name Priority Associated Diagnoses [...] Procedure Name Priority Date/Time Associated Diagnosis Comments SPIROMETRY B/A BRONCHODILATOR Routine 03/31/2023 12:42 PM EST Shortness of breath documented in this encounter Visit Diagnoses Diagnosis Shortness of breath- Primary documented in this encounter Administered Medications Active Administered Medications - up to 3 most recent administrations Medication Order MAR Action Action Date Dose Rate Site Albuterol Sulfate (Proventil) (2.5 MG/3ML) 0.083% inhalation solution 2.5 mg 2.5 mg, Nebulizer, ONCE PRN Other, Testing, Starting on 03/27/23 at 1141, Until Mon03/26/24 at 1140, For 365 days, Only one type of albuterol product should be administered (Nebulizer or Inhaler). Please select and document on the appropriate albuterol product order. Given 03/31/2023 12:49 PM EST 2.5 mg documented in this encounter Care Teams Product Development Worker Relationship Specialty Start Date End Date Jorge Zhao MD [facility] [place] [address] [place] [address] PCP - General Family Medicine 08/02/19 documented as of this encounter
--- OUTSIDE RECORDS SUMMARY | 2023-06-20 10:25 | External Medical Summary ---
Author Name Unknown Address Unknown Organization K1F:[facility] - [address] [address] Laboratory Report Ordering Provider Test Date Status IKE NGUYEN 03/19/2023 05:46:18 Final Observation Date Value Abnormality Reference (Units ) Status WBC, Total 03/19/2023 05:46:18 8.07 4.00-10.80 (K/uL) Final RBC 03/19/2023 05:46:18 5.08 4.50-5.25 (M/uL) Final Hemoglobin 03/19/2023 05:46:18 14.7 14.0-16.8 (g/dL) Final HCT 03/19/2023 05:46:18 44.7 40.0-48.4 (%) Final MCV 03/19/2023 05:46:18 88.0 82.0-99.5 (fL) Final MCH 03/19/2023 05:46:18 28.9 27.0-34.0 (pg) Final MCHC 03/19/2023 05:46:18 32.9 32.0-36.0 (g/dL) Final RDW 03/19/2023 05:46:18 12.4 11.5-15.5 (%) Final Platelets 03/19/2023 05:46:18 160 140-400 (K/uL) Final MPV 03/19/2023 05:46:18 10.5 6.6-11.1 (fL) Final Nucleated erythrocytes/100 leukocytes [Ratio] in Blood by Automated count 03/19/2023 05:46:18 0 <=0 (/100 WBCs) Final Performing Location [facility] - [address] [address]
--- OUTSIDE RECORDS SUMMARY | 2023-06-20 10:25 | External Medical Summary | Summary of Care ---
Author Name Unknown Organization [facility] Address [address] [place] [address] Phone [phone] Care Team Providers Care Hog Buyer Name Role Phone Jorge Zhao MD Primary Care Provider Reason for Visit * Reason Comments Emergency Department Follow-Up [facility] 4 Encounter Details Date Type Department Care Team (Late st Contact Info) Description 03/27/2023 10:40 AM EST Office Visit [address] [place] [address] Jorge Zhao MD [address] [place] [address] [place] [address] [phone] Shortness of breath*; Ascending aorta dilation (HCC); BREANNA (generalized anxiety disorder); Mild intermittent asthma without complication Allergies Active Allergy Reactions Criticality Noted Date Comments Clarithromycin 04/02/2001 ? Rash. Tolerates azithromycin on multiple occasions Doxycycline 09/27/1999 Rash documented as of this encounter (statuses as of 03/28/2023) Medications Medication Sig Dispensed Refills Start Date End Date Status MULTIVITAMINS PO TABS 1 a day 30 0 8 Active vitamin c (ASCORBIC ACID) 500 MG Tablet Take 2 Tablets by mouth in the morning. 0 Active Calcium Magnesium Zinc 333-133-5 MG Oral Tablet Take 1 Tablet by mouth daily. 1 Tablet 0 1 Active Saw [place] 1000 MG Oral Capsule Take by mouth . 0 Active Olopatadine HCl 0.6 % Nasal Solution (Patanase) Administer 2 Sprays into nostril in the morning and 2 Sprays before bedtime. 30.5 g 5 3 Active Ezetimibe 10 MG Oral Tablet (Zetia) Take 1 Tablet by mouth in the morning. 90 Tablet 3 3 Active Docusate Sodium 100 MG Oral Capsule (Colace)Indicatio ns:Irritable bowel syndrome with both constipation and diarrhea Take 1 Capsule by mouth in the morning and 1 Capsule before bedtime. 60 Capsule 11 3 Active Famotidine 20 MG Oral Tablet [...] or wheeze). 18 g 2 4 Active Albuterol Sulfate HFA 108 (90 Base) MCG/ACT Inhalation Aerosol Solution Inhale 2 Puffs by mouth every 4 hours as needed (cough or wheeze). 18 g 2 2 03/27/19 24 Discontinued(Ref ill) Azithromycin 250 MG Oral Tablet (Zithromax) Take 2 tabs by mouth on the first day, then 1 tab daily on days two through five 6 Tablet 0 3 03/27/19 24 Discontinued Hospital, Clinic, or Other Facility Administered Medication Ordered Dose Route Frequency Start Date End Date Status Albuterol Sulfate (Proventil) (2.5 MG/3ML) 0.083% inhalation solution 2.5 mgIndications:Shortness of breath 2.5 mg NEBULIZER ONCE PRN 03/27/2023 03/26/2024 Active documented as of this encounter (statuses as of 03/28/2023) Active Problems Problem Noted Date Diagnosed Date PVC (premature ventricular contraction) 01/25/20 23 Mixed dyslipidemia 09/19/2016 Mild intermittent asthma without complication Ascending aorta dilation 09/08/2014 DDD (degenerative disc disease), lumbar 01/01/20 13 Gastroesophageal reflux disease without esophagi tis 06/07/2004 Deviated nasal septum 05/28/2003 Irritable bowel syndrome documented as of this encounter (statuses as of 03/28/2023) Resolved Problems Problem Noted Date Diagnosed Date [...] as of this encounter (statuses as of 03/28/2023) Immunizations Name Administration Dates Next Due COVID-19 mRNA, LNP-s, No Pre serve, 2-Dose Series (Konotor) 03/31/2021,07/19/2020,06/25/2020 Pneumococcal Conjugate Vacc, 13 Valent (Prevnar) [...] Sign Reading Time Taken Comments Blood Pressure 124/56 03/27/2023 10:53 AM EST Pulse 68 03/27/2023 10:53 AM EST Temperature 36.4 C (97.5 F) 03/27/2023 10:[address] Respiratory Rate 16 03/27/2023 10:53 AM EST Oxygen Saturation 99% 03/27/2023 10:53 AM EST Inhaled Oxygen Concentration - - Weight 87.7 kg (193 lb 6.4 oz) 03/27/2023 10:53 AM EST Height 180.3 cm (5' 10.98") 03/27/2023 10:53 AM EST Body Mass Index 26.99 03/27/2023 10:53 AM EST documented in this encounter Progress Notes * Jorge Zhao MD - 03/28/2023 10:12 PM EST Identification: Miko Flores is an 77 year old male who reports to clinic . Reports to the nurse: Chief Complaint Patient presents with Emergency Department Follow-Up [facility] 03/16/23 Chief Complaint to myself: ER follow up History of Present Illness: Brief Clinical History Mr. Flores is a 77 year old man last seen in Family Medicine 1 day ago (03-27-23). He has h/o Ascending aorta dilation (HCC) and vascular disease. Nursing Notes: Radha Arechiga CMA 03/27/23 1055 Addendum Chief Complaint Patient presents with Emergency Department Follow-Up [facility] 03/16/23 Miko Flores is a 77 year old male who presents to clinic today for ED f/u. Pt went into the ED on 03/19 due to dehydration. Pt states it wasn't dehydration. Pt states that his sxs haven't really improved. Pt sxs include, dry throat/mouth, abdominal soreness/fullness, and unable to take a deep breath. Pt BP was elevated in the ED. HPI: Very pleasant 77-year-old gentleman reports to clinic for emergency room follow-up Symptoms seemed to have started around Thanksgi. He notes that he has had a dry mouth and throat for quite awhile He is able to eat okay but does have a hoarse voice and dry cough The emergency room arrange for an ENT follow-up His blood pressure was elevated in the emergency room but is doing a lot better today. He does not check his blood pressure outside of here There is some vascular calcifications an x-ray and we reviewed significance and optimal management We reviewed the other laboratory testing had His weight is slightly down Principal concern is that he feels like he can not get a deep breath. He is able to walk for 1 milewith no chest symptoms. Does have occasional stomach bloating. He sleeping well except when he is anxious He is wondering if some of these other symptoms might be related to anxiety. Review of Systems: Patient denies: Constitutional: Fevers, [...] performed by Fidencio Hall MD at ENDOSCOPY [facility] COLONOSCOPY, GI REFERRAL OP 2002 WNL DESTROY LUMBAR SACRAL NERVE IMAGING SINGLE 07/04/2016 DESTROY LUMBAR SACRAL NERVE IMAGING SINGLE performed by Aaron Rehman DO at [facility] EGD, FLEXIBLE, DIAGNOSTIC 10/1990 EGD, FLEXIBLE, DIAGNOSTIC 10/12/2017 acid reflux, egd EGD, FLEXIBLE, DIAGNOSTIC N/A 10/12/2017 ESOPHAGOGASTRODUODENOSCOPY (EGD), FLEXIBLE, TRANSORAL, DIAGNOSTIC performed by Fidencio Hall MD at ENDOSCOPY [facility] EGD, FLEXIBLE, DIAGNOSTIC N/A 10/12/2020 gastritis/biopsies show mild to moderate inflammation/ESOPHAGOGASTRODUODENOSCOPY (EGD), FLEXIBLE, TRANSORAL, DIAGNOSTIC performed by Fidencio Hall MD at ENDOSCOPY [facility] EGD, W/ENDOSCOPIC US 10/12/2017 ESOPHAGOGASTRODUODENOSCOPY (EGD), FLEXIBLE, TRANSORAL, ENDOSCOPIC ULTRASOUND performed by Fidencio Barragan MD at ENDOSCOPY [facility] EMG, 2 EXTREMITIES 10/1997 Mild bilateral CTS INSERT URETERAL SUPPORT Left 02/2014 Ureteral Stent Placement L-/S-SPINE PARAVERTEBRAL FACET INJ,1 LEVEL 12/15/2015 L-/S-SPINE PARAVERTEBRAL FACET INJ, 1 LEVEL performed by [facility] Malcoms, DO at [facility] L-/S-SPINE PARAVERTEBRAL FACET INJ,1 LEVEL 01/01/2016 L-/S-SPINE PARAVERTEBRAL FACET INJ, 1 LEVEL performed by [facility] Coumgs, DO at [facility] LUMBAR / SACRAL EPIDURAL, SINGLE LEVEL 11/03/2015 INJECTION TRANSFORAMINAL EPIDURAL LUMBAR OR SACRAL performed by [facility] Cousins, DO at [facility] LUMBAR / SACRAL EPIDURAL, SINGLE LEVEL 11/17/2015 INJECTION TRANSFORAMINAL EPIDURAL LUMBAR OR SACRAL performed by [facility] Cousins, DO at [facility] SACROILIAC JOINT INJECT W/GUIDANCE 08/15/2016 INJECTION SACROILIAC JOINT performed by [facility] Cousins, DO at [facility] SACROILIAC JOINT INJECT W/GUIDANCE 01/02/2017 INJECTION SACROILIAC JOINT performed by [facility] Malcoms, DO at [facility] UPPER GI ENDOSCOPY 10-12-20, gastritis determined I reviewed current medications: Outpatient Medications Marked as Taking for the 03/27/23 encounter (Office Visit) with Jorge Zhao MD Medication Sig Albuterol Sulfate HFA 108 (90 Base) MCG/ACT [...] EVENING Latanoprost 0.005 % Ophthalmic Solution (Xalatan) Instill [...] the morning and2 Sprays before bedtime. Saw [place] 1000 MG Oral Capsule Take by mouth . Calcium Magnesium Zinc 333-133-5 MG Oral Tablet Take 1 Tablet by mouth daily. vitamin c (ASCORBIC ACID) 500 MG Tablet Take 2 Tablets by mouth in the morning. MULTIVITAMINS PO TABS 1 a day Current Facility-Administered Medications for the 03/27/23 encounter (Office Visit) with Jorge Zhao MD Medication Albuterol Sulfate (Proventil) (2.5 MG/3ML) 0.083% inhalation solution 2.5 mg I reviewed allergies: Review of patient's allergies indicates: Allergen Reactions Clarithromycin ? Rash. 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7 kg (200 lb) 12/12/22 89.7 kg (197 lb 12.8 oz) 09/22/22 89.3 kg (196 lb 12.8 oz) 08/11/22 88.9 kg (196 lb) 06/28/22 88 kg (194 lb 0.1 oz) General Appearance: Alert, cooperative, and in [...] and rhythm, S1 S2. No CVA tenderness and abdomen is soft with no masses Miko was seen today for emergency department follow-up. Diagnoses and all orders for this visit: Shortness of breath - SPIROMETRY B/A BRONCHODILATOR; Future - Albuterol Sulfate (Proventil) (2.5 MG/3ML) 0.083% inhalation solution 2.5 mg Ascending aorta dilation (HCC) BREANNA (generalized anxiety disorder) - busPIRone HCl 5 MG Oral Tablet (Buspar); One tablet by mouth twice daily as needed for anxiety Mild intermittent asthma without complication - Albuterol Sulfate HFA 108 (90 Base) MCG/ACT Inhalation Aerosol Solution; Inhale 2 Puffs by mouth every 4 hours as needed (cough or wheeze). Check spirometry and gave an albuterol inhaler discussed usage Anxiety could certainly make symptoms worse and we reviewed options for medication that could be used on an as-needed basis and will do a trial of buspirone. If he is able to walk with no chest symptoms seems unlikely that his breathing symptoms are secondary to coronary artery disease. He does discuss his grand child and the stressors he is having over the grand child's parents. I recommended healthy eating habits and regular light exercise. We reviewed Health Care Maintenance, and any Health Care Maintenance that is not ordered, the patient declined. I spent a total of 30-39 minutes (exact time 35 mins) on the date of service in preparation, delivery, and documentation of the care provided to Miko Flores excluding any time spent in theperformance of separately billed services. Creatinine Results: Lab Results Component Value Date/Time CREATININE - [facility] 1.2 03/19/2023 05:46 AM CREATININE - [facility] 1.1 12/12/2022 10:18 AM CREATININE - [facility] 1.0 10/26/2021 03:47 PM CREATININE - [facility] 1.0 01/15/2020 07:53 PM [...] on file for this visit. 07/14/2023 Jorge Zhao MD 03/28/2023 10:12 PM This chart was completed in part utilizing [employer] Speech Voice Recognition Software. Grammatical errors, random [...] documented in this encounter Nursing Notes * Radha Arechiga CMA - 03/27/2023 10:47 AM EST Chief Complaint Patient presents with Emergency Department Follow-Up [facility] 03/16/23 Miko Flores is a 77 year old male who presents to clinic today for ED f/u. Pt went into the ED on 03/19 due to dehydration. Pt states it wasn't dehydration. Pt states that his sxs haven't really improved. Pt sxs include, dry throat/mouth, abdominal soreness/fullness, and unable to take a deep breath. Pt BP was elevated in the ED. documented in this encounter Plan of Treatment Upcoming Encounters Date Type Department Care Team (Late st Contact Info) Description 03/29/2023 9:00 AM EST Appointment Cardiac Studies, [address] [place] [address] 03/31/2023 3:00 PM EST PulmDiagnostic Pulmonary Function Lab, [facility] [address] [facility] [address] Gl[facility], [facility] [address] 04/05/2023 8:30 AM EST Office Visit Interventional Pain Center, [facility] [address] [facility] [address] Genaro Nation MD [address] [place] [address] 05/02/2023 8:00 AM EST Office Visit Ophthalmology, [place] [facility] [address] García Winston MD [address] [facility] [address] 05/09/2023 8:00 AM EST Office Visit Otolaryngology, [facility] [address] [place] [address] Saúl Yu PA-C [address] [place] [address] 07/14/2023 9:00 AM EDT Office Visit [address] [place] [address] Jorge Zhao MD [address] [place], [place] [address] [address] 08/01/2023 11:00 AM EDT Office Visit Cardiology, [facility] [address] [place] [address] Meaghan Hargrove PAFrancineC [address] [place] [address] 09/21/2023 10:30 AM EDT Office Visit Orthopaedics Spine Surgery, [address], [place] [address] [place] [address] Rosas Caba MD [address] [place] [address] 10/04/2023 8:20 AM EDT Office Visit Dermatology [facility], [place] [address] [place] [address] Vilma Burris PA-C [address] [place] [address] Scheduled Orders Name Type Priority Associated Diagnoses Orde r Schedule SPIROMETRY B/A BRONCHODILATOR Procedures Routine Shortness of breath Expected: 03/28/2023, Expires: 04/27/2024 Scheduled Procedures Name Priority Associated Diagnoses Date/Ti [...] as of this encounter Visit Diagnoses Diagnosis Shortness of breath- Primary Ascending aorta dilation (HCC) Thoracic aortic ectasia BREANNA (generalized anxiety disorder) Generalized anxiety disorder Mild intermittent asthma without complication Unspecified asthma documented in this encounter Care Teams Hog Buyer Relationship Specialty Start Date End Date Jorge Zhao MD [address] [facility] [place] [address] PCP - General Family Medicine 08/02/19 documented as of this encounter
--- OUTSIDE RECORDS SUMMARY | 2023-06-20 10:25 | External Medical Summary ---
Author Name Unknown Address Unknown Organization K1F:LABORATORY [facility] - [address] [place] [address] Laboratory Report Ordering Provider Test Date Status WENDYIKE 03/19/2023 05:46:18 Final Exclude Heart Failure: <300 pg/mL
Diagnose Heart Failure:
Age <50 yr: >450 pg/mL
50-75 yr: >900 pg/mL
>75 yr: >1800 pg/mL
GFR is 30-59 mL/min: >1200 pg/mL or Age- adjusted values
GFR <30 mL/min: do not use, not reliable

Prognostic threshold: 1000 pg/mL Observation Date Value Abnormality Reference (Units ) Status BNP, Pro-hormone 03/19/2023 05:46:18 174 <30 0 (pg/mL) Final Performing Location LABORATORY [facility] - [address] [place] [address]
--- OUTSIDE RECORDS SUMMARY | 2023-06-20 10:25 | External Medical Summary | Summary of Care ---
Author Name Unknown Organization [facility] Address [address] [place] [address] Phone [phone] Care Team Providers Care Electrician Name Role Phone Jorge Zhao MD Primary Care Provider Reason for Visit * Reason Onset Date Comments Referral 03/24/2023 Encounter Details Date Type Department Care Team (Late st Contact Info) Description 03/24/2023 Telephone Orthopaedics Spine Surgery, [place] [address] [place], [place] [phone] Rosas Caba MD [address] [place], [place] [phone] Referral Allergies Active Allergy Reactions Criticality Noted [...] daily. 1 Tablet 0 02/19/2021 Active Saw [place] 1000 MG Oral Capsule Take by mouth [...] could send the PT referral to the [facility] instead. documented in this encounter Plan of Treatment Upcoming Encounters Date Type Department Care Team (Late st Contact Info) Description 03/27/2023 10:40 AM EST Office Visit [place] [address] [place] [address] Jorge Zhao MD [address] [place] [address] [place] [address] 03/29/2023 9:00 AM EST Appointment Cardiac Studies, [address] [place] [address] 04/05/2023 8:30 AM EST Office Visit Interventional Pain Center, [address] [place] [address] Genaro Nation MD [address] [place], [place] [address] [address] 05/02/2023 8:00 AM EST Office Visit Ophthalmology, [place] [address] [place] [address] García Winston MD [address] [place] [address] 05/09/2023 8:00 AM EST Office Visit Otolaryngology, [address], [place] [address] [place] [address] Saúl Yu PA-C [address] [place] [address] 07/14/2023 9:00 AM EDT Office Visit [address] [address] Jorge Zhao MD [address] [place], [place] [address] [place] [address] 08/01/2023 11:00 AM EDT Office Visit Cardiology, [facility] [address] [place] [address] Meaghan Hargrove PA-C [address] [place] [address] 09/21/2023 10:30 AM EDT Office Visit Orthopaedics Spine Surgery, [address], [place] [address] [place] [address] Rosas Caba MD [address] [place] [address] 10/04/2023 8:20 AM EDT Office Visit Dermatology [facility] [address] [place] [address] Vilma Burris PA-C [address] [place] [address] Scheduled Procedures Name Priority Associated Diagnoses Date/Ti [...] filedocumented as of this encounter Care Teams Electrician Relationship Specialty Start Date End Date Jorge Zhao MD [address] [place] [address] [address] [place] [address] PCP - General Family Medicine 08/02/19 documented as of this encounter
--- OUTSIDE RECORDS SUMMARY | 2023-06-20 10:25 | External Medical Summary | Summary of Care ---
Author Name Unknown Organization [facility] Address [address] [place] [address] Phone [phone] Care Team Providers Care Price Accuracy Supervisor Name Role Phone Jorge Zhao MD Primary Care Provider Encounter Details Date Type Department Care Team (Latest Contact Info) Description 03/23/2023 8:07 AM EST - 03/23/2023 11:59 PM EST Hospital Encounter Orthopaedics, [address], [place] [address] [place] [address] Arrived Discharge Disposition: Home - Self Care [...] daily. 1 Tablet 0 02/19/2021 Active Saw [place] 1000 MG Oral Capsule Take by mouth [...] Description 03/27/2023 10:40 AM EST Office Visit [place] [address] [facility] [place] [address] Jorge Zhao MD [address] [facility] [address] [facility] [place] [address] 03/29/2023 9:00 AM EST Appointment Cardiac Studies, [facility] [address] [facility] [place] [address] 04/05/2023 8:30 AM EST Office Visit Interventional Pain Center, [facility] [address] [facility] [place] [address] Genaro Nation MD [address] [place] [address] 05/02/2023 8:00 AM EST Office Visit Ophthalmology, [place] [address] [facility] [place] [address] García Winston MD [address] [facility] [address] 05/09/2023 8:00 AM EST [facility] [address] [place] [address] Saúl Yu PA-C 132 [facility] [place] [address] 07/14/2023 9:00 AM EDT Office Visit [facility], [place] [address] [address] [facility] [place] [address] Jorge Zhao MD [address] [facility] [address] [facility] [place] [address] 08/01/2023 11:00 AM EDT Office Visit Cardiology, [facility] [place] [address] Meaghan Hargrove PA-C [address] [place] [address] 09/21/2023 10:30 AM EDT Office Visit Orthopaedics Spine Surgery, [place], [place] [address] [place] [address] Rosas Caba MD [address] [facility] [id number] 10/04/2023 8:20 AM EDT Office Visit Dermatology [facility], [place] [address] [place] [address] Vilma Burris PA-C [address] [place] [address] Pending Results Name Type Priority Associated Diagnoses [...] filedocumented as of this encounter Care Teams Price Accuracy Supervisor Relationship Specialty Start Date End Date Jorge Zaho MD [facility] [place] [address] [place] [address] PCP - General Family Medicine 08/02/19 documented as of this encounter
--- OUTSIDE RECORDS SUMMARY | 2023-06-20 10:25 | External Medical Summary ---
Author Name Unknown Address Unknown Organization K1F:LABORATORY [facility] - [address] [place] [address] Laboratory Report Ordering Provider Test Date Status MAURICIO NGUYENMARCELO 03/19/2023 05:46:18 Final Observation Date Value Abnormality Reference (Units ) Status Albumin 03/19/2023 05:46:18 4.2 3.8-5.0 (g/dL) Final AST (Aspartate aminotransferase) 03/19/2023 05:46:18 27 10-50 (U/L) Final Alk Phos 03/19/2023 05:46:18 90 35-130 (U/L) Final ALT (Alanine aminotransferase) 03/19/2023 05:46:18 39 10-50 (U/L) Final Bilirubin, Total 03/19/2023 05:46:18 0.7 <=1.2 (mg/dL) Final Bilirubin, Direct 03/19/2023 05:46:18 <0.2 0.0-0.3 (mg/dL) Final Protein 03/19/2023 05:46:18 6.8 6.0-8.3 (g/dL) Final Performing Location LABORATORY [facility] - [address] [place] [address]
--- OUTSIDE RECORDS SUMMARY | 2023-06-20 10:25 | External Medical Summary | Summary of Care ---
Author Name Unknown Organization [facility] Address [address] [place] [address] Phone [phone] Care Team Providers Care Route Delivery Manager Name Role Phone Jorge Zhao MD Primary Care Provider Reason for Referral * Evaluate & Treat - Unlimited Visits (Within 10 days (routine)) - Authorized Specialty Diagnoses / Procedures Referred By Zaida martin Referred To Contact Otolaryngology Diagnoses Xerostomia Hoarseness of voice Keyon Roman MD [address] [place] [id number] Referral ID Status Reason Start Date Expiration Date Visits Requested Visits Authorized [id number] Authorized Specialty Services Required 03/19/2023 1 1 Question Answer Referral Priority Within 10 days (routine) Reason for Referral: Laryngology/Voice/Swallowing Specific Condition: Hoarseness Where should this appointment be scheduled? [facility] Comments Discharge Order Reason for Visit * Reason Comments Dehydration * Auth/Cert Specialty Diagnoses / Procedures Referred By Zaida martin Referred To Contact Referral ID Status Reason Start Date Expiration Date Visits Re quested Visits Authorized [id number] Encounter Details Date Type Department Care Team (Late st Contact Info) Description 03/19/2023 5:22 AM EST - 03/19/2023 7:24 AM EST Emergency [facility] ([facility]) [address] [place] [address] Keyon Roman MD [address] [facility] [place] [phone] Xerostomia (Primary Dx); Heart palpitations; Hoarseness of voice; Hypertension, unspecified type Discharge Disposition: Home - Self Care Allergies Active Allergy Reactions Criticality Noted Date Comments Clarithromycin 04/02/2001 ? Rash. Tolerates azithromycin on multiple occasions Doxycycline 09/27/1999 Rash documented as of this encounter (statuses as of 03/19/2023) Medications Medication Sig Dispensed Refills Start Date End Date Status MULTIVITAMINS PO TABS 1 a day 30 0 04/25/2007 Active vitamin c (ASCORBIC ACID) 500 MG Tablet Take 2 Tablets by mouth in the morning. 0 Active Calcium Magnesium Zinc 333-133-5 MG Oral Tablet Take 1 Tablet by mouth daily. 1 Tablet 0 02/19/2021 Active Saw [place] 1000 MG Oral Capsule Take by mouth [...] 6 hours. 40 Tablet 0 03/19/2023 Active documented as of this encounter (statuses as of 03/19/2023) Active Problems Problem Noted Date Diagnosed Date PVC (premature ventricular contraction) 01/25/20 23 Mixed dyslipidemia 09/19/2016 Mild intermittent asthma without complication Ascending aorta dilation 09/08/2014 DDD (degenerative disc disease), lumbar 01/01/20 13 Gastroesophageal reflux disease without esophagi tis 06/07/2004 Deviated nasal septum 05/28/2003 Irritable bowel syndrome documented as of this encounter (statuses as of 03/19/2023) Resolved Problems Problem Noted Date Diagnosed Date [...] as of this encounter (statuses as of 03/19/2023) Immunizations Name Administration Dates Next Due COVID-19 mRNA, LNP-s, No Pre serve, 2-Dose Series (Liquidnet) 03/31/2021,07/19/2020,06/25/2020 Pneumococcal Conjugate Vacc, 13 Valent (Prevnar) [...] Sign Reading Time Taken Comments Blood Pressure 173/84 03/19/2023 6:30 AM EST Pulse 60 03/19/2023 6:30 AM EST Temperature 36.3 C (97.3 F) 03/19/2023 5:27 AM ES T Respiratory Rate 16 03/19/2023 6:30 AM EST Oxygen Saturation 97% 03/19/2023 5:27 AM EST Inhaled Oxygen Concentration - - Weight - - Height - - Body Mass Index - - documented in this encounter Discharge Instructions * Discharge Instructions* Keyon Roman MD - 03/19/2023 7:00 AM EST Your hoarse voice and dry mouth need follow-up. You should follow-up with your nose and throat and a referral has been placed documented in this encounter ED Notes * Keyon Roman MD - 03/19/2023 5:25 AM EST HISTORY OF PRESENT ILLNESS Miko F Richtscheit is a 77 year old male who presents to the ED for evaluation of Dehydration. The patient was seen at 03/19/23 0524. Patient reports that he has been having uncomfortable sensations for a couple of weeks. His mouth has become very dry. He has developed a hoarse voice. He has abdominal bloating which has occasionally made him feel like it is hard to take a deep breath. He has an abdominal discomfort. He does not have any dyspnea on exertion. Denies any vomiting diarrhea dysuria. Past medical history ascending aorta dilation Irritable bowel syndrome Gastroesophageal reflux Lumbar DJD Asthma Dyslipidemia PVCs The patient's allergies, past history, and medications were reviewed. PHYSICAL EXAM Initial Vitals (see all): BP 201/81 | Pulse 52 | Resp 18 | Temp 97.3 | O2 97 %, Room Air, None | Weight 90.72 kg | Height 180.3 cm | BMI 27.91 kg/m2 Initial Pain Assessment (see all): 0 (no pain)/10 ([facility] Adult Scale 0-10) General: Alert. appropriate for age. no acute distress. nontoxic. Skin: Warm, dry. Head: Atraumatic. Neck: trachea midline. No distended neck veins supple Eye: Normal conjunctiva. PERRL, EOMI, Ears, nose, mouth and throat: airway patent. No inflammation Dry mucous membranes Cardiovascular: Normal peripheral perfusion. Irregular rhythm in a bigeminy pattern without murmursor extra sounds. No distended neck veins. . Respiratory: no respiratory distress. The lungs are clear to auscultation without rales wheezes or rhonchi. Breath sounds equal and present bilaterally. Gastrointestinal: Non distended. Abdomen is soft and nontender. No guarding. No rebound. No organomegaly. Musculoskeletal: No deformity. Neurological: No focal neurological deficit observed. alert. Psychiatric: Cooperative. Differential diagnosis Dehydration, electrolyte disturbance, acute renal failure, bowel obstruction, PROCEDURES AND TREATMENTS ED Orders | ED Results MEDICAL DECISION MAKING Nursing notes and vital signs were reviewed. ED Course as of 03/19/23 0701 Sun Mar 19, 2023 0624 EKG reviewed by ER physician. Sinus rhythm with premature atrial complexes. [DR] 0624 Most recent EKG dated 01/24/2023. Since then previously present premature ventricular contractions have resolved. PACs have been there in the past [DR] 0652 XR Abdomen 2 Views No acute abnormality in the abdomen. No findings to suggest bowel obstruction. [DR] 0653 XR Chest 2 Views No active disease in the chest. [DR] ED Course User Index [] Keyon Roman MD Patient reports in the past he has had improvement with his abdominal bloating with Bentyl for his irritable bowel syndrome. He requests that I provide that today. I did mention that this could make the dry mouth symptom worse and he would prefer a clinical trial of the Bentyl. I believe that he needs outpatient follow-up with ear nose and throat for the hoarse voice and the dry mouth. Otherwise the workup today indicated hypertension which will need outpatient follow-up with his personal physician Amount and/or Complexity of Data Reviewed Labs: ordered. Radiology: ordered. Decision-making details documented in ED Course. ECG/medicine tests: ordered. Risk Prescription drug management. Clinical Impressions Heart palpitations Xerostomia Hoarseness of voice Hypertension, unspecified type Disposition Discharged. The patient's condition at disposition was: stable. Discharge Medications Disp Refills Start End Dicyclomine HCl 20 MG Oral Tablet (Bentyl) 40 Tablet 0 03/19/2023 -- Sig - Route: Take 1 Tablet by mouth every 6 hours. - Oral Class: ePrescribing Renewals Renewal requests to authorizing provider (Keyon Roman MD) <b>prohibited</b> Keyon Roman * Lilia Frost RN - 03/19/2023 5:25 AM EST Reports he feels like he is dehydrated. Feels dry and his mouth "feels like sand paper." Reports abd distention that is making it hard for him to take a deep breath. Denies abd pain but reports a "burning in my intestines." Denies MOONEY. Normal urinary/bowel habits. + nausea without vomiting. documented in this encounter Miscellaneous Notes * ED Boiler House Inspector Note - Jyotsna Bryan RN - 03/19/2023 7:23 AM EST Pt verbalized understanding of D/C instructions. Aware to follow up with ENT and PCP. Aware of prescription at pharmacy. Advised of return precautions. All questions and concerns answered and addressed at this time. Pt ambulated from ED with steady gait. * Pt Handout (on AVS) - Keyon Roman MD - 03/19/2023 6:59 AM EST [id number] Discharge Instructions for High Blood Pressure (Hypertension) You have been diagnosed with high blood pressure. This is known as hypertension. This means the force of blood against your artery martinez is too strong. It means your heart is working hard to move blood. High blood pressure usually has no symptoms. But over time, it can cause serious health problems. High blood pressure raises your risk for these problems: Heart attack Stroke Heart disease Heart failure Kidney disease Vision loss With help from your healthcare provider, you can manage your blood pressure and protect your health. Blood pressure measurements are given as 2 numbers. Systolic blood pressure is the upper number. This is the pressure when the heart contracts or pumps. Diastolic blood pressure is the lower number. This is the pressure when the heart relaxes between beats. Blood pressure is grouped like this: Normal blood pressure. This is systolic of less than 120 and diastolic of less than 80 (120/80) at rest Elevated blood pressure. This is systolic of 120 to 129 and diastolic less than 80 at rest Stage 1 high blood pressure. This is systolic is 130 to 139 or diastolic between 80 to 89 at rest Stage 2 high blood pressure. This is when systolic is 140 or higher or the diastolic is 90 or higher at rest Taking medicine Learn to measure your own blood pressure. Keep a record of your results. Ask your healthcare provider what numbers mean that you need medical care. Take your blood pressure medicine exactly as directed. Don?t skip doses. Missing doses can causeyour blood pressure to get out of control. Ask your healthcare provider what to do if you miss a dose. Don't take medicines that contain heart stimulants. This includes [id number] medicines. Check for warnings about high blood pressure on the label. Ask the pharmacist before buying a medicineyou haven't used before. Check with your healthcare provider before taking a decongestant. This includes medicines with pseudoephedrine or phenylephrine on the label. Ask the pharmacist if you are not sure. These can makehigh blood pressure worse. If you take medicine to have sex, talk to your healthcare provider. Taking these medicines with a type of blood pressure medicine called nitrates can be dangerous. This can drop your blood pressure too low. Lifestyle changes Keep a healthy weight. Get help to lose any extra pounds. Meeting with a dietitian can help you make diet changes to help with weight loss. Cut back on salt. To do this: o Limit canned, dried, packaged, and fast foods. o Don?t add salt to your food at the table. o Season foods with herbs instead of salt when you cook. o Ask for no added salt when you eat out. o Have no more than 1,500 mg a day of sodium. You can make a positive change by cutting back to even 2,300 mg of sodium a day. Read all food labels to see how much sodium they have. Follow the DASH eating plan. DASH stands for Dietary Approaches to Stop Hypertension. This plan advises a way to eat for healthy blood pressure. The diet includes vegetables, fruits, whole grains,and other healthy foods. Eat food rich in potassium. Begin an exercise program. Talk with your healthcare provider before you get started. Work up toaerobic exercise 3 to 4 times a week for an average of 40 minutes at a time to lower blood pressure. Even simple activities can help blood pressure. These include walking or gardening. If you smoke, work to stop. Enroll in a stop-smoking program. This will improve your chance of success. Ask your healthcare provider about programs and medicines to help you stop smoking. Limit drinks with caffeine to 2 per day. This includes such as coffee, black or green tea, and cola. Never take stimulants such as amphetamines or cocaine. These drugs can be deadly for a person with high blood pressure. Work to lessen your stress. You can learn ways to manage stress. Limit how much alcohol you drink. This means no more than 1 drink a day for women and 2 drinks aday for men. Follow-up care Make a follow-up appointment as directed. When to call your healthcare provider Call your healthcare provider right away if you have any of these: Moderate headache Extreme drowsiness Dizziness or fainting Pulsating or rushing sound in your ears Unexplained nosebleed Blood pressure measured at home that is higher than 180/110 or as directed by your healthcare provider Call 911 Call 911 right away if you have any of these symptoms: Chest pain or shortness of breath Severe headache Weakness, tingling, or numbness of your face, arms, or legs (especially on 1 side of the body) Change in vision Confusion, trouble speaking, or trouble understanding speech Last Reviewed Date: 01/11/202119993578-1318 [employer]. All rights reserved. This information is not intended as a substitute for professional medical care. Always follow your healthcare professional's instructions. * ED Boiler House Inspector Note - Jyotsna Bryan RN - 03/19/2023 5:52 AM EST Pt presents to ED for concerns of dehydration. Pt states that over the last few weeks he has had a dry mouth, hoarseness, and feeling bloated. Pt states that he "couldn't even spit if I tried". Reports that his abd feels full to the point where he feels its hard to take a deep breath at times. States he does not have pain or SOB w/ activity. Denies any nausea or vomiting. Reports he feels he has not any any changes in fluid intake but states he has noticed he has not been eating as much d/t feeling full. Denies any recent medication changes. Denies urinary symptoms or changes in urinary frequency. Pt Aox3. Respirations even and unlabored. CCM applied. EKG obtained by EDT. Denies CP, SOB, orHA. Abd soft, nondistended and nontender. +PMS to all extremities. Denies any other complaints or needs at this time. Call armstrong in reach. documented in this encounter Plan of Treatment Upcoming Encounters Date Type Department Care Team (Late st Contact Info) Description 03/29/2023 9:00 AM EST Appointment [address] Studies, [address] [address] 04/05/2023 8:30 AM EST Office Visit Interventional [facility] Center, [facility] [address] [facility] [address] Genaro Nation MD [address] [place] [address] 05/02/2023 8:00 AM EST Office Visit Ophthalmology, [place] [address] [facility] [address] García Winston MD [address] [place] [address] 05/09/2023 8:00 AM EST Office Visit Otolaryngology, [facility] [address] [facility] [place] [address] Saúl Yu PA-C [address] [place] [address] 05/23/2023 2:30 PM EDT [facility] [address] [place] [address] Rosas Caba MD [address] [place] [address] 07/14/2023 9:00 AM EDT Office [facility] [address] [address] Jorge Zhao MD [address] [place], [place] [address]e [facility] [place] [address] 08/01/2023 11:00 AM EDT Office Visit Cardiology, [facility] [address] [place] [address] Meaghan Hargrove PA-C [address] [place] [address] 10/04/2023 8:20 AM EDT Office Visit Dermatology [facility] [address] [place] [address] Vilma Burris PA-C [address] [place] [address] Scheduled Procedures Name Priority Associated Diagnoses Date/Ti me COLONOSCOPY FLEXIBLE PROXIMA L DIAGNOSTIC Recall History of colonic polyps Scheduled Referrals Name Type Priority Associated Diagnoses Order Schedule OTOLARYNGOLOGY REFERRAL OP Referral Within 10 days (routine) Xerostomia Hoarseness of voice Ordered: 03/19/2023 Health Maintenance Due Date Last Done Comments [...] Name Priority Date/Time Associated Diagnosis Comments XR ABDOMEN 2 VIEWS STAT 03/19/2023 6: 01 AM EST XR CHEST 2 VIEWS STAT 03/19/2023 6:01 AM EST DIFFERENTIAL, AUTOMATED STAT 03/19/2023 5:46 AM EST TROPONIN T, HIGH SENSITIVITY STAT 03/19/2023 5:46 AM EST BNP (NT-PROBNP) STAT 03/19/2023 5:46 AM EST HEPATIC FUNCTION PANEL STAT 03/19/2023 5:46 AM EST BASIC METABOLIC PANEL STAT 03/19/2023 5:46 AM EST CBC STAT 03/19/2023 5:46 AM EST CBC STAT 03/19/2023 5:46 AM EST documented in this encounter Results * XR ABDOMEN 2 VIEWS (03/19/2023 6:01 AM EST) Anatomical Region Laterality Modality Abdomen, Pelvis Digital Radiogra phy 03/19/2023 5:40 AM EST Impressions 03/19/2023 6:49 AM EST IMPRESSION: No acute abnormality in the abdomen. No findings to suggest bowel obstruction. THIS DOCUMENT HAS BEEN ELECTRONICALLY SIGNED BY STACIE ESPAÑA MD Narrative 03/19/2023 6:49 AM EST PROCEDURE INFORMATION: Exam: XR Abdomen Exam date and time: 03/19/2023 5:40 AM Age: 77 years old Clinical indication: Other: Lower abdominal pain that takes his breath away; Additional info: Bloated abdomen TECHNIQUE: Imaging protocol: Radiologic exam of the abdomen. Views: 2 Views. Upright and supine views. COMPARISON: DX XR ABDOMEN 1 VIEW 09/22/2022 9:55 AM FINDINGS: Gastrointestinal tract: There is a nonspecific nonobstructive bowel gas pattern. The colonic stool burden does not appear abnormally increased. Intraperitoneal space: No visible pneumoperitoneum. Bones/joints: Degenerative changes. No acute osseous abnormality. Procedure Note Stacie España MD - 03/19/2023 PROCEDURE INFORMATION: Exam: XR Abdomen Exam date and time: 03/19/2023 5:40 AM Age: 77 years old Clinical indication: Other: Lower abdominal pain that takes his breathaway; Additional info: Bloated abdomen TECHNIQUE: Imaging protocol: Radiologic exam of the abdomen. Views: 2 Views. Upright and supine views. COMPARISON: DX XR ABDOMEN 1 VIEW 09/22/2022 9:55 AM FINDINGS: Gastrointestinal tract: There is a nonspecific nonobstructive bowel gas pattern. The colonic stool burden does not appear abnormally increased. Intraperitoneal space: No visible pneumoperitoneum. Bones/joints: Degenerative changes. No acute osseous abnormality. IMPRESSION IMPRESSION: No acute abnormality in the abdomen. No findings to suggest bowelobstruction. THIS DOCUMENT HAS BEEN ELECTRONICALLY SIGNED BY STACIE ESPAÑA MD Keyon Roman MD RADIOLOGY ([facility]) * XR CHEST 2 VIEWS (03/19/2023 6:01 AM EST) Anatomical Region Laterality Modality Chest Digital Radiogra phy 03/19/2023 5:40 AM EST Impressions 03/19/2023 6:48 AM EST IMPRESSION: No active disease in the chest. THIS DOCUMENT HAS BEEN ELECTRONICALLY SIGNED BY STACIE ESPAÑA MD Narrative 03/19/2023 6:48 AM EST PROCEDURE INFORMATION: Exam: XR Chest Exam date and time: 03/19/2023 5:40 AM Age: 77 years old Clinical indication: Other: Lower abdominal pain that takes his breath away; Additional info: Hoarse voice TECHNIQUE: Imaging protocol: Radiologic exam of the chest. Views: 2 views. COMPARISON: No relevant prior studies for comparison. FINDINGS: Lungs: The lungs are clear and well aerated bilaterally. There is no consolidation or pulmonary edema. The pulmonary vasculature is normal in caliber. Pleural spaces: Unremarkable. No pleural effusion or pneumothorax. Heart/Mediastinum: Heart size and cardiomediastinal contours are normal. Bones/joints: Degenerative changes. No acute osseous abnormality. Other findings: Limited visualization of the upper abdomen demonstrates no radiographic findings of concern. Procedure Note Stacie España MD - 03/19/2023 PROCEDURE INFORMATION: Exam: XR Chest Exam date and time: 03/19/2023 5:40 AM Age: 77 years old Clinical indication: Other: Lower abdominal pain that takes his breathaway; Additional info: Hoarse voice TECHNIQUE: Imaging protocol: Radiologic exam of the chest. Views: 2 views. COMPARISON: No relevant prior studies for comparison. FINDINGS: Lungs: The lungs are clear and well aerated bilaterally. There is no consolidation or pulmonary edema. The pulmonary vasculature is normal in caliber. Pleural spaces: Unremarkable. No pleural effusion or pneumothorax. Heart/Mediastinum: Heart size and cardiomediastinal contours are normal. Bones/joints: Degenerative changes. No acute osseous abnormality. Other findings: Limited visualization of the upper abdomen demonstrates no radiographic findings of concern. IMPRESSION IMPRESSION: No active disease in the chest. THIS DOCUMENT HAS BEEN ELECTRONICALLY SIGNED BY STACIE ESPAÑA MD Keyon Roman MD RADIOLOGY ([facility]) * (ABNORMAL) DIFFERENTIAL, AUTOMATED (03/19/2023 5:46 AM EST) WBC 8.07 4.00 - 10.80 K/uL 03/19/2023 6:08 AM EST [facility] Neutrophils % 69.2 40.0 - 75.0 % 03/19/2023 6:08 AM EST [facility] Lymphocytes % 17.5(L) 18.0 - 42.0 % 03/19/2023 6:08 AM EST [facility] Monocytes % 11.8(H) 1.0 - 11.0 % 03/19/2023 6:08 AM EST [facility] Eosinophils % 0.7 0.0 - 6.0 % 03/19/2023 6:08 AM EST [facility] Basophils % 0.4 0.0 - 2.0 % 03/19/2023 6:08 AM EST [facility] Immature Granulocytes % 0.4 0.0 - 2.0 % 03/19/2023 6:08 AM EST [facility] Absolute Neutrophils 5.59 1.80 - 7.70 K/uL 03/19/2023 6:08 AM EST [facility] Absolute Lymphocytes 1.41 1.00 - 4.80 K/ul 03/19/2023 6:08 AM EST [facility] Absolute Monocytes 0.95 0.00 - 1.10 K/uL 03/19/2023 6:08 AM EST LABORATORY [facility] Absolute Eosinophils 0.06 0.00 - 0.70 K/uL 03/19/2023 6:08 AM EST LABORATORY [facility] Absolute Basophils 0.03 0.00 - 0.20 K/uL 03/19/2023 6:08 AM EST LABORATORY [facility] Absolute Immature Granulocytes 0.03 0.00 - 0.20 K/uL 03/19/2023 6:08 AM EST [facility]ORY [facility] Blood Venous blood specimen / Unknown Venipuncture / Unknown 03/19/2023 5:46 AM EST 03/19/2023 6:04 AM EST Keyon Roman MD LAB BLOOD ORDERABLES Performing Organization Address City/State/[facility] Co de Phone Number LABORATORY [address] [address] * CBC (03/19/2023 5:46 AM EST) WBC 8.07 4.00 - 10.80 K/uL 03/19/2023 6:08 AM EST LAB[facility]ORY [facility] RBC 5.08 4.50 - 5.25 M/uL 03/19/2023 6:08 AM EST LAB[facility] HGB 14.7 14.0 - 16.8 g/dL 03/19/2023 6:08 AM EST LAB[facility]ORY [facility] HCT 44.7 40.0 - 48.4 % 03/19/2023 6:08 AM EST LAB[facility]ATORY [facility] MCV 88.0 82.0 - 99.5 fL 03/19/2023 6:08 AM EST LABORATORY [facility] MCH 28.9 27.0 - 34.0 pg 03/19/2023 6:08 AM EST LABORATORY [facility] MCHC 32.9 32.0 - 36.0 g/dL 03/19/2023 6:08 AM EST LAB[facility]ORY [facility] RDW 12.4 11.5 - 15.5 % 03/19/2023 6:08 AM EST LABORATORY [facility] PLT 160 140 - 400 K/uL 03/19/2023 6:08 AM EST LABORATORY [facility] MPV 10.5 6.6 - 11.1 fL 03/19/2023 6:08 AM EST LAB[facility]ORY [facility] nRBCs 0 <=0 /100 WBCs 03/19/2023 6:08 AM EST [facility] Blood Venous blood specimen / Unknown Venipuncture / Unknown 03/19/2023 5:46 AM EST 03/19/2023 6:04 AM EST Keyon Roman MD LAB BLOOD ORDERABLES Performing Organization Address City/[facility]/ZIP Co de Phone Number LABORATORY [address] [id number] * TROPONIN T, HIGH SENSITIVITY (03/19/2023 5:46 AM EST) Troponin T, High Sensitivity 18 <=22 ng/L 03/19/2023 6:24 AM EST LAB[facility]ATORY [facility] Blood Venous blood specimen / Unknown Venipuncture / Unknown 03/19/2023 5:46 AM EST 03/19/2023 6:04 AM EST Keyon Roman MD LAB BLOOD ORDERABLES Performing Organization Address City/[facility]/ZIP Co de Phone Number LABORATORY [address] [phone] * HEPATIC FUNCTION PANEL (03/19/2023 5:46 AM EST) Albumin 4.2 3.8 - 5.0 g/dL 03/19/2023 6:37 AM EST [facility] AST 27 10 - 50 U/L 03/19/2023 6:37 AM EST [facility] Alkaline Phosphatase 90 35 - 130 U/L 03/19/2023 6:37 AM EST [facility] ALT 39 10 - 50 U/L 03/19/2023 6:37 AM EST [facility] Bilirubin, Total 0.7 <=1.2 mg/dL 03/19/2023 6:37 AM EST [facility] Bilirubin, Direct <0.2 0.0 - 0.3 mg/dL 03/19/2023 6:37 AM EST LAB[facility]ATORY [facility] Protein 6.8 6.0 - 8.3 g/dL 03/19/2023 6:37 AM EST [facility] Blood Venous blood specimen / Unknown Venipuncture / Unknown 03/19/2023 5:46 AM EST 03/19/2023 6:04 AM EST Keyon Roman MD LAB BLOOD ORDERABLES Performing Organization Address [facility] de Phone Number LABORATORY [address] [address] * BNP, NT-PRO (03/19/2023 5:46 AM EST) BNP, NT-Pro 174 <300 pg/mL 03/19/2023 6:37 AM EST LABORATORY [facility] Blood Venous blood specimen / Unknown Venipuncture / Unknown 03/19/2023 5:46 AM EST 03/19/2023 6:04 AM EST Narrative LABORATORY [facility] - 03/19/2023 6:37 AM EST Exclude Heart Failure: <300 pg/mL Diagnose Heart Failure: Age <50 yr: >450 pg/mL 50-75 yr: >900 pg/mL >75 yr: >1800 pg/mL GFR is 30-59 mL/min: >1200 pg/mL or Age-adjusted values GFR <30 mL/min: do not use, not reliable Prognostic threshold: 1000 pg/mL Keyon Roman MD LAB BLOOD ORDERABLES Performing Organization Address [facility] de Phone Number LABORATORY [address] [address] * BASIC METABOLIC PANEL (03/19/2023 5:46 AM EST) BUN 20 6 - 20 mg/dL 03/19/2023 6:37 AM EST LABORATORY GL Creatinine 1.2 0.6 - 1.2 mg/dL 03/19/2023 6:37 AM EST LABORATORY GL Estimated Glomerular Filtration Rate 66 >=60 mL/min 03/19/2023 6:37 AM EST LABORATORY GL Comment:eGFR is calculated b ased on the CKD-EPI 2020 equation Sodium 141 135 - 146 mmol/L 03/19/2023 6:37 AM EST [facility] Potassium 4.1 3.5 - 5.1 mmol/L 03/19/2023 6:37 AM EST [facility] Chloride 103 98 - 107 mmol/L 03/19/2023 6:37 AM EST [facility] CO2 28 22 - 32 mmol/L 03/19/2023 6:37 AM EST [facility] Anion Gap 10 7 - 15 mmol/L 03/19/2023 6:37 AM EST [facility] Glucose 114 70 - 120 mg/dL 03/19/2023 6:37 AM EST [facility] Calcium 9.7 8.4 - 10.2 mg/dL 03/19/2023 6:37 AM EST [facility] Blood Venous blood specimen / Unknown Venipuncture / Unknown 03/19/2023 5:46 AM EST 03/19/2023 6:04 AM EST Keyon Roman MD LAB BLOOD ORDERABLES Performing Organization Address City/State/[facility] Co de Phone Number LABORATORY [facility] [address] [place] [phone] documented in this encounter Visit Diagnoses Diagnosis Xerostomia- Primary Disturbance of salivary secretion Heart palpitations Palpitations Hoarseness of voice Dysphonia Hypertension, unspecified type documented in this encounter Administered Medications Inactive Administered Medications - up to 3 most recent administrations Medication Order MAR Action Action Date Dose Rate Site dicyclomine (Bentyl) tab 20 mg 20 mg, Oral, ONCE, On 03/19/23 at 0730, For 1 dose Given 03/19/2023 7:20 AM EST 20 mg NSS infusion Intravenous, at 150 mL/hr, ONCE, 1 dose, On 03/19/23 at 0615 Restarted 03/19/2023 6:42 AM EST 150 mL/hr New Bag 03/19/2023 6:00 AM EST 150 mL/hr documented in this encounter Active and Recently Administered Medications Times are shown in EST. Scheduled Medication Order 03/17/2023 03/18/2023 03/19/2023 dicyclomine (Bentyl) tab 20 mg (COMPLETED) 20 mg, Oral, ONCE, On 03/19/23 at 0730, For 1 dose 0720 (Given - Provid er: Jyotsna [place], RN) NSS infusion (COMPLETED) Intravenous, at 150 mL/hr, ONCE, 1 dose, On 03/19/23 at 0615 0600 (New Bag - Prov ider: Jyotsna Bryan RN)0635 (Paused - Provider: Jyotsna Bryan RN)0642 (Restarted - Provider: Jyotsna Bryan RN)0720 (Stopped - Provider: Jyotsna Bryan RN) documented in this encounter Care Teams Route Delivery Manager Relationship Specialty Start Date End Date Jorge Zhao MD [facility] [address] [place] [address] PCP - General Family Medicine 08/02/19 documented as of this encounter
--- OUTSIDE RECORDS SUMMARY | 2023-06-20 10:26 | External Medical Summary | Summary of Care ---
Author Name Unknown Organization [facility] Address [address] [place] [address] Phone [phone] Care Team Providers Care Orthotic Practitioner Name Role Phone Jorge Zhao MD Primary Care Provider Reason for Referral * Evaluate & Treat - Unlimited Visits (Within 30 days (routine)) - Authorized Specialty Diagnoses / Procedures Referred By Contac t Referred To Contact Neuro/Ortho Surgery - Spine. / Neurological Surgery Diagnoses Chronic left-sided low back pain with left-sided sciatica Josué Lynn DO [address] [facility] [place] [address] Referral ID Status Reason Start Date Expiration Date Visits Requested Visits Authorized [id number] Authorized Specialty Services Required 03/14/[phone] Question Answer Referral Priority Within 30 days (routine) Where should this appointment be scheduled? [facility] spine region: Back - Thoracic/Lumbar Do you have any recent complete loss of bladder or bowel function? No * Evaluate & Treat - Unlimited Visits (Within 10 days (routine)) - Authorized Specialty Diagnoses / Procedures Referred By Contac t Referred To Contact Pain Management / Pain Medicine Diagnoses Chronic left-sided low back pain with left-sided sciatica Josué Lynn DO [address] [facility] [place] [address] Referral ID Status Reason Start Date Expiration Date Visits Requested Visits Authorized [id number] Authorized Specialty Services Required 03/14/[phone] Question Answer Referral Priority Within 10 days (routine) Where should this appointment be scheduled? [facility] Reason for referral? Interventional Pain Management - (Injection) What condition is the patient being referred for? Lumbar Radiculopathy What is the preferred location to have this test performed? [facility] II Comments Patient Name: Miko Flores Date of : 1945 Department Phone Number: : [phone] (if unable to have a MRI) is recommended if any of the following apply: 1. Patient has neck or back pain with radiation to extremities. A previous MRI will be accepted if symptoms unchanged since prior MRI. 2. Spinal surgery since last MRI. If yes, order a MRI with and without contrast. 3. Hx or ongoing cancer treatment. Patient will need spine x-ray (Ap/Lat) for axial neck or back pain if not done previously. Fax No. [facility] [phone] or contact front desk representative [phone] Fax No. [facility] [phone] or contact front desk representative [phone] Fax No. [facility] [phone] or contact front desk representative [phone] Reason for Visit * Reason Comments Follow Up R shoulder Encounter Details Date Type Department Care Team (Late st Contact Info) Description 03/14/2023 10:30 AM EST Office Visit Orthopaedics [facility] [address] [place] [address] Josué Lynn DO [address] [place] [address] Chronic left-sided low back pain with left-sided sciatica*; Incomplete tear of right rotator cuff, unspecified whether traumatic; Bursitis of right shoulder Allergies Active Allergy Reactions Criticality Noted Date Comments Clarithromycin 04/02/2001 ? Rash. Tolerates azithromycin on multiple occasions Doxycycline 09/27/1999 Rash documented as of this encounter (statuses as of 03/14/2023) Medications Medication Sig Dispensed Refills Start Date End Date Status MULTIVITAMINS PO TABS 1 a day 30 0 04/25/2007 Active vitamin c (ASCORBIC ACID) 500 MG Tablet Take 2 Tablets by mouth in the morning. 0 Active Calcium Magnesium Zinc 333-133-5 MG Oral Tablet Take 1 Tablet by mouth daily. 1 Tablet 0 02/19/2021 Active Saw Malakoff 1000 MG Oral Capsule Take by mouth [...] the morning. 90 Tablet 3 03/08/2023 Active Hospital, Clinic, or Other Facility Administered Medication Ordered Dose Route Frequency Start Date End Date Status lidocaine 1% 1 mL - triamcinolone acetonide 40 mg/mL 1 mL inj 2 mLIndications:Incomplete tear of right rotator cuff, unspecified whether traumatic,Bursitis of right shoulder 2 mL IJ ONCE 03/14/2023 03/14/2023 Ended documented as of this encounter (statuses as of 03/14/2023) Active Problems Problem Noted Date Diagnosed Date PVC (premature ventricular contraction) 01/25/20 23 Mixed dyslipidemia 09/19/2016 Mild intermittent asthma without complication Ascending aorta dilation 09/08/2014 DDD (degenerative disc disease), lumbar 01/01/20 13 Gastroesophageal reflux disease without esophagi tis 06/07/2004 Deviated nasal septum 05/28/2003 Irritable bowel syndrome documented as of this encounter (statuses as of 03/14/2023) Resolved Problems Problem Noted Date Diagnosed Date [...] as of this encounter (statuses as of 03/14/2023) Immunizations Name Administration Dates Next Due COVID-19 mRNA, LNP-s, No Pre serve, 2-Dose Series (Latinda) 03/31/2021,07/19/2020,06/25/2020 Pneumococcal Conjugate Vacc, 13 Valent (Prevnar) 09/21/2015 Pneumococcal Polysaccharide PPV23 (Pneumovax) 09/27/2011 Season Influenza, Quad, PF, Adjuvanted, 65+ Yrs, [...] as of this encounter Progress Notes * Josué Lynn, DO - 03/14/2023 10:30 AM EST Miko Flores [id number] Miko Flores is a 77 year old male who presents for f/u to [facility] for right shoulder injury/pain. Consult requested by Waqas Escudero PA-C. 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 Small partial-thickness bursal-surface tear of the supraspinatus tendon. 2. Thinning and partial-thickness articular-surface tearing at the subscapularis insertion, which appears chronic. 3. Background rotator cuff tendinopathy. 4. Long head biceps tendinopathy. 5. Posterior labral tear. 6. Severe acromioclavicular osteoarthritis. Had his AC joint injected by me July 2022 Today: feels shoulder pain is returning without injury. He also notes on his left low back and hip a radicular pain. In further review of the chart he did have an MRI 03/24/22 Degenerative changes by level: T12-L1: No significant spinal canal stenosis or neural foraminal narrowing. L1-L2: No significant spinal canal stenosis or neural foraminal narrowing. L2-L3: Diffuse disc bulge without significant spinal canal stenosis or neural foraminal narrowing. L3-L4: Diffuse disc bulge, facet arthropathy, and ligamentum flavum hypertrophy result in severe left neural foraminal narrowing and [id number] right foraminal narrowing. No significant spinal canal stenosis. L4-L5: Diffuse disc bulge, facet arthropathy, and ligamentum flavum hypertrophy result in mild spinal canal stenosis and severe left and [id number] right neural foraminal narrowing with narrowing of the lateral recesses bilaterally. L5-S1: Diffuse disc bulge with superimposed central zone disc protrusion, trace retrolisthesis, osteophyte formation, facet arthropathy, and ligamentum flavum hypertrophy results in mild spinal canalstenosis and severe left and moderate right neural foraminal narrowing with narrowing of the bilateral lateral recesses. I did review the images with patient in the room. He now reports he was told that he should be seenby pain management but did not. Will get radicular pain lasting approximately 30 seconds several times per day. Reports no significant change in his normal bowel or bladder habits. Previous Surgery / Subluxation / dislocation: no ROS EXAM: Constitional: No change in weight, No weakness, No fatigue and No fevers, sweats, or chills Patient Active Problem List Diagnosis Code Deviated nasal septum J34.2 Irritable bowel syndrome K58.9 Gastroesophageal reflux disease without esophagitis K21.9 DDD (degenerative disc disease), lumbar M51.36 Ascending aorta dilation (HCC) I77.810 Mild intermittent asthma without complication J45.20 Mixed dyslipidemia E78.2 PVC (premature ventricular contraction) I49.3 Current Outpatient Medications Medication Sig Dispense Refill MULTIVITAMINS PO TABS 1 a day 30 0 vitamin c (ASCORBIC ACID) 500 MG Tablet Take 2 Tablets by mouth in the morning. Calcium Magnesium Zinc 333-133-5 MG Oral Tablet Take 1 Tablet by mouth daily. 1 Tablet Saw Malakoff 1000 MG Oral Capsule Take by mouth . Albuterol Sulfate HFA 108 (90 Base) MCG/ACT Inhalation Aerosol Solution Inhale 2 Puffs by mouth every 4 hours as needed (cough or wheeze). 18 g 2 Olopatadine HCl 0.6 % Nasal Solution (Patanase) Administer 2 Sprays into nostril in the morning and2 Sprays before bedtime. 30.5 g 5 Ezetimibe 10 MG Oral Tablet (Zetia) Take 1 Tablet by mouth in the morning. 90 Tablet 3 Docusate Sodium 100 MG Oral Capsule (Colace) Take 1 Capsule by mouth in the morning and 1 Capsule before bedtime. 60 Capsule 11 Famotidine 20 MG Oral Tablet (Pepcid) Take 1 Tablet by mouth in the morning and 1 Tablet before bedtime. 180 Tablet 1 Pantoprazole Sodium 40 MG [...] mouth in the morning. 90 Tablet 3 No current facility-administered medications for this visit. Physical Exam General: in no acute distress Mood and Affect: normal Gait and Station: normal Peripheral pulses: normal in affected extremity (s) Skin examination: normal on affect extremity (s) Sensation: normal on affected extremity (s) Shoulder exam, bilateral Shoulder glenohumeral range of motion: ABD (100') - Bilateral and equal ER (90') - Bilateral and equal IR (60') - Right - 40 degrees Left - 50 degrees FF (110') - Bilateral and equal Palpation: Diffuse anterior on the right Strength and cuff tests: supraspinatous (empty can): Right - 4/5 Left - 5/5 infraspinatous/teres minor (resisted external rotation): Right - 4/5 Left - 5/5 subscapularis (resisted internal rotation): Right - 5/5 Left - 5/5 drop arm negative Bilateral Impingment tests: Neer positive Right Hawkin's sign positive Right this produced the most pain. Acromioclavicular joint: crossed arm positive Right Biceps and labral tests: speed (biceps) negative Right Radiology imaging as above Assessment and Plan: Chronic left-sided low back pain with left-sided sciatica (Primary) - PAIN MEDICINE REFERRAL OP - SPINE SURGERY REFERRAL OP Incomplete tear of right rotator cuff, unspecified whether traumatic - lidocaine 1% 1 mL - triamcinolone acetonide 40 mg/mL 1 mL inj 2 mL - POINT OF CARE US MAJOR JOINT INJECTION, ORTHO Bursitis of right shoulder - lidocaine 1% 1 mL - triamcinolone acetonide 40 mg/mL 1 mL inj 2 mL - POINT OF CARE US MAJOR JOINT INJECTION, ORTHO Josué Lynn DO Primary Care Sports Medicine Orthopaedics [facility] [address] [facility] [place] [id number] Miko Liu Stanleyzbigniewalbertina Procedure note (shoulder subacromial bursa) on right: Time out: Prior to injection, a time out was called to confirm the administration of appropriate medicine, patient name, procedure and confirm to the best of our ability and knowledge the presence of any necessary risks and benefits. Patient verbalizes understanding. Ultrasound utilized to guide injection Ultrasound required due to: patient size (obese) and high risk for complications without ultrasoundguideance (risk for neurovascular damage) Sterile techinique applied. Skin sterilized with chlorhexidine and cleaned with alcohol swab. Subacromial bursa. injected using 1.5 inch, 25 gauge needle. Injected with lidocaine 1% 1 mL - triamcinolone acetonide 40 mg/mL 1 mL inj 2 mL Patient tolerated procedure with no significant bleeding or adverse reaction. Patient instructed to call or return to clinic for fever or warmth and redness at injection site for potential infection. Patient also advised as to potential for steroid flare reaction including increased pain and redness at injection site which should be treated with ice and resolve within 24 hours. Josué Lynn DO 07/26/2022 documented in this encounter Nursing Notes * Julienne Corley LPN - 03/14/2023 10:28 AM EST Follow up Patient Follow up: Shoulder Side: Right Date of last visit: 07/2022 Improvement since last office visit: 80 percent. Prior Treatment: Injection Here for Test Results: No Goals for this appointment: injection documented in this encounter Plan of Treatment Upcoming Encounters Date Type Department Care Team (Late st Contact Info) Description 03/29/2023 9:00 AM EST Appointment Cardiac Studies, [address] [place] [address] 04/05/2023 8:30 AM EST Office Visit Interventional Pain Center, [address] [facility] [place] [address] Genaro Nation MD [address] [facility] [place] [address] 05/02/2023 8:00 AM EST Office Visit Ophthalmology, [place] [facility] [place] [address] García Winston MD [address] [place] [address] 05/23/2023 2:30 PM EDT Office Visit Orthopaedics Spine Surgery, [address], [place] [address] [place] [address] Rosas Caba MD [address] [place] [address] 07/14/2023 9:00 AM EDT Office Visit [address] [place] [address] Jorge Zhao MD [address] [place] [address] [place] [address] 08/01/2023 11:00 AM EDT Office Visit Cardiology, [facility] [address] [facility] [place] [address] Meaghan Hargrove PA-C [address] [facility] [place] [address] 10/04/2023 8:20 AM EDT Office Visit Dermatology [facility], [place] [address] [facility] [place] [id number] Vilma Burris PA-C [address] [facility] [place] [address] Scheduled Procedures Name Priority Associated Diagnoses Date/Ti me COLONOSCOPY FLEXIBLE PROXIMA L DIAGNOSTIC Recall History of colonic polyps Scheduled Referrals Name Type Priority Associated Diagnoses Orde r Schedule PAIN MEDICINE REFERRAL OP Referral Within 10 days (routine) Chronic left-sided low back pain with left-sided sciatica Ordered: 03/14/2023 SPINE SURGERY REFERRAL OP Referral Within 30 days (routine) Chronic left-sided low back pain [...] Procedure Name Priority Date/Time Associated Diagnosis Comments POINT OF CARE US MAJOR JOINT INJECTION, ORTHO Routine 03/14/2023 10:28 AM EST Incomplete tear of right rotator cuff, unspecified whether traumatic Bursitis of right shoulder documented in this encounter Results * POINT OF CARE US MAJOR JOINT INJECTION, ORTHO (03/14/2023 10:28 AM EST) Anatomical Region Laterality Modality Musculoskeletal Radiographic Izzy ging 03/14/2023 10:2 8 AM EST Narrative 03/14/2023 11:57 AM EST Patient Name: MIKO FLORES : 1945 (77y) Male Performing Provider: Josué Lynn (digitally signed Mar 14, 2023 11:57 EST) Attending: Josué Lynn (digitally signed Mar 14, 2023 11:57 EST) [Impression] : [id number] Flores Procedure note (shoulder subacromial bursa) on right: Time out:Prior to injection, a time out was called to confirm the administration of appropriate medicine, patient name, procedure and confirm to the best of our ability and knowledge the presence of any necessary risks and benefits. Patient verbalizes understanding. Ultrasound utilized to guide injectionUltrasound required due to: patient size (obese) and high risk for complications without ultrasound guideance (risk for neurovascular damage) Sterile techinique applied. Skin sterilized with chlorhexidine and cleaned with alcohol swab. Subacromial bursa. injected using 1.5 inch, 25 gauge needle. Injected with lidocaine 1% 1 mL - triamcinolone acetonide 40 mg/mL 1 mL inj 2 mL Patient tolerated procedure with no significant bleeding or adverse reaction. Patient instructed to call or return to clinic for fever or warmth and redness at injection site for potential infection. Patient also advised as to potential for steroid flare reaction including increased pain and redness at injection site which should be treated with ice and resolve within 24 hours. Josué Lynn DO Procedure Note Josué Lynn DO - 03/14/2023 Patient Name: MIKO FLORES : 1945 (77y) Male Performing Provider: Josué Lynn (digitally signed Mar 14, 2023 11:57EST) Attending: Josué Lynn (digitally signed Mar 14, 2023 11:57 EST) [Impression] : [id number] Flores Procedure note (shouldersubacromial bursa) on right: Time out:Prior to injection, a time out wascalled to confirm the administration of appropriate medicine, patientname, procedure and confirm to the best of our ability and knowledge thepresence of any necessary risks and benefits. Patient verbalizesunderstanding. Ultrasound utilized to guide injectionUltrasound requireddue to: patient size (obese) and high risk for complications withoutultrasound guideance (risk for neurovascular damage) Sterile techiniqueapplied. Skin sterilized with chlorhexidine and cleaned with alcoholswab. Subacromial bursa. injected using 1.5 inch, 25 gauge needle.Injected with lidocaine 1% 1 mL - triamcinolone acetonide 40 mg/mL 1 mLinj 2 mL Patient tolerated procedure with no significant bleeding oradverse reaction. Patient instructed to call or return to clinic forfever or warmth and redness at injection site for potential infection. Patient also advised as to potential for steroid flarereaction including increased pain and redness at injection site whichshould be treated with ice and resolve within 24 hours. Josué Lynn DO Josué Lynn DO RAD ULTRASOUND documented in this encounter Visit Diagnoses Diagnosis Chronic left-sided low back pain with left-sided sciatica- Primary Incomplete tear of right rotator cuff, unspecified whether traumatic Bursitis of right shoulder Disorders of bursae and tendons in shoulder region, unspecified documented in this encounter Administered Medications Inactive Administered Medications - up to 3 most recent administrations Medication Order MAR Action Action Date Dose Rate Site lidocaine 1% 1 mL - triamcinolone acetonide 40 mg/mL 1 mL inj 2 mL 2 mL, Injection, ONCE, On Mon03/14/23 at 1130, For 1 dose, Lidocaine 1% 1mL Triamcinolone Acetonide 40 mg/mL 1 mL (Final concentration = 20 mg/mL) REFRIGERATE and SHAKE WELL Given 03/14/2023 10:53 AM EST 2 mL Shoulder Right documented in this encounter Care Teams Orthotic Practitioner Relationship Specialty Start Date End Date Jorge Zhao MD [address] [facility] [address] [place] [address] PCP - General Family Medicine 08/02/19 documented as of this encounter
--- OUTSIDE RECORDS SUMMARY | 2023-06-20 10:26 | External Medical Summary | Summary of Care ---
Author Name Unknown Organization [facility] Address [address] [place] [address] Phone [phone] Care Team Providers Care Footwear Sales Coordinator Name Role Phone Jorge Zhao MD Primary Care Provider Reason for Referral * Evaluate & Treat - Unlimited Visits (Within 30 days (routine)) - Authorized Specialty Diagnoses / Procedures Referred By Contac t Referred To Contact Neuro/Ortho Surgery - Spine. / Neurological Surgery Diagnoses Chronic left-sided low back pain with left-sided sciatica Josué Lynn DO [address] [facility] [place] [address] Referral ID Status Reason Start Date Expiration Date Visits Requested Visits Authorized [id number] Authorized Specialty Services Required 03/14/2023 999 999 [...] sciatica Josué Lynn DO [address] [facility] [place] [address] Referral ID Status Reason Start Date Expiration Date Visits Requested Visits Authorized [id number] Authorized Specialty Services Required 03/14/2023 999 235 Question Answer Referral Priority Within 10 days (routine) Where should this appointment be scheduled? [facility] Reason for referral? Interventional Pain Management - (Injection) What condition is the patient being referred for? Lumbar Radiculopathy What is the preferred location to have this test performed? [facility] II Comments Patient Name: Miko Folres Date of : 1945 Department Phone Number: : [phone] (if unable to have [...] pain if not done previously. Fax No. [facility] [phone] or contact front man [phone] Fax No. [facility] [phone] or contact front man [phone] Fax No. [facility] [phone] or contact front man [phone] Reason for Visit * Reason Comments Follow Up R shoulder Encounter Details Date Type Department Care Team (Late st Contact Info) Description 03/14/2023 10:30 AM EST Office Visit Orthopaedics [facility] [address] [place] [address] Josué Lynn DO [address] [place] [address] Chronic left-sided low back pain with left-sided [...] daily. 1 Tablet 0 02/19/2021 Active Saw [place] 1000 MG Oral Capsule Take by mouth [...] mRNA, LNP-s, No Pre serve, 2-Dose Series (EZ[employer]U) 03/31/2021,07/19/2020,06/25/2020 Pneumococcal Conjugate Vacc, 13 Valent (Prevnar) [...] - 03/14/2023 10:30 AM EST Miko Flores [id number] Miko Flores is a 77 year old male who presents for f/u to [facility] for right shoulder injury/pain. Consult [...] in severe left neural foraminal narrowing and fton-ln-adttuttl right foraminal narrowing. No significant spinal canal stenosis. L4-L5: Diffuse disc bulge, facet arthropathy, and ligamentum flavum hypertrophy result in mild spinal canal stenosis and severe left and afbo-ic-ujfqngng right neural foraminal narrowing with narrowing of [...] Tablet by mouth daily. 1 Tablet Saw [place] 1000 MG Oral Capsule Take by mouth [...] Lynn DO Primary Care Sports Medicine Orthopaedics [facility] 132 [facility] [place] [id number] Miko Liu Stanleyzbigniewalbertina Procedure note (shoulder subacromial [...] within 24 hours. Josué Lynn DO 07/26/2022 10:25 AM documented in this encounter Nursing Notes [...] Team (Late st Contact Info) Description 03/14/2023 10:55 AM EST Imaging Radiology [address] [place] [address] Arrived 03/29/2023 9:00 AM EST Appointment Cardiac Studies, [facility] [address] 04/05/2023 8:30 AM EST Office Visit Interventional Pain Center, [facility] [place] [address] Genaro Nation MD 400 [place] [address] 05/02/2023 8:00 AM EST Office Visit [facility] [place] [facility] [address] García Winston MD 21 [place] [address] 05/23/2023 2:30 PM EDT Office Visit [facility] [address] [place] [address] Rosas Caba MD [address] [place] [address] 07/14/2023 9:00 AM EDT Office Visit [place] [address] [address] [place] [address] Jorge Zhao MD [address] [place] [address] [place] [address] 08/01/2023 11:00 AM EDT Office Visit Cardiology, [facility] [address] [place] [address] Meaghan Hargrove, BLAS [address] [place] [address] 10/04/2023 8:20 AM EDT Office Visit Dermatology [facility], [address] [address] Vilma Burris PA-C [address] [place] [address] Scheduled Orders Name Type Priority Associated Diagnoses Orde r Schedule POINT OF CARE US MAJOR JOINT INJECTION, ORTHO Medical Imaging Routine Incomplete tear of right rotator cuff, unspecified whether traumatic Bursitis of right shoulder Ordered: 03/14/2023 Scheduled Procedures Name Priority Associated Diagnoses Date/Ti [...] of this encounter Visit Diagnoses Diagnosis Chronic left-sided [...] 2 mL 2 mL, Injection, ONCE, On Tu03/14/23 at 1130, For 1 dose, Lidocaine 1% 1mL Triamcinolone Acetonide 40 mg/mL 1 mL (Final concentration = 20 mg/mL) REFRIGERATE and SHAKE WELL Given 03/14/2023 10:53 AM EST 2 mL Shoulder Right documented in this encounter Care Teams Footwear Sales Coordinator Relationship Specialty Start Date End Date Jorge Zhao MD [address] [place] [address] PCP - General Family Medicine 08/02/19 documented as of this encounter
--- OUTSIDE RECORDS SUMMARY | 2023-06-20 10:26 | External Medical Summary | Summary of Care ---
Author Name Unknown Organization [facility] Address [address] [place] [address] Phone [phone] Care Team Providers Care Navigation Officer Name Role Phone Jorge Zhao MD Primary Care Provider Encounter Details Date Type Department Care Team ([facility] Contact Info) Description 01/30/2023 Patient Reported Data Patient Survey Ortho OBERD Allergies Active Allergy Reactions Criticality Noted Date Comments Clarithromycin 04/02/2001 ? Rash. Tolerates azithromycin on multiple occasions Doxycycline 09/27/1999 Rash documented as of this encounter (statuses as of 01/30/2023) Medications Medication Sig Dispensed Refills Start Date End Date Status MULTIVITAMINS PO TABS 1 a day 30 0 04/25/2007 Active vitamin c (ASCORBIC ACID) 500 MG Tablet Take 2 Tablets by mouth in the morning. 0 Active Calcium Magnesium Zinc 333-133-5 MG Oral Tablet Take 1 Tablet by mouth daily. 1 Tablet 0 02/19/2021 Active Saw [place] 1000 MG Oral Capsule Take by mouth [...] 180 Capsule 1 01/12/2023 Active Rosuvastatin Calcium 20 MG Oral Tablet (Crestor) Take 1 Tablet by mouth every evening. 30 Tablet 11 01/24/2023 Active documented as of this encounter (statuses as of 01/30/2023) Active Problems Problem Noted Date Diagnosed Date PVC (premature ventricular contraction) 01/25/20 23 Mixed dyslipidemia 09/19/2016 Mild intermittent asthma without complication Ascending aorta dilation 09/08/2014 DDD (degenerative disc disease), lumbar 01/01/20 13 Gastroesophageal reflux disease without esophagi tis 06/07/2004 Deviated nasal septum 05/28/2003 Irritable bowel syndrome documented as of this encounter (statuses as of 01/30/2023) Resolved Problems Problem Noted Date Diagnosed Date [...] as of this encounter (statuses as of 01/30/2023) Immunizations Name Administration Dates Next Due COVID-19 mRNA, LNP-s, No Pre serve, 2-Dose Series (Lexim) 03/31/2021,07/19/2020,06/25/2020 Pneumococcal Conjugate Vacc, 13 Valent (Prevnar) 09/21/2015 Pneumococcal Polysaccharide PPV23 (Pneumovax) 09/27/2011 SEASONAL INFLUENZA, PF, 6 M & Above, IM , (FLULAVAL or FLUZONE) 12/13/2017,05/09/2017 Season Influenza, Quad, PF, Adjuvanted, 65+ Yrs, IM (FLUAD) 01/15/2020 Seasonal Influenza, Quadriva lent Hd (Fluzone Hd) [...] Care Team (Late st Contact Info) Description 03/01/2023 8:00 AM EST Office Visit Orthopaedics [facility] 132 [facility] [place] [address] Josué Lynn, [address] [place] [address] 03/29/2023 9:00 AM EST Appointment Cardiac Studies, [address] [place] [address] 04/28/2023 8:30 AM EST Office Visit Ophthalmology, [address] [place] [address] García Winston [facility] [place] [address] 07/14/2023 9:00 AM EDT Office Visit Family [facility], [place] [address] [address] [place] [address] Jorge Zhao MD [facility]2 [facility] [address] [place] [address] 08/01/2023 11:00 AM EDT Office Visit [facility], [facility] [place] [address] Meaghan Hargrove PA-C [facility] [place] [address] 10/04/2023 8:20 AM EDT Office Visit Dermatology [facility] [address] [place] [address] Vilma Burris, BLAS [address] [place] [address] Scheduled Procedures Name Priority Associated Diagnoses Date/Ti [...] filedocumented as of this encounter Care Teams Navigation Officer Relationship Specialty Start Date End Date Jorge Zhao MD [facility] [address] [place] [address] PCP - General Family Medicine 08/02/19 documented as of this encounter
--- OUTSIDE RECORDS SUMMARY | 2023-06-20 10:26 | External Medical Summary | Summary of Care ---
Author Name Unknown Organization [facility] Address [address] [place] [address] Phone [phone] Care Team Providers Care Manager Environmental Health And Safety Name Role Phone Jorge Zhao MD Primary Care Provider Encounter Details Date Type Department Care Team ([facility] Contact Info) Description 01/30/2023 Patient Reported Data [...] daily. 1 Tablet 0 02/19/2021 Active Saw [place] 1000 MG Oral Capsule Take by mouth [...] mRNA, LNP-s, No Pre serve, 2-Dose Series ([employer]) 03/31/2021,07/19/2020,06/25/2020 Pneumococcal Conjugate Vacc, 13 Valent [...] 03/01/2023 8:00 AM EST Office Visit Orthopaedics [facility] 132 [facility] [place] [address] Josué Lynn, [address] [place] [address] 03/29/2023 9:00 AM EST Appointment Cardiac Studies, [address] [place] [address] 04/28/2023 8:30 AM EST Office Visit Ophthalmology, [address] [place] [address] García Winston MD [facility] [place] [address] 07/14/2023 9:00 AM EDT Office Visit Family [facility], [place] [address] [address] [place] [address] Jorge Zhao MD [facility]2 [facility] [address] [place] [address] 08/01/2023 11:00 AM EDT Office Visit Cardiology, [facility] [place] [address] Meaghan Hargrove PA-C [address] [facility] [place] [address] 10/04/2023 8:20 AM EDT Office Visit Dermatology [facility] [address] [place] [address] Vilma Burris, BLAS [address] [place] [address] Scheduled Procedures Name Priority Associated Diagnoses Date/Ti [...] filedocumented as of this encounter Care Teams Manager Environmental Health And Safety Relationship Specialty Start Date End Date Jorge Zhao MD [facility] [address] [place] [address] PCP - General Family Medicine 08/02/19 documented as of this encounter
--- OUTSIDE RECORDS SUMMARY | 2023-06-20 10:26 | External Medical Summary | Summary of Care ---
Author Name Unknown Organization [facility] Address [address] [place] [address] Phone [phone] Care Team Providers Care Consulting Actuary Name Role Phone Jorge Zhao MD Primary Care Provider Reason for Referral * Evaluate & Treat - Unlimited Visits (Within 30 days (routine)) - Authorized Specialty Diagnoses / Procedures Referred By Contac t Referred To Contact Neuro/Ortho Surgery - Spine. / Neurological Surgery Diagnoses Chronic left-sided low back pain with left-sided sciatica Josué Lynn DO [address] [facility] [place] [address] Referral ID Status Reason Start Date Expiration Date Visits Requested Visits Authorized [id number] Authorized Specialty Services Required 03/14/2023 999 999 [...] sciatica Josué Lynn DO [address] [facility] [place] [address] Referral ID Status Reason Start Date Expiration Date Visits Requested Visits Authorized [id number] Authorized Specialty Services Required 03/14/2023 999 773 Question Answer Referral Priority Within 10 days (routine) Where should this appointment be scheduled? [facility] Reason for referral? Interventional Pain Management - (Injection) What condition is the patient being referred for? Lumbar Radiculopathy What is the preferred location to have this test performed? [facility] II Comments Patient Name: Miko Flores Date of : 1945 Department Phone Number: : [phone] (if unable to have [...] pain if not done previously. Fax No. [facility] [phone] or contact front office attendant [phone] Fax No. [facility] [phone] or contact front office attendant [phone] Fax No. [facility] [phone] or contact front office attendant [phone] Reason for Visit * Reason Comments Follow Up R shoulder Encounter Details Date Type Department Care Team (Late st Contact Info) Description 03/14/2023 10:30 AM EST Office Visit Orthopaedics [facility] [address] [place] [address] Josué Lynn DO [address] [place] [address] Chronic left-sided low back pain with left-sided [...] daily. 1 Tablet 0 02/19/2021 Active Saw [place] 1000 MG Oral Capsule Take by mouth [...] mRNA, LNP-s, No Pre serve, 2-Dose Series ([facility]) 03/31/2021,07/19/2020,06/25/2020 Pneumococcal Conjugate Vacc, 13 Valent (Prevnar) [...] - 03/14/2023 10:30 AM EST Miko Flores [id number] Miko Flores is a 77 year old male who presents for f/u to [facility] for right shoulder injury/pain. [...] in severe left neural foraminal narrowing and puzh-si-dbqllimp right foraminal narrowing. No significant spinal canal stenosis. L4-L5: Diffuse disc bulge, facet arthropathy, and ligamentum flavum hypertrophy result in mild spinal canal stenosis and severe left and nlqc-eh-vvemtybc right neural foraminal narrowing with narrowing of [...] Tablet by mouth daily. 1 Tablet Saw [place] 1000 MG Oral Capsule Take by mouth [...] Lynn DO Primary Care Sports Medicine Orthopaedics [facility] 132 [facility] [place] [address] [id number] Miko Liu Stanleyzbigniewalbertina Procedure note (shoulder [...] 03/29/2023 9:00 AM EST Appointment Cardiac Studies, [address] [place] [address] 04/05/2023 8:30 AM EST Office Visit Interventional Pain Center, [facility] 400 [facility] [place] [address] Genaro Nation MD 400 [facility] [place] [address] 05/02/2023 8:00 AM EST Office Visit Ophthalmology, [place] [facility] [place] [address] García Winston MD 21 [facility] [address] 05/23/2023 2:30 PM EDT Office Visit Orthopaedics Spine Surgery, [address], [place] [address] [place] [address] Rosas Caba MD [address] [place] [address] 07/14/2023 9:00 AM EDT Office Visit [address] [place] [address] Jorge Zhao MD [facility]2 [facility] [address] [place] [address] 08/01/2023 11:00 AM EDT Office Visit Cardiology, [facility] [place] [address] Meaghan Hargrove PA-C [address] [place] [address] 10/04/2023 8:20 AM EDT Office Visit Dermatology [facility] [place] [address] [facility] [place] [address] Vilma Burris PA-C [address] [place] [address] Scheduled Orders Name Type Priority Associated Diagnoses [...] Right documented in this encounter Care Teams Consulting Actuary Relationship Specialty Start Date End Date Jorge Zhao MD [facility] [address] [place] [address] PCP - General Family Medicine 08/02/19 documented as of this encounter
--- OUTSIDE RECORDS SUMMARY | 2023-06-20 10:26 | External Medical Summary ---
Author Name Unknown Address Unknown Organization K1F:[facility] - 400 [facility] Richard [place] [address] Laboratory Report Ordering Provider Test Date Status IKE NGUYEN 03/19/2023 05:46:18 Final Observation Date Value Abnormality Reference (Units ) Status SYNC LEUKOCYTES IN BLOOD BY AUTOMATED COUNT 03/19/2023 05:46:18 8.07 4.00-10.80 (K/uL) Final Segs 03/19/2023 05:46:18 69.2 40.0-75.0 (%) Final Lymphs % 03/19/2023 05:46:18 17.5 Below low normal 18.0-42.0 (%) Final Monos 03/19/2023 05:46:18 11.8 Above high normal 1.0-11.0 (%) Final Eosinophils 03/19/2023 05:46:18 0.7 0.0-6.0 (%) Final Basos 03/19/2023 05:46:18 0.4 0.0-2.0 (%) Final Immature Granulocyte, Percent 03/19/2023 05:46:18 0.4 0.0-2.0 (%) Final Absolute Segs 03/19/2023 05:46:18 5.59 1.80-7.70 (K/uL) Final Lymphs, absolute 03/19/2023 05:46:18 1.41 1.00-4.80 (K/ul) Final Monos, Abs 03/19/2023 05:46:18 0.95 0.00-1.10 (K/uL) Final Eos, Abs 03/19/2023 05:46:18 0.06 0.00-0.70 (K/uL) Final Basos, Abs 03/19/2023 05:46:18 0.03 0.00-0.20 (K/uL) Final Immature Granulocytes, Number 03/19/2023 05:46:18 0.03 0.00-0.20 (K/uL) Final Performing Location [facility] - [address] [place], [place] [address]elvis Patton. [place] [address]
--- OUTSIDE RECORDS SUMMARY | 2023-06-20 10:26 | External Medical Summary | Summary of Care ---
Author Name Unknown Organization [facility] Address [address] [place] [address] Phone [phone] Care Team Providers Care Sales Engagement Manager Name Role Phone Jorge Zhao MD Primary Care Provider Reason for Visit * Reason Comments NEW PATIENT Left hip Encounter Details Date Type Department Care Team (Late st Contact Info) Description 03/01/2023 8:00 AM EST Office Visit Orthopaedics [facility] [address] [facility] [place] [address] Josué Lynn, DO [address] [facility] [place] [address] Greater trochanteric pain syndrome of both lower extremities* Allergies Active Allergy Reactions Criticality Noted Date Comments Clarithromycin 04/02/2001 ? Rash. Tolerates azithromycin on multiple occasions Doxycycline 09/27/1999 Rash documented as of this encounter (statuses as of 03/01/2023) Medications Medication Sig Dispensed Refills Start Date End Date Status MULTIVITAMINS PO TABS 1 a day 30 0 04/25/2007 Active vitamin c (ASCORBIC ACID) 500 MG Tablet Take 2 Tablets by mouth in the morning. 0 Active Calcium Magnesium Zinc 333-133-5 MG Oral Tablet Take 1 Tablet by mouth daily. 1 Tablet 0 02/19/2021 Active Saw [place] 1000 MG Oral Capsule Take by mouth [...] every evening. 30 Tablet 11 01/24/2023 Active Hospital, Clinic, or Other Facility Administered Medication Ordered Dose Route Frequency Start Date End Date Status lidocaine 1% 1 mL - triamcinolone acetonide 40 mg/mL 1 mL inj 2 mLIndications:Greater trochanteric pain syndrome of both lower extremities 2 mL IJ ONCE 03/01/2023 03/01/2023 Active lidocaine 1% 1 mL - triamcinolone acetonide 40 mg/mL 1 mL inj 2 mLIndications:Greater trochanteric pain syndrome of both lower extremities 2 mL IJ ONCE 03/01/2023 03/01/2023 Active documented as of this encounter (statuses as of 03/01/2023) Active Problems Problem Noted Date Diagnosed Date PVC (premature ventricular contraction) 01/25/20 23 Mixed dyslipidemia 09/19/2016 Mild intermittent asthma without complication Ascending aorta dilation 09/08/2014 DDD (degenerative disc disease), lumbar 01/01/20 13 Gastroesophageal reflux disease without esophagi tis 06/07/2004 Deviated nasal septum 05/28/2003 Irritable bowel syndrome documented as of this encounter (statuses as of 03/01/2023) Resolved Problems Problem Noted Date Diagnosed Date [...] as of this encounter (statuses as of 03/01/2023) Immunizations Name Administration Dates Next Due COVID-19 [...] Progress Notes * Josué Lynn, DO - 03/01/2023 8:00 AM EST Miko Flores [id number] Miko Flores is a 77 year old male who presents for consultation for left greater than righthip injury/pain to [facility]. Consult requested by Self. Miko Flores is here unaccompanied Date of Injury: no injury History: History - patient has been gradually noting left greater than right hip pain. It is lateral. Can cause disruption with sleep and prolonged sitting. Patient has tried ibuprofen and tylenol. No formal physical therapy. Previous hip injuries include: none Review of Systems: no fevers or chills, no unexplained weight loss, no rashes, or all other pertinent systems negative. 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 Calcium Magnesium Zinc 333-133-5 MG Oral Tablet Take 1 Tablet by mouth daily. 1 Tablet Saw [place] 1000 MG Oral Capsule Take by mouth [...] THE EVENING 180 Capsule 1 Rosuvastatin Calcium 20 MG Oral Tablet (Crestor) Take 1 Tablet by mouth every evening. 30 Tablet 11 No current facility-administered medications for this visit. Hemoglobin AIC Results: Lab Results Component Value Date/Time HEMOGLOBIN A1C - [facility] 6.2 (H) 12/12/2022 10:18 AM HEMOGLOBIN A1C - [facility] 6.2 (H) 05/27/2020 08:28 AM HEMOGLOBIN A1C - [facility] 6.2 (H) 01/15/2020 10:58 AM HEMOGLOBIN A1C - [facility] 6.2 (H) 03/25/2019 11:06 AM HEMOGLOBIN A1C - [facility] 6.2 (H) 03/21/2018 11:24 AM Physical Exam General: in no acute distress Mood and Affect: normal Gait and Station: mildly antalgic Sensation: normal on affected extremity (s) Hip and Pelvis Exam ROM: normal and symmetric in actively flexion, extension, internal and external rotation in Bilateral Palpation: Significiant tenderness to palpation over greater trochanter on the left , mild tenderness to palpation over greater trochanter region on the right Strength: Abduction: R - 5/5 L - 5/5 Internal Rotation: R - 5/5 L - 5/5 Quads: R - 5/5 L - 5/5 Hams: R - 5/5 L - 5/5 Adduction: R - 5/5 L - 5/5 Hip/pelvis tests: Modified leti negative Bilateral Passive internal and external rotation of femoral head negative Bilateral Piriformis no restriction Bilateral Ti's negative Bilateral Resisted abduction (gluteus medius) shows slightly decreased strength Bilateral Lumbar spine with negative straight leg raise. Radiology (I have personally reviewed the films done 12/12/22 x-ray reveals no fracture and bilateral hip arthritis mild, images reviewed with patient Assessment and Plan: See procedure note. Home exercise program for trochanteric pain syndrome provided and reviewed. We will recheck trochanteric region at follow up in 2 weeks for shoulder injection 1) Greater trochanteric pain syndrome of both lower extremities (Primary) - lidocaine 1% 1 mL - triamcinolone acetonide 40 mg/mL 1 mL inj 2 mL - lidocaine 1% 1 mL - triamcinolone acetonide 40 mg/mL 1 mL inj 2 mL - POINT OF CARE US MAJOR JOINT INJECTION, ORTHO Follow-up: Return in about 2 weeks (around 03/15/2023). | Check-out note: F/u 1/2 at 1030 am shoulde rinjection AC vs SAB ok per Shane Lynn DO Primary Care Sports Medicine Orthopaedics [facility] [address] [facility] [place] [address] Procedure note (trochanteric bursa), bilateral : Time out: Prior to injection, a time out was called to confirm the administration of appropriate medicine, patient name, procedure and confirm to the best of our ability and knowledge the presence of any necessary risks and benefits. Patient verbalizes understanding. Ultrasound utilized to guide injection Ultrasound required due to high risk for complications without ultrasound guideance (risk for neurovascular damage). Sterile techinique applied. Skin sterilized with alcohol swab. Lateral aproach to inject trochanteric bursa using 3.5 inch, 22 gauge needle. Injected with lidocaine 1% 1 [...] resolve within 24 hours. Josué Lynn DO documented in this encounter Nursing Notes * Roselia Ontiveros MED ASSIST - 03/01/2023 7:58 AM EST New Patient Here for todays visit regarding: Hip Side: Left Injury: No Injury, Recent Imaging: X ray Prior treatment: Goals for this appointment: possible inj. documented in this encounter Plan of Treatment Upcoming Encounters Date Type Department Care Team (Late st Contact Info) Description 03/14/2023 10:30 AM EST Office Visit Orthopaedics [facility] [address] [facility] [place] [address] Josué Lynn DO [address] [place] [address] 03/29/2023 9:00 AM EST Appointment Cardiac Studies, [facility] [address] [facility] [place] [address] 05/02/2023 8:00 AM EST Office Visit Ophthalmology, [place] 21 [facility] [place] [address] García Winston MD 21 [facility] [address] 07/14/2023 9:00 AM EDT Office Visit [place] [address] [place] [address] Jorge Zhao MD [address] [place] [address] [place] [address] 08/01/2023 11:00 AM EDT Office Visit Cardiology, [facility] [address] [facility] [place] [address] Meaghan Hargrove PA-C 132 [facility] [place] [address] 10/04/2023 8:20 AM EDT Office Visit Dermatology [facility] 3[address] [facility] [place] [address] Vilma Burris PA-C 322 [facility] [place] [address] Scheduled Procedures Name Priority Associated Diagnoses Date/Ti [...] CARE US MAJOR JOINT INJECTION, ORTHO Routine 03/01/2023 8:16 AM EST Greater trochanteric pain syndrome of both lower extremities documented in this encounter Results * POINT OF CARE US MAJOR JOINT INJECTION, ORTHO (03/01/2023 8:16 AM EST) Anatomical Region Laterality Modality Musculoskeletal Radiographic Izzy ging 03/01/2023 8:16 AM EST Narrative 03/01/2023 8:29 AM EST Patient Name: MIKO FLORES : 1945 (77y) Male Performing Provider: Josué Lynn (digitally signed Mar 01, 2023 08:29 EST) Attending: Josué Lynn (digitally signed Mar 01, 2023 08:29 EST) [Impression] : Procedure note (trochanteric bursa), bilateral : Time out:Prior to injection, a time out was called to confirm the administration of appropriate medicine, patient name, procedure and confirm to the best of our ability and knowledge the presence of any necessary risks and benefits. Patient verbalizes understanding. Ultrasound utilized to guide injectionUltrasound required due to high risk for complications without ultrasound guideance (risk for neurovascular damage). Sterile techinique applied. Skin sterilized with alcohol swab. Lateral aproach to inject trochanteric bursa using 3.5 inch, 22 gauge needle. Injected with lidocaine 1% 1 [...] hours. Josué Lynn DO Procedure Note Josué Lynn, - 03/01/2023 Patient Name: MIKO FLORES : 1945 (77y) Male Performing Provider: Josué Lynn (digitally signed Mar 01, 2023 08:29EST) Attending: Josué Lynn (digitally signed Mar 01, 2023 08:29 EST) [Impression] : Procedure note (trochanteric bursa), bilateral : Timeout:Prior to injection, a time out was called to confirm theadministration of appropriate medicine, patient name, procedure andconfirm to the best of our ability and knowledge the presence of anynecessary risks and benefits. Patient verbalizes understanding.Ultrasound utilized to guide injectionUltrasound required due to high riskfor complications without ultrasound guideance (risk for neurovasculardamage). Sterile techinique applied. Skin sterilized with alcohol swab.Lateral aproach to inject trochanteric bursa using 3.5 inch, 22 gaugeneedle. Injected with lidocaine 1% 1 mL - triamcinolone acetonide 40mg/mL 1 mL inj 2 mL Patient tolerated procedure with no significantbleeding or adverse reaction. Patient instructed to call or return toclinic for fever or warmth and redness at injection site for potentialinfection. Patient also advised as to potential for steroid flarereaction including increased pain and redness at injection site which should betreated with ice and resolve within 24 hours. Josué Lynn DO Josué Lynn DO RAD ULTRASOUND documented in this encounter Visit Diagnoses Diagnosis Greater trochanteric pain syndrome of both lower extremities- Primary documented in this encounter Care Teams Sales Engagement Manager Relationship Specialty Start Date End Date Jorge Zhao MD [address] [facility] [address] [facility] [place] [address] PCP - General Family Medicine 08/02/19 documented as of this encounter"
--- OUTSIDE RECORDS SUMMARY | 2023-06-20 10:26 | External Medical Summary | Summary of Care ---
Author Name Unknown Organization [facility] Address [address] [place] [address] Phone [phone] Care Team Providers Care Biscuit Machine Operator Name Role Phone Jorge Zhao MD Primary Care Provider Encounter Details Date Type Department Care Team ([facility] Contact Info) Description 01/30/2023 Patient Reported Data [...] daily. 1 Tablet 0 02/19/2021 Active Saw [place] 1000 MG Oral Capsule Take by mouth [...] mRNA, LNP-s, No Pre serve, 2-Dose Series (IDINCU) 03/31/2021,07/19/2020,06/25/2020 Pneumococcal Conjugate Vacc, 13 Valent (Prevnar) [...] 03/01/2023 8:00 AM EST Office Visit Orthopaedics [facility] 132 [facility] [place] [address] Josué Lynn, [address] [place] [address] 03/29/2023 9:00 AM EST Appointment Cardiac Studies, [address] [place] [address] 04/28/2023 8:30 AM EST Office Visit Ophthalmology, [address] [place] [address] García Winston MD 21 [facility] [place] [address] 07/14/2023 9:00 AM EDT Office Visit Family [facility], [place] [address] [address] [place] [address] Jorge Zhao MD [facility]2 [facility] [address] [place] [address] 08/01/2023 11:00 AM EDT Office Visit Cardiology, [facility] [place] [address] Meaghan Hargrove PA-C [facility] [place] [address] 10/04/2023 8:20 AM EDT Office Visit Dermatology [facility] [address] [place] [address] Vilma Burris, BLAS [address] [place] [address] Scheduled Procedures Name Priority Associated Diagnoses Date/Ti [...] filedocumented as of this encounter Care Teams Biscuit Machine Operator Relationship Specialty Start Date End Date Jorge Zhao MD [facility] [address] [place] [address] PCP - General Family Medicine 08/02/19 documented as of this encounter
--- OUTSIDE RECORDS SUMMARY | 2023-06-20 10:26 | External Medical Summary | Summary of Care ---
Author Name Unknown Organization [facility] Address [address] [place] [address] Phone [phone] Care Team Providers Care Residence Life Coordinator Name Role Phone Jorge Zhao MD Primary Care Provider Reason for Visit * Reason Comments NEW PATIENT Left hip Encounter Details Date Type Department Care Team (Late st Contact Info) Description 03/01/2023 8:00 AM EST Office Visit Orthopaedics [facility] [address] [facility] [place] [address] Josué Lynn, DO [address] [facility] [place] [address] Greater trochanteric pain syndrome of both lower [...] daily. 1 Tablet 0 02/19/2021 Active Saw [place] 1000 MG Oral Capsule Take by mouth [...] extremities 2 mL IJ ONCE 03/01/2023 03/01/2023 Ended lidocaine 1% 1 mL - triamcinolone acetonide 40 mg/mL 1 mL inj 2 mLIndications:Greater trochanteric pain syndrome of both lower extremities 2 mL IJ ONCE 03/01/2023 03/01/2023 Ended documented as of this encounter (statuses [...] - 03/01/2023 8:00 AM EST Miko Flores [id number] Miko Flores is a 77 year old male who presents for consultation for left greater than righthip injury/pain to [facility] Medicine. Consult requested by Self. 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 1 Tablet Saw [place] 1000 MG Oral Capsule Take by mouth [...] Lynn DO Primary Care Sports Medicine Orthopaedics [facility] [address] [facility] [place] [address] Procedure note (trochanteric bursa), bilateral : Time [...] 03/14/2023 10:30 AM EST Office Visit Orthopaedics [facility] 132 [facility] [place] [address] Josué Lynn DO [address] [place] [address] 03/29/2023 9:00 AM EST Appointment Cardiac Studies, [facility] 400 [facility] [place] [address] 05/02/2023 8:00 AM EST Office Visit Ophthalmology, [place] 21 [facility] [place] [address] García Winston MD 21 [facility] [place] [address] 07/14/2023 9:00 AM EDT Office Visit [place] [address] [place] [address] Jorge Zhao MD [address] [place] [address] [place] [address] 08/01/2023 11:00 AM EDT Office Visit Cardiology, [facility] 132 [facility] [place] [address] Meaghan Hargrove PA-C 132 [facility] [place] [address] 10/04/2023 8:20 AM EDT Office Visit Dermatology [facility] 3[address] [facility] [place] [address] Vilma Burris PA-C 32[address] [facility] [place] [address] Scheduled Procedures Name Priority Associated Diagnoses Date/Ti [...] lower extremities- Primary documented in this encounter Administered Medications Inactive Administered Medications - up to 3 most recent administrations Medication Order MAR Action Action Date Dose Rate Site lidocaine 1% 1 mL - triamcinolone acetonide 40 mg/mL 1 mL inj 2 mL 2 mL, Injection, ONCE, On Mon03/01/23 at 0900, For 1 dose, Lidocaine 1% 1mL Triamcinolone Acetonide 40 mg/mL 1 mL (Final concentration = 20 mg/mL) REFRIGERATE and SHAKE WELL Given 03/01/2023 8:48 AM EST 2 mL Hip Right lidocaine 1% 1 mL - triamcinolone acetonide 40 mg/mL 1 mL inj 2 mL 2 mL, Injection, ONCE, On Mon03/01/23 at 0900, For 1 dose, Lidocaine 1% 1mL Triamcinolone Acetonide 40 mg/mL 1 mL (Final concentration = 20 mg/mL) REFRIGERATE and SHAKE WELL Given 03/01/2023 8:47 AM EST 2 mL Hip Left documented in this encounter Care Teams Residence Life Coordinator Relationship Specialty Start Date End Date Jorge Zhao MD 4752 [facility] [address] [place] [address] PCP - General Family Medicine 08/02/19 documented as of this encounter"
--- OUTSIDE RECORDS SUMMARY | 2023-06-20 10:26 | External Medical Summary | Summary of Care ---
Author Name Unknown Organization [facility] Address [address] [place] [address] Phone [phone] Care Team Providers Care Online Health And Fitness Coach Name Role Phone Jorge Zhao MD Primary Care Provider Encounter Details Date Type Department Care Team ([facility] Contact Info) Description 01/30/2023 Patient [...] daily. 1 Tablet 0 02/19/2021 Active Saw [place] 1000 MG Oral Capsule Take by mouth [...] mRNA, LNP-s, No Pre serve, 2-Dose Series (Shnergle) 03/31/2021,07/19/2020,06/25/2020 Pneumococcal Conjugate Vacc, 13 Valent (Prevnar) [...] 03/01/2023 8:00 AM EST Office Visit Orthopaedics [facility] [address] [facility] [place] [address] Josué Lynn, [address] [place] [address] 03/29/2023 9:00 AM EST Appointment Cardiac Studies, [address] [place] [address] 04/28/2023 8:30 AM EST Office Visit Ophthalmology, [address] [place] [address] García Winston MD 21 [facility] [place] [address] 07/14/2023 9:00 AM EDT Office Visit Family [facility], [place] [address] [address] [place] [address] Jorge Zhao MD [facility]2 [facility] [address] [place] [address] 08/01/2023 11:00 AM EDT Office Visit [facility]iology, [facility] [place] [address] Meaghan Hargrove PA-C [facility] [place] [address] 10/04/2023 8:20 AM EDT Office Visit Dermatology [facility] [address] [place] [address] Vilma Burris, BLAS [address] [place] [address] Scheduled Procedures Name Priority Associated Diagnoses Date/Ti [...] filedocumented as of this encounter Care Teams Online Health And Fitness Coach Relationship Specialty Start Date End Date Jorge Zhao MD [facility] [address] [place] [address] PCP - General Family Medicine 08/02/19 documented as of this encounter
--- OUTSIDE RECORDS SUMMARY | 2023-06-20 10:26 | External Medical Summary | Summary of Care ---
Author Name Unknown Organization [facility] Address [address] [place] [address] Phone [phone] Care Team Providers Care School Bus Operator Name Role Phone Jorge Zhao MD Primary Care Provider Reason for Visit * Reason Comments NEW PATIENT Left hip Encounter Details Date Type Department Care Team (Late st Contact Info) Description 03/01/2023 8:00 AM EST Office Visit Orthopaedics [facility] [address] [facility] [place] [address] Josué Lynn, DO [address] [facility] [place] [address] Greater trochanteric pain syndrome of both lower [...] daily. 1 Tablet 0 02/19/2021 Active Saw [place] 1000 MG Oral Capsule Take by mouth [...] - 03/01/2023 8:00 AM EST Miko Flores [id number] Miko Flores is a 77 year old male who presents for consultation for left greater than righthip injury/pain to [facility] Medicine. Consult requested by Self. 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 1 Tablet Saw [place] 1000 MG Oral Capsule Take by mouth [...] Lynn DO Primary Care Sports Medicine Orthopaedics [facility] [address] [facility] [place] [address] Procedure note (trochanteric bursa), bilateral : Time [...] 03/14/2023 10:30 AM EST Office Visit Orthopaedics [facility] 132 [facility] [place] [address] Josué Lynn DO [address] [place] [address] 03/29/2023 9:00 AM EST Appointment Cardiac Studies, [facility] 400 [facility] [place] [address] 05/02/2023 8:00 AM EST Office Visit Ophthalmology, [place] 21 [facility] [place] [address] García Winston MD 21 [place] [address] 07/14/2023 9:00 AM EDT Office Visit [place] [address] [place] [address] Jorge Zhao MD [address] [place] [address] [place] [address] 08/01/2023 11:00 AM EDT Office Visit Cardiology, [facility] 132 [facility] [place] [address] Meaghan Hargrove PA-C 132 [facility] [place] [address] 10/04/2023 8:20 AM EDT Office Visit Dermatology [facility] 3228 [facility] [place] [address] Vilma Burris PA-C 3[address] [facility] [place] [address] Scheduled Procedures Name Priority Associated Diagnoses Date/Ti [...] Left documented in this encounter Care Teams School Bus Operator Relationship Specialty Start Date End Date Jorge Zhao MD 475[address] [facility] [address] [place] [address] PCP - General Family Medicine 08/02/19 documented as of this encounter"
--- NOTE | 2023-06-20 10:27 | History & Physical Report ---
Date of Service June 20, 2023 History of Present Illness Chief Complaint: Abnormal stress test Primary Care Provider: Gordo Babin DO This is a 77 yo M with PMHx of HTN, HLD, abnormal stress test with outpatient cardiology follow up who presented for elective cardiac catheterization with Dr. Johnson and Dr. Hsu. Allergies Allergy/AdvReac Type Severity Reaction Status Date / Time clarithromycin Allergy Mild Rash Verified 06/20/23 07:27 DOXYCYCLINE Allergy Unknown RASH Uncoded 06/20/23 07:27 Home Medications Medication Instructions Recorded Confirmed Type albuterol sulfate 90 mcg/actuation 2 inh inhalation QID PRN Shortness 06/20/23 06/20/23 History aerosol inhaler Of Breath Or Wheezing amlodipine 5 mg tablet 5 mg PO DAILY 06/20/23 06/20/23 History buspirone 5 mg tablet 5 mg PO BID 06/20/23 06/20/23 History ezetimibe 10 mg tablet 10 mg PO QAM 06/20/23 06/20/23 History famotidine 20 mg tablet 20 mg PO HS 06/20/23 06/20/23 History gabapentin 100 mg capsule 300 mg PO HS 06/20/23 06/20/23 History latanoprost 0.005 % eye drops 1 drp ophthalmic (eye) PM 06/20/23 06/20/23 History olopatadine 0.6 % nasal spray 2 spray intranasal BID 06/20/23 06/20/23 History pantoprazole 20 mg tablet,delayed 20 mg PO DAILY 06/20/23 06/20/23 History release rosuvastatin 5 mg tablet 5 mg PO DAILY 06/20/23 06/20/23 History sucralfate 1 gram tablet 1 g PO ACHS 06/20/23 06/20/23 History Past Med/Surg History Social History Smoking Status: Former smoker Hx Alcohol Use: No Hx Substance Use: No Preferred Language: Japanese Communication Ability: Effective City Engineer Required: No Beliefs That Will Affect Care: None Current Living Situation: Spouse Feels Safe at Home: Yes Safety Concerns: Feels Safe At This Time Results & Data Results & Data Vital Signs (Past 12 Hours) Vital Signs Temp Pulse Resp BP Pulse Ox O2 Del Method 06/20/23 10:00 75 16 130/107 H 96 Room Air 06/20/23 07:19 36.7 C Code Status & VTE Plan VTE Prophylaxis Plan VTE Prophylaxis will be ordered: Yes
--- OUTSIDE RECORDS SUMMARY | 2023-06-20 10:27 | External Medical Summary | Summary of Care ---
Author Name Unknown Organization [facility] Address [address] [place] [address] Phone [phone] Care Team Providers Care University Tutor Name Role Phone Jorge Zhao MD Primary [...] TRANS-THORACIC Meaghan Hargrove PA-C [address] [place] [address] Referral ID Status Reason Start Date Expiration Date V isits Requested Visits Authorized [id number] Authorized Precert 01/24/2023 999 999 Reason for Visit * Reason Comments Follow Up 5 1/2 month follow u p. At times will have chest soreness that does not get worse with activity and occurs every couple of weeks but does not last very long. Will feel the extra heart beat every so often. Dizziness/light headed when standing too quickly. Denies SOB and edema. Encounter Details Date Type Department Care Team (Late st Contact Info) Description 01/24/2023 2:30 PM EST Office Visit Cardiology, [facility] [address] [place] [address] Meaghan Hargrove PA-C [address] [place] [address] HTN, goal below 140/90*; Asymptomatic bilateral carotid artery stenosis; Dyslipidemia, goal LDL below 70; PVC (premature ventricular contraction); Ascending aorta dilation (HCC) Allergies Active Allergy Reactions Criticality Noted Date Comments Clarithromycin 04/02/2001 ? Rash. Tolerates azithromycin on multiple occasions Doxycycline 09/27/1999 Rash documented as of this encounter (statuses as of 01/25/2023) Medications Medication Sig Dispensed Refills Start Date End Date Status MULTIVITAMINS PO TABS 1 a day 30 0 04/25/2007 Active vitamin c (ASCORBIC ACID) 500 MG Tablet Take 2 Tablets by mouth in the morning. 0 Active Calcium Magnesium Zinc 333-133-5 MG Oral Tablet Take 1 Tablet by mouth daily. 1 Tablet 0 02/19/2021 Active Saw Mcdonough 1000 MG Oral Capsule Take by mouth [...] every evening. 30 Tablet 11 01/24/2023 Active predniSONE 10 MG Oral Tablet (Deltasone)Indicat ions:Hip pain, left Take 5 tabs for 2 days, 4 tabs for 2 days, 3 tabs for 2 days, 2 tabs for 2 days 1 tab for 2 days 30 Tablet 0 12/12/2022 3 Discontinue d(End of Procedure) Atorvastatin Calcium 80 MG Oral Tablet (Lipitor)Indicatio ns:Mixed dyslipidemia Take one tablet by mouth daily. 90 Tablet 3 01/12/2023 3 Discontinue d(Medicatio n/Dose Changed) documented as of this encounter (statuses as of 01/25/2023) Active Problems Problem Noted Date Diagnosed Date PVC (premature ventricular contraction) 01/25/20 23 Mixed dyslipidemia 09/19/2016 Mild intermittent asthma without complication Ascending aorta dilation 09/08/2014 DDD (degenerative disc disease), lumbar 01/01/20 13 Gastroesophageal reflux disease without esophagi tis 06/07/2004 Deviated nasal septum 05/28/2003 Irritable bowel syndrome documented as of this encounter (statuses as of 01/25/2023) Resolved Problems Problem Noted Date Diagnosed Date [...] as of this encounter (statuses as of 01/25/2023) Immunizations Name Administration Dates Next Due COVID-19 [...] Sign Reading Time Taken Comments Blood Pressure 134/72 01/24/2023 2:19 PM EST Pulse 72 01/24/2023 2:19 PM EST Temperature - - Respiratory Rate 16 01/24/2023 2:19 PM EST Oxygen Saturation - - Inhaled Oxygen Concentration - - Weight 90.7 kg (200 lb) 01/24/2023 2:19 PM EST Height - - Body Mass Index 27.91 06/28/2022 12:59 PM EDT documented in this encounter Patient Instructions * Patient Instructions* Meaghan Hargrove PA-C - 01/24/2023 2:37 PM EST Stop atorvastatin Start Crestor (rosuvastatin) 20 mg - 1 tablet daily. Sent to your pharmacy In about 3 months, go for fasting blood work. Schedule echocardiogram documented in this encounter Progress Notes * Meaghan Hargrove PA-C - 01/24/2023 2:55 PM EST 01/24/2023 Cardiology F/U: SUBJECTIVE: Patient is a 77 year old male here today for routine cardiology f/u. Last clinic eval approx 6 months ago with the undersigned. 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 Patient presents today feeling well. Denies acute cardiac complaints. Previously reduced atorvastatin from 80 to 40 mg due to B/L shoulder pain. Symptoms improved. On last lipids LDL trending upwards and patient increased atorvastatin back to 80 mg. He reports similar B/L shoulder pain once again, which he reports is tolerable if he has to take it. Otherwise he denies acute cardiac complaints. No chest pain, shortness of breath, palpitations, dizziness, syncope or near syncope. No orthopnea,PND, or increased lower extremity edema. No fever, chills, cough, hematochezia, melena, or hemoptysis. Review of Systems: See HPI for pertinent positives. All others negative, other than those noted in HPI. Cardiac studies/labs: EKG performed today and reviewed personally: NSR at 67 bmp, PVC's and PAC's noted Compared with prior EKG, no significant changes noted Carotid duplex report reviewed dated July 2022: Impression: Right carotid artery duplex examination indicates evidence of less than 50% stenosis of the internal carotid artery. Left carotid artery duplex examination indicates evidence of less than 50% stenosis of the internalcarotid artery. EKG reviewed from October 2021: Sinus rhythm with Premature atrial complexes Otherwise normal ECG When compared with ECG of 30-JUN-2021 08:26, Premature atrial complexes are now Present Exercise stress echo report January 06, 2021: The stress echo is negative for inducible ischemia. Stress EKG is equivocal for ischemia with upsloping ST depressions. Adequate cardiovascular stress test as patient obtained 93 percent of their age predicted maximal target heart rate. Patient exercised for 7 minutes of the Jaron protocol with a functional capacity of 7.0 Mets. Blood pressure response to exercise was hypertensive. Patient denied chest discomfort reporting only fatigue at peak exercise.Stress EKG shows 1.5 - [address] depression in II, III, aVF is equivocal for ischemia. Calculated LV ejection Fraction = 53% (bi-plane method of discs). The LV wall thickness is mildly increased (concentric). Mild tricuspid regurgitation is present.The proximal ascending thoracic aorta is mildly enlarged.3.9 cm 24 hour Holter monitor report 12/03/2020: 1. Duration - 24 hours 2. Quality - Fair 3. Dominant rhythm - Sinus rhythm , minimum heart rate of 51 bpm at 5:34am, average rate of 69 bpm,maximum rate of 118 bpm at 5: 18 bpm 4. PAC's - Isolated 556. No SVT 5. PVCs [...] internal carotid artery. 2D echocardiogram report March 27, 2019: The [...] stenosis is absent. Exercise stress echo report 05/2017: STRESS STUDY: [...] back to October 2011. No additional imaging follow-up is required for these nodules. Abdominal aortic [...] pulmonary artery systolic pressure is 26mm Hg. Patient Active Problem List Diagnosis Code Deviated nasal septum J34.2 Irritable bowel syndrome K58.9 Gastroesophageal reflux disease without esophagitis K21.9 DDD (degenerative disc disease), lumbar M51.36 Ascending aorta dilation (HCC) I77.810 Mild intermittent asthma without complication J45.20 Mixed dyslipidemia E78.2 PVC (premature ventricular contraction) I49.3 Social History Tobacco Use Smoking status: Never Smokeless tobacco: Never Tobacco comments: no passive smoke at home Vaping Use Vaping Use: Never used Substance Use Topics Alcohol use: Not Currently Alcohol/week: 0.0 standard drinks of alcohol Drug use: Never Review of patient's allergies indicates: Allergen Reactions Clarithromycin ? Rash. Tolerates azithromycin on multiple occasions Doxycycline Rash Current Outpatient Medications Medication Sig Dispense Refill MULTIVITAMINS PO TABS 1 a day 30 0 vitamin c (ASCORBIC ACID) 500 MG Tablet Take 2 Tablets by mouth in the morning. Calcium Magnesium Zinc 333-133-5 MG Oral Tablet Take 1 Tablet by mouth daily. 1 Tablet Saw Mcdonough 1000 MG Oral Capsule Take by mouth [...] 1 Tablet before bedtime. 180 Tablet 1 Latanoprost 0.005 % Ophthalmic Solution (Xalatan) Instill 1 Drop into both eyes at bedtime. 2.5 mL 5 Gabapentin 100 MG Oral Capsule (Neurontin) TAKE 2 CAPSULES BY MOUTH IN THE EVENING 180 Capsule 1 Rosuvastatin Calcium 20 MG Oral Tablet (Crestor) Take 1 Tablet by mouth every evening. 30 Tablet 11 Docusate Sodium 100 MG Oral Capsule (Colace) Take 1 Capsule by mouth in the morning and 1 Capsule before bedtime. 60 Capsule 11 Pantoprazole Sodium 40 MG Oral Tablet Delayed Release (Protonix) Take 1 Tablet by mouth in the morning. 30 minutes before the first meal of the day. Do not crush, split or chew the tablet. 90 Tablet 1 No current facility-administered medications for this visit. OBJECTIVE/PHYSICAL EXAMINATION: BP 134/72 | Pulse 72 | Resp 16 | Wt 90.7 kg (200 lb) | BMI 27.91 kg/m | BSA 2.13 m On my repeat 138/78 BP Readings from Last 4 Encounters: 01/24/23 134/72 12/12/22 124/70 09/22/22 110/64 08/11/22 140/68 General: NAD, AAO x3, well nourished. HEENT: Normocephalic. Atraumatic. Conjunctiva pink, no scleral icterus. No carotid bruits, the carotid upstrokes are brisk. No JVD. No HJR Heart: Regular normal S-1 and S-2 no S-3 or [...] =2/4, posterior tibial=2/4. Neuro: No focal deficits. Labs: Latest Reference Range & Units 12/12/22 10:18 Triglycerides <=174 mg/dL 152 Cholesterol <200 mg/dL 155 Non-HDL Cholesterol <=159 mg/dL 101 HDL Cholesterol >39 mg/dL 54 LDL Cholesterol <=129 mg/dL 71 Latest Reference Range & Units 12/12/22 10:18 Sodium 135 - 146 mmol/L 142 Potassium 3.5 - 5.1 mmol/L 4.7 Chloride 98 - 107 mmol/L 103 CO2 22 - 32 mmol/L 28 BUN 6 - 20 mg/dL 19 Creatinine 0.6 - 1.2 mg/dL 1.1 Estimated Glomerular Filtration Rate >=60 mL/min 68 Anion Gap 7 - 15 mmol/L 11 Glucose 70 - 120 mg/dL 96 Calcium 8.4 - 10.2 mg/dL 9.3 Estimated Average Glucose <126 mg/dL 131 (H) (H): Data is abnormally high ASSESSMENT: 77 year old male 1. Moderate left internal carotid artery stenosis - asymptomatic; mild per duplex 06/2021, stable July 2022 2. Mild aortic root and ascending aortic enlargement -repeat echo prior to next visit. 3. Palpitations secondary to sensed supraventricular and ventricular ectopy - symptoms controlled 4. Dyslipidemia - borderline controlled on atorvastatin and Zetia -patient with myalgias on higher dose atorvastatin 80 mg. -recommend transitioning to Crestor 20 mg and titration as tolerated. 5. Aortic sclerosis without stenosis 6. H/O syncope secondary to volume depletion and heat exhaustion - no recurrence 7. Mild orthostatic hypotension - hydration encouraged. Resting BP controlled. PLAN: Myalgias with high dose atorvastatin discussed. Recommend trial of Crestor 20 mg and titrate dose as tolerated/needed. Repeat lipids in 3 months. Patient agreeable. Intermittent positional dizziness reported by patient. Admits to poor PO intake of water. Increasedhydration encouraged. Repeat echo to reassess ascending aortic size. The patient is to continue all current medications as listed above. No changes were made at today'isit. Recommend regular aerobic exercise. [place] goal would be minimum of 30 minutes done daily. Exercise can be done in divided time periods if needed. Told to avoid extremes in temperature. Patient Instructions Stop atorvastatin Start Crestor (rosuvastatin) 20 mg - 1 tablet daily. Sent to your pharmacy In about 3 months, go for fasting blood work. Schedule echocardiogram I spent a total of 30 minutes on the date of service in preparation, delivery, and documentation ofthe care provided to Miko Flores excluding any time spent in the performance of separately billed services. The patient agrees to the above plan and will call with additional questions or concerns. ER with all emergencies advised. Follow-up: Return in about 6 months (around 07/25/2023). | Check-out note: Print instructions Fasting blood work in about 3 months - [address] [place] Schedule echocardiogram Meaghan Hargrove PA-C Department of Cardiology This chart was completed in part utilizing [employer] Speech Voice Recognition Software. Grammatical errors, random word insertions, prounoun errors, and incomplete sentences are an occasional consequence of this system due to software limitations, ambient noise, and hardware issues. Any formal questions or concerns about the content, text, or information contained within the body of this dictation should be directly addressed to the provider for clarification. documented in this encounter Procedure Notes * Glenroy Walker DO - 01/24/2023 2:27 PM ESTAssociated Order(s): EKG REASON FOR STUDY: HTN CONCLUSIONS: Sinus rhythm with occasional Premature ventricular complexes and Premature atrial complexes Otherwise normal ECG When compared with ECG of 26-OCT-2021 16:18, Premature ventricular complexes are now Present Ventricular Rate: 67 Atrial Rate: 67 MO Interval: 156 QRS Duration: 86 QT/QTc: 416/439 ms P-R-T [place]: 26 : 9 : 40 degrees documented in this encounter Nursing Notes * Danny Rahman LPN - 01/24/2023 2:18 PM EST Patient identified by full name and date of Chief Complaint Patient presents with Follow Up 5 1/2 month follow up. At times will have chest soreness that does not get worse with activity and occurs every couple of weeks but does not last very long. Will feel the extra heart beat every so often. Dizziness/light headed when standing too quickly. Denies SOB and edema. Examination Room: 6 Name: Miko Flores Date of : (1945). Reason for Visit: 5 1/2 month follow up Interim Hospitalization(s): Denies Problems/Concerns: See chief complaint Chest Pain/SOB: See chief complaint [facility] Discussed: Not applicable [facility] a way you can talk to [...] 03/01/2023 8:00 AM EST Office Visit Orthopaedics [facility] [address] [facility] [place] [address] Josué Lynn DO [address] [facility] [place] [address] 03/29/2023 9:00 AM EST Appointment Card[facility] Studies, [facility] [address] [facility] [place] [address] 04/28/2023 8:30 AM EST Office Visit Op[facility], [place] [facility] [address] García Winston MD [address] [place] [address] 07/14/2023 9:00 AM EDT Office Visit [place] [address] [place] [address] Jorge Zhao MD [address] [place] [address] [place] [address] 08/01/2023 11:00 AM EDT Office Visit Cardiology, [facility] [address] [facility] [place] [address] Meaghan Hargrove PA-C [address] [facility] [place] [address] 10/04/2023 8:20 AM EDT Office Visit Dermatology [facility], [place] [address] [place] [address] Vilma Burris PA-C [address] [facility] [place] [address] Scheduled Orders Name Type Priority Associated Diagnoses Orde r Schedule LIPID PANEL WITH DIRECT LDL IF TG IS HIGH Lab Routine HTN, goal below 140/90 Asymptomatic bilateral carotid artery stenosis Dyslipidemia, goal LDL below 70 PVC (premature ventricular contraction) Ascending aorta dilation (HCC) Expected: 04/26/2023, Expires: 01/25/2024 COMPREHENSIVE METABOLIC PANEL Lab Routine HTN, goal below 140/90 Asymptomatic bilateral carotid artery stenosis Dyslipidemia, goal LDL below 70 PVC (premature ventricular contraction) Ascending aorta dilation (HCC) Expected: 04/26/2023, Expires: 01/25/2024 MAGNESIUM Lab Routine HTN, goal below 140/90 Asymptomatic bilateral carotid artery stenosis Dyslipidemia, goal LDL below 70 PVC (premature ventricular contraction) Ascending aorta dilation (HCC) Expected: 04/26/2023, Expires: 01/25/2024 TSH WITH FREE T4 IF INDICATED Lab Routine HTN, goal below 140/90 Asymptomatic bilateral carotid artery stenosis Dyslipidemia, goal LDL below 70 PVC (premature ventricular contraction) Ascending aorta dilation (HCC) Expected: 04/26/2023, Expires: 01/25/2024 ECHO, COMPLETE (2D), TRANS-THORACIC Echocardiology Routine HTN, goal below 140/90 Asymptomatic bilateral carotid artery stenosis Dyslipidemia, goal LDL below 70 PVC (premature ventricular contraction) Ascending aorta dilation (HCC) Expected: 01/24/2023 (Approximate), Expires: 01/25/2024 Scheduled Procedures Name Priority Associated Diagnoses Date/Ti [...] Procedure Name Priority Date/Time Associated Diagnosis Comments MO ECG ROUTINE ECG W/LEAST 12 LDS W/I&R Routine 01/24/2023 2:27 PM EST HTN, goal below 140/90 documented in this encounter Results * EKG (01/24/2023 2:27 PM EST) 01/24/2023 2:27 PM EST Narrative Procedure Note Glenroy Walker, DO - 01/24/2023 2:27 PM EST REASON FOR STUDY: HTN CONCLUSIONS: Sinus rhythm with occasional Premature ventricular complexes and Prematureatrial complexes Otherwise normal ECG When compared with ECG of 26-OCT-2021 16:18, Premature ventricular complexes are now Present Ventricular Rate: 67 Atrial Rate: 67 MO Interval: 156 QRS Duration: 86 QT/QTc: 416/439 ms P-R-T [place]: 26 : 9 : 40 degrees Meaghan Hargrove PA-C EKG [facility] documented in this encounter Visit Diagnoses Diagnosis HTN, goal below 140/90- Primary Unspecified essential hypertension Asymptomatic bilateral carotid artery stenosis Occlusion and stenosis of multiple and bilateral precerebral arteries without mention of cerebral infarction Dyslipidemia, goal LDL below 70 Other and unspecified hyperlipidemia PVC (premature ventricular contraction) Other premature beats Ascending aorta dilation (HCC) Thoracic aortic ectasia documented in this encounter Care Teams University Tutor Relationship Specialty Start Date End Date Jorge Zhao MD [address] [facility] [address] [place] [address] PCP - General Family Medicine 08/02/19 documented as of this encounter"
--- OUTSIDE RECORDS SUMMARY | 2023-06-20 10:27 | External Medical Summary | Summary of Care ---
Author Name Unknown Organization [facility] Address [address] [place] [address] Phone [phone] Care Team Providers Care Sponge Buffer Name Role Phone Librado Moran MD Primary Care Provider Reason for Visit * Reason Comments eRx-Medication Refill Encounter Details Date Type Department Care Team (Late st Contact Info) Description 01/11/2023 Refill [place] [address] [place] [address] Librado Moran MD [address] [place] [address] [address] Allergies Active Allergy Reactions Criticality Noted Date Comments Clarithromycin 04/02/2001 ? Rash. Tolerates azithromycin on multiple occasions Doxycycline 09/27/1999 Rash documented as of this encounter (statuses as of 01/12/2023) Medications Medication Sig Dispensed Refills Start Date End Date Status MULTIVITAMINS PO TABS 1 a day 30 0 04/25/2007 Active vitamin c (ASCORBIC ACID) 500 MG Tablet Take 2 Tablets by mouth in the morning. 0 Active Calcium Magnesium Zinc 333-133-5 MG Oral Tablet Take 1 Tablet by mouth daily. 1 Tablet 0 02/19/2021 Active Saw [place] 1000 MG Oral Capsule Take by mouth [...] the morning. 90 Tablet 3 04/25/2022 Active Atorvastatin Calcium 40 MG Oral Tablet (Lipitor) Take one tablet by mouth daily. 90 Tablet 3 08/22/2022 Active Docusate Sodium 100 MG Oral Capsule (Colace)Indicatio ns:Irritable bowel syndrome with both constipation and diarrhea Take 1 Capsule by mouth in the morning and 1 Capsule before bedtime. 60 Capsule 11 09/22/2022 Active Famotidine 20 MG Oral Tablet (Pepcid)Indicatio [...] the tablet. 90 Tablet 1 12/12/2022 Active predniSONE 10 MG Oral Tablet (Deltasone)Indica tions:Hip pain, left Take 5 tabs for 2 days, 4 tabs for 2 days, 3 tabs for 2 days, 2 tabs for 2 days 1 tab for 2 days 30 Tablet 0 12/12/2022 Active Latanoprost 0.005 % Ophthalmic Solution (Xalatan) Instill 1 Drop into both eyes at bedtime. 2.5 mL 5 12/21/2022 Active Azithromycin 250 MG Oral Tablet (Zithromax) Take 2 tabs by mouth on the first day, then 1 tab daily on days two through five 6 Tablet 0 01/09/2023 01/15/20 23 Active Gabapentin 100 MG Oral Capsule (Neurontin) TAKE 2 CAPSULES BY MOUTH IN THE EVENING 180 Capsule 1 01/12/2023 Active Gabapentin 100 MG Oral Capsule (Neurontin) Take two capsules by mouth each evening. 180 Capsule 1 04/25/2022 01/13/20 23 Discontinued documented as of this encounter (statuses as of 01/12/2023) Active Problems Problem Noted Date Diagnosed Date Mixed dyslipidemia 09/19/2016 Mild intermittent asthma without complication DDD (degenerative disc disease), lumbar 01/01/20 13 Gastroesophageal reflux disease without esophagi tis 06/07/2004 Deviated nasal septum 05/28/2003 Irritable bowel syndrome documented as of this encounter (statuses as of 01/12/2023) Resolved Problems Problem Noted Date Diagnosed Date Resolved Date Dysthymia 03/30/2020 03/14/2021 Thrombophlebitis of superfic ial veins of left lower extremity 01/03/2019 02/12/2019 Myofascial pain 05/07/2018 12/31/2018 Overview: acute Sacroiliitis 04/23/2018 03/25/2019 Prediabetes 04/25/2017 08/04/2019 Overview: Per Prediabetes protocol #1 Gastroesophageal reflux dise ase without esophagitis 10/21/2014 09/19/2016 Ascending aorta dilatation 09/08/2014 0 04/12/2022 Ascending aortic aneurysm 09/08/2014 Ureter injury 02/27/2014 [...] as of this encounter (statuses as of 01/12/2023) Immunizations Name Administration Dates Next Due COVID-19 [...] encounter Miscellaneous Notes * Addendum Note - Dana Pugh CMA - 01/12/2023 11:58 AM EDTAddended by: DANA PUGH on: 01/12/2023 11:58 AM Modules accepted: Orders * Telephone Encounter - Librado Moran MD - 01/12/2023 8:54 AM EDT Signed Prescriptions: Disp Refills Gabapentin 100 MG Oral Capsule (Neurontin) 180 Ca*1 Sig: TAKE 2 CAPSULES BY MOUTH IN THE EVENING Authorizing Provider: LIBRADO MORAN * Telephone Encounter - Belinda Hill [facility] - 01/12/2023 6:37 AM EDTPending Prescriptions: Disp Refills Gabapentin 100 MG Oral Capsule 180 Ca*0 Sig: TAKE 2 CAPSULES BY MOUTH IN THE EVENING * Telephone Encounter - Belinda Hill [facility] - 01/12/2023 6:[address] [facility] is currently not authorized to approve refills for the pended medication(s) per refill protocol. Please approve if appropriate. Did you pend patient's preferred pharmacy and medication before forwarding?yes Pharmacy: [facility] [id number] [address] [facility] Pending Prescriptions: Disp Refills Gabapentin 100 MG Oral Capsule 180 Ca*0 Sig: TAKE 2 CAPSULES BY MOUTH IN THE EVENING Last Visit: 12/12/2022 (in office), 08/02/2019 (telemedicine) Next Visit: 07/14/2023 If no future appointments scheduled, and last appointment is greater than a year ago, please schedule patient for a follow-up appointment Last date the medication was ordered: 04/25/22 Is this request for a controlled substance?No Urine Drug Screen:No results found. However, due to the size of the patient record, not all encounters were searched. Please check Results Review for a complete set of results. Patient Phone Numbers Labs: Lab Results Component Value Date/Time CREAT 1.1 12/12/2022 10:18 AM CREAT 1.0 01/15/2020 07:53 PM POTASSIUM 4.7 12/12/2022 10:18 AM POTASSIUM 4.7 01/15/2020 07:53 PM TSH 1.77 03/25/2019 11:06 AM LDLCALC 71 12/12/2022 10:18 AM LDLCALC 96 03/25/2019 11:06 AM LDLDIRECT 95 05/27/2020 08:28 AM LDLDIRECT NOT APPLICABLE 03/25/2019 11:06 AM ALT 25 10/26/2021 03:47 PM ALT 29 01/15/2020 07:53 PM HGBA1C 6.2 (H) 12/12/2022 10:18 AM HGBA1C 6.2 (H) 01/15/2020 10:58 AM Thank You, Belinda Hill [facility] Pharmacist Telepharmacy [phone] 01/12/2023, 6:37 AM documented in this encounter Plan of Treatment Upcoming Encounters Date Type Department Care Team (Late st Contact Info) Description 04/05/2023 9:00 AM EST Office Visit Cardiology, [facility] 132 [place] [address] Meaghan Hargrove PA-C 132 [facility] [place] [address] 04/28/2023 8:30 AM EST Office Visit Ophthalmology, [place] [address] [place] [address] García Winston MD 21 [place] [address] 07/14/2023 9:00 AM EDT Office Visit [place] [address] [place] [address] Librado Moran MD [facility]2 [facility] [address] [place] [address] 10/04/2023 8:20 AM EDT Office Visit Dermatology [facility] [address] [place] [address] Vilma Burris PA-C [address] [place] [address] Scheduled Procedures Name Priority Associated Diagnoses Date/Ti [...] filedocumented as of this encounter Care Teams Sponge Buffer Relationship Specialty Start Date End Date Librado Moran MD [address] [place] [address] [place] [address] PCP - General Family Medicine 08/02/19 documented as of this encounter
--- OUTSIDE RECORDS SUMMARY | 2023-06-20 10:27 | External Medical Summary | Summary of Care ---
Author Name Unknown Organization [facility] Address [address] [place] [address] Phone [phone] Care Team Providers Care Ostomy Rn Name Role Phone Jorge Zhao MD Primary Care Provider Encounter Details Date Type Department Care Team (Late st Contact Info) Description 01/12/2023 Refill Cardiology, [facility] [address] [place] [id number] Germaine Escobar PA-C [address] [place] [address] Mixed dyslipidemia* Allergies Active Allergy Reactions Criticality Noted Date [...] daily. 1 Tablet 0 02/19/2021 Active Saw [place] 1000 MG Oral Capsule Take by mouth [...] 12/12/2022 Active predniSONE 10 MG Oral Tablet (Deltasone)Indicat [...] two through five 6 Tablet 0 01/09/2023 Active Gabapentin 100 MG Oral Capsule (Neurontin) TAKE 2 CAPSULES BY MOUTH IN THE EVENING 180 Capsule 1 01/12/2023 Active Atorvastatin Calcium 80 MG Oral Tablet (Lipitor)Indicatio ns:Mixed dyslipidemia Take one tablet by mouth daily. 90 Tablet 3 01/12/2023 Active Atorvastatin Calcium 40 MG Oral Tablet (Lipitor) Take one tablet by mouth daily. 90 Tablet 3 08/22/2022 3 Discontinue d(Refill) documented as of this encounter (statuses as [...] encounter Miscellaneous Notes * Telephone Encounter - Germaine Escobar PA-C - 01/12/2023 12:08 PM EDT Signed Prescriptions: Disp Refills Atorvastatin Calcium 80 MG Oral Tablet (Li*90 Tab*3 Sig: Take one tablet by mouth daily.Authorizing Provider: GERMAINE ESCOBAR * Telephone Encounter - Dana Madrigal CMA - 01/12/2023 11:54 AM EDT Pt sent message saying he was taking 80mg atorvastatin but had muscle aches and went to 40mg. Cholesterol went back up and he went back to 80mg. Please send. * Telephone Encounter - Dana Madrigal CMA - 01/12/2023 11:54 AM EDT Did you pend patient's preferred pharmacy and medication before forwarding?yes Pharmacy: [id number] [address] [facility] Pending Prescriptions: Disp Refills Atorvastatin Calcium 80 MG Oral Tablet (L*90 Tab*3 Sig: Take one tablet by mouth daily. Last Visit: 08/11/2022 (in office), Visit date not found (telemedicine) Next Visit: 04/05/2023 If no future appointments scheduled, and last appointment is greater than a year ago, please schedule patient for a follow-up appointment Last date the medication was ordered: Is this request for a controlled substance?No [...] AM HGBA1C 6.2 (H) 01/15/2020 10:58 AM documented in this encounter Plan of Treatment Upcoming Encounters Date Type Department Care Team (Late st Contact Info) Description 04/05/2023 9:00 AM EST Office Visit Cardiology, [facility] 132 [facility] [place] [address] Germaine Escobar PA-C 132 [facility] [place] [address] 04/28/2023 8:30 AM EST Office Visit Ophthalmology, [place] [address] [place] [address] García Winston MD [address] [place] [address] 07/14/2023 9:00 AM EDT Office Visit [place] [address] [place] [address] [facility]2 [facility] [address] [place] [address] 10/04/2023 8:20 AM EDT Office Visit Dermatology [facility] [place] [address] [place] [address] Vilma Burris PA-C [address] [place] [address] Scheduled Procedures Name Priority Associated Diagnoses Date/Ti [...] as of this encounter Visit Diagnoses Diagnosis Mixed dyslipidemia- Primary Mixed hyperlipidemia documented in this encounter Care Teams Ostomy Rn Relationship Specialty Start Date End Date Jorge Zhao MD [address] [facility] [address] [place] [address] PCP - General Family Medicine 08/02/19 documented as of this encounter
--- OUTSIDE RECORDS SUMMARY | 2023-06-20 10:27 | External Medical Summary | Summary of Care ---
Author Name Unknown Organization [facility] Address [address] [place] [address] Phone [phone] Care Team Providers Care Software Systems Analyst Name Role Phone Jorge Zhao MD Primary Care Provider Encounter Details Date Type Department Care Team ([facility] Contact Info) Description 01/30/2023 Patient [...] daily. 1 Tablet 0 02/19/2021 Active Saw [place] 1000 MG Oral Capsule Take by mouth [...] mRNA, LNP-s, No Pre serve, 2-Dose Series ([employer]) 03/31/2021,07/19/2020,06/25/2020 Pneumococcal Conjugate Vacc, 13 Valent (Prevnar) [...] 03/01/2023 8:00 AM EST Office Visit Orthopaedics [facility] 132 [facility] [place] [address] Josué Lynn, [address] [place] [address] 03/29/2023 9:00 AM EST Appointment Cardiac Studies, [address] [place] [address] 04/28/2023 8:30 AM EST Office Visit Ophthalmology, [address] [place] [address] García Winston [facility] 21 [facility] [address] 07/14/2023 9:00 AM EDT Office Visit Family [facility], [place] [address] [address] [place] [address] Jorge Zhao MD [facility]2 [facility] [address] [place] [address] 08/01/2023 11:00 AM EDT Office Visit Cardiology, [facility] [place] [address] Meaghan Hargrove PA-C [facility] [place] [address] 10/04/2023 8:20 AM EDT Office Visit Dermatology [facility] [address] [place] [address] Vilma Burris, BLAS [address] [place] [address] Scheduled Procedures Name Priority Associated Diagnoses Date/Ti [...] filedocumented as of this encounter Care Teams Software Systems Analyst Relationship Specialty Start Date End Date Jorge Zhao MD [facility] [address] [place] [address] PCP - General Family Medicine 08/02/19 documented as of this encounter
--- OUTSIDE RECORDS SUMMARY | 2023-06-20 10:27 | External Medical Summary | Summary of Care ---
Author Name Unknown Organization [facility] Address [address] [place] [address] Phone [phone] Care Team Providers Care Histologic Technician Name Role Phone Jorge Zhao MD Primary Care Provider Encounter Details Date Type Department Care Team ([facility] Contact Info) Description 01/28/2023 Patient Reported Data Patient Survey Ortho OBERD Allergies Active Allergy Reactions Criticality Noted Date Comments Clarithromycin 04/02/2001 ? Rash. Tolerates azithromycin on multiple occasions Doxycycline 09/27/1999 Rash documented as of this encounter (statuses as of 01/28/2023) Medications Medication Sig Dispensed Refills Start Date End Date Status MULTIVITAMINS PO TABS 1 a day 30 0 04/25/2007 Active vitamin c (ASCORBIC ACID) 500 MG Tablet Take 2 Tablets by mouth in the morning. 0 Active Calcium Magnesium Zinc 333-133-5 MG Oral Tablet Take 1 Tablet by mouth daily. 1 Tablet 0 02/19/2021 Active Saw [place] 1000 MG Oral Capsule Take by mouth [...] as of this encounter (statuses as of 01/28/2023) Active Problems Problem Noted Date Diagnosed Date PVC (premature ventricular contraction) 01/25/20 23 Mixed dyslipidemia 09/19/2016 Mild intermittent asthma without complication Ascending aorta dilation 09/08/2014 DDD (degenerative disc disease), lumbar 01/01/20 13 Gastroesophageal reflux disease without esophagi tis 06/07/2004 Deviated nasal septum 05/28/2003 Irritable bowel syndrome documented as of this encounter (statuses as of 01/28/2023) Resolved Problems Problem Noted Date Diagnosed Date [...] as of this encounter (statuses as of 01/28/2023) Immunizations Name Administration Dates Next Due COVID-19 mRNA, LNP-s, No Pre serve, 2-Dose Series ([employer]) 03/31/2021,07/19/2020,06/25/2020 Pneumococcal Conjugate Vacc, 13 Valent (Prevnar) [...] 03/01/2023 8:00 AM EST Office Visit Orthopaedics [facility] 132 [facility] [place] [address] Josué Lynn, [address] [place] [address] 03/29/2023 9:00 AM EST Appointment Cardiac Studies, [address] [place] [address] 04/28/2023 8:30 AM EST Office Visit Ophthalmology, [address] [place] [address] García Winston MD 21 [facility] [place] [address] 07/14/2023 9:00 AM EDT Office Visit Family [facility], [place] [address] [address] [place] [address] Jorge Zhao MD [facility]2 [facility] [address] [place] [address] 08/01/2023 11:00 AM EDT Office Visit Cardiology, [facility] [place] [address] Meaghan Hargrove PA-C [facility] [place] [address] 10/04/2023 8:20 AM EDT Office Visit Dermatology [facility] [address] [place] [address] Vilma Burris, BLAS [address] [place] [address] Scheduled Procedures Name Priority Associated Diagnoses Date/Ti [...] filedocumented as of this encounter Care Teams Histologic Technician Relationship Specialty Start Date End Date Jorge Zhao MD [facility] [address] [place] [address] PCP - General Family Medicine 08/02/19 documented as of this encounter
--- OUTSIDE RECORDS SUMMARY | 2023-06-20 10:27 | External Medical Summary | Summary of Care ---
Author Name Unknown Organization [facility] Address [address] [place] [address] Phone [phone] Care Team Providers Care Real Estate Sales Supervisor Name Role Phone Jorge Zhao MD Primary Care Provider Encounter Details Date Type Department Care Team ([facility] Contact Info) Description 01/30/2023 Patient Reported [...] daily. 1 Tablet 0 02/19/2021 Active Saw [place] 1000 MG Oral Capsule Take by mouth [...] LNP-s, No Pre serve, 2-Dose Series ([employer]) 03/31/2021,07/19/2020,06/25/2020 Pneumococcal Conjugate Vacc, 13 Valent [...] 03/01/2023 8:00 AM EST Office Visit Orthopaedics [facility] 132 [facility] [place] [address] Josué Lynn, [address] [place] [address] 03/29/2023 9:00 AM EST Appointment Cardiac Studies, [address] [place] [address] 04/28/2023 8:30 AM EST Office Visit Ophthalmology, [address] [place] [address] García Winston MD [address] [facility] [place] [address] 07/14/2023 9:00 AM EDT Office Visit Family [facility], [place] [address] [address] [place] [address] [facility]2 [facility] [address] [place] [address] 08/01/2023 11:00 AM EDT Office Visit Cardiology, [facility] [place] [address] Meaghan Hargrove PA-C 132 [facility] [place] [address] 10/04/2023 8:20 AM EDT Office Visit Dermatology [facility] [address] [place] [address] Vilma Burris, BLAS [address] [place] [address] Scheduled Procedures Name Priority Associated Diagnoses Date/Ti [...] filedocumented as of this encounter Care Teams Real Estate Sales Supervisor Relationship Specialty Start Date End Date Jorge Zhao MD [facility]2 [address] [place] [address] PCP - General Family Medicine 08/02/19 documented as of this encounter
--- OUTSIDE RECORDS SUMMARY | 2023-06-20 10:27 | External Medical Summary | Summary of Care ---
Author Name Unknown Organization [facility] Address [address] [place] [address] Phone [phone] Care Team Providers Care Financial Advisor Trainee Name Role Phone Librado Moran MD Primary Care Provider Reason for Visit * Reason Comments eRx-Medication Refill Encounter Details Date Type Department Care Team (Late st Contact Info) Description 01/11/2023 Refill [place] [address] [address] [place] [address] Librado Moran MD [address] [place] [address] [address] Allergies Active Allergy Reactions Criticality Noted Date [...] daily. 1 Tablet 0 02/19/2021 Active Saw [place] 1000 MG Oral Capsule Take by mouth [...] encounter Miscellaneous Notes * Telephone Encounter - Librado Moran MD - 01/12/2023 8:54 AM EDT Signed Prescriptions: Disp Refills Gabapentin 100 MG Oral Capsule (Neurontin) 180 Ca*1 Sig: TAKE 2 CAPSULES BY MOUTH IN THE EVENING Authorizing Provider: LIBRADO MORAN * Telephone Encounter - Belinda Hill RP - 01/12/2023 6:37 AM EDTPending Prescriptions: Disp Refills Gabapentin 100 MG Oral Capsule 180 Ca*0 Sig: TAKE 2 CAPSULES BY MOUTH IN THE EVENING * Telephone Encounter - Belinda Hill RP - 01/12/2023 6:37 AM EDT [facility] is currently not authorized to approve refills for the pended medication(s) per refill protocol. Please approve if appropriate. Did you pend patient's preferred pharmacy and medication before forwarding?yes [facility]acy: [facility] [id number] [address] [facility] Pending Prescriptions: Disp Refills Gabapentin 100 MG [...] 01/15/2020 10:58 AM Thank You, Belinda Hill [facility] Pharmacist Telepharmacy [phone] 01/12/2023, 6:37 AM documented in this encounter Plan of Treatment Upcoming Encounters Date Type Department Care Team (Late st Contact Info) Description 04/05/2023 9:00 AM EST Office Visit Cardiology, [facility] [address] [place] [address] Meaghan Hargrove PA-C 132 [place] [address] 04/28/2023 8:30 AM EST Office Visit Ophthalmology, [place] 21 [facility] [place] [address] García Winston MD 21 [facility] [place] [address] 07/14/2023 9:00 AM EDT Office Visit [place] [address] [address] [place] [address] Librado Moran MD [address] [place] [address] 10/04/2023 8:20 AM EDT Office Visit Dermatology [facility] [place] [address] [place] [address] Vilma Burris PA-C [address] [place] [address] Scheduled Procedures Name Priority Associated Diagnoses Date/Ti [...] filedocumented as of this encounter Care Teams Financial Advisor Trainee Relationship Specialty Start Date End Date Librado Moran MD 475[address] [facility] [address] [place] [address] PCP - General Family Medicine 08/02/19 documented as of this encounter
--- NOTE | 2023-06-20 10:55 | History & Physical Report ---
Date of Service June 20, 2023 Assessment & Plan (1) CAD (coronary artery disease): (2) HLD (hyperlipidemia): (3) GERD (gastroesophageal reflux disease): (4) Irritable bowel syndrome: Plan Multivessel CAD s/p cardiac cath and stenting of mid LAD by Dr Johnson today - found to have abnormal stress test for which he underwent cardiac cath today and found to have multivessel disease with severe mid LAD disease with RCA OPTOMECHANICAL ENGINEER with bridging right to right and [id number] collaterals - S/p successful PCI of mid LAD with single drug-eluting stent (3.0 x 22 mm [place]; postdilated with 3.5 NC). - Recommendations per cardio as below PCU for continued monitoring Relative aspirin intolerance and will continue on antiplatelet monotherapy with ticagrelor for 1 month then transition to clopidogrel for at least 6 months. Continue statin, and ASCVD risk factor modification Consult cardiac Rehab HTN- on losartan, toprol PVCs/PACs- on toprol GERD- continue PPI, pepcid Severe depression with adjustment disorder- on buspar prn. follows cognitive behav health as OP. Patient and requesting psych evaluation due to severe depression. HLD- continue statin, zetia Dispo- PCU Full code Time spent- approx 78 min History of Present Illness Chief Complaint: abnormal stress test s/p cardiac cath today Primary Care Provider: Gordo Babin, 77 year old male with h/o HTN, HLD, PSVT/PACs/PVCs, IBS/GERD, mild aortic and ascending root enlargement, mild bilateral ICA selenosis, depression/anxiety who had OP abnormal stress test 3 weeks back for which he underwent cardiac cath matthew per cardiology and was found to have multivessel CAD and was stented x1 mid LAD today. Hospitalist service was requested to admit post cardiac cath. Patient was seen and examined at bedside in presence of . He feels fine. Denies any CP, SOB, N/V. However complains of severe depression due to family issues and requesting psych eval. Patient sees cognitive behavioral health as OP and can't see psychiatry until September. Has intermittent anxiety attacks and takes buspar. He does not smoke or drink alcohol. Medications reviewed at bedside. Allergies Allergy/AdvReac Type Severity Reaction Status Date / Time clarithromycin Allergy Mild Rash Verified 06/20/23 07:27 DOXYCYCLINE Allergy Unknown RASH Uncoded 06/20/23 07:27 Home Medications Medication Instructions Recorded Confirmed Type albuterol sulfate 90 mcg/actuation 2 inh inhalation QID PRN Shortness 06/20/23 06/20/23 History aerosol inhaler Of Breath Or Wheezing buspirone 5 mg PO BID PRN Anxiety 06/20/23 06/20/23 History buspirone 5 mg tablet 5 mg PO BID 06/20/23 06/20/23 History clopidogrel 75 mg PO DAILY 06/20/23 06/20/23 History ezetimibe 10 mg tablet 10 mg PO QAM 06/20/23 06/20/23 History famotidine 20 mg tablet 20 mg PO HS 06/20/23 06/20/23 History gabapentin 100 mg capsule 200 mg PO HS 06/20/23 06/20/23 History latanoprost 0.005 % eye drops 1 drp ophthalmic (eye) PM 06/20/23 06/20/23 History losartan 25 mg PO DAILY 06/20/23 06/20/23 History metoprolol succinate 25 mg PO DAILY 06/20/23 06/20/23 History olopatadine 0.6 % nasal spray 2 spray intranasal BID 06/20/23 06/20/23 History pantoprazole 40 mg PO DAILY 06/20/23 History pantoprazole 20 mg tablet,delayed 20 mg PO DAILY 06/20/23 06/20/23 History release rosuvastatin 5 mg tablet 5 mg PO DAILY 06/20/23 06/20/23 History Past Med/Surg History Medical History (Updated 06/20/23 @ 10:50 by Lucy Acevedo PA-C) CAD (coronary artery disease) HLD (hyperlipidemia) DDD (degenerative disc disease), cervical GERD (gastroesophageal reflux disease) Irritable bowel syndrome Ascending aorta dilation Surgical History (Updated 06/20/23 @ 10:51 by Lucy Acevedo PA-C) Hx of colonoscopy Hx of esophagogastroduodenoscopy Family History (Updated 06/20/23 @ 10:52 by Lucy Acevedo PA-C) Father Lung disease Mother Heart disease Social History Smoking Status: Former smoker Hx Alcohol Use: No Hx Substance Use: No Preferred Language: Persian Communication Ability: Effective Research Nurse Required: No Beliefs That Will Affect Care: None Current Living Situation: Spouse Feels Safe at Home: Yes Safety Concerns: Feels Safe At This Time Review of Systems Review of Systems: All systems reviewed & are unremarkable except as noted in HPI & below Physical Exam Physical Exam: General: Lying comfortably in bed, not in distress, on room air HEENT: EOMI, ISHMAEL, MMM Chest: Clear breath sounds bilaterally, no wheezes or crackles CVS: Regular rate and rhythm, normal heart sounds, no murmur Abdomen: Soft, non tender, not distended, normal bowel sounds Neuro: Awake, alert, oriented, conversing well, non focal Extremities: No cyanosis, clubbing or edema Results & Data Results & Data Vital Signs (Past 12 Hours) Vital Signs Temp Pulse Resp BP Pulse Ox O2 Del Method 06/20/23 10:30 56 L 16 152/83 H 97 Room Air 06/20/23 10:15 52 L 16 139/74 98 Room Air 06/20/23 10:00 75 16 130/107 H 96 Room Air 06/20/23 07:19 36.7 C Code Status & VTE Plan VTE Prophylaxis Plan VTE Prophylaxis will be ordered: Yes
[2023-06-20] MEDS ORDERED: busPIRone 5 MG TAB PO PRN (11:50)
[2023-06-20] MEDS ORDERED: LORazepam 0.5 MG TAB PO PRN (14:08)
[2023-06-20] MEDS: SODIUM CHLORIDE 0.9% 1,000 ML IV SCH (15:01)
[2023-06-20] MEDS: SUCRALFATE 1 GM TAB PO SCH (15:02)
[2023-06-20] MEDS: LOSARTAN POTASSIUM 25 MG TAB PO ONE (15:13)
[2023-06-20] MEDS: GABAPENTIN 100 MG CAP PO SCH (20:25)
[2023-06-20] MEDS: busPIRone 5 MG TAB PO SCH (20:25)
[2023-06-20] MEDS: FAMOTIDINE 20 MG TAB PO SCH (20:25)
[2023-06-20] MEDS: LATANOPROST 0.005% OP SOLN 2.5 ML BTL OP SCH (20:26)
[2023-06-20] MEDS: TICAGRELOR 90 MG TAB PO SCH (20:26)
[2023-06-20] MEDS ORDERED: GABAPENTIN 300 MG CAP PO SCH (21:00)
[2023-06-21 05:26] LABS: Basophils # (auto) 0.04 K/uL (0.00-0.20); Basophils % (auto) 0.5 %; Eosinophils # (auto) 0.09 K/uL (0.00-0.50); Eosinophils % (auto) 1.2 %; Hematocrit (blood only) 40.8 % (42.0-52.0); Hemoglobin 13.7 g/dl (14.0-18.0); Immature Granulocytes # (auto) 0.04 K/uL (0.01-0.20); Immature Granulocytes % (auto) 0.5 %; Lymphocytes # (auto) 1.32 K/uL (1.20-3.40); Mean Corpuscular Hgb Conc 33.6 g/dL (32.0-36.0); Mean Corpuscular Volume 86.4 fL (80.0-100.0); Mean Platelet Volume 10.5 fL (9.4-12.4); Monocytes # (auto) 0.94 K/uL (0.11-0.59); Monocytes % (auto) 12.1 %; Neutrophils # (auto) 5.33 K/uL (1.40-6.50); Neutrophils % (auto) 68.7 %; Platelet Count 141 K/uL (130-400); RDW Coefficient of Variation 12.1 % (11.5-14.5); RDW Standard Deviation 38.2 fL (36.4-46.3); Red Blood Count 4.72 M/uL (4.70-6.10); White Blood Count 7.76 K/ul (4.8-10.8)
[2023-06-21 05:31] LABS: BUN Creatinine Ratio 17.3 (10-20); Creatinine Clr Calc Pharmacy 62.4 ml/min; Est GFR (African American) 80.5 ml/min; Est GFR (Non-African American) 69.4 ml/min; Potassium 3.7 mmol/L (3.5-5.1)
[2023-06-21] MEDS: EZETIMIBE 10 MG TAB PO SCH (08:15)
[2023-06-21] MEDS: ROSUVASTATIN CALCIUM 5 MG TAB PO SCH (08:15)
[2023-06-21] MEDS: PANTOprazole 40 MG TAB PO SCH (08:16)
[2023-06-21] MEDS: LOSARTAN POTASSIUM 25 MG TAB PO SCH (08:16)
[2023-06-21] MEDS: METOPROLOL SUCC 25MG EXT REL TAB PO SCH (08:16)
[2023-06-21] MEDS ORDERED: amLODIPine BESYLATE 5 MG TAB PO SCH (09:00)
--- NOTE | 2023-06-21 12:25 | Cardiology Progress Note ---
Date of Service June 21, 2023 Assessment & Plan (1) CAD (coronary artery disease): (2) Status post insertion of drug-eluting stent into left anterior descending (LAD) artery: (3) HLD (hyperlipidemia): (4) HTN (hypertension): Plan Patient with documented aspirin intolerance. Recommend continuing Brilinta 90 mg twice daily for minimum of 30 days post percutaneous and intervention. After 30 days I will consider transition to clopidogrel or continue Brilinta. Other cardiovascular medications including metoprolol succinate, losartan, rosuvastatin, and Zetia will be continued as ordered. Postcardiac catheterization activity restrictions listed below. Outpatient sleep medicine referral placed. Patient may be discharged from a cardiovascular perspective. I will schedule follow-up appointment in 4 to 6 weeks. ACTIVITY RECOMMENDATIONS: It is common to feel weak and fatigue for a few days. * Do not drive or operate any motorized equipment for the next three days. * Limit stair usage (2 or 3 trips a day only) for the next three days. * Do not lift anything heavier than 10 pounds for the next three days. * Do not engage in vigorous exercise or any sports for the next five days. * You may shower the day after your procedure, but do not immerse the area for three days. Cleanse the site gently with soap and water. SPECIAL CARE INSTRUCTIONS: * You may replace the pressure dressing or band-aid the morning after the procedure. * After your procedure, it is normal to have a small bruise or small lump at the site. Examine your site daily for any change in the bruise or lump, redness, swelling, drainage or numbness. Notify your doctor if any change. BLEEDING: * If there is a small amount of bleeding at the site, lie down and apply firm pressure with a clean cloth for ten minutes. When the bleeding stops, lie quietly keeping the procedure limb straight for six hours. Notify your doctor as soon as possible. * If the bleeding does not stop after ten minutes or if there is a large amount of bleeding or spurting, call 911 immediately. Continue to lie down and hold firm pressure until help arrives. SKIN IRRITATION: * You may experience some redness and/or swelling in the area where radiation was administered. If any skin irritation occurs, please contact your family physician. FOLLOW UP VISIT: Keep any scheduled doctor appointments. Admission and Anticipated Discharge Date Admission Date: June 20, 2023 Subjective Patient seen and examined at the bedside. Feeling well this morning. Denies chest pain or unusual shortness of breath. Tolerating Brilinta. Clopidogrel discontinued. Blood pressure improved. Reports episodes of palpitations and shortness of breath at night. Attributes symptoms to nasal congestion and mouth breathing. present at bedside. Notes snoring. No prior sleep testing. Review of Systems Review of Systems: All systems reviewed & are unremarkable except as noted in Subjective Physical Exam Constitutional: well nourished; no acute distress ENMT: Mallampati Class: II Respiratory: normal respiratory effort; no respiratory distress, no labored breathing and no retractions Auscultation: lungs clear to auscultation bilaterally; no crackles, no rales, no rhonchi and no wheezes Cardiovascular: Rate/Rhythm: regular rate and regular rhythm Heart Sounds: normal S1 and normal S2; no murmur Vessels: femoral pulses present and radial pulses present; no JVD and no carotid bruit Extremities: no edema Gastrointestinal (Abdomen): Inspection/Auscultation: normal bowel sounds; abdomen not distended Percussion/Palpation: abdomen soft; abdomen nontender, no guarding and abdomen not rigid Neurologic: CN's II-XI intact bilaterally Results & Data Vital Signs (Past 12 Hours) Vital Signs Temp Pulse Resp BP Pulse Ox O2 Del Method 06/21/23 11:38 36.3 C L 95 H 17 133/69 96 Room Air 06/21/23 07:12 36.3 C L 52 L 17 167/70 H 98 Room Air 06/21/23 06:08 36.6 C 58 L 19 144/77 H 98 Room Air 06/21/23 02:53 36.5 C 56 L 14 138/73 97 Room Air Laboratory Results CBC 06/21/23 Range/Units 04:47 WBC 7.76 (4.8-10.8) K/ul RBC 4.72 (4.70-6.10) M/uL Hgb 13.7 L (14.0-18.0) g/dl Hct 40.8 L (42.0-52.0) % Plt Count 141 (130-400) K/uL Neut # (Auto) 5.33 (1.40-6.50) K/uL Lymph # (Auto) 1.32 (1.20-3.40) K/uL [place] # (Auto) 0.94 H (0.11-0.59) K/uL Eos # (Auto) 0.09 (0.00-0.50) K/uL Baso # (Auto) 0.04 (0.00-0.20) K/uL Comprehensive Metabolic Panel 06/21/23 Range/Units 04:47 Sodium 140 (136-145) mmol/L Potassium 3.7 (3.5-5.1) mmol/L Chloride 106 (98-107) mmol/L Carbon Dioxide 27 (21-32) mmol/L BUN 18 (6-23) mg/dl Creatinine 1.04 (0.6-1.4) mg/dl Glucose 98 (70-99(Fasting)) mg/dl Calcium 9.0 (8.6-10.3) mg/dl Intake and Output 06/20/23 06/21/23 06/21/23 22:59 06:59 14:59 Other: # Unmeasured Voids 2 (1) CAD (coronary artery disease) Coronary Disease-Associated Artery/Lesion type: [place] artery [place] vs. transplanted heart: [place] heart Associated angina: without angina Qualified Code(s): I25.10 - Atherosclerotic heart disease of [place] coronary artery without angina pectoris (3) HLD (hyperlipidemia) Hyperlipidemia type: pure hypercholesterolemia Qualified Code(s): E78.00 - Pure hypercholesterolemia, unspecified (4) HTN (hypertension) Hypertension type: primary hypertension Qualified Code(s): I10 - Essential (primary) hypertension
--- NOTE | 2023-06-21 16:52 | Psychiatric Consultation ---
Date of Consultation June 21, 2023 Impression / Recommendations Impression Attempted to see patient for psychiatry consult but he was already discharged. Per psychiatric liason RN he noted significantly improved mood this morning since his cardiac cath procedure. If depression symptoms worsen or persist would encourage consideration of an SSRI such as sertraline or escitalopram. Psych History Chief Complaint "[]". Allergies Allergy/AdvReac Type Severity Reaction Status Date / Time clarithromycin Allergy Mild Rash Verified 06/20/23 07:27 DOXYCYCLINE Allergy Unknown RASH Uncoded 06/20/23 07:27 Home Medications Medication Instructions Recorded Confirmed Type albuterol sulfate 90 mcg/actuation 2 inh inhalation QID PRN Shortness 06/20/23 06/20/23 History aerosol inhaler Of Breath Or Wheezing buspirone 5 mg PO BID PRN Anxiety 06/20/23 06/20/23 History buspirone 5 mg tablet 5 mg PO BID 06/20/23 06/20/23 History ezetimibe 10 mg tablet 10 mg PO QAM 06/20/23 06/20/23 History famotidine 20 mg tablet 20 mg PO HS 06/20/23 06/20/23 History gabapentin 100 mg capsule 200 mg PO HS 06/20/23 06/20/23 History latanoprost 0.005 % eye drops 1 drp ophthalmic (eye) PM 06/20/23 06/20/23 History losartan 25 mg PO DAILY 06/20/23 06/20/23 History metoprolol succinate 25 mg PO DAILY 06/20/23 06/20/23 History olopatadine 0.6 % nasal spray 2 spray intranasal BID 06/20/23 06/20/23 History pantoprazole 40 mg PO DAILY 06/20/23 History pantoprazole 20 mg tablet,delayed 20 mg PO DAILY 06/20/23 06/20/23 History release rosuvastatin 5 mg tablet 5 mg PO DAILY 06/20/23 06/20/23 History clopidogrel 300 mg tablet 600 mg (2 x 300 mg) PO ONCE #2 tabs 06/21/23 Rx ticagrelor 90 mg tablet (Brilinta) 90 mg PO BID 30 days #60 tabs 06/21/23 Rx Patient History Medical History (Updated 06/21/23 @ 12:30 by Per Serrano DO) CAD (coronary artery disease) HLD (hyperlipidemia) DDD (degenerative disc disease), cervical GERD (gastroesophageal reflux disease) Irritable bowel syndrome Ascending aorta dilation Surgical History (Updated 06/20/23 @ 10:51 by Lucy Acevedo PA-C) Hx of colonoscopy Hx of esophagogastroduodenoscopy Family History (Updated 06/20/23 @ 10:52 by Lucy Acevedo PA-C) Father Lung disease Mother Heart disease Social History Smoking Status: Former smoker Hx Alcohol Use: No Hx Substance Use: No Preferred Language: Bengali Communication Ability: Effective [employer] Required: No Beliefs That Will Affect Care: None Current Living Situation: Spouse Feels Safe at Home: Yes Safety Concerns: Feels Safe At This Time Physical Exam Vital Signs (Past 24 Hours): Last Vital Signs Temp 36.3 C L 06/21/23 11:38 Pulse 95 H 06/21/23 11:38 Resp 17 06/21/23 11:38 BP 133/69 06/21/23 11:38 Pulse Ox 96 06/21/23 11:38 O2 Del Method Room Air 06/21/23 11:38 Results & Data (PSY) Medications Administered Buspirone HCl (Buspirone 5 Mg Tab) 5 mg PO BID DAVID Stop: 07/20/23 20:59 Last Admin: 06/21/23 08:16 Dose: 5 mg Documented By: Admin: 06/20/23 20:25 Dose: 5 mg Documented By: DEISY Ezetimibe (Ezetimibe 10 Mg Tab) 10 mg PO [facility] DAVID Stop: 07/21/23 08:59 Last Admin: 06/21/23 08:15 Dose: 10 mg Documented By: TMKatherin Famotidine (Famotidine 20 Mg Tab) 20 mg PO DAVID Stop: 07/20/23 20:59 Last Admin: 06/20/23 20:25 Dose: 20 mg Documented By: CLC Gabapentin (Gabapentin 100 Mg Cap) 200 mg PO DAVID Stop: 07/20/23 20:59 Last Admin: 06/20/23 20:25 Dose: 200 mg Documented By: DEISY Latanoprost (Latanoprost 0.005% Op Soln 2.5 Ml Btl) 1 drops OP PM DAVID Stop: 07/20/23 20:59 Last Admin: 06/20/23 20:26 Dose: 1 drops Documented By: DEISY Losartan Potassium (Losartan Potassium 25 Mg Tab) 25 mg PO DAILY DAVID Stop: 07/21/23 08:59 Last Admin: 06/21/23 08:16 Dose: 25 mg Documented By: [facility] Metoprolol Succinate (Metoprolol Succ 25mg Ext Rel Tab) 25 mg PO DAILY DAVID Stop: 07/21/23 08:59 Last Admin: 06/21/23 08:16 Dose: 25 mg Documented By: [facility] Pantoprazole Sodium (Pantoprazole 40 Mg Tab) 40 mg PO DAILY DAVID Stop: 07/21/23 08:59 Last Admin: 06/21/23 08:16 Dose: 40 mg Documented By: TESFAYE Rosuvastatin Calcium (Rosuvastatin Calcium 5 Mg Tab) 5 mg PO DAILY DAVID Stop: 07/21/23 08:59 Last Admin: 06/21/23 08:15 Dose: 5 mg Documented By: [facility] Ticagrelor (Ticagrelor 90 Mg Tab) 90 mg PO BID DAVID Stop: 07/20/23 20:59 Last Admin: 06/21/23 08:16 Dose: 90 mg Documented By: [facility] Admin: 06/20/23 20:26 Dose: 90 mg Documented By: DEISY Coding Level of Care Code None
--- NOTE | 2023-06-21 17:11 | Discharge Summary ---
Date of Service June 21, 2023 Admission HPI Per Admitting Provider 77 year old male with h/o HTN, HLD, PSVT/PACs/PVCs, IBS/GERD, mild aortic and ascending root enlargement, mild bilateral ICA selenosis, depression/anxiety who had OP abnormal stress test 3 weeks back for which he underwent cardiac cath matthew per cardiology and was found to have multivessel CAD and was stented x1 mid LAD today. Hospitalist service was requested to admit post cardiac cath. Patient was seen and examined at bedside in presence of . He feels fine. Denies any CP, SOB, N/V. However complains of severe depression due to family issues and requesting psych eval. Patient sees cognitive behavioral health as OP and can't see psychiatry until September. Has intermittent anxiety attacks and takes buspar. He does not smoke or drink alcohol. Medications reviewed at bedside. Admission Exam Per Admitting Provider General: Lying comfortably in bed, not in distress, on room air HEENT: EOMI, ISHMAEL, MMM Chest: Clear breath sounds bilaterally, no wheezes or crackles CVS: Regular rate and rhythm, normal heart sounds, no murmur Abdomen: Soft, non tender, not distended, normal bowel sounds Neuro: Awake, alert, oriented, conversing well, non focal Extremities: No cyanosis, clubbing or edema Principal Diagnosis Coronary artery disease status post LAD stent placement Discharge Exam Constitutional: WD/WN, vitals as above, NAD, sitting up in bed, pleasant, conversing easily Respiratory: normal respiratory effort, lungs clear to auscultation, no wheeze, rales, rhonchi. Normal insp/exp effort, no accessory muscle use Cardiovascular: RRR, no murmur, no edema Vessels: no JVD or carotid bruit Chest: normal inspection of chest Abdomen: normal bowel sounds, soft, nontender, no hepatosplenomegaly Musculoskeletal: no cyanosis or clubbing, extremities motor strength 5/5 Skin: no rashes, warm and dry normal turgor Neurologic: PERRL, EOMI, accommodation nl, no face palsy, no dysarthria CN's II- XI intact bilaterally and moves all extremities Psychiatric: A+Ox3, euthymic affect Discharge Data Allergies Allergy/AdvReac Type Severity Reaction Status Date / Time clarithromycin Allergy Mild Rash Verified 06/20/23 07:27 DOXYCYCLINE Allergy Unknown RASH Uncoded 06/20/23 07:27 Consultations 06/20/23 10:46 Consult Cardiology Routine 06/20/23 11:28 Consult Psychiatry Routine Procedures Performed Operation Date: 06/20/23 08:00 Actual Procedures p Cath, Left with Cors and Vent - Per Serrano, DO s Cineradiography w/Routine Exam - Per Serrano, DO s Fraction Flow [place] SGL Ves - Pranay Johnson MD s IVUS Coronary Single Vessel - Pranay Johnson MD s Drug Eluting Stent SGl Vessel - Pranay Johnson MD Ordered Studies 06/20/23 06:40 CL Cath Imgs for PACS use only Routine 06/20/23 13:17 CL IVUS Coronary Single Vessel Routine Hospital Course (1) CAD (coronary artery disease): (2) HLD (hyperlipidemia): (3) GERD (gastroesophageal reflux disease): (4) Irritable bowel syndrome: Plan Multivessel CAD s/p cardiac cath and stenting of mid LAD by Dr Johnson - found to have abnormal stress test for which he underwent cardiac cath and found to have multivessel disease with severe mid LAD disease with RCA MOP MAKER with bridging right to right and [id number] collaterals - S/p successful PCI of mid LAD with single drug-eluting stent (3.0 x 22 mm [place]; postdilated with 3.5 NC). Patient was monitored overnight Patient had relative aspirin intolerance and will continue on antiplatelet monotherapy with ticagrelor for 1 month then transition to clopidogrel for at least 6 months. Instruction was given to patient to do loading dose of Plavix(600mg) prior to transition. Continue statin, and ASCVD risk factor modification Consult cardiac Rehab No other medication changes were done. Please note the above document was generated using voice recognition software. It may contain grammatical, syntax or spelling errors. Any formal questions or concerns about the content, text or information contained within the body of this dictation should be directly addressed to the provider for clarification Total Time Total Time Spent Total Time Spent (In Minutes): 35 Total Time Includes: Examination of the Patient, Discharge Planning, Medication Reconciliation, Communication With Other Providers and Other Discharge Plan Discharge Items Patient Disposition: Home - Self-Care Reason For Visit: Abnormal Stress Echo Discharge Diagnosis: Coronary artery disease status post stenting LAD Activity: Resume your previous activity Non-emergency contact: Primary Care Provider Call non-emergency contact if: you have any medication questions and your symptoms worsen Follow-up/Referrals: Per Serrano DO [Rail Detector Car Operator] - (The Cardiology office will contact you for a follow up appointment. ) Jorge Zhao MD [Outside Practitioners] - (Date & Time 06/26/2023 11:20 AM Provider Jorge Zhao MD [facility] ) Diet: Regular Addtl Attending Provider Instructions: You were admitted to the hospital for cardiac cath. A stent was placed in one of your heart vessels. The four roll calender operator recommends following medication changes: Stop taking Plavix. You are started on Brilinta 90 mg twice a day. You will follow-up with cardiology and PCP as scheduled. Addtl [employer] Provider Instructions: ACTIVITY RECOMMENDATIONS: It is common to feel weak and fatigue for a few days. * Do not drive or operate any motorized equipment for the next three days. * Limit stair usage (2 or 3 trips a day only) for the next three days. * Do not lift anything heavier than 10 pounds for the next three days. * Do not engage in vigorous exercise or any sports for the next five days. * You may shower the day after your procedure, but do not immerse the area for three days. Cleanse the site gently with soap and water. SPECIAL CARE INSTRUCTIONS: * You may replace the pressure dressing or band-aid the morning after the procedure. * After your procedure, it is normal to have a small bruise or small lump at the site. Examine your site daily for any change in the bruise or lump, redness, swelling, drainage or numbness. Notify your doctor if any change. BLEEDING: * If there is a small amount of bleeding at the site, lie down and apply firm pressure with a clean cloth for ten minutes. When the bleeding stops, lie quietly keeping the procedure limb straight for six hours. Notify your doctor as soon as possible. * If the bleeding does not stop after ten minutes or if there is a large amount of bleeding or spurting, call 911 immediately. Continue to lie down and hold firm pressure until help arrives. SKIN IRRITATION: * You may experience some redness and/or swelling in the area where radiation was administered. If any skin irritation occurs, please contact your family physician. FOLLOW UP VISIT: Keep any scheduled doctor appointments. Pending Studies at Discharge: No Stand-Alone Forms: My [facility], Smoking Cessation Medications and DC Order Prescriptions: New Brilinta 90 mg Tablet 90 mg PO BID 30 Days Qty: 60 0RF clopidogrel 300 mg tablet 600 mg PO ONCE Qty: 2 0RF Rx Instructions: Take on July 20, 2023 after Finishing up on the 30 days course of Brilinta(Ticagrelor) Continued latanoprost 0.005 % Drops 1 drp OPHTHALMIC (EYE) PM buspirone 5 mg Tablet 5 mg PO BID pantoprazole 20 mg Tablet,Delayed Release (Dr/Ec) 20 mg PO DAILY famotidine 20 mg Tablet 20 mg PO HS gabapentin 100 mg Capsule 200 mg PO HS albuterol sulfate 90 mcg/actuation Hfa Aerosol Inhaler 2 inh INHALATION QID PRN (Reason: Shortness Of Breath Or Wheezing) ezetimibe 10 mg Tablet 10 mg PO QAM rosuvastatin 5 mg Tablet 5 mg PO DAILY olopatadine 0.6 % [place],Non-Aerosol 2 spray INTRANASAL BID buspirone 5 mg tablet 5 mg PO BID PRN (Reason: Anxiety) losartan 25 mg tablet 25 mg PO DAILY metoprolol succinate 25 mg tablet 25 mg PO DAILY pantoprazole 40 mg tablet 40 mg PO DAILY Discontinued clopidogrel 75 mg tablet 75 mg PO DAILY Discharge Orders: Discharge Order (Routine); Ordered 06/21/23 Ordered By: Anish Raines Admission Data Admit Date/Time: 06/20/23 10:19 Attending Provider: Anish Raines Admit Provider: Per Serrano Primary Care Provider: Gordo Babin Other Providers: Per Serrano; Clari Saeed; Bushra Doran; Madhu Caruso; Kendall Holliday Jr; Slime Higgins; Yue Hammond
--- OUTSIDE RECORDS SUMMARY | 2023-06-21 22:20 | External Medical Summary | Summary of Care ---
Author Name Unknown Organization [facility] Address [address] [place] [address] Phone [phone] Care Team Providers Care Rock Loader Name Role Phone Jorge Zhao MD Primary Care Provider Encounter Details Date Type Department Care Team (Late st Contact Info) Description 06/20/2023 Result Scan Unspecified Department Per Serrano O, DO [address] [place] [address] <No scans attached> Allergies Active Allergy Reactions Criticality Noted Date Comments Clarithromycin 04/02/2001 ? Rash. Tolerates azithromycin on multiple occasions Doxycycline 09/27/1999 Rash documented as of this encounter (statuses as of 06/21/2023) Medications Medication Sig Dispensed Refills Start Date End Date Status MULTIVITAMINS PO TABS 1 a day 30 0 04/25/2007 Active vitamin c (ASCORBIC ACID) 500 MG Tablet Take 2 Tablets by mouth in the morning. 0 Active Calcium Magnesium Zinc 333-133-5 MG Oral Tablet Take 1 Tablet by mouth daily. 1 Tablet 0 02/19/2021 Active Saw Holland 1000 MG Oral Capsule Take by mouth . 0 Acti ve Olopatadine HCl 0.6 % Nasal Solution (Patanase) Administer 2 Sprays into nostril in the morning and 2 Sprays before bedtime. 30.5 g 5 04/25/2022 Active Additional Information Patient taking differently:2 [place] NasalBID PRN, Rhinitis, Reported on 05/22/2023 Famotidine [...] as of this encounter (statuses as of 06/21/2023) Active Problems Problem Noted Date Diagnosed Date PVC (premature ventricular contraction) 01/25/20 23 Mixed dyslipidemia 09/19/2016 Mild intermittent asthma without complication Ascending aorta dilation 09/08/2014 DDD (degenerative disc disease), lumbar 01/01/20 13 Gastroesophageal reflux disease without esophagi tis 06/07/2004 Deviated nasal septum 05/28/2003 Irritable bowel syndrome documented as of this encounter (statuses as of 06/21/2023) Resolved Problems Problem Noted Date Diagnosed Date [...] as of this encounter (statuses as of 06/21/2023) Immunizations Name Administration Dates Next Due COVID-19 [...] 07/04/2023 10:00 AM EDT Office Visit [facility], [facility] [place] [address] Per Serrano O, [address] [place] [address] 07/05/2023 2:00 PM EDT Therapy [facility], [place] [facility] [phone] Danica Stover, DINING CAR CONDUCTOR [address] [facility] [place] [address] 07/17/2023 2:40 PM EDT Office Visit Family Practice, [place] [address] [place] [address] Jorge Zhao MD [address] [facility] [address] [place] [address] 08/01/2023 11:00 AM EDT Office Visit Cardiology, [facility] [address] [place] [address] Meaghan Hargrove PA-C [address] [place] [address] 09/19/2023 9:00 AM EDT Office Visit Psychiatry, [place] [address] [place] [address] Treasure Mcclain CRNP [address] [place] [address] 09/21/2023 10:30 AM EDT Office Visit Orthopaedics Spine Surgery, [address] [place] [address] [place] [address] Rosas Caba MD [address] [place] [address] [place] [address] 09/29/2023 8:15 AM EDT Office Visit Ophthalmology, [place] [address] [place] [address] García Winston MD [address] [place] [address] 10/04/2023 8:20 AM EDT Office Visit Dermatology [facility], [place] [address] [place] [address] Vilma Burris PA-C [address] [facility] [address] 10/24/2023 9:00 AM EDT Hospital Encounter ENDO [facility], Endoscopy [address] [place] [phone] Fidencio Hall MD [address] [place] [address] 10/24/2023 9:00 AM EDT - 10/24/2023 9:45 AM EDT Surgery ENDO [facility], Endoscopy [address] [place] [phone] Fidencio Hall MD [address] [place] [address] COLONOSCOPY FLEXIBLE PROXIMAL DIAGNOSTIC 11/07/2023 10:40 AM EDT Office Visit Otolaryngology, [place] [address] [place] [address] Saúl Yu PA-C [address] [place] [address] Scheduled Procedures Name Priority Associated Diagnoses Date/Ti [...] Procedure Name Priority Date/Time Associated Diagnosis Comments CARDIAC CATH SCANNED RESULT 06/20/2023 documented in this encounter Results * CARDIAC CATH SCANNED RESULT (06/20/2023) 06/20/2023 Per Serrano DO CARD CATH documented in this encounter Care Teams Rock Loader Relationship Specialty Start Date End Date Jorge Zhao MD [address] [facility] [address] [place], [place] [address] [address] PCP - General Family Medicine 08/02/19 documented as of this encounter
--- NOTE | 2023-06-23 05:28 | Electrocardiogram Report ---
Test Reason : Blood Pressure : / mmHG Vent. Rate : 058 BPM Atrial Rate : 058 BPM P-R Int : 184 ms QRS Dur : 076 ms QT Int : 434 ms P-R-T Axes : 045 -27 001 degrees QTc Int : 426 ms Sinus bradycardia with Premature atrial complexes in a pattern of bigeminy Possible Inferior infarct , age undetermined Abnormal ECG When compared with ECG of 25-JUL-2005 21:27, Premature atrial complexes are now Present Vent. rate has decreased BY 30 BPM Confirmed by Jacobo Padilla ([id number]) on 06/23/2023 5:27:35 AM Referred By: Per Serrano Confirmed By:Jacobo Padilla
--- NOTE | 2023-06-23 05:43 | Electrocardiogram Report ---
Test Reason : Blood Pressure : / mmHG Vent. Rate : 056 BPM Atrial Rate : 056 BPM P-R Int : 164 ms QRS Dur : 076 ms QT Int : 438 ms P-R-T Axes : 048 -23 016 degrees QTc Int : 422 ms Sinus bradycardia with Premature atrial complexes Possible Inferior infarct When compared with ECG of 20-Jun-2023 10:23, No significant change Confirmed by Jacobo Padilla ([id number]) on 06/23/2023 5:43:08 AM Referred By: Per Serrano Confirmed By:Jacobo Padilla
== END 2023-06-21 17:14 | disposition home or self-care (01) ==
LOC: 1E 07:05 → CC 07:05 → SUATTDRO 10:19 → 4W 06-21 05:48

== ENCOUNTER 2024-11-10 18:01 | Inpatient (IN) ==
--- NOTE | 2024-11-10 18:23 | Emergency Department Note ---
Impression & Plan Atrial fibrillation/flutter, CAD (coronary artery disease), Abdominal pain ED Provider Note NAME: JAYNE SIMMONS AGE: 79 SEX: M : 1945 ARRIVES VIA: Walk-In INFORMANT: Patient ED PROVIDER(S): Darvin Chavez MD CHIEF COMPLAINT: Atrial flutter, tachycardia PLAN: Disposition: Admit MEDICAL DECISION MAKING: The patient is a pleasant 79-year-old gentleman with a past medical history of CAD on Plavix, hypertension, hyperlipidemia, ascending aortic dilatation, recent diagnosis of new onset atrial flutter who presents to the emergency department for recurrence of atrial flutter with RVR. Per records, the patient was seen at [facility] on 11/06-11/07 where admission was planned for new onset atrial flutter with RVR following treatment with Cardizem bolus and drip. However, the patient had cardioverted and the patient preferred discharge prior to having completed his cardiology evaluation including echo. Patient reports that he has a echo scheduled in April and so thought this was sufficient. However, he presents emerged from today due to recurrence of fast heart rate. Patient denies chest pain or shortness of breath. He reports fluctuating abdominal fullness/bloating with intermittent nausea that has been ongoing for months and is no different. Patient reports he remains on Plavix but is not on anticoagulation. On arrival Emergency Department the patient is no acute distress, afebrile with heart rate in atrial flutter with a rate of 128 and vital signs otherwise stable. Appears clinically dry. Abdomen is nontender. Patient was treated with IV fluid hydration and heart rate gradually improved without need for medications. EKG initially did demonstrate atrial flutter with out overt ST elevation or depression. Chest x-ray negative for acute cardiopulmonary process per my preliminary independent interpretation. WBC, H/H and platelets within normal limits. Chemistry without metabolic acidosis. Electrolytes and LFTs unremarkable. High-sensitivity troponin 10.7, within normal limits. TSH within normal limits. CTA of the chest and abdomen pelvis was performed and was negative for acute abnormalities. Given fluctuating recurrence of the patient's new onset atrial flutter the patient does agree with plan for admission at this time. Case was discussed with Dr. Kim, [facility] hospitalist, who will evaluate the patient for admission. Further management per admitting team. Triage Nursing notes reviewed and agree them. Prior/external medical records reviewed Vital Signs: reviewed Differential diagnosis: Premature contractions, electrolyte abnormality, cardiac dysrhythmia, thyroid dysfunction, pulmonary embolism, infection, gastrointestinal, as well as other pathologies. ER treatment provided: See below. Diagnostics interpreted by me: ECG: Atrial flutter with 2: 1 AV conduction, 125 bpm, nonspecific intraventricular block, no overt ST elevation or depression, QTc 453, QRS 144 Cardiac Monitoring: An order for continuous cardiac monitoring was placed and demonstrated atrial flutter with RVR, 125 bpm. Laboratory studies: See below Imaging studies: See below Consultation(s): Case was discussed with Dr. Kim, [facility] hospitalist, who will evaluate the patient for admission. HPI: Per MDM. ROS: See above HPI for pertinent positives & negatives. A total of 10 systems reviewed and were otherwise negative. VITALS:See Below PHYSICAL EXAMINATION: GENERAL: Awake, alert, well-appearing, in no distress HENT: Normocephalic, atraumatic. Oropharynx with dry mucous membranes and otherwise unremarkable. EYES: Normal conjunctiva. Sclera non-icteric. NECK: Supple. No nuchal rigidity. FROM. No JVD. RESPIRATORY: Clear to auscultation. CARDIAC: Tachycardic rate, irregular rhythm. Extremities warm and well perfused. Pulses equal. ABDOMEN: Soft, non-distended. No tenderness to palpation. No rebound or guarding. No masses. MUSCULOSKELETAL: Chest examination reveals no tenderness. The back is symmetrical on inspection without obvious abnormality. There is no CVA tenderness to palpation. No joint edema. LOWER EXTREMITIES: Calves are equal size bilaterally and non-tender. No edema. No discoloration. NEURO: Normal sensorium. No sensory or motor deficits noted. SKIN: No rash or jaundice noted. Darvin Chavez MD Past Med/Surg History Problem List (Updated 11/11/24 @ 05:30 by Darvin Chavez MD) Abdominal pain (Acute) Atrial fibrillation/flutter (Acute) Status post insertion of drug-eluting stent into left anterior descending (LAD) artery CAD (coronary artery disease) (Acute) HLD (hyperlipidemia) DDD (degenerative disc disease), cervical GERD (gastroesophageal reflux disease) Irritable bowel syndrome Ascending aorta dilation Medical History HTN (hypertension) Surgical History Hx of colonoscopy Hx of esophagogastroduodenoscopy Family History Father Lung disease Mother Heart disease Social History Smoking Status: Unknown if ever smoked Hx Alcohol Use: No Hx Substance Use: No Preferred Language: Welsh Communication Ability: Effective Glass Maker Required: No Beliefs That Will Affect Care: None Current Living Situation: Spouse Other Information That Helps Us Care for You: No Feels Safe at Home: Yes Safety Concerns: Feels Safe At This Time Assistive Devices: Glasses Allergies Allergies Allergy/AdvReac Type Severity Reaction Status Date / Time clarithromycin Allergy Intermediate Rash Verified 11/10/24 19:18 doxycycline Allergy Intermediate Rash Verified 11/10/24 19:18 ticagrelor [From Brilinta] Allergy Intermediate Rash Verified 11/10/24 19:18 Home Meds Home Medications Medication Instructions Recorded Confirmed albuterol sulfate 90 mcg/actuation 2 inh inhalation QID PRN Shortness 06/20/23 11/10/24 aerosol inhaler Of Breath Or Wheezing buspirone 5 mg tablet 5 mg PO BID 06/20/23 11/10/24 ezetimibe 10 mg tablet 10 mg PO QAM 06/20/23 11/10/24 gabapentin 100 mg capsule 200 mg PO HS 06/20/23 11/10/24 pantoprazole 20 mg tablet,delayed 20 mg PO DAILY 06/20/23 11/10/24 release clopidogrel 75 mg tablet 75 mg PO DAILY 02/06/24 11/10/24 famotidine 20 mg tablet 20 mg PO HS PRN 02/06/24 11/10/24 HEARTBURN/INDIGESTION losartan 25 mg tablet 25 mg PO DAILY 02/06/24 11/10/24 metoprolol succinate 25 mg 25 mg PO DAILY 02/06/24 11/10/24 tablet,extended release 24 hr olopatadine 0.6 % nasal spray 2 spray intranasal BID PRN seasonal 02/06/24 11/10/24 Previous Rx's Medication Instructions Recorded rosuvastatin 20 mg tablet 20 mg PO DAILY #90 tabs 08/26/24 Results & Data (ED) Vital Signs Vital Signs - 24 hr 11/10/24 18:01 11/10/24 18:20 11/10/24 18:23 Temperature 36.6 C Temperature Source Temporal Artery Scan Pulse Rate 128 H 126 H Pulse Rate [Apical] 124 H Pulse Rate from SpO2 Sensor Pulse Rhythm Regular Pulse Rhythm [Apical] Regular Pulse Strength [Apical] Normal Respiratory Rate 18 14 14 Respiratory Effort / Characteristics Non-Labored Spontaneous Respiratory Depth Normal Respiratory Pattern Regular Blood Pressure 138/94 Blood Pressure [Left Arm] 187/120 H Blood Pressure Mean 108 Blood Pressure Mean [Left Arm] 142 Blood Pressure Position [Left Arm] Pulse Oximetry 97 97 98 Oxygen Delivery Method Room Air Room Air Sepsis Recent Fever Within 48 Hours No Sepsis New/Unexplained Change in Mental Status N/A Sepsis Action Taken by Nursing No Action Required 11/10/24 18:28 11/10/24 18:47 11/10/24 20:01 Temperature Temperature Source Pulse Rate 123 H Pulse Rate [Apical] 102 H 102 H Pulse Rate from SpO2 Sensor Pulse Rhythm Pulse Rhythm [Apical] Regular Pulse Strength [Apical] Normal Respiratory Rate 20 19 Respiratory Effort / Characteristics Non-Labored Non-Labored Spontaneous Respiratory Depth Normal Normal Respiratory Pattern Regular Blood Pressure Blood Pressure [Left Arm] 156/118 H 152/105 H Blood Pressure Mean Blood Pressure Mean [Left Arm] 130 120 Blood Pressure Position [Left Arm] Sitting Pulse Oximetry 98 100 Oxygen Delivery Method Room Air Room Air Sepsis Recent Fever Within 48 Hours Sepsis New/Unexplained Change in Mental Status Sepsis Action Taken by Nursing 11/10/24 20:03 11/10/24 21:06 Temperature Temperature Source Pulse Rate 102 H 105 H Pulse Rate [Apical] Pulse Rate from SpO2 Sensor 106 H 87 Pulse Rhythm Pulse Rhythm [Apical] Pulse Strength [Apical] Respiratory Rate 11 L 21 Respiratory Effort / Characteristics Respiratory Depth Respiratory Pattern Blood Pressure 152/105 H 137/85 Blood Pressure [Left Arm] Blood Pressure Mean 120 102 Blood Pressure Mean [Left Arm] Blood Pressure Position [Left Arm] Pulse Oximetry 97 96 Oxygen Delivery Method Sepsis Recent Fever Within 48 Hours Sepsis New/Unexplained Change in Mental Status Sepsis Action Taken by Nursing Laboratory Data Attestation: I reviewed the patient's lab results. 11/10/24 18:15 11/10/24 18:15 Lab Results 11/10/24 Range/Units 18:15 WBC 6.09 (4.8-10.8) K/ul RBC 4.90 (4.70-6.10) M/uL Hgb 14.4 (14.0-18.0) g/dl Hct 42.4 (42.0-52.0) % MCV 86.5 (80.0-100.0) fL MCH 29.4 (25.0-34.0) pg MCHC 34.0 (32.0-36.0) g/dL RDW Std Deviation 38.7 (36.4-46.3) fL RDW Coeff of [place] 12.3 (11.5-14.5) % Plt Count 162 (130-400) K/uL MPV 10.6 (9.4-12.4) fL Immature Gran % (Auto) 0.2 % Neut % (Auto) 62.0 % Lymph % (Auto) 23.6 % [place] % (Auto) 12.6 % Eos % (Auto) 0.8 % Baso % (Auto) 0.8 % Neut # (Auto) 3.77 (1.40-6.50) K/uL Lymph # (Auto) 1.44 (1.20-3.40) K/uL [place] # (Auto) 0.77 H (0.11-0.59) K/uL Eos # (Auto) 0.05 (0.00-0.50) K/uL Baso # (Auto) 0.05 (0.00-0.20) K/uL Immature Gran # (Auto) 0.01 (0.01-0.20) K/uL PT 10.7 (9.0-12.0) Seconds INR 1.0 (0.9-1.1) APTT 25 (21-31) Seconds PTT Ratio 0.9 Sodium 138 (136-145) mmol/L Potassium 4.4 (3.5-5.1) mmol/L Chloride 103 (98-107) mmol/L Carbon Dioxide 27 (21-32) mmol/L Anion Gap 8 (3-11) BUN 25 H (6-23) mg/dl Creatinine 1.27 (0.6-1.4) mg/dl Est Cr Clr Drug Dosing 51.1 ml/min eGFR 57.83 BUN/Creatinine Ratio 19.7 (10-20) Glucose 122 H (70-99(Fasting)) mg/dl Calcium 9.8 (8.6-10.3) mg/dl Phosphorus 3.6 (2.5-4.9) mg/dl Magnesium 2.0 (1.7-2.4) mg/dl Total Bilirubin 0.5 (0.2-1.0) mg/dl AST 36 (13-39) U/L ALT 30 (7-52) U/L Alkaline Phosphatase 68 (34-104) U/L Troponin I High Sens 10.7 (0-20) pg/ml Total Protein 7.3 (6.0-8.3) gm/dl Albumin 4.3 (3.4-5.0) gm/dl Globulin 3.0 (2.5-4.0) gm/dl Albumin/Globulin Ratio 1.4 (0.9-2) TSH 2.352 (0.300-4.500) uIu/ml Administered Medications Heparin Sodium/Dextrose (Heparin 07093 Unit/500 Ml D5w) 25,000 units in 500 mls @ 28 mls/hr IV .[id number] [facility], [facility]; Protocol Stop: 12/10/24 22:41 Last Admin: 11/11/24 00:06 Dose: 1,400 units/hr, 28 mls/hr Documented By: CHRISTIANO Co-signed By: SUNIL Discontinued Medications Gabapentin (Gabapentin 100 Mg Cap) 200 mg PO NOW STA Stop: 11/10/24 22:22 Last Admin: 11/10/24 23:47 Dose: 200 mg Documented By: CHRISTIANO Sodium Chloride (Nss) 500 mls @ 999 mls/hr IV .Q31M ONE Stop: 11/10/24 18:51 Last Infusion: 11/10/24 18:46 Dose: Infused Documented By: Admin: 11/10/24 18:25 Dose: 999 mls/hr Documented By: KIRAN Sodium Chloride (Nss) 500 mls @ 999 mls/hr IV .Q31M ONE Stop: 11/10/24 19:23 Last Infusion: 11/10/24 19:53 Dose: Infused Documented By: Admin: 11/10/24 19:21 Dose: 999 mls/hr Documented By: LESLYE Ioversol (Optiray 320 125ml) 119 ml IV ONCE ONE Stop: 11/10/24 19:02 Last Admin: 11/10/24 19:01 Dose: 119 ml Documented By: EDK Imaging Data Radiologist's Impression: Chest X-Ray 11/10/24 18:08 HISTORY: Hypertension. TECHNIQUE: Portable AP radiograph of the chest. COMPARISON: Chest CT dated11/10/2024. FINDINGS: No focal lung consolidation. No pneumothorax or pleural effusion. Nipple shadow is incidentally noted overlying the right lower lung. Normal heart size. Left-sided aortic arch containing atherosclerotic calcification. Midline trachea. No acute osseous abnormality. The included upper abdomen is unremarkable. IMPRESSION: No acute cardiopulmonary findings. Electronically signed by Gordo Reyez 11-10-2024 7:40 PM Abdomen/Pelvis CTA 11/10/24 18:50 HISTORY: Tachycardia. Pulsating abdomen. TECHNIQUE: CT angiography of the abdomen and pelvis was performed with IV contrast. Images are presented in axial, sagittal, and coronal reformats. Coronal and sagittal 3D MIP reconstructions. COMPARISON: None. FINDINGS: Lung Bases/Inferior Mediastinum: Unremarkable Liver: Unremarkable Gallbladder: Unremarkable Spleen: Unremarkable Adrenals: Unremarkable Pancreas: Unremarkable Kidneys: Unremarkable Stomach/Bowel: Stomach and duodenum are unremarkable. Small bowel loops are normal in caliber. Colonic diverticulosis without evidence of acute diverticulitis. The appendix is normal in caliber. Lymph nodes: Unremarkable Vasculature: Mild atherosclerotic vascular disease. No abdominal aortic aneurysm. The renal artery origins are patent. Mild stenosis of the proximal SMA. The celiac is patent. The LAAN is patent. The common iliac, external iliac, internal iliac, and common femoral arteries are patent. Mild multifocal atherosclerotic plaque throughout the arterial system. Pelvis: Urinary bladder is unremarkable. Enlarged prostate measuring 5.4 cm in diameter. No free pelvic fluid. Soft Tissues: Unremarkable Bones: No acute osseous abnormality. Partially fused sacroiliac joints. Mild degenerative changes of the hips and pubic symphysis. Degenerative changes of the spine. IMPRESSION: * No evidence of abdominal aortic aneurysm or dissection. Mild multifocal atherosclerotic vascular disease. * No acute findings in the abdomen or pelvis. * Enlarged prostate. Recommend correlation with serum PSA. * Colonic diverticulosis. * Additional chronic and/or incidental findings as detailed above. ACT 112: Positive. There are findings on this exam that require communication between the performing entity and the patient following Patient Test Result Information Act ([place] ACT 112) guidelines. Electronically signed by Gordo Reyez 11-10-2024 8:04 PM Chest CTA 11/10/24 18:50 HISTORY: Hypertension. TECHNIQUE: CT angiography of the chest was performed with IV contrast. Images are presented in axial, sagittal, and coronal reformats. Coronal and sagittal MIP reconstructions. COMPARISON: None. FINDINGS: Lungs: 0.4 cm nodule in the right middle lobe on series 3 image 46. 0.4 cm right upper lobe nodule on series 3 image 13. 0.7 cm left lower lobe nodule on series 3 image 49. No focal consolidation concerning for pneumonia. No pneumothorax or pleural effusion. The central tracheobronchial tree is patent. Heart/Mediastinum: Normal heart size.Coronary artery calcifications are present with severe multivessel disease. Aortic valvular calcification. Mild mitral annular calcification. No pericardial effusion.Included thyroid gland is unremarkable. No suspicious mediastinal or hilar lymph nodes. Thoracic esophagus is unremarkable. Vasculature: No thoracic aortic aneurysm. Mild atherosclerotic vascular disease of the thoracic aorta and arch vessels. No evidence of aortic dissection or acute aortic process. The main pulmonary artery is normal in caliber. There is no large or central pulmonary embolism. Soft Tissues: No enlarged axillary or subpectoral lymph nodes. Soft tissues of the chest wall are unremarkable. Upper Abdomen: The included upper abdomen is unremarkable. Bones: No acute osseous abnormality. Degenerative changes of the spine. Diffuse idiopathic skeletal hyperostosis involving the thoracic spine. IMPRESSION: * No evidence of aortic dissection or acute aortic process. Mild atherosclerotic vascular disease. * Multiple pulmonary nodules. The largest in the left lung base measures 0.7 cm on series 3 image 49. Follow-up chest CT is recommended in 3 months to ensure stability. * Coronary artery calcifications are present with severe multivessel disease. * Additional chronic and/or incidental findings as above. ACT 112: Positive. There are findings on this exam that require communication between the performing entity and the patient following Patient Test Result Information Act ([place] ACT 112) guidelines. Electronically signed by Gordo Reyez 11-10-2024 8:09 PM Discharge Plan Visit Data Chief Complaint: Hypertension Stated Complaint: HIGH BP AND PULSE ED Provider: Darvin Chavez Discharge Problem: Atrial fibrillation/flutter, CAD (coronary artery disease), Abdominal pain Patient Disposition: Admitted As Inpatient Condition: Fair Discharge Instructions Interventions: ED Discharge Assessment Last Done: 11/10/24 23:26 Discharge Problem: CAD (coronary artery disease) Qualifiers: Coronary Disease-Associated Artery/Lesion type: unspecified vessel or lesion type [place] vs. transplanted heart: [place] heart Associated angina: unspecified whether angina present Qualified Code(s): I25.10 - Atherosclerotic heart disease of [place] coronary artery without angina pectoris Abdominal pain Qualifiers: Abdominal location: generalized Qualified Code(s): R10.84 - Generalized abdominal pain
[2024-11-10] MEDS: SODIUM CHLORIDE 0.9% 500 ML IV ONE ×2 (18:25→19:21)
[2024-11-10 18:26] LABS: Hematocrit (blood only) 42.4 % (42.0-52.0); Hemoglobin 14.4 g/dl (14.0-18.0); Immature Granulocytes # (auto) 0.01 K/uL (0.01-0.20); Immature Granulocytes % (auto) 0.2 %; Mean Corpuscular Hemoglobin 29.4 pg (25.0-34.0); Mean Corpuscular Volume 86.5 fL (80.0-100.0); Platelet Count 162 K/uL (130-400); RDW Standard Deviation 38.7 fL (36.4-46.3); Red Blood Count 4.90 M/uL (4.70-6.10); White Blood Count 6.09 K/ul (4.8-10.8)
[2024-11-10 18:51] LABS: Alanine Aminotransferase 30.0 U/L (7-52); Albumin Globulin Ratio 1.4 (0.9-2); Alkaline Phosphatase 68.0 U/L (34-104); Anion Gap 8.0 (3-11); Bilirubin,Total 0.5 mg/dl (0.2-1.0); Blood Urea Nitrogen 25.0 mg/dl (6-23); Calcium 9.8 mg/dl (8.6-10.3); Carbon Dioxide 27.0 mmol/L (21-32); Chloride 103.0 mmol/L (98-107); Creatinine Clr Calc Pharmacy 51.1 ml/min; Globulin 3.0 gm/dl (2.5-4.0); Glucose 122.0 mg/dl (70-99(Fasting)); Potassium 4.4 mmol/L (3.5-5.1); Sodium 138.0 mmol/L (136-145); Total Protein 7.3 gm/dl (6.0-8.3)
[2024-11-10 18:53] LABS: INR 1.0 (0.9-1.1); Partial Thromboplastin Time 25 Seconds (21-31); Prothrombin Time 10.7 Seconds (9.0-12.0)
[2024-11-10] MEDS: OPTIRAY 320 125ml IV ONE (19:01)
[2024-11-10 19:29] LABS: Magnesium 2.0 mg/dl (1.7-2.4)
--- NOTE | 2024-11-10 19:41 | XRay Report ---
HISTORY: Hypertension. TECHNIQUE: Portable AP radiograph of the chest. COMPARISON: Chest CT dated11/10/2024. FINDINGS: No focal lung consolidation. No pneumothorax or pleural effusion. Nipple shadow is incidentally noted overlying the right lower lung. Normal heart size. Left-sided aortic arch containing atherosclerotic calcification. Midline trachea. No acute osseous abnormality. The included upper abdomen is unremarkable. IMPRESSION: No acute cardiopulmonary findings. Electronically signed by Gordo Reyez 11-10-2024 7:40 PM
[2024-11-10 19:45] LABS: Thyroid Stimulating Hormone 2.352 uIu/ml (0.300-4.500)
--- NOTE | 2024-11-10 20:05 | CT Scan Report ---
HISTORY: Tachycardia. Pulsating abdomen. TECHNIQUE: CT angiography of the abdomen and pelvis was performed with IV contrast. Images are presented in axial, sagittal, and coronal reformats. Coronal and sagittal 3D MIP reconstructions. COMPARISON: None. FINDINGS: Lung Bases/Inferior Mediastinum: Unremarkable Liver: Unremarkable Gallbladder: Unremarkable Spleen: Unremarkable Adrenals: Unremarkable Pancreas: Unremarkable Kidneys: Unremarkable Stomach/Bowel: Stomach and duodenum are unremarkable. Small bowel loops are normal in caliber. Colonic diverticulosis without evidence of acute diverticulitis. The appendix is normal in caliber. Lymph nodes: Unremarkable Vasculature: Mild atherosclerotic vascular disease. No abdominal aortic aneurysm. The renal artery origins are patent. Mild stenosis of the proximal SMA. The celiac is patent. The ALAN is patent. The common iliac, external iliac, internal iliac, and common femoral arteries are patent. Mild multifocal atherosclerotic plaque throughout the arterial system. Pelvis: Urinary bladder is unremarkable. Enlarged prostate measuring 5.4 cm in diameter. No free pelvic fluid. Soft Tissues: Unremarkable Bones: No acute osseous abnormality. Partially fused sacroiliac joints. Mild degenerative changes of the hips and pubic symphysis. Degenerative changes of the spine. IMPRESSION: * No evidence of abdominal aortic aneurysm or dissection. Mild multifocal atherosclerotic vascular disease. * No acute findings in the abdomen or pelvis. * Enlarged prostate. Recommend correlation with serum PSA. * Colonic diverticulosis. * Additional chronic and/or incidental findings as detailed above. ACT 112: Positive. There are findings on this exam that require communication between the performing entity and the patient following Patient Test Result Information Act ([place] ACT 112) guidelines. Electronically signed by Gordo Reyez 11-10-2024 8:04 PM
--- NOTE | 2024-11-10 20:10 | CT Scan Report ---
HISTORY: Hypertension. TECHNIQUE: CT angiography of the chest was performed with IV contrast. Images are presented in axial, sagittal, and coronal reformats. Coronal and sagittal MIP reconstructions. COMPARISON: None. FINDINGS: Lungs: 0.4 cm nodule in the right middle lobe on series 3 image 46. 0.4 cm right upper lobe nodule on series 3 image 13. 0.7 cm left lower lobe nodule on series 3 image 49. No focal consolidation concerning for pneumonia. No pneumothorax or pleural effusion. The central tracheobronchial tree is patent. Heart/Mediastinum: Normal heart size.Coronary artery calcifications are present with severe multivessel disease. Aortic valvular calcification. Mild mitral annular calcification. No pericardial effusion.Included thyroid gland is unremarkable. No suspicious mediastinal or hilar lymph nodes. Thoracic esophagus is unremarkable. Vasculature: No thoracic aortic aneurysm. Mild atherosclerotic vascular disease of the thoracic aorta and arch vessels. No evidence of aortic dissection or acute aortic process. The main pulmonary artery is normal in caliber. There is no large or central pulmonary embolism. Soft Tissues: No enlarged axillary or subpectoral lymph nodes. Soft tissues of the chest wall are unremarkable. Upper Abdomen: The included upper abdomen is unremarkable. Bones: No acute osseous abnormality. Degenerative changes of the spine. Diffuse idiopathic skeletal hyperostosis involving the thoracic spine. IMPRESSION: * No evidence of aortic dissection or acute aortic process. Mild atherosclerotic vascular disease. * Multiple pulmonary nodules. The largest in the left lung base measures 0.7 cm on series 3 image 49. Follow-up chest CT is recommended in 3 months to ensure stability. * Coronary artery calcifications are present with severe multivessel disease. * Additional chronic and/or incidental findings as above. ACT 112: Positive. There are findings on this exam that require communication between the performing entity and the patient following Patient Test Result Information Act ([place] ACT 112) guidelines. Electronically signed by Gordo Reyez 11-10-2024 8:09 PM
--- NOTE | 2024-11-10 21:42 | History & Physical Report ---
Date of Service November 10, 2024 Assessment & Plan (1) Atrial fibrillation/flutter: Plan: 79-year-old male with past medical history significant for dyslipidemia, mild intermittent asthma, ascending aortic dilatation, history of a flutter, history of CAD status post stent., Irritable bowel syndrome, GERD, degenerative disc disease comes because of elevated heart rates and elevated blood pressure and found to be in rapid A-fib. Patient has history of a flutter and patient states since December 2023 he was doing okay until last when his heart rate was high and blood pressure was high and he went to [facility] and got admitted. He was admitted on 11/06 and was discharged on 11/07/2024. He was on Cardizem drip. He converted to sinus rhythm. Before echo was done he wanted to go home and got discharged. Today evening 4 PM again he was not feeling well and when he checked his pulse, it was high and blood pressure also high and he took extra metoprolol dose but it did not bring down his heart rate so he came to the ER. In the ER after fluid boluses his heart rates improved to low 100s and blood pressure improved. Currently resting comfortably and hemodynamically stable. Denies any headache. Has some lightheadedness. Has some congestion and cough from his allergies. No earaches. No fevers. Appetite is okay. Denies any chest pain or shortness of breath. Has some nausea attributes to abdominal bloating from his irritable bowel syndrome. Somewhat constipated. Denies any blood in the stools. Denies any blood in the urine. No rash. Ambulates okay. He has ongoing dental infection in the right upper tooth and has sore gums, supposed to get root canal after cardiac clearance. He is not on Eliquis or Xarelto because of cost and did not wanted to be on warfarin because of frequent blood work. Currently patient is okay to be on IV heparin. A-fib/flutter rapid Continue home metoprolol IV Lopressor as needed IV heparin Will keep him n.p.o. Echo Follow labs in a.m. Cardiac consult in a.m. for further recommendations Ongoing dental infection Will place him on amoxicillin Follow-up with PCP and dentist CAD status post stent On metoprolol, statin and Plavix Hypertension On metoprolol succinate and losartan Will monitor Hyperlipidemia On statin and Zetia Mild intermittent asthma Continue home inhalers Irritable bowel syndrome GERD On Protonix DVT prophylaxis IV heparin Disposition Telemetry Full code. History of Present Illness Chief Complaint: Rapid A-fib Primary Care Provider: Jorge Zhao MD 79-year-old male with past medical history significant for dyslipidemia, mild intermittent asthma, ascending aortic dilatation, history of a flutter, history of CAD status post stent., Irritable bowel syndrome, GERD, degenerative disc disease comes because of elevated heart rates and elevated blood pressure and found to be in rapid A-fib. Patient has history of a flutter and patient states since December 2023 he was doing okay until last when his heart rate was high and blood pressure was high and he went to [facility] and got admitted. He was admitted on 11/06 and was discharged on 11/07/2024. He was on Cardizem drip. He converted to sinus rhythm. Before echo was done he wanted to go home and got discharged. Today evening 4 PM again he was not feeling well and when he checked his pulse, it was high and blood pressure also high and he took extra metoprolol dose but it did not bring down his heart rate so he came to the ER. In the ER after fluid boluses his heart rates improved to low 100s and blood pressure improved. Currently resting comfortably and hemodynamically stable. Denies any headache. Has some lightheadedness. Has some congestion and cough from his allergies. No earaches. No fevers. Appetite is okay. Denies any chest pain or shortness of breath. Has some n ausea attributes to abdominal bloating from his irritable bowel syndrome. Somewhat constipated. Denies any blood in the stools. Denies any blood in the urine. No rash. Ambulates okay. He has ongoing dental infection in the right upper tooth and has sore gums, supposed to get root canal after cardiac clearance. He is not on Eliquis or Xarelto because of cost and did not wanted to be on warfarin because of frequent blood work. Currently patient is okay to be on IV heparin. Past medical history. As mentioned above Past surgical history. Colonoscopy. EGD. EGD with endoscopic ultrasound. Ureteral stent placement. Lumbosacral injection. Social history. . No smoking. No alcohol use currently. No drug use. Family history. Father had allergies, COPD. Mother has allergies. DE. Allergies Allergy/AdvReac Type Severity Reaction Status Date / Time clarithromycin Allergy Intermediate Rash Verified 11/10/24 19:18 doxycycline Allergy Intermediate Rash Verified 11/10/24 19:18 ticagrelor [From Brilinta] Allergy Intermediate Rash Verified 11/10/24 19:18 Home Medications Medication Instructions Recorded Confirmed Type albuterol sulfate 90 mcg/actuation 2 inh inhalation QID PRN Shortness 06/20/23 11/10/24 History aerosol inhaler Of Breath Or Wheezing buspirone 5 mg tablet 5 mg PO BID 06/20/23 11/10/24 History ezetimibe 10 mg tablet 10 mg PO QAM 06/20/23 11/10/24 History gabapentin 100 mg capsule 200 mg PO HS 06/20/23 11/10/24 History pantoprazole 20 mg tablet,delayed 20 mg PO DAILY 06/20/23 11/10/24 History release clopidogrel 75 mg tablet 75 mg PO DAILY 02/06/24 11/10/24 History famotidine 20 mg tablet 20 mg PO HS PRN 02/06/24 11/10/24 History HEARTBURN/INDIGESTION losartan 25 mg tablet 25 mg PO DAILY 02/06/24 11/10/24 History metoprolol succinate 25 mg 25 mg PO DAILY 02/06/24 11/10/24 History tablet,extended release 24 hr olopatadine 0.6 % nasal spray 2 spray intranasal BID PRN seasonal 02/06/24 11/10/24 History rosuvastatin 20 mg tablet 20 mg PO DAILY #90 tabs 08/26/24 11/10/24 Rx Past Med/Surg History Problem List (Updated 11/11/24 @ 05:30 by Darvin Chavez MD) Abdominal pain (Acute) Atrial fibrillation/flutter (Acute) Status post insertion of drug-eluting stent into left anterior descending (LAD) artery CAD (coronary artery disease) (Acute) HLD (hyperlipidemia) DDD (degenerative disc disease), cervical GERD (gastroesophageal reflux disease) Irritable bowel syndrome Ascending aorta dilation Medical History HTN (hypertension) Surgical History Hx of colonoscopy Hx of esophagogastroduodenoscopy Family History Father Lung disease Mother Heart disease Social History Smoking Status: Unknown if ever smoked Hx Alcohol Use: No Hx Substance Use: No Preferred Language: Kyrgyz Communication Ability: Effective Stove Carriage Operator Required: No Beliefs That Will Affect Care: None Current Living Situation: Spouse Other Information That Helps Us Care for You: No Feels Safe at Home: Yes Safety Concerns: Feels Safe At This Time Assistive Devices: Glasses Review of Systems Review of Systems: All systems reviewed & are unremarkable except as noted in HPI & below Physical Exam Physical Exam: General- Not in distress Head- atraumatic Eyes- PERRL. ENT- oropharynx clear Neck- supple, no JVD. Lungs- clear to auscultation no wheezing or crackles Heart- irregular rhythm;tachycardia, no murmur, no gallop. Abdomen- normal bowel sounds, soft, nontender, no distension Extremities- no pretibial edema, no erythema seen Neuro- alert, oriented PERRL, no facial palsy; no dysarthria; moves extremities Results & Data Results & Data Vital Signs (Past 12 Hours) Vital Signs Temp Pulse Pulse Resp BP BP Pulse Ox 11/10/24 20:01 102 H 19 152/105 H 100 11/10/24 18:47 102 H 20 156/118 H 98 11/10/24 18:28 123 H 11/10/24 18:23 126 H 14 98 11/10/24 18:20 124 H 14 187/120 H 97 11/10/24 18:01 36.6 C 128 H 18 138/94 97 O2 Del Method 11/10/24 20:01 Room Air 11/10/24 18:47 Room Air 11/10/24 18:28 11/10/24 18:23 Room Air 11/10/24 18:20 Room Air 11/10/24 18:01 Diagnostic Findings Laboratory Results WBC 6.09 K/ul (4.8-10.8) 11/10/24 18:15 RBC 4.90 M/uL (4.70-6.10) 11/10/24 18:15 Hgb 14.4 g/dl (14.0-18.0) 11/10/24 18:15 Hct 42.4 % (42.0-52.0) 11/10/24 18:15 MCV 86.5 fL (80.0-100.0) 11/10/24 18:15 MCH 29.4 pg (25.0-34.0) 11/10/24 18:15 MCHC 34.0 g/dL (32.0-36.0) 11/10/24 18:15 RDW Std Deviation 38.7 fL (36.4-46.3) 11/10/24 18:15 RDW Coeff of Nahun 12.3 % (11.5-14.5) 11/10/24 18:15 Plt Count 162 K/uL (130-400) 11/10/24 18:15 MPV 10.6 fL (9.4-12.4) 11/10/24 18:15 Immature Gran % (Auto) 0.2 % 11/10/24 18:15 Neut % (Auto) 62.0 % 11/10/24 18:15 Lymph % (Auto) 23.6 % 11/10/24 18:15 Harmon % (Auto) 12.6 % 11/10/24 18:15 Eos % (Auto) 0.8 % 11/10/24 18:15 Baso % (Auto) 0.8 % 11/10/24 18:15 Neut # (Auto) 3.77 K/uL (1.40-6.50) 11/10/24 18:15 Lymph # (Auto) 1.44 K/uL (1.20-3.40) 11/10/24 18:15 Harmon # (Auto) 0.77 K/uL (0.11-0.59) H 11/10/24 18:15 Eos # (Auto) 0.05 K/uL (0.00-0.50) 11/10/24 18:15 Baso # (Auto) 0.05 K/uL (0.00-0.20) 11/10/24 18:15 Immature Gran # (Auto) 0.01 K/uL (0.01-0.20) 11/10/24 18:15 PT 10.7 Seconds (9.0-12.0) 11/10/24 18:15 INR 1.0 (0.9-1.1) 11/10/24 18:15 APTT 25 Seconds (21-31) 11/10/24 18:15 PTT Ratio 0.9 11/10/24 18:15 Sodium 138 mmol/L (136-145) 11/10/24 18:15 Potassium 4.4 mmol/L (3.5-5.1) 11/10/24 18:15 Chloride 103 mmol/L (98-107) 11/10/24 18:15 Carbon Dioxide 27 mmol/L (21-32) 11/10/24 18:15 Anion Gap 8 (3-11) 11/10/24 18:15 BUN 25 mg/dl (6-23) H 11/10/24 18:15 Creatinine 1.27 mg/dl (0.6-1.4) 11/10/24 18:15 Est Cr Clr Drug Dosing 51.1 ml/min 11/10/24 18:15 eGFR 57.83 11/10/24 18:15 BUN/Creatinine Ratio 19.7 (10-20) 11/10/24 18:15 Glucose 122 mg/dl (70-99(Fasting)) H 11/10/24 18:15 Calcium 9.8 mg/dl (8.6-10.3) 11/10/24 18:15 Phosphorus 3.6 mg/dl (2.5-4.9) 11/10/24 18:15 Magnesium 2.0 mg/dl (1.7-2.4) 11/10/24 18:15 Total Bilirubin 0.5 mg/dl (0.2-1.0) 11/10/24 18:15 AST 36 U/L (13-39) 11/10/24 18:15 ALT 30 U/L (7-52) 11/10/24 18:15 Alkaline Phosphatase 68 U/L (34-104) 11/10/24 18:15 Troponin I High Sens 10.7 pg/ml (0-20) 11/10/24 18:15 Total Protein 7.3 gm/dl (6.0-8.3) 11/10/24 18:15 Albumin 4.3 gm/dl (3.4-5.0) 11/10/24 18:15 Globulin 3.0 gm/dl (2.5-4.0) 11/10/24 18:15 Albumin/Globulin Ratio 1.4 (0.9-2) 11/10/24 18:15 TSH 2.352 uIu/ml (0.300-4.500) 11/10/24 18:15 Impressions Chest X-Ray 11/10/24 18:08 HISTORY: Hypertension. TECHNIQUE: Portable AP radiograph of the chest. COMPARISON: Chest CT dated11/10/2024. FINDINGS: No focal lung consolidation. No pneumothorax or pleural effusion. Nipple shadow is incidentally noted overlying the right lower lung. Normal heart size. Left-sided aortic arch containing atherosclerotic calcification. Midline trachea. No acute osseous abnormality. The included upper abdomen is unremarkable. IMPRESSION: No acute cardiopulmonary findings. Electronically signed by Gordo Reyez 11-10-2024 7:40 PM Abdomen/Pelvis CTA 11/10/24 18:50 HISTORY: Tachycardia. Pulsating abdomen. TECHNIQUE: CT angiography of the abdomen and pelvis was performed with IV contrast. Images are presented in axial, sagittal, and coronal reformats. Coronal and sagittal 3D MIP reconstructions. COMPARISON: None. FINDINGS: Lung Bases/Inferior Mediastinum: Unremarkable Liver: Unremarkable Gallbladder: Unremarkable Spleen: Unremarkable Adrenals: Unremarkable Pancreas: Unremarkable Kidneys: Unremarkable Stomach/Bowel: Stomach and duodenum are unremarkable. Small bowel loops are normal in caliber. Colonic diverticulosis without evidence of acute diverticulitis. The appendix is normal in caliber. Lymph nodes: Unremarkable Vasculature: Mild atherosclerotic vascular disease. No abdominal aortic aneurysm. The renal artery origins are patent. Mild stenosis of the proximal SMA. The celiac is patent. The ALAN is patent. The common iliac, external iliac, internal iliac, and common femoral arteries are patent. Mild multifocal atherosclerotic plaque throughout the arterial system. Pelvis: Urinary bladder is unremarkable. Enlarged prostate measuring 5.4 cm in diameter. No free pelvic fluid. Soft Tissues: Unremarkable Bones: No acute osseous abnormality. Partially fused sacroiliac joints. Mild degenerative changes of the hips and pubic symphysis. Degenerative changes of the spine. IMPRESSION: * No evidence of abdominal aortic aneurysm or dissection. Mild multifocal atherosclerotic vascular disease. * No acute findings in the abdomen or pelvis. * Enlarged prostate. Recommend correlation with serum PSA. * Colonic diverticulosis. * Additional chronic and/or incidental findings as detailed above. ACT 112: Positive. There are findings on this exam that require communication between the performing entity and the patient following Patient Test Result Information Act ([place] ACT 112) guidelines. Electronically signed by Gordo Reyez 11-10-2024 8:04 PM Chest CTA 11/10/24 18:50 HISTORY: Hypertension. TECHNIQUE: CT angiography of the chest was performed with IV contrast. Images are presented in axial, sagittal, and coronal reformats. Coronal and sagittal MIP reconstructions. COMPARISON: None. FINDINGS: Lungs: 0.4 cm nodule in the right middle lobe on series 3 image 46. 0.4 cm right upper lobe nodule on series 3 image 13. 0.7 cm left lower lobe nodule on series 3 image 49. No focal consolidation concerning for pneumonia. No pneumothorax or pleural effusion. The central tracheobronchial tree is patent. Heart/Mediastinum: Normal heart size.Coronary artery calcifications are present with severe multivessel disease. Aortic valvular calcification. Mild mitral annular calcification. No pericardial effusion.Included thyroid gland is unremarkable. No suspicious mediastinal or hilar lymph nodes. Thoracic esophagus is unremarkable. Vasculature: No thoracic aortic aneurysm. Mild atherosclerotic vascular disease of the thoracic aorta and arch vessels. No evidence of aortic dissection or acute aortic process. The main pulmonary artery is normal in caliber. There is no large or central pulmonary embolism. Soft Tissues: No enlarged axillary or subpectoral lymph nodes. Soft tissues of the chest wall are unremarkable. Upper Abdomen: The included upper abdomen is unremarkable. Bones: No acute osseous abnormality. Degenerative changes of the spine. Diffuse idiopathic skeletal hyperostosis involving the thoracic spine. IMPRESSION: * No evidence of aortic dissection or acute aortic process. Mild atherosclerotic vascular disease. * Multiple pulmonary nodules. The largest in the left lung base measures 0.7 cm on series 3 image 49. Follow-up chest CT is recommended in 3 months to ensure stability. * Coronary artery calcifications are present with severe multivessel disease. * Additional chronic and/or incidental findings as above. ACT 112: Positive. There are findings on this exam that require communication between the performing entity and the patient following Patient Test Result Information Act ([place] ACT 112) guidelines. Electronically signed by Gordo Reyez 11-10-2024 8:09 PM Code Status & VTE Plan VTE Prophylaxis Plan VTE Prophylaxis will be ordered: Yes
[2024-11-10] MEDS ORDERED: ACETAMINOPHEN 325 MG TAB PO PRN (22:42)
[2024-11-10] MEDS ORDERED: METOPROLOL TARTRATE 1 MG/ML VIAL IV PRN (22:42)
[2024-11-10] MEDS ORDERED: POLYETHYLENE (MIRALAX) 17 GM PACK PO PRN (22:42)
[2024-11-10] MEDS ORDERED: ALBUTEROL HFA 8 GM INHALER INH PRN (22:42)
[2024-11-10] MEDS ORDERED: FAMOTIDINE 20 MG TAB PO PRN (22:42)
[2024-11-10] MEDS ORDERED: NITROGLYCERIN SL 0.4 MG/TAB TAB SL PRN (22:42)
[2024-11-10] MEDS ORDERED: Heparin IV Adult Wt-Based Standard *NO* INITIAL Bolus Protocol IV SCH (22:50)
[2024-11-10] MEDS: GABAPENTIN 100 MG CAP PO STA (23:47)
[2024-11-11] MEDS: HEPARIN 25000 UNIT/500 ML D5W 25,000 UNITS/500 ML BAG IV SCH (00:06)
[2024-11-11 06:31] LABS: Hematocrit (blood only) 39.4 % (42.0-52.0); Hemoglobin 13.5 g/dl (14.0-18.0); Immature Granulocytes # (auto) 0.01 K/uL (0.01-0.20); Immature Granulocytes % (auto) 0.2 %; Mean Corpuscular Hemoglobin 29.7 pg (25.0-34.0); Mean Corpuscular Volume 86.8 fL (80.0-100.0); Platelet Count 151 K/uL (130-400); RDW Standard Deviation 39.3 fL (36.4-46.3); Red Blood Count 4.54 M/uL (4.70-6.10); White Blood Count 5.75 K/ul (4.8-10.8)
[2024-11-11 06:48] LABS: Anion Gap 5.0 (3-11); Blood Urea Nitrogen 18.0 mg/dl (6-23); Calcium 9.0 mg/dl (8.6-10.3); Carbon Dioxide 28.0 mmol/L (21-32); Chloride 108.0 mmol/L (98-107); Creatinine Clr Calc Pharmacy 57.4 ml/min; Glucose 102.0 mg/dl (70-99(Fasting)); Magnesium 1.9 mg/dl (1.7-2.4); Potassium 4.1 mmol/L (3.5-5.1); Sodium 141.0 mmol/L (136-145)
[2024-11-11 06:54] LABS: ANTI-Xa, UFH(UnfractionatedHep 0.60 IU/ml (0.3-0.7)
[2024-11-11] MEDS: busPIRone 5 MG TAB PO SCH (07:45)
[2024-11-11] MEDS: METOPROLOL SUCC 25MG EXT REL TAB PO SCH (07:45)
[2024-11-11] MEDS: EZETIMIBE 10 MG TAB PO SCH (07:45)
[2024-11-11] MEDS: LOSARTAN POTASSIUM 25 MG TAB PO SCH (07:45)
[2024-11-11] MEDS: ROSUVASTATIN CALCIUM 20 MG TAB PO SCH (07:45)
[2024-11-11] MEDS: AMOXICILLIN 875 MG TAB PO SCH (07:45)
[2024-11-11] MEDS: CLOPIDOGREL BISULFATE 75 MG TAB PO SCH (07:45)
[2024-11-11 07:52] VITALS: BP 120/76; RESP 16; TEMP 97.7; O2SAT 96
[2024-11-11] MEDS: AMOXICILLIN/CLAVULANATE 875 MG TAB PO SCH (08:50)
--- NOTE | 2024-11-11 09:44 | Cardiology Consultation ---
Date of Consultation November 11, 2024 Assessment & Plan (1) Atrial fibrillation/flutter: Plan 1. Atrial fibrillation/flutter: Recordings are more consistent with an atrial flutter rather than atrial fibrillation. He does have recordings in his record from an outpatient monitor that are suggestive of any atrial fibrillation. Symptoms are paroxysmal which is less characteristic of an atrial flutter. Fortunately, overall symptoms are limited. Episodes themselves gene rally less than 24 hours in duration. We discussed options for management to include no change in therapy, a trial of antiarrhythmic medication or referral for catheter-based therapy. He seemed to be most interested in a referral for ablation. Atrial flutter ablation could be performed locally, but if there is a concern about atrial fibrillation he will be best served by referral for both pulmonary vein isolation and cavotricuspid isthmus ablation. He prefers referral to [facility] for evaluation. I will make the appropriate referral. In the interim he can continue his current medications. He asked about taking an extra dose of metoprolol when he has the flutter and this would be reasonable. We also discussed a brief trial of antiarrhythmics, but he was not interested in taking more medication at this time. With regard to anticoagulation, he would benefit from being on some form of anticoagulation. In the past Eliquis and Xarelto were cost prohibitive. Pradaxa may be less expensive but is relatively contraindicated in his demographic. At this point he wishes to start warfarin. This could likely be arranged and monitored through the [facility] outpatient service. 2. Elevated troponin: Very mild. Likely related to his elevated heart rates and not an acute ischemic event. Noted to have severe coronary artery disease. I do not think there is an indication for an ischemic evaluation at this point. 3. Coronary artery disease: Status post percutaneous intervention in June 2023. Known chronic occlusion of the right coronary artery filled via [id number] collaterals. Will continue aggressive secondary prevention with clopidogrel, Zetia and rosuvastatin. 4. Aortic enlargement: Seen previously on echocardiography but not confirmed on the chest CT performed yesterday. 5. Mitral regurgitation: Mild to moderate. This can be followed over time. History of Present Illness Reason for Consultation: Atrial fibrillation Requesting Physician: Judy Attending Physician: Sofya Wilson MD History of Present Illness The patient is a 79-year-old gentleman with a history of coronary disease having previously undergone percutaneous intervention in 2023 and atrial fibrillation/flutter who presented to the emergency room with an elevated heart rate. He states that earlier this week he had similar symptoms of a fluttering in his abdomen associated with some mild dizziness. Very little dyspnea and no chest pain. No other concerns about the episode he initially presented to [facility] where he was found to be in atrial flutter and a high ventricular rate. It seems that he resumed sinus rhythm on his own and elected to go home. However, his symptoms returned and he elected to come to [facility] for additional evaluation. Patient states that he was initially diagnosed with atrial flutter in December 2023. He has not had any known recurrence or symptoms of this nature since that time. 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 He is able to use a push mower and perform other physical activity without significant limitation. He specifically denied any limiting dyspnea or symptoms of chest pain. He generally does not have dizziness or lightheadedness. He uses a blood pressure cuff at home to monitor his heart rate and blood pressure. He did notice some elevated heart rates with this episode. He believes his heart rate was in the 140s. He also notices some high blood pressure and was concerned about his known aortic enlargement becoming worse or rupturing with higher blood pressures. Currently he is feeling well without symptoms. No dizziness, lightheadedness, dyspnea or palpitations at this time. Allergies Allergy/AdvReac Type Severity Reaction Status Date / Time clarithromycin Allergy Intermediate Rash Verified 11/10/24 19:18 doxycycline Allergy Intermediate Rash Verified 11/10/24 19:18 ticagrelor [From Brilinta] Allergy Intermediate Rash Verified 11/10/24 19:18 Home Medications Medication Instructions Recorded Confirmed Type albuterol sulfate 90 mcg/actuation 2 inh inhalation QID PRN Shortness 06/20/23 11/10/24 History aerosol inhaler Of Breath Or Wheezing buspirone 5 mg tablet 5 mg PO BID 06/20/23 11/10/24 History ezetimibe 10 mg tablet 10 mg PO QAM 06/20/23 11/10/24 History gabapentin 100 mg capsule 200 mg PO HS 06/20/23 11/10/24 History pantoprazole 20 mg tablet,delayed 20 mg PO DAILY 06/20/23 11/10/24 History release clopidogrel 75 mg tablet 75 mg PO DAILY 02/06/24 11/10/24 History famotidine 20 mg tablet 20 mg PO HS PRN 02/06/24 11/10/24 History HEARTBURN/INDIGESTION losartan 25 mg tablet 25 mg PO DAILY 02/06/24 11/10/24 History metoprolol succinate 25 mg 25 mg PO DAILY 02/06/24 11/10/24 History tablet,extended release 24 hr olopatadine 0.6 % nasal spray 2 spray intranasal BID PRN seasonal 02/06/24 11/10/24 History rosuvastatin 20 mg tablet 20 mg PO DAILY #90 tabs 08/26/24 11/10/24 Rx Patient History Medical History HTN (hypertension) Surgical History Hx of colonoscopy Hx of esophagogastroduodenoscopy Family History Father Lung disease Mother Heart disease Social History Smoking Status: Unknown if ever smoked Hx Alcohol Use: No Hx Substance Use: No Preferred Language: Macedonian Communication Ability: Effective Vessel Engineer Required: No Beliefs That Will Affect Care: None Current Living Situation: Spouse Other Information That Helps Us Care for You: No Feels Safe at Home: Yes Safety Concerns: Feels Safe At This Time Assistive Devices: Glasses Review of Systems Review of Systems: Per HPI. Physical Exam Physical Exam: The patient is alert and oriented. Mood and affect appeared normal. He answered all questions appropriately. HEENT: Pupils are equal and reactive to light and accommodation. Extraocular movements are intact. The sclerae are anicteric. Neuro: Cranial nerves intact Lungs: Clear to auscultation bilaterally. He has good air movement without use of accessory muscles. No rales wheezes or rhonchi. Cardiac: Heart demonstrates a regular rate and rhythm with occasional ectopy. Normal S1 and S2. Crescendo systolic murmur. Pulses: The patient has palpable radial pulses bilaterally that are equal in intensity Extremities: There was no evidence of hypoperfusion. There is no cyanosis or clubbing. There is no edema. Skin: I did not appreciate any rashes on examination today. Results & Data Vital Signs (Past 12 Hours) Vital Signs Temp Pulse Pulse Resp BP BP Pulse Ox 11/11/24 07:45 36.5 C 52 L 16 120/76 96 11/11/24 06:45 11/11/24 02:55 36.8 C 60 18 108/63 97 11/10/24 23:53 56 L 16 128/73 96 11/10/24 23:42 53 L 11/10/24 22:35 36.4 C L 60 16 165/98 H 97 11/10/24 21:57 58 L 22 135/77 97 O2 Del Method 11/11/24 07:45 Room Air 11/11/24 06:45 Room Air 11/11/24 02:55 Room Air 11/10/24 23:53 Room Air 11/10/24 23:42 11/10/24 22:35 Room Air 11/10/24 21:57 Laboratory Results Abnormal Lab Results 11/10/24 11/11/24 18:15 06:11 WBC 6.09 5.75 RBC 4.90 4.54 L Hgb 14.4 13.5 L Hct 42.4 39.4 L MCV 86.5 86.8 MCH 29.4 29.7 MCHC 34.0 34.3 RDW Std Deviation 38.7 39.3 RDW Coeff of Nahun 12.3 12.5 Plt Count 162 151 MPV 10.6 10.7 Immature Gran % (Auto) 0.2 0.2 Neut % (Auto) 62.0 53.8 Lymph % (Auto) 23.6 33.0 Piute % (Auto) 12.6 11.1 Eos % (Auto) 0.8 1.4 Baso % (Auto) 0.8 0.5 Neut # (Auto) 3.77 3.09 Lymph # (Auto) 1.44 1.90 Piute # (Auto) 0.77 H 0.64 H Eos # (Auto) 0.05 0.08 Baso # (Auto) 0.05 0.03 Immature Gran # (Auto) 0.01 0.01 PT 10.7 INR 1.0 APTT 25 PTT Ratio 0.9 Heparin Anti-Xa, Unfract 0.60 Sodium 138 141 Potassium 4.4 4.1 Chloride 103 108 H Carbon Dioxide 27 28 Anion Gap 8 5 BUN 25 H 18 Creatinine 1.27 1.13 Est Cr Clr Drug Dosing 51.1 57.4 eGFR 57.83 66.53 BUN/Creatinine Ratio 19.7 15.9 Glucose 122 H 102 H Calcium 9.8 9.0 Phosphorus 3.6 Magnesium 2.0 1.9 Total Bilirubin 0.5 AST 36 ALT 30 Alkaline Phosphatase 68 Troponin I High Sens 10.7 50.7 H* D Total Protein 7.3 Albumin 4.3 Globulin 3.0 Albumin/Globulin Ratio 1.4 TSH 2.352 Diagnostic Findings Chest CTA 11/10/2024: No evidence of aortic dissection or acute aortic process. Normal-sized aorta. Coronary artery calcifications. Chest x-ray obtained at time admission did not reveal any acute cardiopulmonary process. Echocardiogram 11/11/2024: Preserved LV systolic function with ejection fraction of 60%. Mild to moderate mitral regurgitation. Aortic valve sclerosis without documented stenosis. Mild right atrial dilation. Borderline aortic root dilation. Mildly dilated IVC. PG Care Time/CCT Total # of Minutes Spent Total Time Spent with Patient: Total time spent is greater than 50% in coordination of care (as documented) at patient's floor/unit and/or counseling patient: Coding Level of Care Code 36612 INT INP/OBS CARE 3MIN Diagnoses Atrial fibrillation/flutter I48.91; I48.92
[2024-11-11 09:52] VITALS: PULSE 53
--- NOTE | 2024-11-11 09:56 | Discharge Summary ---
Date of Service November 11, 2024 Admission HPI Per Admitting Provider 79-year-old male with past medical history significant for dyslipidemia, mild intermittent asthma, ascending aortic dilatation, history of a flutter, history of CAD status post stent., Irritable bowel syndrome, GERD, degenerative disc disease comes because of elevated heart rates and elevated blood pressure and found to be in rapid A-fib. Patient has history of a flutter and patient states since December 2023 he was doing okay until last when his heart rate was high and blood pressure was high and he went to [facility] and got admitted. He was admitted on 11/06 and was discharged on 11/07/2024. He was on Cardizem drip. He converted to sinus rhythm. Before echo was done he wanted to go home and got discharged. Today evening 4 PM again he was not feeling well and when he checked his pulse, it was high and blood pressure also high and he took extra metoprolol dose but it did not bring down his heart rate so he came to the ER. In the ER after fluid boluses his heart rates improved to low 100s and blood pressure improved. Currently resting comfortably and hemodynamically stable. Denies any headache. Has some lightheadedness. Has some congestion and cough from his allergies. No earaches. No fevers. Appetite is okay. Denies any chest pain or shortness of breath. Has some nausea attributes to abdominal bloating from his irritable bowel syndrome. Somewhat constipated. Denies any blood in the stools. Denies any blood in the urine. No rash. Ambulates okay. He has ongoing dental infection in the right upper tooth and has sore gums, supposed to get root canal after cardiac clearance. He is not on Eliquis or Xarelto because of cost and did not wanted to be on warfarin because of frequent blood work. Currently patient is okay to be on IV heparin. Past medical history. As mentioned above Past surgical history. Colonoscopy. EGD. EGD with endoscopic ultrasound. Ureteral stent placement. Lumbosacral injection. Social history. . No smoking. No alcohol use currently. No drug use. Family history. Father had allergies, COPD. Mother has allergies. DE. Admission Exam Per Admitting Provider General- Not in distress Head- atraumatic Eyes- PERRL. ENT- oropharynx clear Neck- supple, no JVD. Lungs- clear to auscultation no wheezing or crackles Heart- irregular rhythm;tachycardia, no murmur, no gallop. Abdomen- normal bowel sounds, soft, nontender, no distension Extremities- no pretibial edema, no erythema seen Neuro- alert, oriented PERRL, no facial palsy; no dysarthria; moves extremities Principal Diagnosis Paroxysmal atrial fibrillation with rapid ventricular rate Discharge Exam Constitutional + well hydrated; no acute distress Eyes PERRL, conjunctivae normal, anicteric sclerae ENMT external ear and nose normal, oropharynx normal Respiratory normal respiratory effort, lungs clear to auscultation Cardiovascular Rate/Rhythm: regular rate and regular rhythm Gastrointestinal (Abdomen) normal bowel sounds, soft, nontender, no hepatosplenomegaly Musculoskeletal No pedal edema Neurologic PERRL, EOMI, accommodation nl, no face palsy, no dysarthria Psychiatric A+Ox3, euthymic affect Discharge Data Allergies Allergy/AdvReac Type Severity Reaction Status Date / Time clarithromycin Allergy Intermediate Rash Verified 11/10/24 19:18 doxycycline Allergy Intermediate Rash Verified 11/10/24 19:18 ticagrelor [From Brilinta] Allergy Intermediate Rash Verified 11/10/24 19:18 Consultations 11/10/24 20:37 ED Decision to Admit Stat 11/11/24 08:00 Consult Cardiology Routine Ordered Studies 11/10/24 18:50 CT angio abdomen pelvis w con Stat Lung Bases/Inferior Mediastinum: Unremarkable Liver: Unremarkable Gallbladder: Unremarkable Spleen: Unremarkable Adrenals: Unremarkable Pancreas: Unremarkable Kidneys: Unremarkable Stomach/Bowel: Stomach and duodenum are unremarkable. Small bowel loops are normal in caliber. Colonic diverticulosis without evidence of acute diverticulitis. The appendix is normal in caliber. Lymph nodes: Unremarkable Vasculature: Mild atherosclerotic vascular disease. No abdominal aortic aneurysm. The renal artery origins are patent. Mild stenosis of the proximal SMA. The celiac is patent. The ALAN is patent. The common iliac, external iliac, internal iliac, and common femoral arteries are patent. Mild multifocal atherosclerotic plaque throughout the arterial system. Pelvis: Urinary bladder is unremarkable. Enlarged prostate measuring 5.4 cm in diameter. No free pelvic fluid. Soft Tissues: Unremarkable Bones: No acute osseous abnormality. Partially fused sacroiliac joints. Mild degenerative changes of the hips and pubic symphysis. Degenerative changes of the spine. IMPRESSION: * No evidence of abdominal aortic aneurysm or dissection. Mild multifocal atherosclerotic vascular disease. * No acute findings in the abdomen or pelvis. * Enlarged prostate. Recommend correlation with serum PSA. * Colonic diverticulosis. CT angio chest dissec wo/w con Stat Lungs: 0.4 cm nodule in the right middle lobe on series 3 image 46. 0.4 cm right upper lobe nodule on series 3 image 13. 0.7 cm left lower lobe nodule on series 3 image 49. No focal consolidation concerning for pneumonia. No pneumothorax or pleural effusion. The central tracheobronchial tree is patent. Heart/Mediastinum: Normal heart size.Coronary artery calcifications are present with severe multivessel disease. Aortic valvular calcification. Mild mitral annular calcification. No pericardial effusion.Included thyroid gland is unremarkable. No suspicious mediastinal or hilar lymph nodes. Thoracic esophagus is unremarkable. Vasculature: No thoracic aortic aneurysm. Mild atherosclerotic vascular disease of the thoracic aorta and arch vessels. No evidence of aortic dissection or acute aortic process. The main pulmonary artery is normal in caliber. There is no large or central pulmonary embolism. Soft Tissues: No enlarged axillary or subpectoral lymph nodes. Soft tissues of the chest wall are unremarkable. Upper Abdomen: The included upper abdomen is unremarkable. Bones: No acute osseous abnormality. Degenerative changes of the spine. Diffuse idiopathic skeletal hyperostosis involving the thoracic spine. IMPRESSION: * No evidence of aortic dissection or acute aortic process. Mild atherosclerotic vascular disease. * Multiple pulmonary nodules. The largest in the left lung base measures 0.7 cm on series 3 image 49. Follow-up chest CT is recommended in 3 months to ensure stability. * Coronary artery calcifications are present with severe multivessel disease. Hospital Course (1) Atrial fibrillation/flutter: 79-year-old male with past medical history significant for dyslipidemia, mild intermittent asthma, ascending aortic dilatation, history of a flutter, history of CAD status post stent., Irritable bowel syndrome, GERD, degenerative disc disease comes because of elevated heart rates and elevated blood pressure and found to be in rapid A-fib. Patient has history of a flutter and patient states since December 2023 he was doing okay until last when his heart rate was high and blood pressure was high and he went to [facility] and got admitted. He was admitted on 11/06 and was discharged on 11/07/2024. He was on Cardizem drip. He converted to sinus rhythm. Before echo was done he wanted to go home and got discharged. On day of presentation here, he was not feeling well and when he checked his pulse, it was high and blood pressure also high and he took extra metoprolol dose but it did not bring down his heart rate so he came to the ER. A-fib/flutter with Rapid ventricular rate Patient spontaneously converted to sinus rhythm this AM Continue metoprolol We discussed the need for anticoagulation Patient does not want to start any anticoagulant at this time. 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 PCP can arrange set up with Anticoagulation clinic once patient decides to start Discussed with Air Antisubmarine Officer who reported they will arrange for ablation outpatient CAD status post stent Hypertension Continue losartan, statin and Plavix CT chest noted pulmonary nodules PCP to arrange repeat CT chest in 3 months to monitor Total Time Total Time Spent Total Time Spent (In Minutes): 35 Total Time Includes: Examination of the Patient, Discharge Planning, Medication Reconciliation and Communication With Other Providers Discharge Plan Discharge Items Patient Disposition: Home - Self-Care Reason For Visit: RAPID A FIB Discharge Diagnosis: Paroxysmal atrial fibrillation with rapid ventricular rate Condition on Discharge: Fair Activity: Resume your previous activity Non-emergency contact: Primary Care Provider and Air Antisubmarine Officer Call non-emergency contact if: you have any medication questions Follow-up/Referrals: Jorge Zhao MD [Primary Care Provider] - Diet: Heart Healthy Addtl Attending Provider Instructions: Mr Flores. You were hospitalized and managed for the above listed diagnosis. Your heart rhythm converted to normal rhythm. It is very important that you follow up with Cardiology who will set up ablation outpatient. Abnormal heart rhythm like yours increases risk of stroke and you will benefit from being on blood thinner to reduce this risk. Please follow up with your Primary Doctor who will set you up with anticoagulation clinic once you make your decision to start. It was a pleasure taking care of you Pending Studies at Discharge: No Stand-Alone Forms: My [employer], Smoking Cessation Medications and DC Order Prescriptions: Continued rosuvastatin 20 mg tablet 20 mg PO DAILY Qty: 90 3RF losartan 25 mg tablet 25 mg PO DAILY metoprolol succinate 25 mg tablet extended release 24 hr 25 mg PO DAILY clopidogrel 75 mg tablet 75 mg PO DAILY buspirone 5 mg Tablet 5 mg PO BID pantoprazole 20 mg Tablet,Delayed Release (Dr/Ec) 20 mg PO DAILY gabapentin 100 mg Capsule 200 mg PO HS albuterol sulfate 90 mcg/actuation Hfa Aerosol Inhaler 2 inh INHALATION QID PRN (Reason: Shortness Of Breath Or Wheezing) ezetimibe 10 mg Tablet 10 mg PO QAM olopatadine 0.6 % spray,non-aerosol 2 spray INTRANASAL BID PRN (Reason: seasonal ) famotidine 20 mg tablet 20 mg PO HS PRN (Reason: HEARTBURN/INDIGESTION) Discharge Orders: Discharge Order (Routine); Ordered 11/11/24 Ordered By: Sofya Stiles/Other Patient Handouts: AFib Admission Data Admit Date/Time: 11/10/24 21:33 Attending Provider: Sofya Wilson I. Admit Provider: Gio Kim Primary Care Provider: Jorge Zhao I. Other Providers: Gio Kim; Pranay Johnson Other Interventions: Discharge Summary Assessment (RN) Last Done: 11/11/24 09:59
[2024-11-11] MEDS ORDERED: GABAPENTIN 100 MG CAP PO SCH (21:00)
--- NOTE | 2024-11-12 10:38 | Electrocardiogram Report ---
Test Reason : Blood Pressure : */* mmHG Vent. Rate : 56 BPM Atrial Rate : 56 BPM P-R Int : 162 ms QRS Dur : 76 ms QT Int : 416 ms P-R-T Axes : 3 -5 21 degrees QTcB Int : 401 ms Sinus bradycardia with Premature atrial complexes Low voltage QRS Borderline ECG When compared with ECG of 19-Sep-2024 15:03, (unconfirmed) Premature atrial complexes are now Present Confirmed by Pranay Pham ([id number]) on 11/12/2024 10:38:28 AM Referred By: REFERRED SELF Confirmed By: Pranay Pham
--- NOTE | 2024-11-12 11:47 | Electrocardiogram Report ---
Test Reason : Blood Pressure : */* mmHG Vent. Rate : 49 BPM Atrial Rate : 49 BPM P-R Int : 160 ms QRS Dur : 86 ms QT Int : 448 ms P-R-T Axes : -8 -12 4 degrees QTcB Int : 404 ms Sinus bradycardia with Premature atrial complexes Abnormal ECG Confirmed by Pranay Pham ([id number]) on 11/12/2024 11:46:54 AM Referred By: REFERRED SELF Confirmed By: Pranay Pham
== END 2024-11-11 11:09 | disposition home or self-care (01) | DRG 310 ==
LOC: ED 18:01 → 2S 21:33